=== PATIENT | female | born 1960 | race American Indian/Alaskan Native ===

== ENCOUNTER 2017-05-11 12:08 | Inpatient (IN) | payer OTHER ==
[2017-05-11] MEDS ORDERED: NACL 0.9% 500 ML 500 ML IV ONE (12:51)
--- NOTE | 2017-05-11 13:18 | XRay Report ---
PORTABLE CHEST INDICATION: Weakness. Evaluate for pneumonia. COMPARISON: None similar at this institution. FINDINGS: Portable, frontal chest radiograph demonstrates limited inspiration with mild exaggerated cardiomediastinal silhouette. Clear lungs. No pleural effusions or CHF. Right hemidiaphragm slightly elevated. EKG leads. Intact bones. CONCLUSION: No acute chest process, as described. Thank you for the opportunity to participate in this patient's care.
[2017-05-11 13:21] LABS: Basophils # (Auto) 0.1 K/mm3 (0.0-0.1); Basophils % (Auto) 2.1 % (0.0-1.8); Eosinophils # (Auto) 0.1 K/mm3 (0.0-0.4); Eosinophils % (Auto) 2.8 % (0.0-4.3); Hematocrit 40.7 % (30.3-42.9); Hemoglobin 13.3 gm/dl (10.1-14.3); Lymphocytes # (Auto) 1.1 K/mm3 (1.2-5.4); Lymphocytes % (Auto) 37.7 % (13.4-35.0); Mean Corpuscular HGB Conc 33 % (30-34); Mean Corpuscular Hemoglobin 30 pg (28-32); Mean Corpuscular Volume 92 fl (79-97); Monocytes # (Auto) 0.4 K/mm3 (0.0-0.8); Monocytes % (Auto) 14.1 % (0.0-7.3); Platelet Count 238 K/mm3 (140-440); Red Blood Count 4.41 M/mm3 (3.65-5.03); Red Cell Distribution Width 15.2 % (13.2-15.2)
[2017-05-11 13:29] LABS: INR 1.02 (0.87-1.13)
[2017-05-11 13:30] LABS: Partial Thromboplastin Time 29.8 Sec. (24.2-36.6); Thrombin Time 16.4 Sec. (15.1-19.6)
[2017-05-11 13:34] LABS: Creatine Kinase MB 1.4 ng/mL (0.0-4.0)
[2017-05-11 13:38] LABS: Alanine Aminotransferase 32 units/L (7-56); Albumin 4.1 g/dL (3.9-5); BUN/Creatinine Ratio 25; Blood Urea Nitrogen 10 mg/dL (7-17); Hemolysis Index 10
--- NOTE | 2017-05-11 13:49 | Emergency Department Report ---
ED General Adult HPI - General Chief complaint: Neuro Symptoms/Deficit Stated complaint: LEFT SIDED FACIAL DROOP Time Seen by Provider: 05/11/17 12:42 Source: EMS (ems notes not available at time of chart dictation) Mode of arrival: Stretcher Limitations: Other (patient has a history of stroke, patient does not answer any of my questions, EMS notes not available at time of dictation) - History of Present Illness Initial comments: This is a 56-year-old female with a history of stroke. She also has a history of feeding tube. She is brought to the hospital by EMS with a complaint of articulate in by EMS of "new stroke." As per verbal report from EMS tenderness , patient was found to have worsening left-sided weakness, and facial droop. Patient is nonverbal. Patient follows some commands but not all commands. Family is not currently available to provide additional history, patient will not answer questions, and cannot provide exacerbating or relieving factors. EMS verbally indicated the patient would not participate with the [place] stroke scale examination. -: unknown Radiation: other (per hpi) Severity scale (0 -10): 0 Quality: other (per hpi) Consistency: other (per hpi) Improves with: other (per hpi) Worsens with: other (per hpi) Associated Symptoms: other (per hpi) - Related Data Home Medications Medication Instructions Recorded Confirmed Last Taken Amlodipine Besylate [Norvasc] 10 mg FEEDTUBE DAILY 05/11/17 05/11/17 Unknown Labetalol [Normodyne TAB] 200 mg PO BID 05/11/17 05/11/17 Unknown Ranitidine HCl [Acid Lard Mixer] 150 mg FEEDTUBE BID 05/11/17 05/11/17 Unknown VALPROIC ACID Liq [DepaKENE Liq] 15 ml FEEDTUBE BID 05/11/17 05/11/17 Unknown hydrALAZINE [Apresoline TAB] 50 mg FEEDTUBE QID 05/11/17 05/11/17 Unknown Allergies Allergy/AdvReac Type Severity Reaction Status Date / Time No Known Allergies Allergy Unverified 05/11/17 12:27 ED Review of Systems ROS: Stated complaint: LEFT SIDED FACIAL DROOP Other details as noted in HPI Comment: Unobtainable due to pts medical conditions ED Past Medical Hx - Past Medical History Previous Medical History?: Yes Hx Hypertension: Yes Hx CVA: Yes Hx GERD: Yes - Social History Smoking Status: Never Smoker Substance Use Type: None - Medications Home Medications: Home Medications Medication Instructions Recorded Confirmed Last Taken Type Amlodipine Besylate [Norvasc] 10 mg FEEDTUBE DAILY 05/11/17 05/11/17 Unknown History Labetalol [Normodyne TAB] 200 mg PO BID 05/11/17 05/11/17 Unknown History Ranitidine HCl [Acid Lard Mixer] 150 mg FEEDTUBE BID 05/11/17 05/11/17 Unknown History VALPROIC ACID Liq [DepaKENE Liq] 15 ml FEEDTUBE BID 05/11/17 05/11/17 Unknown History hydrALAZINE [Apresoline TAB] 50 mg FEEDTUBE QID 05/11/17 05/11/17 Unknown History ED Physical Exam - General Limitations: Altered Mental Status, Other (patient nonverbal, follows some commands, but not all commands) General appearance: in no apparent distress - Head Head exam: Present: atraumatic, normocephalic - Eye Eye exam: Present: normal appearance, PERRL - ENT ENT exam: Present: mucous membranes dry - Neck Neck exam: Present: normal inspection, full ROM - Respiratory Respiratory exam: Present: normal lung sounds bilaterally. Absent: respiratory distress, wheezes, rales, rhonchi, stridor, chest wall tenderness - Cardiovascular Cardiovascular Exam: Present: regular rate, normal rhythm, normal heart sounds. Absent: bradycardia, tachycardia, irregular rhythm, systolic murmur, diastolic murmur, rubs, gallop - GI/Abdominal GI/Abdominal exam: Present: soft, normal bowel sounds, other (feeding tube is noted in the left hemiabdomen. No redness, pus or streaking). Absent: distended, tenderness, guarding, rebound, rigid, pulsatile mass - Rectal Rectal exam: Present: normal inspection (negative sacral breakdown) - Extremities Exam Extremities exam: Present: normal inspection, other (patient has bilateral upper extremities flexed. She will move them to command. She moves the bilateral lower extremities to command. Nonverbal, will not address questions about sensation) - Back Exam Back exam: Present: normal inspection. Absent: tenderness, CVA tenderness (R), paraspinal tenderness, vertebral tenderness - Neurological Exam Neurological exam: Present: altered, other (left-sided facial droop, patient nonverbal, cannot assess hearing, turns head back and forth, patient nonverbal cannot assess visual acuity, will move extremities to command, unable to access sensation) - Psychiatric Psychiatric exam: Present: normal affect, normal mood - Skin Skin exam: Present: warm, dry, intact, normal color. Absent: rash ED Course Vital Signs 05/11/17 05/11/17 05/11/17 12:15 12:27 12:28 Temperature 98.3 F 98.3 F Pulse Rate 81 82 Respiratory 14 14 14 Rate Blood Pressure 112/70 Blood Pressure 112/70 [Right] O2 Sat by Pulse 97 97 97 Oximetry 05/11/17 05/11/17 05/11/17 15:38 16:00 16:31 Temperature Pulse Rate 81 81 77 Respiratory 15 21 16 Rate Blood Pressure 113/74 123/83 Blood Pressure [Right] O2 Sat by Pulse 99 99 Oximetry 05/11/17 05/11/17 05/11/17 17:00 17:31 18:00 Temperature Pulse Rate 73 85 78 Respiratory 17 13 16 Rate Blood Pressure 121/70 140/94 140/92 Blood Pressure [Right] O2 Sat by Pulse 95 98 96 Oximetry 05/11/17 05/11/17 05/11/17 18:31 19:00 19:30 Temperature Pulse Rate 80 81 84 Respiratory 20 19 19 Rate Blood Pressure 133/106 132/89 120/82 Blood Pressure [Right] O2 Sat by Pulse 97 98 97 Oximetry - Reevaluation(s) Reevaluation #1: 05/11/17 13:51 Differential diagnosis, including but not limited to: Intracranial hemorrhage, ischemic stroke, seizure, pneumonia, urinary tract infection, electrolyte derangement Assessment and plan: Additional history obtained as patient's family is now in the ER. They endorse the patient was recently admitted to [facility] for presumed hemorrhagic stroke, had a prolonged stay in the ICU with a "shunt." Patient was discharged about a week and a half ago, nonambulatory but verbal. Patient's cousin endorses that the patient is no longer verbal, and "not acting like herself. This is constant. It has no exacerbating or relieving factors. Last known well time was yesterday. Laboratory studies, CT scan, urinalysis, EKG pending. We are attempting to obtain patient's medical records from other facility. Reevaluation #2: 05/11/17 15:35 CT scan demonstrates subacute findings, scant interventricular blood noted in the right ventricle, patient's old medical records reviewed, this is consistent with her history of known ventricular hemorrhage. Aspirin will be withheld at this time. Awaiting callback from Hospital physician. Reevaluation #3: 05/11/17 15:49 Case discussed with consult neurosurgeon, Dr. Hilary Christianson. She does recommend admission to evaluate for ischemic stroke, and further indicates that aspirin is "okay" Given that bleed is 3 weeks out. she indicates that neurosurgery at her facility can be contacted if any further questions arise. Awaiting callback from Hospital physician. Reevaluation #4: 05/11/17 16:07 Dr Iglesias, accepts patient to medical service ED Medical Decision Making - Lab Data Result diagrams: 05/12/17 05:44 05/12/17 05:44 Vital Signs 05/11/17 05/11/17 05/11/17 12:15 12:27 12:28 Temperature 98.3 F 98.3 F Pulse Rate 81 82 Respiratory 14 14 14 Rate Blood Pressure 112/70 Blood Pressure 112/70 [Right] O2 Sat by Pulse 97 97 97 Oximetry Labs 05/11/17 05/11/17 05/11/17 12:56 12:56 12:56 WBC 3.0 L RBC 4.41 Hgb 13.3 Hct 40.7 MCV 92 MCH 30 MCHC 33 RDW 15.2 Plt Count 238 Lymph % (Auto) 37.7 H [place] % (Auto) 14.1 H Eos % (Auto) 2.8 Baso % (Auto) 2.1 H Lymph # 1.1 L [place] # 0.4 Eos # 0.1 Baso # 0.1 Seg Neutrophils % 43.3 Seg Neutrophils # 1.3 L PT 13.9 INR 1.02 APTT 29.8 Thrombin Time 16.4 Sodium 140 Potassium 4.4 Chloride 100.5 Carbon Dioxide 25 Anion Gap 19 BUN 10 Creatinine 0.4 L Estimated GFR > 60 BUN/Creatinine Ratio 25 Glucose 101 H Calcium 10.0 Total Bilirubin 0.20 AST 28 ALT 32 Alkaline Phosphatase 54 Total Creatine Kinase 64 CK-MB (CK-2) 1.4 CK-MB (CK-2) Rel Index 2.1 Troponin T < 0.010 Total Protein 7.0 Albumin 4.1 Albumin/Globulin Ratio 1.4 Valproic Acid 05/11/17 12:56 WBC RBC Hgb Hct MCV MCH MCHC RDW Plt Count Lymph % (Auto) [place] % (Auto) Eos % (Auto) Baso % (Auto) Lymph # [place] # Eos # Baso # Seg Neutrophils % Seg Neutrophils # PT INR APTT Thrombin Time Sodium Potassium Chloride Carbon Dioxide Anion Gap BUN Creatinine Estimated GFR BUN/Creatinine Ratio Glucose Calcium Total Bilirubin AST ALT Alkaline Phosphatase Total Creatine Kinase CK-MB (CK-2) CK-MB (CK-2) Rel Index Troponin T Total Protein Albumin Albumin/Globulin Ratio Valproic Acid 79.7 - EKG Data -: EKG Interpreted by Me EKG shows normal: sinus rhythm Rate: normal - EKG Data When compared to previous EKG there are: previous EKG unavailable - Radiology Data Radiology results: report reviewed, image reviewed X-ray of the chest is negative for acute disease Critical care attestation.: If time is entered above; I have spent that time in minutes in the direct care of this critically ill patient, excluding procedure time. ED Disposition Clinical Impression: Aphasia Disposition: [id number] OP ADMIT IP TO THIS HOSP Is pt being admited?: Yes Does the pt Need Aspirin: Yes Condition: Stable
[2017-05-11 14:31] LABS: Bilirubin,Urine NEG (Negative); Blood,Urine NEG (Negative); Color,Urine Yellow (Yellow); Mucus,Urine FEW /HPF; Nitrite,Urine NEG (Negative); Protein,Urine <15 mg/dL mg/dL (Negative); Urobilinogen,Urine < 2.0 mg/dL (<2.0)
--- NOTE | 2017-05-11 15:16 | Cat Scan Report ---
CT HEAD WITHOUT CONTRAST: HISTORY: Stroke. Serial contiguous axial images were obtained through the cranium. Intravenous contrast material was not administered. No comparison. A 2.5 cm area of diminished attenuation is identified in the right thalamus. This appears to represent a subacute infarct. There is a small amount of slightly hyperintense material in the right lateral ventricle which appears to represent subacute blood. No acute hemorrhage is appreciated. Chronic infarct in the right occipital lobe measures up to 5.7 x 2.5 cm. 1 cm chronic lacunar infarct in the right josh is also noted. There are mild nonspecific chronic white matter changes bilaterally. Ventricular size is borderline. An early hydrocephalus could be considered. The paranasal sinuses and mastoid air cells are clear. IMPRESSION: Apparent subacute to early chronic right thalamic infarct measuring 2.5 cm with a small amount of intraventricular blood which also appears subacute. Please correlate with the patient's clinical presentation and history. Chronic infarcts in the right occipital lobe and right josh. Chronic white matter changes. These findings were discussed with Dr. Mari in the emergency department at 1512 hrs.
[2017-05-11] MEDS ORDERED: BABY ASPIRIN FEEDTUBE ONE (15:50)
--- NOTE | 2017-05-11 17:08 | History and Physical Report ---
History of Present Illness Date of examination: 05/11/17 Date of admission: 05/11/17 Chief complaint: Cc L sided weakness History of present illness: - History of Present Illness Initial comments: T 56-year-old female AAF with a history of stroke and feeding tube brought to the hospital by EMS with a complaint of of "new stroke." As per verbal report from EMS patient was found to have worsening left-sided weakness, and facial droop. Patient is nonverbal. Patient follows some commands but not all commands. Family is not currently available to provide additional history, patient will not answer questions, and cannot provide exacerbating or relieving factors. EMS verbally indicated the patient would not participate with the [place] stroke scale examination. Past Medical History Previous Medical History?: Yes Hx Hypertension: Yes Hx CVA: Yes Hx GERD: Yes - Social History Smoking Status: Never Smoker Substance Use Type: None Surg Hx Peg tube placement - Medications Home Medications: Home Medications Medication Instructions Recorded Confirmed Last Taken Type Amlodipine Besylate [Norvasc] 10 mg FEEDTUBE DAILY 05/11/17 05/11/17 Unknown History Labetalol [Normodyne TAB] 200 mg PO BID 05/11/17 05/11/17 Unknown History Ranitidine HCl [Acid Milk Pickup Driver] 150 mg FEEDTUBE BID 05/11/17 05/11/17 Unknown History VALPROIC ACID Liq [DepaKENE Liq] 15 ml FEEDTUBE BID 05/11/17 05/11/17 Unknown History hydrALAZINE [Apresoline TAB] 50 mg FEEDTUBE QID 05/11/17 05/11/17 Unknown History Past History Past Medical History: GERD, seizures, stroke Past Surgical History: Other (peg tube) Social history: denies: smoking, alcohol abuse Medications and Allergies Allergies Allergy/AdvReac Type Severity Reaction Status Date / Time No Known Allergies Allergy Unverified 05/11/17 12:27 Home Medications Medication Instructions Recorded Confirmed Last Taken Type Amlodipine Besylate [Norvasc] 10 mg FEEDTUBE DAILY 05/11/17 05/11/17 Unknown History Labetalol [Normodyne TAB] 200 mg PO BID 05/11/17 05/11/17 Unknown History Ranitidine HCl [Acid Milk Pickup Driver] 150 mg FEEDTUBE BID 05/11/17 05/11/17 Unknown History VALPROIC ACID Liq [DepaKENE Liq] 15 ml FEEDTUBE BID 05/11/17 05/11/17 Unknown History hydrALAZINE [Apresoline TAB] 50 mg FEEDTUBE QID 05/11/17 05/11/17 Unknown History Review of Systems All systems: negative Constitutional: no weight loss, no weight gain, no fever, no chills, no sweats, no night sweats Ears, nose, mouth and throat: no sore throat, no swelling in mouth, no swelling in throat, no odynophagia Breasts: deferred Cardiovascular: no chest pain, no orthopnea, no palpitations, no rapid/ irregular heart beat, no edema, no syncope, no lightheadedness, no shortness of breath Respiratory: no cough, no cough with sputum, no excessive sputum, no hemoptysis , no shortness of breath, no dyspnea on exertion Gastrointestinal: no abdominal pain, no nausea, no vomiting, no diarrhea, no constipation, no change in bowel habits, no hematemesis, no coffee ground emesis Genitourinary Female: no menorrhagia, no dysuria, no urinary frequency, no urgency Musculoskeletal: no neck stiffness, no neck pain, no shooting arm pain Integumentary: no rash, no pruritis, no redness, no sores, no wounds, no jaundice, no boils, no blisters Neurological: no seizures, no syncope Psychiatric: no anxiety, no memory loss, no change in sleep habits, no sleep disturbances Endocrine: no cold intolerance, no heat intolerance Hematologic/Lymphatic: no easy bruising, no easy bleeding Allergic/Immunologic: no urticaria, no allergic rhinitis, no wheezing Exam - Constitutional Vitals: Temp Pulse Resp BP Pulse Ox 98.3 F 77 16 123/83 99 05/11/17 12:27 05/11/17 16:31 05/11/17 16:31 05/11/17 16:31 05/11/17 16:00 General appearance: Present: no acute distress, well-nourished - EENT Eyes: Present: PERRL ENT: hearing intact, clear oral mucosa - Neck Neck: Present: supple, normal ROM - Respiratory Respiratory effort: normal Respiratory: bilateral: CTA - Cardiovascular Heart rate: 80 Heart Sounds: Present: S1 & S2. Absent: rub, click - Extremities Extremities: pulses symmetrical, No edema Peripheral Pulses: within normal limits - Abdominal General gastrointestinal: Present: soft, non-tender, non-distended, normal bowel sounds Female genitourinary: Present: normal - Rectal Rectal Exam: deferred - Integumentary Integumentary: Present: clear, warm, dry - Musculoskeletal Musculoskeletal: generalized weakness - Psychiatric Psychiatric: appropriate mood/affect, intact judgment & insight - Neurologic Neurologic: focal deficits, moves all extremities - Allied Health Allied health notes reviewed: nursing, case management Results - Labs CBC & Chem 7: 05/12/17 05:44 05/12/17 05:44 Labs: Laboratory Last Values WBC 3.0 K/mm3 (4.5-11.0) L 05/11/17 12:56 RBC 4.41 M/mm3 (3.65-5.03) 05/11/17 12:56 Hgb 13.3 gm/dl (10.1-14.3) 05/11/17 12:56 Hct 40.7 % (30.3-42.9) 05/11/17 12:56 MCV 92 fl (79-97) 05/11/17 12:56 MCH 30 pg (28-32) 05/11/17 12:56 MCHC 33 % (30-34) 05/11/17 12:56 RDW 15.2 % (13.2-15.2) 05/11/17 12:56 Plt Count 238 K/mm3 (140-440) 05/11/17 12:56 Lymph % (Auto) 37.7 % (13.4-35.0) H 05/11/17 12:56 [place] % (Auto) 14.1 % (0.0-7.3) H 05/11/17 12:56 Eos % (Auto) 2.8 % (0.0-4.3) 05/11/17 12:56 Baso % (Auto) 2.1 % (0.0-1.8) H 05/11/17 12:56 Lymph # 1.1 K/mm3 (1.2-5.4) L 05/11/17 12:56 [place] # 0.4 K/mm3 (0.0-0.8) 05/11/17 12:56 Eos # 0.1 K/mm3 (0.0-0.4) 05/11/17 12:56 Baso # 0.1 K/mm3 (0.0-0.1) 05/11/17 12:56 Seg Neutrophils % 43.3 % (40.0-70.0) 05/11/17 12:56 Seg Neutrophils # 1.3 K/mm3 (1.8-7.7) L 05/11/17 12:56 PT 13.9 Sec. (12.2-14.9) 05/11/17 12:56 INR 1.02 (0.87-1.13) 05/11/17 12:56 APTT 29.8 Sec. (24.2-36.6) 05/11/17 12:56 Thrombin Time 16.4 Sec. (15.1-19.6) 05/11/17 12:56 Sodium 140 mmol/L (137-145) 05/11/17 12:56 Potassium 4.4 mmol/L (3.6-5.0) 05/11/17 12:56 Chloride 100.5 mmol/L (98-107) 05/11/17 12:56 Carbon Dioxide 25 mmol/L (22-30) 05/11/17 12:56 Anion Gap 19 mmol/L 05/11/17 12:56 BUN 10 mg/dL (7-17) 05/11/17 12:56 Creatinine 0.4 mg/dL (0.7-1.2) L 05/11/17 12:56 Estimated GFR > 60 ml/min 05/11/17 12:56 BUN/Creatinine Ratio 25 % 05/11/17 12:56 Glucose 101 mg/dL (65-100) H 05/11/17 12:56 Calcium 10.0 mg/dL (8.4-10.2) 05/11/17 12:56 Total Bilirubin 0.20 mg/dL (0.1-1.2) 05/11/17 12:56 AST 28 units/L (5-40) 05/11/17 12:56 ALT 32 units/L (7-56) 05/11/17 12:56 Alkaline Phosphatase 54 units/L (35-129) 05/11/17 12:56 Total Creatine Kinase 64 units/L (30-135) 05/11/17 12:56 CK-MB (CK-2) 1.4 ng/mL (0.0-4.0) 05/11/17 12:56 CK-MB (CK-2) Rel Index 2.1 (0-4) 05/11/17 12:56 Troponin T < 0.010 ng/mL (0.00-0.029) 05/11/17 12:56 Total Protein 7.0 g/dL (6.3-8.2) 05/11/17 12:56 Albumin 4.1 g/dL (3.9-5) 05/11/17 12:56 Albumin/Globulin Ratio 1.4 % 05/11/17 12:56 Urine Color Yellow (Yellow) 05/11/17 14:09 Urine Turbidity Clear (Clear) 05/11/17 14:09 Urine pH 6.0 (5.0-7.0) 05/11/17 14:09 Ur Specific [place] 1.016 (1.003-1.030) 05/11/17 14:09 Urine Protein <15 mg/dl mg/dL (Negative) 05/11/17 14:09 Urine Glucose (UA) Neg mg/dL (Negative) 05/11/17 14:09 Urine Ketones Tr mg/dL (Negative) 05/11/17 14:09 Urine Blood Neg (Negative) 05/11/17 14:09 Urine Nitrite Neg (Negative) 05/11/17 14:09 Urine Bilirubin Neg (Negative) 05/11/17 14:09 Urine Urobilinogen < 2.0 mg/dL (<2.0) 05/11/17 14:09 Ur Leukocyte Esterase Neg (Negative) 05/11/17 14:09 Urine WBC (Auto) 2.0 /HPF (0.0-6.0) 05/11/17 14:09 Urine RBC (Auto) 3.0 /HPF (0.0-6.0) 05/11/17 14:09 U Epithel Cells (Auto) < 1.0 /HPF (0-13.0) 05/11/17 14:09 Urine Mucus Few /HPF 05/11/17 14:09 Valproic Acid 79.7 ug/mL (50-100) 05/11/17 12:56 - Imaging and Cardiology EKG: report reviewed Chest x-ray: report reviewed Assessment and Plan Advance Directives: Yes (full code) VTE prophylaxis?: Chemical Plan of care discussed with patient/family: Yes - Patient Problems (1) Acute CVA (cerebrovascular accident) Current Visit: Yes Status: Acute Plan to address problem: New Lsided weakness. Stroke w/u Patient is bedbound Neuro consult (2) HTN (hypertension) Current Visit: Yes Status: Chronic Qualifiers: Hypertension type: essential hypertension Qualified Code(s): I10 - Essential (primary) hypertension Plan to address problem: Cont Labetolol amlodipine and Hydralazine (3) GERD (gastroesophageal reflux disease) Current Visit: Yes Status: Chronic Qualifiers: Esophagitis presence: without esophagitis Qualified Code(s): K21.9 - Gastro -esophageal reflux disease without esophagitis Plan to address problem: Cont Ranitidine (4) Seizure disorder Current Visit: Yes Status: Chronic Plan to address problem: Cont valproic acid (5) DVT prophylaxis Current Visit: Yes Status: Acute Plan to address problem: on Lovenox
[2017-05-11] MEDS ORDERED: D5/0.45NS 1,000 ML IV SCH (18:00)
[2017-05-11] MEDS ORDERED: BABY ASPIRIN ONE (19:42)
[2017-05-11] MEDS ORDERED: TYLENOL PO PRN (21:18)
[2017-05-11] MEDS ORDERED: DULCOLAX PR PRN (21:18)
[2017-05-11] MEDS ORDERED: ZOFRAN IV PRN (21:18)
[2017-05-11] MEDS ORDERED: MILK OF MAGNESIA PO PRN (21:18)
[2017-05-11] MEDS ORDERED: SODIUM CHLORIDE FLUSH SYRINGE 10 ML IV PRN (21:20)
[2017-05-12] MEDS: D5NS 1,000 ML IV SCH ×2 (01:58→11:59)
[2017-05-12 06:56] LABS: Hematocrit 38.7 % (30.3-42.9); Hemoglobin 13.1 gm/dl (10.1-14.3); Mean Corpuscular HGB Conc 34 % (30-34); Mean Corpuscular Hemoglobin 31 pg (28-32); Mean Corpuscular Volume 92 fl (79-97); Platelet Count 227 K/mm3 (140-440); Red Blood Count 4.19 M/mm3 (3.65-5.03); Red Cell Distribution Width 15.3 % (13.2-15.2)
[2017-05-12 07:19] LABS: Alanine Aminotransferase 28 units/L (7-56); Albumin 3.8 g/dL (3.9-5); BUN/Creatinine Ratio 30; Blood Urea Nitrogen 12 mg/dL (7-17); Calcium 9.8 mg/dL (8.4-10.2); Chol/HDL Ratio 4.91 %; HDL Cholesterol 35 mg/dL (40-59); Hemolysis Index 37; LDL Cholesterol,Direct 115 mg/dL (50-130)
[2017-05-12 09:57] LABS: Basophils % (Manual) 0 % (0.0-1.8); Total Cells Counted 100
[2017-05-12 09:58] LABS: Platelet Clumps Few
[2017-05-12 09:59] LABS: Platelet Estimate Cons; RBC Morphology Normal
[2017-05-12] MEDS ORDERED: SODIUM BICARBONATE FEEDTUBE PRN (14:58)
[2017-05-12] MEDS ORDERED: SIMPLE SYRUP FEEDTUBE PRN ×2 (14:58)
[2017-05-12] MEDS ORDERED: PANCREAZE DR 10,500 UNIT FEEDTUBE PRN (14:58)
--- NOTE | 2017-05-12 15:49 | Progress Note ---
Assessment and Plan Assessment and plan: 56 yo AAF which recent stroke, with residual left-sided weakness, aphagia, dysphagia status post PEG, brought to the hospital for "worsening weakness", patient being bedbound 1. CVA CT head showing subacute to early chronic right thalamic infarct, small about of internal ventricular blood, chronic infarct right occipital lobe/right josh MRI ordered to assess for new infarct Residual left-sided weakness, bedbound, aphasic, dysphagic s/p PEG Start antiplatelet therapy and statin PT 2. SZ Continue valproic acid 3. HTN Permissive hypertension until new stroke excluded Monitor BP 4. GERD On PPI 5. Hyperlipidemia Lipid profile check, LDL 115 Start statin 6. Leukopenia Possible side effect of antiepileptic medication Monitor 7. Dispo client program manager consulted as family is asking for placement; she was just discharged home from [place] after having a massive stroke that left her bedbound History Interval history: awake, nonverbal, in no distress Hospitalist Physical - Constitutional Vitals: Temp Pulse Resp BP Pulse Ox 98.0 F 81 20 134/88 96 05/12/17 03:32 05/12/17 04:00 05/12/17 03:32 05/12/17 03:32 05/12/17 14:02 General appearance: Present: no acute distress, well-nourished - EENT Eyes: Present: PERRL, EOM intact - Neck Neck: Present: supple. Absent: enlarged thyroid, masses or JVD - Respiratory Respiratory effort: normal Respiratory: bilateral: CTA, negative: rales, rhonchi - Cardiovascular Rhythm: regular Heart Sounds: Present: S1 & S2. Absent: systolic murmur - Extremities Extremities: no ischemia - Abdominal General gastrointestinal: soft, non-tender, non-distended, normal bowel sounds, other (PEG) - Psychiatric Psychiatric: other (nonverbal, nods head occasionally) - Neurologic Neurologic: other (left-sided hemiplegia) Results - Labs CBC & Chem 7: 05/15/17 04:00 05/12/17 05:44 Labs: Laboratory Last Values WBC 2.9 K/mm3 (4.5-11.0) L 05/12/17 05:44 RBC 4.19 M/mm3 (3.65-5.03) 05/12/17 05:44 Hgb 13.1 gm/dl (10.1-14.3) 05/12/17 05:44 Hct 38.7 % (30.3-42.9) 05/12/17 05:44 MCV 92 fl (79-97) 05/12/17 05:44 MCH 31 pg (28-32) 05/12/17 05:44 MCHC 34 % (30-34) 05/12/17 05:44 RDW 15.3 % (13.2-15.2) H 05/12/17 05:44 Plt Count 227 K/mm3 (140-440) 05/12/17 05:44 Lymph % (Auto) 37.7 % (13.4-35.0) H 05/11/17 12:56 [place] % (Auto) 14.1 % (0.0-7.3) H 05/11/17 12:56 Eos % (Auto) 2.8 % (0.0-4.3) 05/11/17 12:56 Baso % (Auto) 2.1 % (0.0-1.8) H 05/11/17 12:56 Lymph # 1.1 K/mm3 (1.2-5.4) L 05/11/17 12:56 [place] # 0.4 K/mm3 (0.0-0.8) 05/11/17 12:56 Eos # 0.1 K/mm3 (0.0-0.4) 05/11/17 12:56 Baso # 0.1 K/mm3 (0.0-0.1) 05/11/17 12:56 Add Manual Diff Complete 05/12/17 05:44 Total Counted 100 05/12/17 05:44 Seg Neutrophils % Material Expeditor 05/12/17 05:44 Seg Neuts % (Manual) 46.0 % (40.0-70.0) 05/12/17 05:44 Band Neutrophils % 0 % 05/12/17 05:44 Lymphocytes % (Manual) 39.0 % (13.4-35.0) H 05/12/17 05:44 Reactive Lymphs % (Man) 0 % 05/12/17 05:44 Monocytes % (Manual) 12.0 % (0.0-7.3) H 05/12/17 05:44 Eosinophils % (Manual) 3.0 % (0.0-4.3) 05/12/17 05:44 Basophils % (Manual) 0 % (0.0-1.8) 05/12/17 05:44 Metamyelocytes % 0 % 05/12/17 05:44 Myelocytes % 0 % 05/12/17 05:44 Promyelocytes % 0 % 05/12/17 05:44 Blast Cells % 0 % 05/12/17 05:44 Nucleated RBC % Not Reportable 05/12/17 05:44 Seg Neutrophils # 1.3 K/mm3 (1.8-7.7) L 05/11/17 12:56 Seg Neutrophils # Man 1.3 K/mm3 (1.8-7.7) L 05/12/17 05:44 Band Neutrophils # 0.0 K/mm3 05/12/17 05:44 Lymphocytes # (Manual) 1.1 K/mm3 (1.2-5.4) L 05/12/17 05:44 Abs React Lymphs (Man) 0.0 K/mm3 05/12/17 05:44 Monocytes # (Manual) 0.3 K/mm3 (0.0-0.8) 05/12/17 05:44 Eosinophils # (Manual) 0.1 K/mm3 (0.0-0.4) 05/12/17 05:44 Basophils # (Manual) 0.0 K/mm3 (0.0-0.1) 05/12/17 05:44 Metamyelocytes # 0.0 K/mm3 05/12/17 05:44 Myelocytes # 0.0 K/mm3 05/12/17 05:44 Promyelocytes # 0.0 K/mm3 05/12/17 05:44 Blast Cells # 0.0 K/mm3 05/12/17 05:44 WBC Morphology Not Reportable 05/12/17 05:44 Hypersegmented Neuts Not Reportable 05/12/17 05:44 Hyposegmented Neuts Not Reportable 05/12/17 05:44 Hypogranular Neuts Not Reportable 05/12/17 05:44 Smudge Cells Not Reportable 05/12/17 05:44 Toxic Granulation Not Reportable 05/12/17 05:44 Toxic Vacuolation Not Reportable 05/12/17 05:44 Dohle Bodies Not Reportable 05/12/17 05:44 Pelger-Huet Anomaly Not Reportable 05/12/17 05:44 Shelly Rods Not Reportable 05/12/17 05:44 Platelet Estimate Cons 05/12/17 05:44 Clumped Platelets Few 05/12/17 05:44 Plt Clumps, EDTA Not Reportable 05/12/17 05:44 Large Platelets Not Reportable 05/12/17 05:44 Giant Platelets Not Reportable 05/12/17 05:44 Platelet Satelliting Not Reportable 05/12/17 05:44 Plt Morphology Comment Not Reportable 05/12/17 05:44 RBC Morphology Normal 05/12/17 05:44 Dimorphic RBCs Not Reportable 05/12/17 05:44 Polychromasia Not Reportable 05/12/17 05:44 Hypochromasia Not Reportable 05/12/17 05:44 Poikilocytosis Not Reportable 05/12/17 05:44 Anisocytosis Not Reportable 05/12/17 05:44 Microcytosis Not Reportable 05/12/17 05:44 Macrocytosis Not Reportable 05/12/17 05:44 Spherocytes Not Reportable 05/12/17 05:44 Pappenheimer Bodies Not Reportable 05/12/17 05:44 Sickle Cells Not Reportable 05/12/17 05:44 Target Cells Not Reportable 05/12/17 05:44 Tear Drop Cells Not Reportable 05/12/17 05:44 Ovalocytes Not Reportable 05/12/17 05:44 Helmet Cells Not Reportable 05/12/17 05:44 [place] Bodies Not Reportable 05/12/17 05:44 [place] Rings Not Reportable 05/12/17 05:44 [place] Cells Not Reportable 05/12/17 05:44 Bite Cells Not Reportable 05/12/17 05:44 Crenated Cell Not Reportable 05/12/17 05:44 Elliptocytes Not Reportable 05/12/17 05:44 Acanthocytes (Spur) Not Reportable 05/12/17 05:44 Rouleaux Not Reportable 05/12/17 05:44 Hemoglobin C Crystals Not Reportable 05/12/17 05:44 Schistocytes Not Reportable 05/12/17 05:44 Malaria parasites Not Reportable 05/12/17 05:44 Wander Bodies Not Reportable 05/12/17 05:44 Hem Pathologist Commnt No 05/12/17 05:44 PT 13.9 Sec. (12.2-14.9) 05/11/17 12:56 INR 1.02 (0.87-1.13) 05/11/17 12:56 APTT 29.8 Sec. (24.2-36.6) 05/11/17 12:56 Thrombin Time 16.4 Sec. (15.1-19.6) 05/11/17 12:56 Sodium 144 mmol/L (137-145) 05/12/17 05:44 Potassium 4.3 mmol/L (3.6-5.0) 05/12/17 05:44 Chloride 103.0 mmol/L (98-107) 05/12/17 05:44 Carbon Dioxide 28 mmol/L (22-30) 05/12/17 05:44 Anion Gap 17 mmol/L 05/12/17 05:44 BUN 12 mg/dL (7-17) 05/12/17 05:44 Creatinine 0.4 mg/dL (0.7-1.2) L 05/12/17 05:44 Estimated GFR > 60 ml/min 05/12/17 05:44 BUN/Creatinine Ratio 30 % 05/12/17 05:44 Glucose 86 mg/dL (65-100) 05/12/17 05:44 Hemoglobin A1c 5.7 % (4-6) 05/11/17 12:56 Calcium 9.8 mg/dL (8.4-10.2) 05/12/17 05:44 Total Bilirubin 0.30 mg/dL (0.1-1.2) 05/12/17 05:44 AST 27 units/L (5-40) 05/12/17 05:44 ALT 28 units/L (7-56) 05/12/17 05:44 Alkaline Phosphatase 52 units/L (35-129) 05/12/17 05:44 Total Creatine Kinase 64 units/L (30-135) 05/11/17 12:56 CK-MB (CK-2) 1.4 ng/mL (0.0-4.0) 05/11/17 12:56 CK-MB (CK-2) Rel Index 2.1 (0-4) 05/11/17 12:56 Troponin T < 0.010 ng/mL (0.00-0.029) 05/11/17 12:56 Total Protein 6.5 g/dL (6.3-8.2) 05/12/17 05:44 Albumin 3.8 g/dL (3.9-5) L 05/12/17 05:44 Albumin/Globulin Ratio 1.4 % 05/12/17 05:44 Triglycerides 113 mg/dL (2-149) 05/12/17 05:44 Cholesterol 172 mg/dL (50-199) 05/12/17 05:44 LDL Cholesterol Direct 115 mg/dL (50-130) 05/12/17 05:44 HDL Cholesterol 35 mg/dL (40-59) L 05/12/17 05:44 Cholesterol/HDL Ratio 4.91 % 05/12/17 05:44 Urine Color Yellow (Yellow) 05/11/17 14:09 Urine Turbidity Clear (Clear) 05/11/17 14:09 Urine pH 6.0 (5.0-7.0) 05/11/17 14:09 Ur Specific [place] 1.016 (1.003-1.030) 05/11/17 14:09 Urine Protein <15 mg/dl mg/dL (Negative) 05/11/17 14:09 Urine Glucose (UA) Neg mg/dL (Negative) 05/11/17 14:09 Urine Ketones Tr mg/dL (Negative) 05/11/17 14:09 Urine Blood Neg (Negative) 05/11/17 14:09 Urine Nitrite Neg (Negative) 05/11/17 14:09 Urine Bilirubin Neg (Negative) 05/11/17 14:09 Urine Urobilinogen < 2.0 mg/dL (<2.0) 05/11/17 14:09 Ur Leukocyte Esterase Neg (Negative) 05/11/17 14:09 Urine WBC (Auto) 2.0 /HPF (0.0-6.0) 05/11/17 14:09 Urine RBC (Auto) 3.0 /HPF (0.0-6.0) 05/11/17 14:09 U Epithel Cells (Auto) < 1.0 /HPF (0-13.0) 05/11/17 14:09 Urine Mucus Few /HPF 05/11/17 14:09 Valproic Acid 79.7 ug/mL (50-100) 05/11/17 12:56 - Imaging and Cardiology CT Scan - head: report reviewed MRI - head: pending
[2017-05-13] MEDS: NORVASC FEEDTUBE SCH (14:51)
[2017-05-13] MEDS: DepaKENE Liq FEEDTUBE SCH ×2 (14:51→22:06)
[2017-05-13] MEDS: BABY ASPIRIN PO SCH (14:51)
--- NOTE | 2017-05-13 19:21 | Progress Note ---
Assessment and Plan Assessment and plan: 56 yo AAF which recent stroke, with residual left-sided weakness, aphagia, dysphagia status post PEG, brought to the hospital for "worsening weakness", patient being bedbound 1. CVA CT head showing subacute to early chronic right thalamic infarct, small about of internal ventricular blood, chronic infarct right occipital lobe/right josh With residual left-sided weakness, bedbound, aphasic, dysphagic s/p PEG Started on antiplatelet therapy and statin PT 2. SZ Continue valproic acid 3. HTN No new stroke Start amlodipine and monitor BP 4. GERD On PPI 5. Hyperlipidemia Lipid profile check, LDL 115 Started on statin 6. Leukopenia Possible side effect of antiepileptic medication Monitor 7. Dispo manager business process consulted as family is asking for placement; she was just discharged home from [place] after having a massive stroke that left her bedbound ; family unable to care for her History Interval history: no events, no change; nonverbal no family at bedside Hospitalist Physical - Constitutional Vitals: Temp Pulse Resp BP Pulse Ox 99.1 F 87 18 159/90 98 05/13/17 15:43 05/13/17 15:43 05/13/17 15:43 05/13/17 15:43 05/13/17 15:43 General appearance: Present: no acute distress - EENT Eyes: Present: PERRL - Neck Neck: Present: supple. Absent: enlarged thyroid, masses or JVD - Respiratory Respiratory effort: normal Respiratory: bilateral: CTA, negative: rales, rhonchi - Cardiovascular Rhythm: regular Heart Sounds: Present: S1 & S2. Absent: systolic murmur - Extremities Extremities: no ischemia - Abdominal General gastrointestinal: soft, non-tender, non-distended, normal bowel sounds, other (PEG) - Psychiatric Psychiatric: other (nonverbal) - Neurologic Neurologic: other (left-sided hemiplegia, aphasia) Results - Labs CBC & Chem 7: 05/15/17 04:00 05/12/17 05:44 Labs: Laboratory Last Values WBC 2.9 K/mm3 (4.5-11.0) L 05/12/17 05:44 RBC 4.19 M/mm3 (3.65-5.03) 05/12/17 05:44 Hgb 13.1 gm/dl (10.1-14.3) 05/12/17 05:44 Hct 38.7 % (30.3-42.9) 05/12/17 05:44 MCV 92 fl (79-97) 05/12/17 05:44 MCH 31 pg (28-32) 05/12/17 05:44 MCHC 34 % (30-34) 05/12/17 05:44 RDW 15.3 % (13.2-15.2) H 05/12/17 05:44 Plt Count 227 K/mm3 (140-440) 05/12/17 05:44 Lymph % (Auto) 37.7 % (13.4-35.0) H 05/11/17 12:56 [place] % (Auto) 14.1 % (0.0-7.3) H 05/11/17 12:56 Eos % (Auto) 2.8 % (0.0-4.3) 05/11/17 12:56 Baso % (Auto) 2.1 % (0.0-1.8) H 05/11/17 12:56 Lymph # 1.1 K/mm3 (1.2-5.4) L 05/11/17 12:56 [place] # 0.4 K/mm3 (0.0-0.8) 05/11/17 12:56 Eos # 0.1 K/mm3 (0.0-0.4) 05/11/17 12:56 Baso # 0.1 K/mm3 (0.0-0.1) 05/11/17 12:56 Add Manual Diff Complete 05/12/17 05:44 Total Counted 100 05/12/17 05:44 Seg Neutrophils % Frame Hand 05/12/17 05:44 Seg Neuts % (Manual) 46.0 % (40.0-70.0) 05/12/17 05:44 Band Neutrophils % 0 % 05/12/17 05:44 Lymphocytes % (Manual) 39.0 % (13.4-35.0) H 05/12/17 05:44 Reactive Lymphs % (Man) 0 % 05/12/17 05:44 Monocytes % (Manual) 12.0 % (0.0-7.3) H 05/12/17 05:44 Eosinophils % (Manual) 3.0 % (0.0-4.3) 05/12/17 05:44 Basophils % (Manual) 0 % (0.0-1.8) 05/12/17 05:44 Metamyelocytes % 0 % 05/12/17 05:44 Myelocytes % 0 % 05/12/17 05:44 Promyelocytes % 0 % 05/12/17 05:44 Blast Cells % 0 % 05/12/17 05:44 Nucleated RBC % Not Reportable 05/12/17 05:44 Seg Neutrophils # 1.3 K/mm3 (1.8-7.7) L 05/11/17 12:56 Seg Neutrophils # Man 1.3 K/mm3 (1.8-7.7) L 05/12/17 05:44 Band Neutrophils # 0.0 K/mm3 05/12/17 05:44 Lymphocytes # (Manual) 1.1 K/mm3 (1.2-5.4) L 05/12/17 05:44 Abs React Lymphs (Man) 0.0 K/mm3 05/12/17 05:44 Monocytes # (Manual) 0.3 K/mm3 (0.0-0.8) 05/12/17 05:44 Eosinophils # (Manual) 0.1 K/mm3 (0.0-0.4) 05/12/17 05:44 Basophils # (Manual) 0.0 K/mm3 (0.0-0.1) 05/12/17 05:44 Metamyelocytes # 0.0 K/mm3 05/12/17 05:44 Myelocytes # 0.0 K/mm3 05/12/17 05:44 Promyelocytes # 0.0 K/mm3 05/12/17 05:44 Blast Cells # 0.0 K/mm3 05/12/17 05:44 WBC Morphology Not Reportable 05/12/17 05:44 Hypersegmented Neuts Not Reportable 05/12/17 05:44 Hyposegmented Neuts Not Reportable 05/12/17 05:44 Hypogranular Neuts Not Reportable 05/12/17 05:44 Smudge Cells Not Reportable 05/12/17 05:44 Toxic Granulation Not Reportable 05/12/17 05:44 Toxic Vacuolation Not Reportable 05/12/17 05:44 Dohle Bodies Not Reportable 05/12/17 05:44 Pelger-Huet Anomaly Not Reportable 05/12/17 05:44 Shelly Rods Not Reportable 05/12/17 05:44 Platelet Estimate Cons 05/12/17 05:44 Clumped Platelets Few 05/12/17 05:44 Plt Clumps, EDTA Not Reportable 05/12/17 05:44 Large Platelets Not Reportable 05/12/17 05:44 Giant Platelets Not Reportable 05/12/17 05:44 Platelet Satelliting Not Reportable 05/12/17 05:44 Plt Morphology Comment Not Reportable 05/12/17 05:44 RBC Morphology Normal 05/12/17 05:44 Dimorphic RBCs Not Reportable 05/12/17 05:44 Polychromasia Not Reportable 05/12/17 05:44 Hypochromasia Not Reportable 05/12/17 05:44 Poikilocytosis Not Reportable 05/12/17 05:44 Anisocytosis Not Reportable 05/12/17 05:44 Microcytosis Not Reportable 05/12/17 05:44 Macrocytosis Not Reportable 05/12/17 05:44 Spherocytes Not Reportable 05/12/17 05:44 Pappenheimer Bodies Not Reportable 05/12/17 05:44 Sickle Cells Not Reportable 05/12/17 05:44 Target Cells Not Reportable 05/12/17 05:44 Tear Drop Cells Not Reportable 05/12/17 05:44 Ovalocytes Not Reportable 05/12/17 05:44 Helmet Cells Not Reportable 05/12/17 05:44 [place] Bodies Not Reportable 05/12/17 05:44 [place] Rings Not Reportable 05/12/17 05:44 [place] Cells Not Reportable 05/12/17 05:44 Bite Cells Not Reportable 05/12/17 05:44 Crenated Cell Not Reportable 05/12/17 05:44 Elliptocytes Not Reportable 05/12/17 05:44 Acanthocytes (Spur) Not Reportable 05/12/17 05:44 Rouleaux Not Reportable 05/12/17 05:44 Hemoglobin C Crystals Not Reportable 05/12/17 05:44 Schistocytes Not Reportable 05/12/17 05:44 Malaria parasites Not Reportable 05/12/17 05:44 Wander Bodies Not Reportable 05/12/17 05:44 Hem Pathologist Commnt No 05/12/17 05:44 PT 13.9 Sec. (12.2-14.9) 05/11/17 12:56 INR 1.02 (0.87-1.13) 05/11/17 12:56 APTT 29.8 Sec. (24.2-36.6) 05/11/17 12:56 Thrombin Time 16.4 Sec. (15.1-19.6) 05/11/17 12:56 Sodium 144 mmol/L (137-145) 05/12/17 05:44 Potassium 4.3 mmol/L (3.6-5.0) 05/12/17 05:44 Chloride 103.0 mmol/L (98-107) 05/12/17 05:44 Carbon Dioxide 28 mmol/L (22-30) 05/12/17 05:44 Anion Gap 17 mmol/L 05/12/17 05:44 BUN 12 mg/dL (7-17) 05/12/17 05:44 Creatinine 0.4 mg/dL (0.7-1.2) L 05/12/17 05:44 Estimated GFR > 60 ml/min 05/12/17 05:44 BUN/Creatinine Ratio 30 % 05/12/17 05:44 Glucose 86 mg/dL (65-100) 05/12/17 05:44 POC Glucose 125 (70-105) H 05/13/17 16:43 Hemoglobin A1c 5.7 % (4-6) 05/11/17 12:56 Calcium 9.8 mg/dL (8.4-10.2) 05/12/17 05:44 Total Bilirubin 0.30 mg/dL (0.1-1.2) 05/12/17 05:44 AST 27 units/L (5-40) 05/12/17 05:44 ALT 28 units/L (7-56) 05/12/17 05:44 Alkaline Phosphatase 52 units/L (35-129) 05/12/17 05:44 Total Creatine Kinase 64 units/L (30-135) 05/11/17 12:56 CK-MB (CK-2) 1.4 ng/mL (0.0-4.0) 05/11/17 12:56 CK-MB (CK-2) Rel Index 2.1 (0-4) 05/11/17 12:56 Troponin T < 0.010 ng/mL (0.00-0.029) 05/11/17 12:56 Total Protein 6.5 g/dL (6.3-8.2) 05/12/17 05:44 Albumin 3.8 g/dL (3.9-5) L 05/12/17 05:44 Albumin/Globulin Ratio 1.4 % 05/12/17 05:44 Triglycerides 113 mg/dL (2-149) 05/12/17 05:44 Cholesterol 172 mg/dL (50-199) 05/12/17 05:44 LDL Cholesterol Direct 115 mg/dL (50-130) 05/12/17 05:44 HDL Cholesterol 35 mg/dL (40-59) L 05/12/17 05:44 Cholesterol/HDL Ratio 4.91 % 05/12/17 05:44 Urine Color Yellow (Yellow) 05/11/17 14:09 Urine Turbidity Clear (Clear) 05/11/17 14:09 Urine pH 6.0 (5.0-7.0) 05/11/17 14:09 Ur Specific [place] 1.016 (1.003-1.030) 05/11/17 14:09 Urine Protein <15 mg/dl mg/dL (Negative) 05/11/17 14:09 Urine Glucose (UA) Neg mg/dL (Negative) 05/11/17 14:09 Urine Ketones Tr mg/dL (Negative) 05/11/17 14:09 Urine Blood Neg (Negative) 05/11/17 14:09 Urine Nitrite Neg (Negative) 05/11/17 14:09 Urine Bilirubin Neg (Negative) 05/11/17 14:09 Urine Urobilinogen < 2.0 mg/dL (<2.0) 05/11/17 14:09 Ur Leukocyte Esterase Neg (Negative) 05/11/17 14:09 Urine WBC (Auto) 2.0 /HPF (0.0-6.0) 05/11/17 14:09 Urine RBC (Auto) 3.0 /HPF (0.0-6.0) 05/11/17 14:09 U Epithel Cells (Auto) < 1.0 /HPF (0-13.0) 05/11/17 14:09 Urine Mucus Few /HPF 05/11/17 14:09 Valproic Acid 79.7 ug/mL (50-100) 05/11/17 12:56
[2017-05-13] MEDS ORDERED: APRESOLINE IV PRN (19:22)
[2017-05-13] MEDS ORDERED: NON-FORMULARY (Ranitidine Hcl [Acid Reducer] 150 MG) FEEDTUBE SCH (22:00)
[2017-05-13] MEDS: PEPCID FEEDTUBE SCH (22:07)
[2017-05-14] MEDS: NORVASC FEEDTUBE SCH (10:19)
[2017-05-14] MEDS: BABY ASPIRIN PO SCH (10:19)
[2017-05-14] MEDS: PEPCID FEEDTUBE SCH ×2 (10:20→22:56)
[2017-05-14] MEDS: DepaKENE Liq FEEDTUBE SCH ×2 (10:30→22:56)
[2017-05-14] MEDS ORDERED: SODIUM BICARBONATE FEEDTUBE PRN (16:46)
[2017-05-14] MEDS ORDERED: PANCREAZE DR 10,500 UNIT FEEDTUBE PRN (16:46)
[2017-05-14] MEDS ORDERED: SIMPLE SYRUP FEEDTUBE PRN ×2 (16:46→16:49)
--- NOTE | 2017-05-14 20:37 | Progress Note ---
Assessment and Plan Assessment and plan: 56 yo AAF which recent stroke, with residual left-sided weakness, aphagia, dysphagia status post PEG, brought to the hospital for "worsening weakness", patient being bedbound 1. CVA CT head showing subacute to early chronic right thalamic infarct, small about of internal ventricular blood, chronic infarct right occipital lobe/right josh With residual left-sided weakness, bedbound, aphasic, dysphagic s/p PEG Started on antiplatelet therapy and statin PT 2. SZ Continue valproic acid 3. HTN No new stroke Start amlodipine and monitor BP 4. GERD On PPI 5. Hyperlipidemia Lipid profile check, LDL 115 Started on statin 6. 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 Absent: enlarged thyroid, masses or JVD - Respiratory Respiratory effort: normal Respiratory: bilateral: CTA, negative: rhonchi, wheezing - Cardiovascular Rhythm: regular Heart Sounds: Present: S1 & S2. Absent: systolic murmur - Extremities Extremities: no ischemia - Abdominal General gastrointestinal: soft, non-tender, non-distended, normal bowel sounds, other (PEG) - Psychiatric Psychiatric: other (nonverbal) - Neurologic Neurologic: other (left hemiplegia, aphasia) Results - Labs CBC & Chem 7: 05/15/17 04:00 05/12/17 05:44 Labs: Laboratory Last Values WBC 2.9 K/mm3 (4.5-11.0) L 05/12/17 05:44 RBC 4.19 M/mm3 (3.65-5.03) 05/12/17 05:44 Hgb 13.1 gm/dl (10.1-14.3) 05/12/17 05:44 Hct 38.7 % (30.3-42.9) 05/12/17 05:44 MCV 92 fl (79-97) 05/12/17 05:44 MCH 31 pg (28-32) 05/12/17 05:44 MCHC 34 % (30-34) 05/12/17 05:44 RDW 15.3 % (13.2-15.2) H 05/12/17 05:44 Plt Count 227 K/mm3 (140-440) 05/12/17 05:44 Lymph % (Auto) 37.7 % (13.4-35.0) H 05/11/17 12:56 [place] % (Auto) 14.1 % (0.0-7.3) H 05/11/17 12:56 Eos % (Auto) 2.8 % (0.0-4.3) 05/11/17 12:56 Baso % (Auto) 2.1 % (0.0-1.8) H 05/11/17 12:56 Lymph # 1.1 K/mm3 (1.2-5.4) L 05/11/17 12:56 [place] # 0.4 K/mm3 (0.0-0.8) 05/11/17 12:56 Eos # 0.1 K/mm3 (0.0-0.4) 05/11/17 12:56 Baso # 0.1 K/mm3 (0.0-0.1) 05/11/17 12:56 Add Manual Diff Complete 05/12/17 05:44 Total Counted 100 05/12/17 05:44 Seg Neutrophils % Director Speech 05/12/17 05:44 Seg Neuts % (Manual) 46.0 % (40.0-70.0) 05/12/17 05:44 Band Neutrophils % 0 % 05/12/17 05:44 Lymphocytes % (Manual) 39.0 % (13.4-35.0) H 05/12/17 05:44 Reactive Lymphs % (Man) 0 % 05/12/17 05:44 Monocytes % (Manual) 12.0 % (0.0-7.3) H 05/12/17 05:44 Eosinophils % (Manual) 3.0 % (0.0-4.3) 05/12/17 05:44 Basophils % (Manual) 0 % (0.0-1.8) 05/12/17 05:44 Metamyelocytes % 0 % 05/12/17 05:44 Myelocytes % 0 % 05/12/17 05:44 Promyelocytes % 0 % 05/12/17 05:44 Blast Cells % 0 % 05/12/17 05:44 Nucleated RBC % Not Reportable 05/12/17 05:44 Seg Neutrophils # 1.3 K/mm3 (1.8-7.7) L 05/11/17 12:56 Seg Neutrophils # Man 1.3 K/mm3 (1.8-7.7) L 05/12/17 05:44 Band Neutrophils # 0.0 K/mm3 05/12/17 05:44 Lymphocytes # (Manual) 1.1 K/mm3 (1.2-5.4) L 05/12/17 05:44 Abs React Lymphs (Man) 0.0 K/mm3 05/12/17 05:44 Monocytes # (Manual) 0.3 K/mm3 (0.0-0.8) 05/12/17 05:44 Eosinophils # (Manual) 0.1 K/mm3 (0.0-0.4) 05/12/17 05:44 Basophils # (Manual) 0.0 K/mm3 (0.0-0.1) 05/12/17 05:44 Metamyelocytes # 0.0 K/mm3 05/12/17 05:44 Myelocytes # 0.0 K/mm3 05/12/17 05:44 Promyelocytes # 0.0 K/mm3 05/12/17 05:44 Blast Cells # 0.0 K/mm3 05/12/17 05:44 WBC Morphology Not Reportable 05/12/17 05:44 Hypersegmented Neuts Not Reportable 05/12/17 05:44 Hyposegmented Neuts Not Reportable 05/12/17 05:44 Hypogranular Neuts Not Reportable 05/12/17 05:44 Smudge Cells Not Reportable 05/12/17 05:44 Toxic Granulation Not Reportable 05/12/17 05:44 Toxic Vacuolation Not Reportable 05/12/17 05:44 Dohle Bodies Not Reportable 05/12/17 05:44 Pelger-Huet Anomaly Not Reportable 05/12/17 05:44 Shelly Rods Not Reportable 05/12/17 05:44 Platelet Estimate Cons 05/12/17 05:44 Clumped Platelets Few 05/12/17 05:44 Plt Clumps, EDTA Not Reportable 05/12/17 05:44 Large Platelets Not Reportable 05/12/17 05:44 Giant Platelets Not Reportable 05/12/17 05:44 Platelet Satelliting Not Reportable 05/12/17 05:44 Plt Morphology Comment Not Reportable 05/12/17 05:44 RBC Morphology Normal 05/12/17 05:44 Dimorphic RBCs Not Reportable 05/12/17 05:44 Polychromasia Not Reportable 05/12/17 05:44 Hypochromasia Not Reportable 05/12/17 05:44 Poikilocytosis Not Reportable 05/12/17 05:44 Anisocytosis Not Reportable 05/12/17 05:44 Microcytosis Not Reportable 05/12/17 05:44 Macrocytosis Not Reportable 05/12/17 05:44 Spherocytes Not Reportable 05/12/17 05:44 Pappenheimer Bodies Not Reportable 05/12/17 05:44 Sickle Cells Not Reportable 05/12/17 05:44 Target Cells Not Reportable 05/12/17 05:44 Tear Drop Cells Not Reportable 05/12/17 05:44 Ovalocytes Not Reportable 05/12/17 05:44 Helmet Cells Not Reportable 05/12/17 05:44 [place] Bodies Not Reportable 05/12/17 05:44 [place] Rings Not Reportable 05/12/17 05:44 [place] Cells Not Reportable 05/12/17 05:44 Bite Cells Not Reportable 05/12/17 05:44 Crenated Cell Not Reportable 05/12/17 05:44 Elliptocytes Not Reportable 05/12/17 05:44 Acanthocytes (Spur) Not Reportable 05/12/17 05:44 Rouleaux Not Reportable 05/12/17 05:44 Hemoglobin C Crystals Not Reportable 05/12/17 05:44 Schistocytes Not Reportable 05/12/17 05:44 Malaria parasites Not Reportable 05/12/17 05:44 Wander Bodies Not Reportable 05/12/17 05:44 Hem Pathologist Commnt No 05/12/17 05:44 PT 13.9 Sec. (12.2-14.9) 05/11/17 12:56 INR 1.02 (0.87-1.13) 05/11/17 12:56 APTT 29.8 Sec. (24.2-36.6) 05/11/17 12:56 Thrombin Time 16.4 Sec. (15.1-19.6) 05/11/17 12:56 Sodium 144 mmol/L (137-145) 05/12/17 05:44 Potassium 4.3 mmol/L (3.6-5.0) 05/12/17 05:44 Chloride 103.0 mmol/L (98-107) 05/12/17 05:44 Carbon Dioxide 28 mmol/L (22-30) 05/12/17 05:44 Anion Gap 17 mmol/L 05/12/17 05:44 BUN 12 mg/dL (7-17) 05/12/17 05:44 Creatinine 0.4 mg/dL (0.7-1.2) L 05/12/17 05:44 Estimated GFR > 60 ml/min 05/12/17 05:44 BUN/Creatinine Ratio 30 % 05/12/17 05:44 Glucose 86 mg/dL (65-100) 05/12/17 05:44 POC Glucose 112 (70-105) H 05/13/17 22:44 Hemoglobin A1c 5.7 % (4-6) 05/11/17 12:56 Calcium 9.8 mg/dL (8.4-10.2) 05/12/17 05:44 Total Bilirubin 0.30 mg/dL (0.1-1.2) 05/12/17 05:44 AST 27 units/L (5-40) 05/12/17 05:44 ALT 28 units/L (7-56) 05/12/17 05:44 Alkaline Phosphatase 52 units/L (35-129) 05/12/17 05:44 Total Creatine Kinase 64 units/L (30-135) 05/11/17 12:56 CK-MB (CK-2) 1.4 ng/mL (0.0-4.0) 05/11/17 12:56 CK-MB (CK-2) Rel Index 2.1 (0-4) 05/11/17 12:56 Troponin T < 0.010 ng/mL (0.00-0.029) 05/11/17 12:56 Total Protein 6.5 g/dL (6.3-8.2) 05/12/17 05:44 Albumin 3.8 g/dL (3.9-5) L 05/12/17 05:44 Albumin/Globulin Ratio 1.4 % 05/12/17 05:44 Triglycerides 113 mg/dL (2-149) 05/12/17 05:44 Cholesterol 172 mg/dL (50-199) 05/12/17 05:44 LDL Cholesterol Direct 115 mg/dL (50-130) 05/12/17 05:44 HDL Cholesterol 35 mg/dL (40-59) L 05/12/17 05:44 Cholesterol/HDL Ratio 4.91 % 05/12/17 05:44 Urine Color Yellow (Yellow) 05/11/17 14:09 Urine Turbidity Clear (Clear) 05/11/17 14:09 Urine pH 6.0 (5.0-7.0) 05/11/17 14:09 Ur Specific [place] 1.016 (1.003-1.030) 05/11/17 14:09 Urine Protein <15 mg/dl mg/dL (Negative) 05/11/17 14:09 Urine Glucose (UA) Neg mg/dL (Negative) 05/11/17 14:09 Urine Ketones Tr mg/dL (Negative) 05/11/17 14:09 Urine Blood Neg (Negative) 05/11/17 14:09 Urine Nitrite Neg (Negative) 05/11/17 14:09 Urine Bilirubin Neg (Negative) 05/11/17 14:09 Urine Urobilinogen < 2.0 mg/dL (<2.0) 05/11/17 14:09 Ur Leukocyte Esterase Neg (Negative) 05/11/17 14:09 Urine WBC (Auto) 2.0 /HPF (0.0-6.0) 05/11/17 14:09 Urine RBC (Auto) 3.0 /HPF (0.0-6.0) 05/11/17 14:09 U Epithel Cells (Auto) < 1.0 /HPF (0-13.0) 05/11/17 14:09 Urine Mucus Few /HPF 05/11/17 14:09 Valproic Acid 79.7 ug/mL (50-100) 05/11/17 12:56
[2017-05-15 05:23] LABS: Basophils # (Auto) 0.1 K/mm3 (0.0-0.1); Basophils % (Auto) 1.1 % (0.0-1.8); Eosinophils # (Auto) 0.1 K/mm3 (0.0-0.4); Eosinophils % (Auto) 1.7 % (0.0-4.3); Hematocrit 36.7 % (30.3-42.9); Hemoglobin 12.7 gm/dl (10.1-14.3); Lymphocytes # (Auto) 1.5 K/mm3 (1.2-5.4); Lymphocytes % (Auto) 22.9 % (13.4-35.0); Mean Corpuscular HGB Conc 35 % (30-34); Mean Corpuscular Hemoglobin 32 pg (28-32); Mean Corpuscular Volume 91 fl (79-97); Monocytes # (Auto) 0.8 K/mm3 (0.0-0.8); Monocytes % (Auto) 11.8 % (0.0-7.3); Platelet Count 218 K/mm3 (140-440); Red Blood Count 4.03 M/mm3 (3.65-5.03); Red Cell Distribution Width 14.6 % (13.2-15.2)
[2017-05-15] MEDS: NORVASC FEEDTUBE SCH (10:26)
[2017-05-15] MEDS: PEPCID FEEDTUBE SCH ×2 (10:26→23:08)
[2017-05-15] MEDS: DepaKENE Liq FEEDTUBE SCH ×2 (10:26→23:07)
[2017-05-15] MEDS: BABY ASPIRIN PO SCH (10:27)
--- NOTE | 2017-05-15 21:04 | Progress Note ---
Assessment and Plan Assessment and plan: 56 yo AAF which recent stroke, with residual left-sided weakness, aphagia, dysphagia status post PEG, brought to the hospital for "worsening weakness", patient being bedbound 1. CVA CT head showing subacute to early chronic right thalamic infarct, small about of internal ventricular blood, chronic infarct right occipital lobe/right josh With residual left-sided weakness, bedbound, aphasic, dysphagic s/p PEG Started on antiplatelet therapy and statin PT 2. SZ Continue valproic acid 3. HTN No new stroke Started on amlodipine; monitor BP 4. GERD On PPI 5. Hyperlipidemia Lipid profile checked, LDL 115 Started on statin 6. 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 Absent: masses or JVD - Respiratory Respiratory effort: normal Respiratory: bilateral: CTA, negative: rales, rhonchi - Cardiovascular Rhythm: regular Heart Sounds: Present: S1 & S2. Absent: systolic murmur - Extremities Extremities: no ischemia - Abdominal General gastrointestinal: soft, non-tender, non-distended, normal bowel sounds, other (PEG) - Psychiatric Psychiatric: other (nonverbal) - Neurologic Neurologic: other (left hemiplegia, aphasia) Results - Labs CBC & Chem 7: 05/15/17 04:00 05/12/17 05:44 Labs: Laboratory Last Values WBC 6.5 K/mm3 (4.5-11.0) 05/15/17 04:00 RBC 4.03 M/mm3 (3.65-5.03) 05/15/17 04:00 Hgb 12.7 gm/dl (10.1-14.3) 05/15/17 04:00 Hct 36.7 % (30.3-42.9) 05/15/17 04:00 MCV 91 fl (79-97) 05/15/17 04:00 MCH 32 pg (28-32) 05/15/17 04:00 MCHC 35 % (30-34) H 05/15/17 04:00 RDW 14.6 % (13.2-15.2) 05/15/17 04:00 Plt Count 218 K/mm3 (140-440) 05/15/17 04:00 Lymph % (Auto) 22.9 % (13.4-35.0) 05/15/17 04:00 [place] % (Auto) 11.8 % (0.0-7.3) H 05/15/17 04:00 Eos % (Auto) 1.7 % (0.0-4.3) 05/15/17 04:00 Baso % (Auto) 1.1 % (0.0-1.8) 05/15/17 04:00 Lymph # 1.5 K/mm3 (1.2-5.4) 05/15/17 04:00 [place] # 0.8 K/mm3 (0.0-0.8) 05/15/17 04:00 Eos # 0.1 K/mm3 (0.0-0.4) 05/15/17 04:00 Baso # 0.1 K/mm3 (0.0-0.1) 05/15/17 04:00 Add Manual Diff Complete 05/12/17 05:44 Total Counted 100 05/12/17 05:44 Seg Neutrophils % 62.5 % (40.0-70.0) 05/15/17 04:00 Seg Neuts % (Manual) 46.0 % (40.0-70.0) 05/12/17 05:44 Band Neutrophils % 0 % 05/12/17 05:44 Lymphocytes % (Manual) 39.0 % (13.4-35.0) H 05/12/17 05:44 Reactive Lymphs % (Man) 0 % 05/12/17 05:44 Monocytes % (Manual) 12.0 % (0.0-7.3) H 05/12/17 05:44 Eosinophils % (Manual) 3.0 % (0.0-4.3) 05/12/17 05:44 Basophils % (Manual) 0 % (0.0-1.8) 05/12/17 05:44 Metamyelocytes % 0 % 05/12/17 05:44 Myelocytes % 0 % 05/12/17 05:44 Promyelocytes % 0 % 05/12/17 05:44 Blast Cells % 0 % 05/12/17 05:44 Nucleated RBC % Not Reportable 05/12/17 05:44 Seg Neutrophils # 4.1 K/mm3 (1.8-7.7) 05/15/17 04:00 Seg Neutrophils # Man 1.3 K/mm3 (1.8-7.7) L 05/12/17 05:44 Band Neutrophils # 0.0 K/mm3 05/12/17 05:44 Lymphocytes # (Manual) 1.1 K/mm3 (1.2-5.4) L 05/12/17 05:44 Abs React Lymphs (Man) 0.0 K/mm3 05/12/17 05:44 Monocytes # (Manual) 0.3 K/mm3 (0.0-0.8) 05/12/17 05:44 Eosinophils # (Manual) 0.1 K/mm3 (0.0-0.4) 05/12/17 05:44 Basophils # (Manual) 0.0 K/mm3 (0.0-0.1) 05/12/17 05:44 Metamyelocytes # 0.0 K/mm3 05/12/17 05:44 Myelocytes # 0.0 K/mm3 05/12/17 05:44 Promyelocytes # 0.0 K/mm3 05/12/17 05:44 Blast Cells # 0.0 K/mm3 05/12/17 05:44 WBC Morphology Not Reportable 05/12/17 05:44 Hypersegmented Neuts Not Reportable 05/12/17 05:44 Hyposegmented Neuts Not Reportable 05/12/17 05:44 Hypogranular Neuts Not Reportable 05/12/17 05:44 Smudge Cells Not Reportable 05/12/17 05:44 Toxic Granulation Not Reportable 05/12/17 05:44 Toxic Vacuolation Not Reportable 05/12/17 05:44 Dohle Bodies Not Reportable 05/12/17 05:44 Pelger-Huet Anomaly Not Reportable 05/12/17 05:44 Shelly Rods Not Reportable 05/12/17 05:44 Platelet Estimate Cons 05/12/17 05:44 Clumped Platelets Few 05/12/17 05:44 Plt Clumps, EDTA Not Reportable 05/12/17 05:44 Large Platelets Not Reportable 05/12/17 05:44 Giant Platelets Not Reportable 05/12/17 05:44 Platelet Satelliting Not Reportable 05/12/17 05:44 Plt Morphology Comment Not Reportable 05/12/17 05:44 RBC Morphology Normal 05/12/17 05:44 Dimorphic RBCs Not Reportable 05/12/17 05:44 Polychromasia Not Reportable 05/12/17 05:44 Hypochromasia Not Reportable 05/12/17 05:44 Poikilocytosis Not Reportable 05/12/17 05:44 Anisocytosis Not Reportable 05/12/17 05:44 Microcytosis Not Reportable 05/12/17 05:44 Macrocytosis Not Reportable 05/12/17 05:44 Spherocytes Not Reportable 05/12/17 05:44 Pappenheimer Bodies Not Reportable 05/12/17 05:44 Sickle Cells Not Reportable 05/12/17 05:44 Target Cells Not Reportable 05/12/17 05:44 Tear Drop Cells Not Reportable 05/12/17 05:44 Ovalocytes Not Reportable 05/12/17 05:44 Helmet Cells Not Reportable 05/12/17 05:44 [place] Bodies Not Reportable 05/12/17 05:44 [place] Rings Not Reportable 05/12/17 05:44 [place] Cells Not Reportable 05/12/17 05:44 Bite Cells Not Reportable 05/12/17 05:44 Crenated Cell Not Reportable 05/12/17 05:44 Elliptocytes Not Reportable 05/12/17 05:44 Acanthocytes (Spur) Not Reportable 05/12/17 05:44 Rouleaux Not Reportable 05/12/17 05:44 Hemoglobin C Crystals Not Reportable 05/12/17 05:44 Schistocytes Not Reportable 05/12/17 05:44 Malaria parasites Not Reportable 05/12/17 05:44 [place]ander Bodies Not Reportable 05/12/17 05:44 Hem Pathologist Commnt No 05/12/17 05:44 PT 13.9 Sec. (12.2-14.9) 05/11/17 12:56 INR 1.02 (0.87-1.13) 05/11/17 12:56 APTT 29.8 Sec. (24.2-36.6) 05/11/17 12:56 Thrombin Time 16.4 Sec. (15.1-19.6) 05/11/17 12:56 Sodium 144 mmol/L (137-145) 05/12/17 05:44 Potassium 4.3 mmol/L (3.6-5.0) 05/12/17 05:44 Chloride 103.0 mmol/L (98-107) 05/12/17 05:44 Carbon Dioxide 28 mmol/L (22-30) 05/12/17 05:44 Anion Gap 17 mmol/L 05/12/17 05:44 BUN 12 mg/dL (7-17) 05/12/17 05:44 Creatinine 0.4 mg/dL (0.7-1.2) L 05/12/17 05:44 Estimated GFR > 60 ml/min 05/12/17 05:44 BUN/Creatinine Ratio 30 % 05/12/17 05:44 Glucose 86 mg/dL (65-100) 05/12/17 05:44 POC Glucose 87 (70-105) 05/15/17 17:37 Hemoglobin A1c 5.7 % (4-6) 05/11/17 12:56 Calcium 9.8 mg/dL (8.4-10.2) 05/12/17 05:44 Total Bilirubin 0.30 mg/dL (0.1-1.2) 05/12/17 05:44 AST 27 units/L (5-40) 05/12/17 05:44 ALT 28 units/L (7-56) 05/12/17 05:44 Alkaline Phosphatase 52 units/L (35-129) 05/12/17 05:44 Total Creatine Kinase 64 units/L (30-135) 05/11/17 12:56 CK-MB (CK-2) 1.4 ng/mL (0.0-4.0) 05/11/17 12:56 CK-MB (CK-2) Rel Index 2.1 (0-4) 05/11/17 12:56 Troponin T < 0.010 ng/mL (0.00-0.029) 05/11/17 12:56 Total Protein 6.5 g/dL (6.3-8.2) 05/12/17 05:44 Albumin 3.8 g/dL (3.9-5) L 05/12/17 05:44 Albumin/Globulin Ratio 1.4 % 05/12/17 05:44 Triglycerides 113 mg/dL (2-149) 05/12/17 05:44 Cholesterol 172 mg/dL (50-199) 05/12/17 05:44 LDL Cholesterol Direct 115 mg/dL (50-130) 05/12/17 05:44 HDL Cholesterol 35 mg/dL (40-59) L 05/12/17 05:44 Cholesterol/HDL Ratio 4.91 % 05/12/17 05:44 Urine Color Yellow (Yellow) 05/11/17 14:09 Urine Turbidity Clear (Clear) 05/11/17 14:09 Urine pH 6.0 (5.0-7.0) 05/11/17 14:09 Ur Specific [place] 1.016 (1.003-1.030) 05/11/17 14:09 Urine Protein <15 mg/dl mg/dL (Negative) 05/11/17 14:09 Urine Glucose (UA) Neg mg/dL (Negative) 05/11/17 14:09 Urine Ketones Tr mg/dL (Negative) 05/11/17 14:09 Urine Blood Neg (Negative) 05/11/17 14:09 Urine Nitrite Neg (Negative) 05/11/17 14:09 Urine Bilirubin Neg (Negative) 05/11/17 14:09 Urine Urobilinogen < 2.0 mg/dL (<2.0) 05/11/17 14:09 Ur Leukocyte Esterase Neg (Negative) 05/11/17 14:09 Urine WBC (Auto) 2.0 /HPF (0.0-6.0) 05/11/17 14:09 Urine RBC (Auto) 3.0 /HPF (0.0-6.0) 05/11/17 14:09 U Epithel Cells (Auto) < 1.0 /HPF (0-13.0) 05/11/17 14:09 Urine Mucus Few /HPF 05/11/17 14:09 Valproic Acid 79.7 ug/mL (50-100) 05/11/17 12:56
[2017-05-16] MEDS: DepaKENE Liq FEEDTUBE SCH ×2 (09:33→23:51)
[2017-05-16] MEDS: PEPCID FEEDTUBE SCH ×2 (09:34→23:52)
[2017-05-16] MEDS: NORVASC FEEDTUBE SCH (09:34)
[2017-05-16] MEDS: BABY ASPIRIN PO SCH (09:34)
--- NOTE | 2017-05-16 12:17 | Progress Note ---
Assessment and Plan Assessment and plan: --Acute CVA /left-sided weakness Physical therapy occupational therapy, rehabilitation Speech therapy, continue antiplatelets and statin --Dysphagia ;Status post PEG; continue PEG feeds and supportive care for -- History of seizures; continue seizure precautions antiepileptic medications --HTN; stable on antihypertensives -- GERD ; continue PPIs --Dyslipidemia; on statin -- Leukopenia; resolved -- Disposition; SNF placement --DC planning per case management Patient's condition treatment plan discussed in detail with the patient's mother and other family members All their questions and concerns addressed History Interval history: Patient seen and examined Noncommunicative, looks chronically ill Vital signs reviewed Hospitalist Physical - Constitutional Vitals: Temp Pulse Resp BP Pulse Ox 98.1 F 83 18 131/82 97 05/16/17 07:56 05/16/17 07:56 05/16/17 07:56 05/16/17 07:56 05/16/17 07:56 General appearance: Present: no acute distress, cachectic - EENT Eyes: Present: PERRL, EOM intact - Neck Neck: Present: supple, normal ROM - Respiratory Respiratory effort: normal Respiratory: bilateral: diminished, rhonchi, negative: rales, wheezing - Cardiovascular Rhythm: regular Heart Sounds: Present: S1 & S2 - Extremities Extremities: no ischemia, No edema Extremity abnormal: edema, other (contracted) - Abdominal General gastrointestinal: soft, non-tender, non-distended, normal bowel sounds - Integumentary Integumentary: Present: clear, warm - Psychiatric Psychiatric: other (noncommunicative) - Neurologic Neurologic: other (noncommunicative) Results - Labs CBC & Chem 7: 05/15/17 04:00 05/12/17 05:44 Labs: Laboratory Last Values WBC 6.5 K/mm3 (4.5-11.0) 05/15/17 04:00 RBC 4.03 M/mm3 (3.65-5.03) 05/15/17 04:00 Hgb 12.7 gm/dl (10.1-14.3) 05/15/17 04:00 Hct 36.7 % (30.3-42.9) 05/15/17 04:00 MCV 91 fl (79-97) 05/15/17 04:00 MCH 32 pg (28-32) 05/15/17 04:00 MCHC 35 % (30-34) H 05/15/17 04:00 RDW 14.6 % (13.2-15.2) 05/15/17 04:00 Plt Count 218 K/mm3 (140-440) 05/15/17 04:00 Lymph % (Auto) 22.9 % (13.4-35.0) 05/15/17 04:00 [place] % (Auto) 11.8 % (0.0-7.3) H 05/15/17 04:00 Eos % (Auto) 1.7 % (0.0-4.3) 05/15/17 04:00 Baso % (Auto) 1.1 % (0.0-1.8) 05/15/17 04:00 Lymph # 1.5 K/mm3 (1.2-5.4) 05/15/17 04:00 [place] # 0.8 K/mm3 (0.0-0.8) 05/15/17 04:00 Eos # 0.1 K/mm3 (0.0-0.4) 05/15/17 04:00 Baso # 0.1 K/mm3 (0.0-0.1) 05/15/17 04:00 Add Manual Diff Complete 05/12/17 05:44 Total Counted 100 05/12/17 05:44 Seg Neutrophils % 62.5 % (40.0-70.0) 05/15/17 04:00 Seg Neuts % (Manual) 46.0 % (40.0-70.0) 05/12/17 05:44 Band Neutrophils % 0 % 05/12/17 05:44 Lymphocytes % (Manual) 39.0 % (13.4-35.0) H 05/12/17 05:44 Reactive Lymphs % (Man) 0 % 05/12/17 05:44 Monocytes % (Manual) 12.0 % (0.0-7.3) H 05/12/17 05:44 Eosinophils % (Manual) 3.0 % (0.0-4.3) 05/12/17 05:44 Basophils % (Manual) 0 % (0.0-1.8) 05/12/17 05:44 Metamyelocytes % 0 % 05/12/17 05:44 Myelocytes % 0 % 05/12/17 05:44 Promyelocytes % 0 % 05/12/17 05:44 Blast Cells % 0 % 05/12/17 05:44 Nucleated RBC % Not Reportable 05/12/17 05:44 Seg Neutrophils # 4.1 K/mm3 (1.8-7.7) 05/15/17 04:00 Seg Neutrophils # Man 1.3 K/mm3 (1.8-7.7) L 05/12/17 05:44 Band Neutrophils # 0.0 K/mm3 05/12/17 05:44 Lymphocytes # (Manual) 1.1 K/mm3 (1.2-5.4) L 05/12/17 05:44 Abs React Lymphs (Man) 0.0 K/mm3 05/12/17 05:44 Monocytes # (Manual) 0.3 K/mm3 (0.0-0.8) 05/12/17 05:44 Eosinophils # (Manual) 0.1 K/mm3 (0.0-0.4) 05/12/17 05:44 Basophils # (Manual) 0.0 K/mm3 (0.0-0.1) 05/12/17 05:44 Metamyelocytes # 0.0 K/mm3 05/12/17 05:44 Myelocytes # 0.0 K/mm3 05/12/17 05:44 Promyelocytes # 0.0 K/mm3 05/12/17 05:44 Blast Cells # 0.0 K/mm3 05/12/17 05:44 WBC Morphology Not Reportable 05/12/17 05:44 Hypersegmented Neuts Not Reportable 05/12/17 05:44 Hyposegmented Neuts Not Reportable 05/12/17 05:44 Hypogranular Neuts Not Reportable 05/12/17 05:44 Smudge Cells Not Reportable 05/12/17 05:44 Toxic Granulation Not Reportable 05/12/17 05:44 Toxic Vacuolation Not Reportable 05/12/17 05:44 Dohle Bodies Not Reportable 05/12/17 05:44 Pelger-Huet Anomaly Not Reportable 05/12/17 05:44 Shelly Rods Not Reportable 05/12/17 05:44 Platelet Estimate Cons 05/12/17 05:44 Clumped Platelets Few 05/12/17 05:44 Plt Clumps, EDTA Not Reportable 05/12/17 05:44 Large Platelets Not Reportable 05/12/17 05:44 Giant Platelets Not Reportable 05/12/17 05:44 Platelet Satelliting Not Reportable 05/12/17 05:44 Plt Morphology Comment Not Reportable 05/12/17 05:44 RBC Morphology Normal 05/12/17 05:44 Dimorphic RBCs Not Reportable 05/12/17 05:44 Polychromasia Not Reportable 05/12/17 05:44 Hypochromasia Not Reportable 05/12/17 05:44 Poikilocytosis Not Reportable 05/12/17 05:44 Anisocytosis Not Reportable 05/12/17 05:44 Microcytosis Not Reportable 05/12/17 05:44 Macrocytosis Not Reportable 05/12/17 05:44 Spherocytes Not Reportable 05/12/17 05:44 Pappenheimer Bodies Not Reportable 05/12/17 05:44 Sickle Cells Not Reportable 05/12/17 05:44 Target Cells Not Reportable 05/12/17 05:44 Tear Drop Cells Not Reportable 05/12/17 05:44 Ovalocytes Not Reportable 05/12/17 05:44 Helmet Cells Not Reportable 05/12/17 05:44 Cao-[place]pi[place] Bodies Not Reportable 05/12/17 05:44 [place] Rings Not Reportable 05/12/17 05:44 [place] Cells Not Reportable 05/12/17 05:44 Bite Cells Not Reportable 05/12/17 05:44 Crenated Cell Not Reportable 05/12/17 05:44 Elliptocytes Not Reportable 05/12/17 05:44 Acanthocytes (Spur) Not Reportable 05/12/17 05:44 Rouleaux Not Reportable 05/12/17 05:44 Hemoglobin C Crystals Not Reportable 05/12/17 05:44 Schistocytes Not Reportable 05/12/17 05:44 Malaria parasites Not Reportable 05/12/17 05:44 Wander Bodies Not Reportable 05/12/17 05:44 Hem Pathologist Commnt No 05/12/17 05:44 PT 13.9 Sec. (12.2-14.9) 05/11/17 12:56 INR 1.02 (0.87-1.13) 05/11/17 12:56 APTT 29.8 Sec. (24.2-36.6) 05/11/17 12:56 Thrombin Time 16.4 Sec. (15.1-19.6) 05/11/17 12:56 Sodium 144 mmol/L (137-145) 05/12/17 05:44 Potassium 4.3 mmol/L (3.6-5.0) 05/12/17 05:44 Chloride 103.0 mmol/L (98-107) 05/12/17 05:44 Carbon Dioxide 28 mmol/L (22-30) 05/12/17 05:44 Anion Gap 17 mmol/L 05/12/17 05:44 BUN 12 mg/dL (7-17) 05/12/17 05:44 Creatinine 0.4 mg/dL (0.7-1.2) L 05/12/17 05:44 Estimated GFR > 60 ml/min 05/12/17 05:44 BUN/Creatinine Ratio 30 % 05/12/17 05:44 Glucose 86 mg/dL (65-100) 05/12/17 05:44 POC Glucose 96 (70-105) 05/16/17 11:33 Hemoglobin A1c 5.7 % (4-6) 05/11/17 12:56 Calcium 9.8 mg/dL (8.4-10.2) 05/12/17 05:44 Total Bilirubin 0.30 mg/dL (0.1-1.2) 05/12/17 05:44 AST 27 units/L (5-40) 05/12/17 05:44 ALT 28 units/L (7-56) 05/12/17 05:44 Alkaline Phosphatase 52 units/L (35-129) 05/12/17 05:44 Total Creatine Kinase 64 units/L (30-135) 05/11/17 12:56 CK-MB (CK-2) 1.4 ng/mL (0.0-4.0) 05/11/17 12:56 CK-MB (CK-2) Rel Index 2.1 (0-4) 05/11/17 12:56 Troponin T < 0.010 ng/mL (0.00-0.029) 05/11/17 12:56 Total Protein 6.5 g/dL (6.3-8.2) 05/12/17 05:44 Albumin 3.8 g/dL (3.9-5) L 05/12/17 05:44 Albumin/Globulin Ratio 1.4 % 05/12/17 05:44 Triglycerides 113 mg/dL (2-149) 05/12/17 05:44 Cholesterol 172 mg/dL (50-199) 05/12/17 05:44 LDL Cholesterol Direct 115 mg/dL (50-130) 05/12/17 05:44 HDL Cholesterol 35 mg/dL (40-59) L 05/12/17 05:44 Cholesterol/HDL Ratio 4.91 % 05/12/17 05:44 Urine Color Yellow (Yellow) 05/11/17 14:09 Urine Turbidity Clear (Clear) 05/11/17 14:09 Urine pH 6.0 (5.0-7.0) 05/11/17 14:09 Ur Specific [place] 1.016 (1.003-1.030) 05/11/17 14:09 Urine Protein <15 mg/dl mg/dL (Negative) 05/11/17 14:09 Urine Glucose (UA) Neg mg/dL (Negative) 05/11/17 14:09 Urine Ketones Tr mg/dL (Negative) 05/11/17 14:09 Urine Blood Neg (Negative) 05/11/17 14:09 Urine Nitrite Neg (Negative) 05/11/17 14:09 Urine Bilirubin Neg (Negative) 05/11/17 14:09 Urine Urobilinogen < 2.0 mg/dL (<2.0) 05/11/17 14:09 Ur Leukocyte Esterase Neg (Negative) 05/11/17 14:09 Urine WBC (Auto) 2.0 /HPF (0.0-6.0) 05/11/17 14:09 Urine RBC (Auto) 3.0 /HPF (0.0-6.0) 05/11/17 14:09 U Epithel Cells (Auto) < 1.0 /HPF (0-13.0) 05/11/17 14:09 Urine Mucus Few /HPF 05/11/17 14:09 Valproic Acid 79.7 ug/mL (50-100) 05/11/17 12:56
[2017-05-17] MEDS: NORVASC FEEDTUBE SCH (09:12)
[2017-05-17] MEDS: DepaKENE Liq FEEDTUBE SCH ×2 (09:12→23:55)
[2017-05-17] MEDS: PEPCID FEEDTUBE SCH ×2 (09:12→23:55)
[2017-05-17] MEDS: BABY ASPIRIN PO SCH (09:12)
--- NOTE | 2017-05-17 19:38 | Progress Note ---
Assessment and Plan Assessment and plan: --Acute CVA /left-sided weakness Physical therapy rehabilitation, continue antiplatelets and statin --Dysphagia ;Status post PEG; continue PEG feeds and supportive care for -- History of seizures; continue seizure precautions antiepileptic medications --HTN; stable on antihypertensives -- GERD ; continue PPIs --Dyslipidemia; on statin -- Leukopenia; resolved -- Disposition; SNF placement --DC planning per case management Patient's condition treatment plan discussed in detail with the patient's significant other at the bedside Awaiting placement History Interval history: Patient seen and examined medical records reviewed No new events reported by the nursing staff Clinically stable Awaiting placement Hospitalist Physical - Constitutional Vitals: Temp Pulse Resp BP Pulse Ox 97.5 F L 92 H 20 157/97 98 05/17/17 17:21 05/17/17 17:21 05/17/17 17:21 05/17/17 17:21 05/17/17 17:21 General appearance: Present: no acute distress, cachectic - EENT Eyes: Present: PERRL, EOM intact - Neck Neck: Present: supple. Absent: enlarged thyroid - Respiratory Respiratory effort: normal Respiratory: bilateral: diminished, negative: rales, rhonchi, wheezing - Cardiovascular Rhythm: regular Heart Sounds: Present: S1 & S2 - Extremities Extremities: no ischemia, abnormal ( Contracted) - Abdominal General gastrointestinal: soft, non-tender, non-distended, normal bowel sounds, other (PEG tube in place) - Integumentary Integumentary: Present: clear, warm - Psychiatric Psychiatric: other (non communicative) - Neurologic Neurologic: other (noncommunicative) Results - Labs CBC & Chem 7: 05/15/17 04:00 05/12/17 05:44 Labs: Laboratory Last Values WBC 6.5 K/mm3 (4.5-11.0) 05/15/17 04:00 RBC 4.03 M/mm3 (3.65-5.03) 05/15/17 04:00 Hgb 12.7 gm/dl (10.1-14.3) 05/15/17 04:00 Hct 36.7 % (30.3-42.9) 05/15/17 04:00 MCV 91 fl (79-97) 05/15/17 04:00 MCH 32 pg (28-32) 05/15/17 04:00 MCHC 35 % (30-34) H 05/15/17 04:00 RDW 14.6 % (13.2-15.2) 05/15/17 04:00 Plt Count 218 K/mm3 (140-440) 05/15/17 04:00 Lymph % (Auto) 22.9 % (13.4-35.0) 05/15/17 04:00 [place] % (Auto) 11.8 % (0.0-7.3) H 05/15/17 04:00 Eos % (Auto) 1.7 % (0.0-4.3) 05/15/17 04:00 Baso % (Auto) 1.1 % (0.0-1.8) 05/15/17 04:00 Lymph # 1.5 K/mm3 (1.2-5.4) 05/15/17 04:00 [place] # 0.8 K/mm3 (0.0-0.8) 05/15/17 04:00 Eos # 0.1 K/mm3 (0.0-0.4) 05/15/17 04:00 Baso # 0.1 K/mm3 (0.0-0.1) 05/15/17 04:00 Add Manual Diff Complete 05/12/17 05:44 Total Counted 100 05/12/17 05:44 Seg Neutrophils % 62.5 % (40.0-70.0) 05/15/17 04:00 Seg Neuts % (Manual) 46.0 % (40.0-70.0) 05/12/17 05:44 Band Neutrophils % 0 % 05/12/17 05:44 Lymphocytes % (Manual) 39.0 % (13.4-35.0) H 05/12/17 05:44 Reactive Lymphs % (Man) 0 % 05/12/17 05:44 Monocytes % (Manual) 12.0 % (0.0-7.3) H 05/12/17 05:44 Eosinophils % (Manual) 3.0 % (0.0-4.3) 05/12/17 05:44 Basophils % (Manual) 0 % (0.0-1.8) 05/12/17 05:44 Metamyelocytes % 0 % 05/12/17 05:44 Myelocytes % 0 % 05/12/17 05:44 Promyelocytes % 0 % 05/12/17 05:44 Blast Cells % 0 % 05/12/17 05:44 Nucleated RBC % Not Reportable 05/12/17 05:44 Seg Neutrophils # 4.1 K/mm3 (1.8-7.7) 05/15/17 04:00 Seg Neutrophils # Man 1.3 K/mm3 (1.8-7.7) L 05/12/17 05:44 Band Neutrophils # 0.0 K/mm3 05/12/17 05:44 Lymphocytes # (Manual) 1.1 K/mm3 (1.2-5.4) L 05/12/17 05:44 Abs React Lymphs (Man) 0.0 K/mm3 05/12/17 05:44 Monocytes # (Manual) 0.3 K/mm3 (0.0-0.8) 05/12/17 05:44 Eosinophils # (Manual) 0.1 K/mm3 (0.0-0.4) 05/12/17 05:44 Basophils # (Manual) 0.0 K/mm3 (0.0-0.1) 05/12/17 05:44 Metamyelocytes # 0.0 K/mm3 05/12/17 05:44 Myelocytes # 0.0 K/mm3 05/12/17 05:44 Promyelocytes # 0.0 K/mm3 05/12/17 05:44 Blast Cells # 0.0 K/mm3 05/12/17 05:44 WBC Morphology Not Reportable 05/12/17 05:44 Hypersegmented Neuts Not Reportable 05/12/17 05:44 Hyposegmented Neuts Not Reportable 05/12/17 05:44 Hypogranular Neuts Not Reportable 05/12/17 05:44 Smudge Cells Not Reportable 05/12/17 05:44 Toxic Granulation Not Reportable 05/12/17 05:44 Toxic Vacuolation Not Reportable 05/12/17 05:44 Dohle Bodies Not Reportable 05/12/17 05:44 Pelger-Huet Anomaly Not Reportable 05/12/17 05:44 Shelly Rods Not Reportable 05/12/17 05:44 Platelet Estimate Cons 05/12/17 05:44 Clumped Platelets Few 05/12/17 05:44 Plt Clumps, EDTA Not Reportable 05/12/17 05:44 Large Platelets Not Reportable 05/12/17 05:44 Giant Platelets Not Reportable 05/12/17 05:44 Platelet Satelliting Not Reportable 05/12/17 05:44 Plt Morphology Comment Not Reportable 05/12/17 05:44 RBC Morphology Normal 05/12/17 05:44 Dimorphic RBCs Not Reportable 05/12/17 05:44 Polychromasia Not Reportable 05/12/17 05:44 Hypochromasia Not Reportable 05/12/17 05:44 Poikilocytosis Not Reportable 05/12/17 05:44 Anisocytosis Not Reportable 05/12/17 05:44 Microcytosis Not Reportable 05/12/17 05:44 Macrocytosis Not Reportable 05/12/17 05:44 Spherocytes Not Reportable 05/12/17 05:44 Pappenheimer Bodies Not Reportable 05/12/17 05:44 Sickle Cells Not Reportable 05/12/17 05:44 Target Cells Not Reportable 05/12/17 05:44 Tear Drop Cells Not Reportable 05/12/17 05:44 Ovalocytes Not Reportable 05/12/17 05:44 Helmet Cells Not Reportable 05/12/17 05:44 Cao-[place] Bodies Not Reportable 05/12/17 05:44 [place] Rings Not Reportable 05/12/17 05:44 [place] Cells Not Reportable 05/12/17 05:44 Bite Cells Not Reportable 05/12/17 05:44 Crenated Cell Not Reportable 05/12/17 05:44 Elliptocytes Not Reportable 05/12/17 05:44 Acanthocytes (Spur) Not Reportable 05/12/17 05:44 Rouleaux Not Reportable 05/12/17 05:44 Hemoglobin C Crystals Not Reportable 05/12/17 05:44 Schistocytes Not Reportable 05/12/17 05:44 Malaria parasites Not Reportable 05/12/17 05:44 Wander Bodies Not Reportable 05/12/17 05:44 Hem Pathologist Commnt No 05/12/17 05:44 PT 13.9 Sec. (12.2-14.9) 05/11/17 12:56 INR 1.02 (0.87-1.13) 05/11/17 12:56 APTT 29.8 Sec. (24.2-36.6) 05/11/17 12:56 Thrombin Time 16.4 Sec. (15.1-19.6) 05/11/17 12:56 Sodium 144 mmol/L (137-145) 05/12/17 05:44 Potassium 4.3 mmol/L (3.6-5.0) 05/12/17 05:44 Chloride 103.0 mmol/L (98-107) 05/12/17 05:44 Carbon Dioxide 28 mmol/L (22-30) 05/12/17 05:44 Anion Gap 17 mmol/L 05/12/17 05:44 BUN 12 mg/dL (7-17) 05/12/17 05:44 Creatinine 0.4 mg/dL (0.7-1.2) L 05/12/17 05:44 Estimated GFR > 60 ml/min 05/12/17 05:44 BUN/Creatinine Ratio 30 % 05/12/17 05:44 Glucose 86 mg/dL (65-100) 05/12/17 05:44 POC Glucose 113 (70-105) H 05/17/17 17:30 Hemoglobin A1c 5.7 % (4-6) 05/11/17 12:56 Calcium 9.8 mg/dL (8.4-10.2) 05/12/17 05:44 Total Bilirubin 0.30 mg/dL (0.1-1.2) 05/12/17 05:44 AST 27 units/L (5-40) 05/12/17 05:44 ALT 28 units/L (7-56) 05/12/17 05:44 Alkaline Phosphatase 52 units/L (35-129) 05/12/17 05:44 Total Creatine Kinase 64 units/L (30-135) 05/11/17 12:56 CK-MB (CK-2) 1.4 ng/mL (0.0-4.0) 05/11/17 12:56 CK-MB (CK-2) Rel Index 2.1 (0-4) 05/11/17 12:56 Troponin T < 0.010 ng/mL (0.00-0.029) 05/11/17 12:56 Total Protein 6.5 g/dL (6.3-8.2) 05/12/17 05:44 Albumin 3.8 g/dL (3.9-5) L 05/12/17 05:44 Albumin/Globulin Ratio 1.4 % 05/12/17 05:44 Triglycerides 113 mg/dL (2-149) 05/12/17 05:44 Cholesterol 172 mg/dL (50-199) 05/12/17 05:44 LDL Cholesterol Direct 115 mg/dL (50-130) 05/12/17 05:44 HDL Cholesterol 35 mg/dL (40-59) L 05/12/17 05:44 Cholesterol/HDL Ratio 4.91 % 05/12/17 05:44 Urine Color Yellow (Yellow) 05/11/17 14:09 Urine Turbidity Clear (Clear) 05/11/17 14:09 Urine pH 6.0 (5.0-7.0) 05/11/17 14:09 Ur Specific [place] 1.016 (1.003-1.030) 05/11/17 14:09 Urine Protein <15 mg/dl mg/dL (Negative) 05/11/17 14:09 Urine Glucose (UA) Neg mg/dL (Negative) 05/11/17 14:09 Urine Ketones Tr mg/dL (Negative) 05/11/17 14:09 Urine Blood Neg (Negative) 05/11/17 14:09 Urine Nitrite Neg (Negative) 05/11/17 14:09 Urine Bilirubin Neg (Negative) 05/11/17 14:09 Urine Urobilinogen < 2.0 mg/dL (<2.0) 05/11/17 14:09 Ur Leukocyte Esterase Neg (Negative) 05/11/17 14:09 Urine WBC (Auto) 2.0 /HPF (0.0-6.0) 05/11/17 14:09 Urine RBC (Auto) 3.0 /HPF (0.0-6.0) 05/11/17 14:09 U Epithel Cells (Auto) < 1.0 /HPF (0-13.0) 05/11/17 14:09 Urine Mucus Few /HPF 05/11/17 14:09 Valproic Acid 79.7 ug/mL (50-100) 05/11/17 12:56
[2017-05-18] MEDS: DepaKENE Liq FEEDTUBE SCH ×2 (11:04→22:33)
[2017-05-18] MEDS: PEPCID FEEDTUBE SCH ×2 (11:06→22:32)
[2017-05-18] MEDS: NORVASC FEEDTUBE SCH (11:06)
[2017-05-18] MEDS: BABY ASPIRIN PO SCH (11:06)
--- NOTE | 2017-05-18 18:22 | Progress Note ---
Assessment and Plan Assessment and plan: --Acute CVA /left-sided weakness Physical therapy rehabilitation, continue antiplatelets and statin --Dysphagia ;Status post PEG; continue PEG feeds and supportive care for -- History of seizures; continue seizure precautions antiepileptic medications --HTN; stable on antihypertensives -- GERD ; continue PPIs --Dyslipidemia; on statin -- Leukopenia; resolved -- Disposition; SNF placement --DC planning per case management Possible discharge tomorrow to SNF if stable History Interval history: No new complaints Patient comfortable and stable Hospitalist Physical - Constitutional Vitals: Temp Pulse Resp BP Pulse Ox 97.4 F L 92 H 18 146/97 97 05/18/17 12:47 05/18/17 16:14 05/18/17 12:47 05/18/17 16:14 05/18/17 16:14 General appearance: Present: no acute distress, cachectic - EENT Eyes: Present: PERRL, EOM intact - Neck Neck: Present: supple, normal ROM - Respiratory Respiratory effort: normal Respiratory: negative: rales, rhonchi, wheezing - Cardiovascular Rhythm: regular Heart Sounds: Present: S1 & S2 - Extremities Extremities: no ischemia, No edema - Abdominal General gastrointestinal: soft, non-tender, non-distended, normal bowel sounds - Integumentary Integumentary: Present: clear, warm - Psychiatric Psychiatric: other (noncommunicative) - Neurologic Neurologic: other (noncommunicative) Results - Labs CBC & Chem 7: 05/15/17 04:00 05/12/17 05:44 Labs: Laboratory Last Values WBC 6.5 K/mm3 (4.5-11.0) 05/15/17 04:00 RBC 4.03 M/mm3 (3.65-5.03) 05/15/17 04:00 Hgb 12.7 gm/dl (10.1-14.3) 05/15/17 04:00 Hct 36.7 % (30.3-42.9) 05/15/17 04:00 MCV 91 fl (79-97) 05/15/17 04:00 MCH 32 pg (28-32) 05/15/17 04:00 MCHC 35 % (30-34) H 05/15/17 04:00 RDW 14.6 % (13.2-15.2) 05/15/17 04:00 Plt Count 218 K/mm3 (140-440) 05/15/17 04:00 Lymph % (Auto) 22.9 % (13.4-35.0) 05/15/17 04:00 [place] % (Auto) 11.8 % (0.0-7.3) H 05/15/17 04:00 Eos % (Auto) 1.7 % (0.0-4.3) 05/15/17 04:00 Baso % (Auto) 1.1 % (0.0-1.8) 05/15/17 04:00 Lymph # 1.5 K/mm3 (1.2-5.4) 05/15/17 04:00 [place] # 0.8 K/mm3 (0.0-0.8) 05/15/17 04:00 Eos # 0.1 K/mm3 (0.0-0.4) 05/15/17 04:00 Baso # 0.1 K/mm3 (0.0-0.1) 05/15/17 04:00 Add Manual Diff Complete 05/12/17 05:44 Total Counted 100 05/12/17 05:44 Seg Neutrophils % 62.5 % (40.0-70.0) 05/15/17 04:00 Seg Neuts % (Manual) 46.0 % (40.0-70.0) 05/12/17 05:44 Band Neutrophils % 0 % 05/12/17 05:44 Lymphocytes % (Manual) 39.0 % (13.4-35.0) H 05/12/17 05:44 Reactive Lymphs % (Man) 0 % 05/12/17 05:44 Monocytes % (Manual) 12.0 % (0.0-7.3) H 05/12/17 05:44 Eosinophils % (Manual) 3.0 % (0.0-4.3) 05/12/17 05:44 Basophils % (Manual) 0 % (0.0-1.8) 05/12/17 05:44 Metamyelocytes % 0 % 05/12/17 05:44 Myelocytes % 0 % 05/12/17 05:44 Promyelocytes % 0 % 05/12/17 05:44 Blast Cells % 0 % 05/12/17 05:44 Nucleated RBC % Not Reportable 05/12/17 05:44 Seg Neutrophils # 4.1 K/mm3 (1.8-7.7) 05/15/17 04:00 Seg Neutrophils # Man 1.3 K/mm3 (1.8-7.7) L 05/12/17 05:44 Band Neutrophils # 0.0 K/mm3 05/12/17 05:44 Lymphocytes # (Manual) 1.1 K/mm3 (1.2-5.4) L 05/12/17 05:44 Abs React Lymphs (Man) 0.0 K/mm3 05/12/17 05:44 Monocytes # (Manual) 0.3 K/mm3 (0.0-0.8) 05/12/17 05:44 Eosinophils # (Manual) 0.1 K/mm3 (0.0-0.4) 05/12/17 05:44 Basophils # (Manual) 0.0 K/mm3 (0.0-0.1) 05/12/17 05:44 Metamyelocytes # 0.0 K/mm3 05/12/17 05:44 Myelocytes # 0.0 K/mm3 05/12/17 05:44 Promyelocytes # 0.0 K/mm3 05/12/17 05:44 Blast Cells # 0.0 K/mm3 05/12/17 05:44 WBC Morphology Not Reportable 05/12/17 05:44 Hypersegmented Neuts Not Reportable 05/12/17 05:44 Hyposegmented Neuts Not Reportable 05/12/17 05:44 Hypogranular Neuts Not Reportable 05/12/17 05:44 Smudge Cells Not Reportable 05/12/17 05:44 Toxic Granulation Not Reportable 05/12/17 05:44 Toxic Vacuolation Not Reportable 05/12/17 05:44 Dohle Bodies Not Reportable 05/12/17 05:44 Pelger-Huet Anomaly Not Reportable 05/12/17 05:44 Shelly Rods Not Reportable 05/12/17 05:44 Platelet Estimate Cons 05/12/17 05:44 Clumped Platelets Few 05/12/17 05:44 Plt Clumps, EDTA Not Reportable 05/12/17 05:44 Large Platelets Not Reportable 05/12/17 05:44 Giant Platelets Not Reportable 05/12/17 05:44 Platelet Satelliting Not Reportable 05/12/17 05:44 Plt Morphology Comment Not Reportable 05/12/17 05:44 RBC Morphology Normal 05/12/17 05:44 Dimorphic RBCs Not Reportable 05/12/17 05:44 Polychromasia Not Reportable 05/12/17 05:44 Hypochromasia Not Reportable 05/12/17 05:44 Poikilocytosis Not Reportable 05/12/17 05:44 Anisocytosis Not Reportable 05/12/17 05:44 Microcytosis Not Reportable 05/12/17 05:44 Macrocytosis Not Reportable 05/12/17 05:44 Spherocytes Not Reportable 05/12/17 05:44 Pappenheimer Bodies Not Reportable 05/12/17 05:44 Sickle Cells Not Reportable 05/12/17 05:44 Target Cells Not Reportable 05/12/17 05:44 Tear Drop Cells Not Reportable 05/12/17 05:44 Ovalocytes Not Reportable 05/12/17 05:44 Helmet Cells Not Reportable 05/12/17 05:44 Cao-[place]ema Bodies Not Reportable 05/12/17 05:44 [place] Rings Not Reportable 05/12/17 05:44 [place] Cells Not Reportable 05/12/17 05:44 Bite Cells Not Reportable 05/12/17 05:44 Crenated Cell Not Reportable 05/12/17 05:44 Elliptocytes Not Reportable 05/12/17 05:44 Acanthocytes (Spur) Not Reportable 05/12/17 05:44 Rouleaux Not Reportable 05/12/17 05:44 Hemoglobin C Crystals Not Reportable 05/12/17 05:44 Schistocytes Not Reportable 05/12/17 05:44 Malaria parasites Not Reportable 05/12/17 05:44 Wander Bodies Not Reportable 05/12/17 05:44 Hem Pathologist Commnt No 05/12/17 05:44 PT 13.9 Sec. (12.2-14.9) 05/11/17 12:56 INR 1.02 (0.87-1.13) 05/11/17 12:56 APTT 29.8 Sec. (24.2-36.6) 05/11/17 12:56 Thrombin Time 16.4 Sec. (15.1-19.6) 05/11/17 12:56 Sodium 144 mmol/L (137-145) 05/12/17 05:44 Potassium 4.3 mmol/L (3.6-5.0) 05/12/17 05:44 Chloride 103.0 mmol/L (98-107) 05/12/17 05:44 Carbon Dioxide 28 mmol/L (22-30) 05/12/17 05:44 Anion Gap 17 mmol/L 05/12/17 05:44 BUN 12 mg/dL (7-17) 05/12/17 05:44 Creatinine 0.4 mg/dL (0.7-1.2) L 05/12/17 05:44 Estimated GFR > 60 ml/min 05/12/17 05:44 BUN/Creatinine Ratio 30 % 05/12/17 05:44 Glucose 86 mg/dL (65-100) 05/12/17 05:44 POC Glucose 110 (70-105) H 05/18/17 17:04 Hemoglobin A1c 5.7 % (4-6) 05/11/17 12:56 Calcium 9.8 mg/dL (8.4-10.2) 05/12/17 05:44 Total Bilirubin 0.30 mg/dL (0.1-1.2) 05/12/17 05:44 AST 27 units/L (5-40) 05/12/17 05:44 ALT 28 units/L (7-56) 05/12/17 05:44 Alkaline Phosphatase 52 units/L (35-129) 05/12/17 05:44 Total Creatine Kinase 64 units/L (30-135) 05/11/17 12:56 CK-MB (CK-2) 1.4 ng/mL (0.0-4.0) 05/11/17 12:56 CK-MB (CK-2) Rel Index 2.1 (0-4) 05/11/17 12:56 Troponin T < 0.010 ng/mL (0.00-0.029) 05/11/17 12:56 Total Protein 6.5 g/dL (6.3-8.2) 05/12/17 05:44 Albumin 3.8 g/dL (3.9-5) L 05/12/17 05:44 Albumin/Globulin Ratio 1.4 % 05/12/17 05:44 Triglycerides 113 mg/dL (2-149) 05/12/17 05:44 Cholesterol 172 mg/dL (50-199) 05/12/17 05:44 LDL Cholesterol Direct 115 mg/dL (50-130) 05/12/17 05:44 HDL Cholesterol 35 mg/dL (40-59) L 05/12/17 05:44 Cholesterol/HDL Ratio 4.91 % 05/12/17 05:44 Urine Color Yellow (Yellow) 05/11/17 14:09 Urine Turbidity Clear (Clear) 05/11/17 14:09 Urine pH 6.0 (5.0-7.0) 05/11/17 14:09 Ur Specific [place] 1.016 (1.003-1.030) 05/11/17 14:09 Urine Protein <15 mg/dl mg/dL (Negative) 05/11/17 14:09 Urine Glucose (UA) Neg mg/dL (Negative) 05/11/17 14:09 Urine Ketones Tr mg/dL (Negative) 05/11/17 14:09 Urine Blood Neg (Negative) 05/11/17 14:09 Urine Nitrite Neg (Negative) 05/11/17 14:09 Urine Bilirubin Neg (Negative) 05/11/17 14:09 Urine Urobilinogen < 2.0 mg/dL (<2.0) 05/11/17 14:09 Ur Leukocyte Esterase Neg (Negative) 05/11/17 14:09 Urine WBC (Auto) 2.0 /HPF (0.0-6.0) 05/11/17 14:09 Urine RBC (Auto) 3.0 /HPF (0.0-6.0) 05/11/17 14:09 U Epithel Cells (Auto) < 1.0 /HPF (0-13.0) 05/11/17 14:09 Urine Mucus Few /HPF 05/11/17 14:09 Valproic Acid 79.7 ug/mL (50-100) 05/11/17 12:56
--- NOTE | 2017-05-19 08:22 | Discharge Summary ---
Providers - Providers Date of Admission: 05/11/17 15:59 Date of discharge: 05/19/17 Attending physician: MARILEE ESCOBEDO 05/11/17 21:19 Consult to Physician [CONS] Routine Consulting Provider: JIM REID Reason For Exam: CVA Place consult to:: Dr. Reid Notified:: Jeannine RN Phone number called:: Was contact made?: Yes If yes, spoke with:: Heena-jessica service Time called:: 08:19 05/11/17 21:20 Occupational Therapy Evaluate and Treat [CONS] Routine Comment: Reason For Exam: Neuro deficits Physical Therapy Evaluation and Treat [CONS] Routine Comment: Reason For Exam: Neuro deficits 05/12/17 12:17 Consult to Dietitian/Nutrition [CONS] Routine Physician Instructions: Reason For Exam: write/manage PEG tube Reason for Consult: Write/Manage Tube Feeding Primary care physician: STUDIO MODEL Hospitalization Condition: Stable Core Measure Documentation - Palliative Care Palliative Care/ Comfort Measures: Not Applicable Exam - Constitutional Vitals: Temp Pulse Resp BP Pulse Ox 98.1 F 80 18 143/92 98 05/19/17 08:01 05/19/17 08:01 05/19/17 08:01 05/19/17 08:01 05/19/17 08:01 Plan Follow up with: PRIMARY CAREMD [Primary Care Provider] - 3-5 Days
[2017-05-19] MEDS: NORVASC FEEDTUBE SCH (10:06)
[2017-05-19] MEDS: BABY ASPIRIN PO SCH (10:06)
[2017-05-19] MEDS: DepaKENE Liq FEEDTUBE SCH ×2 (10:06→22:28)
[2017-05-19] MEDS: PEPCID FEEDTUBE SCH ×2 (10:06→22:29)
--- NOTE | 2017-05-19 12:32 | Progress Note ---
Assessment and Plan Assessment and plan: --CVA with left-sided weakness; with residual left-sided weakness, bedbound, CT 05/11/17 ;Chronic infarct right occipital lobe right josh , Apparent subacute to early chronic right thalamic infarct Physical therapy rehabilitation, continue antiplatelets and statin --Dysphagia status post PEG placement, continue PEG feeds -- History of seizures; continue seizure precautions antiepileptic medications --HTN; stable on antihypertensives -- GERD ; continue PPIs --Dyslipidemia; on statin -- Leukopenia; resolved --DC planning per case management Possible discharge home with home health versus SNF placement Disposition; DC home with home health versus SNF placement History Interval history: Since seen and examined medical records reviewed Patient is alert and awake, not in acute distress Initially case management has cleared for discharge home with home health However patient's was upset, and discharge was held Patient is clinically stable no new changes Hospitalist Physical - Constitutional Vitals: Temp Pulse Resp BP Pulse Ox 98.1 F 80 18 143/92 98 05/19/17 08:01 05/19/17 10:06 05/19/17 08:01 05/19/17 10:06 05/19/17 08:01 General appearance: Present: no acute distress, cachectic - EENT Eyes: Present: PERRL, EOM intact - Neck Neck: Present: supple, normal ROM - Respiratory Respiratory effort: normal Respiratory: bilateral: diminished, negative: rales, rhonchi, wheezing - Cardiovascular Rhythm: regular Heart Sounds: Present: S1 & S2 - Extremities Extremities: no ischemia Extremity abnormal: edema (trace edema) - Abdominal General gastrointestinal: soft, non-tender, non-distended, normal bowel sounds, other (PEG in place) - Integumentary Integumentary: Present: clear, warm - Psychiatric Psychiatric: other (alert and awake, noncommunicative) - Neurologic Neurologic: other (noncommunicative/bedbound/left-sided weakness) Results - Labs CBC & Chem 7: 05/15/17 04:00 05/12/17 05:44 Labs: Laboratory Last Values WBC 6.5 K/mm3 (4.5-11.0) 05/15/17 04:00 RBC 4.03 M/mm3 (3.65-5.03) 05/15/17 04:00 Hgb 12.7 gm/dl (10.1-14.3) 05/15/17 04:00 Hct 36.7 % (30.3-42.9) 05/15/17 04:00 MCV 91 fl (79-97) 05/15/17 04:00 MCH 32 pg (28-32) 05/15/17 04:00 MCHC 35 % (30-34) H 05/15/17 04:00 RDW 14.6 % (13.2-15.2) 05/15/17 04:00 Plt Count 218 K/mm3 (140-440) 05/15/17 04:00 Lymph % (Auto) 22.9 % (13.4-35.0) 05/15/17 04:00 [place] % (Auto) 11.8 % (0.0-7.3) H 05/15/17 04:00 Eos % (Auto) 1.7 % (0.0-4.3) 05/15/17 04:00 Baso % (Auto) 1.1 % (0.0-1.8) 05/15/17 04:00 Lymph # 1.5 K/mm3 (1.2-5.4) 05/15/17 04:00 [place] # 0.8 K/mm3 (0.0-0.8) 05/15/17 04:00 Eos # 0.1 K/mm3 (0.0-0.4) 05/15/17 04:00 Baso # 0.1 K/mm3 (0.0-0.1) 05/15/17 04:00 Add Manual Diff Complete 05/12/17 05:44 Total Counted 100 05/12/17 05:44 Seg Neutrophils % 62.5 % (40.0-70.0) 05/15/17 04:00 Seg Neuts % (Manual) 46.0 % (40.0-70.0) 05/12/17 05:44 Band Neutrophils % 0 % 05/12/17 05:44 Lymphocytes % (Manual) 39.0 % (13.4-35.0) H 05/12/17 05:44 Reactive Lymphs % (Man) 0 % 05/12/17 05:44 Monocytes % (Manual) 12.0 % (0.0-7.3) H 05/12/17 05:44 Eosinophils % (Manual) 3.0 % (0.0-4.3) 05/12/17 05:44 Basophils % (Manual) 0 % (0.0-1.8) 05/12/17 05:44 Metamyelocytes % 0 % 05/12/17 05:44 Myelocytes % 0 % 05/12/17 05:44 Promyelocytes % 0 % 05/12/17 05:44 Blast Cells % 0 % 05/12/17 05:44 Nucleated RBC % Not Reportable 05/12/17 05:44 Seg Neutrophils # 4.1 K/mm3 (1.8-7.7) 05/15/17 04:00 Seg Neutrophils # Man 1.3 K/mm3 (1.8-7.7) L 05/12/17 05:44 Band Neutrophils # 0.0 K/mm3 05/12/17 05:44 Lymphocytes # (Manual) 1.1 K/mm3 (1.2-5.4) L 05/12/17 05:44 Abs React Lymphs (Man) 0.0 K/mm3 05/12/17 05:44 Monocytes # (Manual) 0.3 K/mm3 (0.0-0.8) 05/12/17 05:44 Eosinophils # (Manual) 0.1 K/mm3 (0.0-0.4) 05/12/17 05:44 Basophils # (Manual) 0.0 K/mm3 (0.0-0.1) 05/12/17 05:44 Metamyelocytes # 0.0 K/mm3 05/12/17 05:44 Myelocytes # 0.0 K/mm3 05/12/17 05:44 Promyelocytes # 0.0 K/mm3 05/12/17 05:44 Blast Cells # 0.0 K/mm3 05/12/17 05:44 WBC Morphology Not Reportable 05/12/17 05:44 Hypersegmented Neuts Not Reportable 05/12/17 05:44 Hyposegmented Neuts Not Reportable 05/12/17 05:44 Hypogranular Neuts Not Reportable 05/12/17 05:44 Smudge Cells Not Reportable 05/12/17 05:44 Toxic Granulation Not Reportable 05/12/17 05:44 Toxic Vacuolation Not Reportable 05/12/17 05:44 Dohle Bodies Not Reportable 05/12/17 05:44 Pelger-Huet Anomaly Not Reportable 05/12/17 05:44 Shelly Rods Not Reportable 05/12/17 05:44 Platelet Estimate Cons 05/12/17 05:44 Clumped Platelets Few 05/12/17 05:44 Plt Clumps, EDTA Not Reportable 05/12/17 05:44 Large Platelets Not Reportable 05/12/17 05:44 Giant Platelets Not Reportable 05/12/17 05:44 Platelet Satelliting Not Reportable 05/12/17 05:44 Plt Morphology Comment Not Reportable 05/12/17 05:44 RBC Morphology Normal 05/12/17 05:44 Dimorphic RBCs Not Reportable 05/12/17 05:44 Polychromasia Not Reportable 05/12/17 05:44 Hypochromasia Not Reportable 05/12/17 05:44 Poikilocytosis Not Reportable 05/12/17 05:44 Anisocytosis Not Reportable 05/12/17 05:44 Microcytosis Not Reportable 05/12/17 05:44 Macrocytosis Not Reportable 05/12/17 05:44 Spherocytes Not Reportable 05/12/17 05:44 Pappenheimer Bodies Not Reportable 05/12/17 05:44 Sickle Cells Not Reportable 05/12/17 05:44 Target Cells Not Reportable 05/12/17 05:44 Tear Drop Cells Not Reportable 05/12/17 05:44 Ovalocytes Not Reportable 05/12/17 05:44 Helmet Cells Not Reportable 05/12/17 05:44 [place] Bodies Not Reportable 05/12/17 05:44 [place] Rings Not Reportable 05/12/17 05:44 [place] Cells Not Reportable 05/12/17 05:44 Bite Cells Not Reportable 05/12/17 05:44 Crenated Cell Not Reportable 05/12/17 05:44 Elliptocytes Not Reportable 05/12/17 05:44 Acanthocytes (Spur) Not Reportable 05/12/17 05:44 Rouleaux Not Reportable 05/12/17 05:44 Hemoglobin C Crystals Not Reportable 05/12/17 05:44 Schistocytes Not Reportable 05/12/17 05:44 Malaria parasites Not Reportable 05/12/17 05:44 Wander Bodies Not Reportable 05/12/17 05:44 Hem Pathologist Commnt No 05/12/17 05:44 PT 13.9 Sec. (12.2-14.9) 05/11/17 12:56 INR 1.02 (0.87-1.13) 05/11/17 12:56 APTT 29.8 Sec. (24.2-36.6) 05/11/17 12:56 Thrombin Time 16.4 Sec. (15.1-19.6) 05/11/17 12:56 Sodium 144 mmol/L (137-145) 05/12/17 05:44 Potassium 4.3 mmol/L (3.6-5.0) 05/12/17 05:44 Chloride 103.0 mmol/L (98-107) 05/12/17 05:44 Carbon Dioxide 28 mmol/L (22-30) 05/12/17 05:44 Anion Gap 17 mmol/L 05/12/17 05:44 BUN 12 mg/dL (7-17) 05/12/17 05:44 Creatinine 0.4 mg/dL (0.7-1.2) L 05/12/17 05:44 Estimated GFR > 60 ml/min 05/12/17 05:44 BUN/Creatinine Ratio 30 % 05/12/17 05:44 Glucose 86 mg/dL (65-100) 05/12/17 05:44 POC Glucose 120 (70-105) H 05/19/17 11:15 Hemoglobin A1c 5.7 % (4-6) 05/11/17 12:56 Calcium 9.8 mg/dL (8.4-10.2) 05/12/17 05:44 Total Bilirubin 0.30 mg/dL (0.1-1.2) 05/12/17 05:44 AST 27 units/L (5-40) 05/12/17 05:44 ALT 28 units/L (7-56) 05/12/17 05:44 Alkaline Phosphatase 52 units/L (35-129) 05/12/17 05:44 Total Creatine Kinase 64 units/L (30-135) 05/11/17 12:56 CK-MB (CK-2) 1.4 ng/mL (0.0-4.0) 05/11/17 12:56 CK-MB (CK-2) Rel Index 2.1 (0-4) 05/11/17 12:56 Troponin T < 0.010 ng/mL (0.00-0.029) 05/11/17 12:56 Total Protein 6.5 g/dL (6.3-8.2) 05/12/17 05:44 Albumin 3.8 g/dL (3.9-5) L 05/12/17 05:44 Albumin/Globulin Ratio 1.4 % 05/12/17 05:44 Triglycerides 113 mg/dL (2-149) 05/12/17 05:44 Cholesterol 172 mg/dL (50-199) 05/12/17 05:44 LDL Cholesterol Direct 115 mg/dL (50-130) 05/12/17 05:44 HDL Cholesterol 35 mg/dL (40-59) L 05/12/17 05:44 Cholesterol/HDL Ratio 4.91 % 05/12/17 05:44 Urine Color Yellow (Yellow) 05/11/17 14:09 Urine Turbidity Clear (Clear) 05/11/17 14:09 Urine pH 6.0 (5.0-7.0) 05/11/17 14:09 Ur Specific [place] 1.016 (1.003-1.030) 05/11/17 14:09 Urine Protein <15 mg/dl mg/dL (Negative) 05/11/17 14:09 Urine Glucose (UA) Neg mg/dL (Negative) 05/11/17 14:09 Urine Ketones Tr mg/dL (Negative) 05/11/17 14:09 Urine Blood Neg (Negative) 05/11/17 14:09 Urine Nitrite Neg (Negative) 05/11/17 14:09 Urine Bilirubin Neg (Negative) 05/11/17 14:09 Urine Urobilinogen < 2.0 mg/dL (<2.0) 05/11/17 14:09 Ur Leukocyte Esterase Neg (Negative) 05/11/17 14:09 Urine WBC (Auto) 2.0 /HPF (0.0-6.0) 05/11/17 14:09 Urine RBC (Auto) 3.0 /HPF (0.0-6.0) 05/11/17 14:09 U Epithel Cells (Auto) < 1.0 /HPF (0-13.0) 05/11/17 14:09 Urine Mucus Few /HPF 05/11/17 14:09 Valproic Acid 79.7 ug/mL (50-100) 05/11/17 12:56
[2017-05-20] MEDS: PEPCID FEEDTUBE SCH ×2 (11:00→23:13)
[2017-05-20] MEDS: DepaKENE Liq FEEDTUBE SCH ×2 (11:00→23:14)
[2017-05-20] MEDS: BABY ASPIRIN PO SCH (11:00)
[2017-05-20] MEDS: NORVASC FEEDTUBE SCH (11:00)
--- NOTE | 2017-05-20 14:43 | Consultation ---
History of Present Illness Consult date: 05/20/17 History of present illness: patient seen and evidence of chronic subacute infarcts of the left hemisphere may be small thalamic hemorrhagic component advise f/u CT of the head exam alert but left hemiplegia spoke to familty and there is prior hx of swallowing problem from old strokes issue of refeeding will be decisded by checking first a barium swallow family is aware of basis she had prior J-Tube Past History Past Medical History: GERD, seizures, stroke Past Surgical History: Other (peg tube) Social history: denies: smoking, alcohol abuse Medications and Allergies Allergies Allergy/AdvReac Type Severity Reaction Status Date / Time No Known Allergies Allergy Unverified 05/11/17 12:27 Home Medications Medication Instructions Recorded Confirmed Last Taken Type Amlodipine Besylate [Norvasc] 10 mg FEEDTUBE DAILY 05/11/17 05/11/17 Unknown History Labetalol [Normodyne TAB] 200 mg PO BID 05/11/17 05/11/17 Unknown History Ranitidine HCl [Acid Production Assembly Supervisor] 150 mg FEEDTUBE BID 05/11/17 05/11/17 Unknown History VALPROIC ACID Liq [DepaKENE Liq] 15 ml FEEDTUBE BID 05/11/17 05/11/17 Unknown History hydrALAZINE [Apresoline TAB] 50 mg FEEDTUBE QID 05/11/17 05/11/17 Unknown History Active Meds: Active Medications Acetaminophen (Tylenol) 650 mg PO Q4H PRN PRN Reason: Pain MILD(1-3)/Fever >100.5/GRIGGS Amlodipine Besylate (Norvasc) 10 mg FEEDTUBE DAILY [facility] Last Admin: 05/20/17 11:00 Dose: 10 mg Lipase/Protease/Amylase ([address] Dr 10,500 Unit) 1 each FEEDTUBE PRN PRN PRN Reason: For Clogged Feeding Tube Aspirin (Baby Aspirin) 81 mg PO QDAY [facility] Last Admin: 05/20/17 11:00 Dose: 81 mg Atorvastatin Calcium (Lipitor) 20 mg PO QHS [facility] Last Admin: 05/19/17 22:29 Dose: 20 mg Bisacodyl (Dulcolax) 10 mg VA QDAY PRN PRN Reason: Constipation unrelieved by MOM Famotidine (Pepcid) 20 mg FEEDTUBE BID [facility] Last Admin: 05/20/17 11:00 Dose: 20 mg Hydralazine HCl (Apresoline) 10 mg IV Q6HR PRN PRN Reason: Hypertension Magnesium Hydroxide (Milk Of Magnesia) 30 ml PO Q4H PRN PRN Reason: Constipation Ondansetron HCl (Zofran) 4 mg IV Q8H PRN PRN Reason: N/V unrelieved by Reglan Simple Syrup (Simple Syrup) 15 ml FEEDTUBE PRN PRN PRN Reason: Hypoglycemia Simple Syrup (Simple Syrup) 30 ml FEEDTUBE PRN PRN PRN Reason: Hypoglycemia Sodium Bicarbonate (Sodium Bicarbonate) 325 mg FEEDTUBE PRN PRN PRN Reason: For Clogged Feeding Tube Sodium Chloride (Sodium Chloride Flush Syringe 10 Ml) 10 ml IV PRN PRN PRN Reason: LINE FLUSH Valproic Acid (Depakene Liq) 750 mg FEEDTUBE BID [facility] Last Admin: 05/20/17 11:00 Dose: 750 mg Physical Examination - Vital Signs Vital Signs: Vital Signs Temp Pulse Resp BP Pulse Ox 98.3 F 81 14 112/70 97 05/11/17 12:15 05/11/17 12:15 05/11/17 12:15 05/11/17 12:15 05/11/17 12:15 Results - Laboratory Findings CBC and BMP: 05/15/17 04:00 05/12/17 05:44 Abnormal Lab Findings: Abnormal Labs 05/12/17 05/12/17 05/13/17 05:44 05:44 08:10 WBC 2.9 L MCHC RDW 15.3 H [place] % (Auto) Lymphocytes % (Manual) 39.0 H Monocytes % (Manual) 12.0 H Seg Neutrophils # Man 1.3 L Lymphocytes # (Manual) 1.1 L Creatinine 0.4 L POC Glucose 110 H Albumin 3.8 L HDL Cholesterol 35 L 05/13/17 05/13/17 05/15/17 16:43 22:44 04:00 WBC MCHC 35 H RDW [place] % (Auto) 11.8 H Lymphocytes % (Manual) Monocytes % (Manual) Seg Neutrophils # Man Lymphocytes # (Manual) Creatinine POC Glucose 125 H 112 H Albumin HDL Cholesterol 05/15/17 05/16/17 05/17/17 23:57 23:21 06:14 WBC MCHC RDW [place] % (Auto) Lymphocytes % (Manual) Monocytes % (Manual) Seg Neutrophils # Man Lymphocytes # (Manual) Creatinine POC Glucose 141 H 115 H 107 H Albumin HDL Cholesterol 05/17/17 05/17/17 05/17/17 11:31 17:30 21:49 WBC MCHC RDW [place] % (Auto) Lymphocytes % (Manual) Monocytes % (Manual) Seg Neutrophils # Man Lymphocytes # (Manual) Creatinine POC Glucose 119 H 113 H 107 H Albumin HDL Cholesterol 05/18/17 05/18/17 05/19/17 11:41 17:04 00:10 WBC MCHC RDW [place] % (Auto) Lymphocytes % (Manual) Monocytes % (Manual) Seg Neutrophils # Man Lymphocytes # (Manual) Creatinine POC Glucose 149 H 110 H 115 H Albumin HDL Cholesterol 05/19/17 05/19/17 05/19/17 06:14 11:15 16:36 WBC MCHC RDW [place] % (Auto) Lymphocytes % (Manual) Monocytes % (Manual) Seg Neutrophils # Man Lymphocytes # (Manual) Creatinine POC Glucose 110 H 120 H 114 H Albumin HDL Cholesterol 05/20/17 11:27 WBC MCHC RDW [place] % (Auto) Lymphocytes % (Manual) Monocytes % (Manual) Seg Neutrophils # Man Lymphocytes # (Manual) Creatinine POC Glucose 134 H Albumin HDL Cholesterol
--- NOTE | 2017-05-21 08:10 | Consultation ---
ROOM NUMBER: [id number] HISTORY OF PRESENT ILLNESS: This is a 56-year-old black female who presents to the Emergency Department at [facility] with the onset of left hemiparesis. She was found to have worsening weakness, facial droop, was nonverbal, but could basically follow some slight commands. She had had a prior history of a stroke, but that history is not available and she had J-tube in place, which indicates that she had other significant swallowing problems as a result of this. She takes amlodipine, labetalol, ranitidine, valproic acid, and hydralazine. She has a prior history of hypertension, seizures, and multiple strokes. PHYSICAL EXAMINATION: GENERAL: On my examination, she is alert. She looks at me, but does not speak. VITAL SIGNS: Her blood pressure at present is 137/80, pulse rate 80, respirations 18. NEUROLOGIC: Cranial nerves II through XII are intact. Motor and sensory examination shows left-sided weakness, face, arm, and leg. She has a right gaze preference. Pupils are briskly reactive to light. Cranial nerves intact with the exception of left central facial weakness. No tremors or asterixis. No focal seizure activity is present. She is fully alert and non-conversant. She does respond to family members who are looking over at her. She obviously is fully intact as far as her level of consciousness and level of alertness. IMPRESSION: Old stroke involving the right cerebral hemispheres, thalamus, deep white matter. There is a question on the CT is to whether she has a new hemorrhage. I am not sure about some of the issues here. I probably need to get a more direct history from the or other family members as to when the J-tube was placed, what hospital she was at, and details regarding prior hospitalizations to see whether any further additional workup is indicated. What is concerning may as the CT does show a question of hemorrhagic infarction. I do not know whether she was treated previously with some type of blood thinner i.e., heparin or one of the oral anticoagulants or Coumadin. Clearly, it should be held because there is this question of hemorrhagic stroke. I promptly plan to repeat the CT in four days and assess this. Further workup is indicated at this point. JOB# [id number] EVGENY/NTS
[2017-05-21] MEDS: PEPCID FEEDTUBE SCH ×2 (11:09→21:46)
[2017-05-21] MEDS: BABY ASPIRIN PO SCH (11:09)
[2017-05-21] MEDS: NORVASC FEEDTUBE SCH (11:10)
[2017-05-21] MEDS: DepaKENE Liq FEEDTUBE SCH ×2 (11:10→21:46)
--- NOTE | 2017-05-21 15:11 | Progress Note ---
Assessment and Plan /CVA with left-sided weakness; with residual left-sided weakness, bedbound, CT 05/11/17 ;Chronic infarct right occipital lobe right josh , Apparent subacute to early chronic right thalamic infarct Physical therapy rehabilitation, continue antiplatelets and statin /Dysphagia status post PEG placement, continue PEG feeds - ordered barrium swallow study / History of seizures; continue seizure precautions antiepileptic medications / HTN; stable on antihypertensives /GERD ; continue PPIs /Dyslipidemia; on statin /Leukopenia; resolved /DC planning per case management Possible discharge home with home health versus SNF placement But family refuses to take her back home, will need placement Hospitalist Physical General appearance: Present: no acute distress, - EENT Eyes: Present: PERRL, EOM intact - Neck Neck: Present: supple, normal ROM - Respiratory Respiratory effort: normal Respiratory: bilateral: diminished, negative: rales, rhonchi, wheezing - Cardiovascular Rhythm: regular Heart Sounds: Present: S1 & S2 - Extremities Extremities: no ischemia Extremity abnormal: edema (trace edema) - Abdominal General gastrointestinal: soft, non-tender, non-distended, normal bowel sounds, other (PEG in place) - Integumentary Integumentary: Present: clear, warm - Psychiatric Psychiatric: other (alert and awake, noncommunicative) - Neurologic Neurologic: other (noncommunicative/bedbound/left-sided weakness) Subjective Date of service: 05/21/17 Interval history: Since seen and examined medical records reviewed Patient is alert and awake, not in acute distress Initially case management has cleared for discharge home with home health However patient's was upset, and discharge was held Patient is clinically stable no new changes Patient's requested barrium swallow study Objective - Constitutional Vitals: Vital Signs - 12hr 05/21/17 05/21/17 05/21/17 05:29 07:23 11:10 Temperature 97.4 F L 98.7 F Pulse Rate 86 Respiratory 18 Rate Blood Pressure 121/81 128/87 128/87 O2 Sat by Pulse 98 Oximetry 05/21/17 12:23 Temperature 98.0 F Pulse Rate 97 H Respiratory 18 Rate Blood Pressure 129/91 O2 Sat by Pulse 99 Oximetry - Labs CBC & Chem 7: 05/15/17 04:00 05/12/17 05:44 Labs: Abnormal lab results 05/20/17 05/21/17 05/21/17 Range/Units 22:59 05:37 11:59 POC Glucose 117 H 124 H 152 H (70-105)
[2017-05-22] MEDS: PEPCID FEEDTUBE SCH ×2 (10:05→22:19)
[2017-05-22] MEDS: NORVASC FEEDTUBE SCH (10:05)
[2017-05-22] MEDS: BABY ASPIRIN PO SCH (10:06)
[2017-05-22] MEDS: DepaKENE Liq FEEDTUBE SCH ×2 (10:06→22:18)
--- NOTE | 2017-05-22 16:49 | Progress Note ---
Assessment and Plan /CVA with left-sided weakness; with residual left-sided weakness, bedbound, CT 05/11/17 ;Chronic infarct right occipital lobe right josh , Apparent subacute to early chronic right thalamic infarct Physical therapy rehabilitation, continue antiplatelets and statin /Dysphagia status post PEG placement, continue PEG tube feeds - unable to do barrium swallow study / History of seizures; continue seizure precautions antiepileptic medications / HTN; stable on antihypertensives /GERD ; continue PPIs /Dyslipidemia; on statin /Leukopenia; resolved /DC planning per case management Possible discharge home with home health versus SNF placement But family refuses to take her back home, will need placement Hospitalist Physical General appearance: Present: no acute distress, - EENT Eyes: Present: PERRL, EOM intact - Neck Neck: Present: supple, normal ROM - Respiratory Respiratory effort: normal Respiratory: bilateral: diminished, negative: rales, rhonchi, wheezing - Cardiovascular Rhythm: regular Heart Sounds: Present: S1 & S2 - Extremities Extremities: no ischemia Extremity abnormal: edema (trace edema) - Abdominal General gastrointestinal: soft, non-tender, non-distended, normal bowel sounds, other (PEG in place) - Integumentary Integumentary: Present: clear, warm - Psychiatric Psychiatric: other (alert and awake, noncommunicative) - Neurologic Neurologic: other (noncommunicative/bedbound/left-sided weakness) Subjective Date of service: 05/22/17 Interval history: Since seen and examined medical records reviewed Patient is alert and awake, not in acute distress Patient is clinically stable no new changes Patient's requested barrium swallow study but pt is unable to participate in the exam updated family at bedside Objective - Constitutional Vitals: Vital Signs - 12hr 05/22/17 05/22/17 05/22/17 07:31 10:05 15:02 Temperature 98.6 F 98.3 F Pulse Rate 83 100 H Respiratory 20 18 Rate Blood Pressure 149/96 150/90 132/97 O2 Sat by Pulse 96 98 Oximetry - Labs CBC & Chem 7: 05/15/17 04:00 05/12/17 05:44 Labs: Abnormal lab results 05/21/17 05/22/17 Range/Units 23:30 11:33 POC Glucose 119 H 132 H (70-105)
[2017-05-23] MEDS: NORVASC FEEDTUBE SCH (10:49)
[2017-05-23] MEDS: BABY ASPIRIN PO SCH (10:49)
[2017-05-23] MEDS: DepaKENE Liq FEEDTUBE SCH ×2 (10:49→21:26)
[2017-05-23] MEDS: PEPCID FEEDTUBE SCH ×2 (10:49→21:25)
--- NOTE | 2017-05-23 16:29 | Progress Note ---
Assessment and Plan /CVA with left-sided weakness; with residual left-sided weakness, bedbound, CT 05/11/17 ;Chronic infarct right occipital lobe right josh , Apparent subacute to early chronic right thalamic infarct Physical therapy rehabilitation, continue antiplatelets and statin /Dysphagia status post PEG placement, continue PEG tube feeds - unable to do barrium swallow study / History of seizures; continue seizure precautions antiepileptic medications / HTN; stable on antihypertensives /GERD ; continue PPIs /Dyslipidemia; on statin /Leukopenia; resolved /DC planning per case management Possible discharge home with home health versus SNF placement But family refuses to take her back home, will need placement Hospitalist Physical General appearance: Present: no acute distress, - EENT Eyes: Present: PERRL, EOM intact - Neck Neck: Present: supple, normal ROM - Respiratory Respiratory effort: normal Respiratory: bilateral: diminished, negative: rales, rhonchi, wheezing - Cardiovascular Rhythm: regular Heart Sounds: Present: S1 & S2 - Extremities Extremities: no ischemia Extremity abnormal: edema (trace edema) - Abdominal General gastrointestinal: soft, non-tender, non-distended, normal bowel sounds, other (PEG in place) - Integumentary Integumentary: Present: clear, warm - Psychiatric Psychiatric: other (alert and awake, noncommunicative) - Neurologic Neurologic: other (noncommunicative/bedbound/left-sided weakness) Subjective Date of service: 05/23/17 Interval history: Since seen and examined medical records reviewed Patient is alert and awake, not in acute distress Patient is clinically stable no new changes Objective - Constitutional Vitals: Vital Signs - 12hr 05/23/17 05/23/17 05/23/17 07:38 10:49 12:31 Temperature 97.8 F 98.0 F Pulse Rate 91 H 88 98 H Respiratory 18 20 Rate Blood Pressure 139/95 136/80 130/97 O2 Sat by Pulse 98 99 Oximetry 05/23/17 16:07 Temperature 99.4 F Pulse Rate 98 H Respiratory 18 Rate Blood Pressure 126/94 O2 Sat by Pulse 97 Oximetry - Labs CBC & Chem 7: 05/15/17 04:00 05/12/17 05:44 Labs: Abnormal lab results 05/22/17 05/22/17 05/23/17 Range/Units 17:03 23:19 05:16 POC Glucose 69 L 120 H 123 H (70-105) 05/23/17 Range/Units 11:58 POC Glucose 106 H (70-105)
[2017-05-24] MEDS: NORVASC FEEDTUBE SCH (10:52)
[2017-05-24] MEDS: DepaKENE Liq FEEDTUBE SCH ×2 (10:52→22:40)
[2017-05-24] MEDS: BABY ASPIRIN PO SCH (10:53)
[2017-05-24] MEDS: PEPCID FEEDTUBE SCH ×2 (10:53→22:40)
--- NOTE | 2017-05-24 15:03 | Progress Note ---
Assessment and Plan /CVA with left-sided weakness; with residual left-sided weakness, bedbound, CT 05/11/17 ;Chronic infarct right occipital lobe right josh , Apparent subacute to early chronic right thalamic infarct Physical therapy rehabilitation, continue antiplatelets and statin /Dysphagia status post PEG placement, continue PEG tube feeds - unable to do barrium swallow study / History of seizures; continue seizure precautions antiepileptic medications / HTN; stable on antihypertensives /GERD ; continue PPIs /Dyslipidemia; on statin /Leukopenia; resolved /DC planning per case management Possible discharge home with home health versus SNF placement But family refuses to take her back home, will need placement Hospitalist Physical General appearance: Present: no acute distress, - EENT Eyes: Present: PERRL, EOM intact - Neck Neck: Present: supple, normal ROM - Respiratory Respiratory effort: normal Respiratory: bilateral: diminished, negative: rales, rhonchi, wheezing - Cardiovascular Rhythm: regular Heart Sounds: Present: S1 & S2 - Extremities Extremities: no ischemia Extremity abnormal: edema (trace edema) - Abdominal General gastrointestinal: soft, non-tender, non-distended, normal bowel sounds, other (PEG in place) - Integumentary Integumentary: Present: clear, warm - Psychiatric Psychiatric: other (alert and awake, noncommunicative) - Neurologic Neurologic: other (noncommunicative/bedbound/left-sided weakness) Subjective Date of service: 05/24/17 Interval history: Since seen and examined medical records reviewed Patient is alert and awake, not in acute distress Patient is clinically stable no new changes Objective - Constitutional Vitals: Vital Signs - 12hr 05/24/17 05/24/17 07:31 10:52 Temperature 98.9 F Pulse Rate 94 H Respiratory 20 Rate Blood Pressure 140/92 140/80 O2 Sat by Pulse 98 Oximetry - Labs CBC & Chem 7: 05/15/17 04:00 05/12/17 05:44 Labs: Abnormal lab results 05/23/17 05/24/17 05/24/17 Range/Units 16:35 00:52 06:56 POC Glucose 108 H 116 H 137 H (70-105) 05/24/17 Range/Units 12:37 POC Glucose 118 H (70-105)
[2017-05-25] MEDS: NORVASC FEEDTUBE SCH (11:04)
[2017-05-25] MEDS: BABY ASPIRIN PO SCH (11:04)
[2017-05-25] MEDS: DepaKENE Liq FEEDTUBE SCH ×2 (11:05→22:11)
[2017-05-25] MEDS: PEPCID FEEDTUBE SCH ×2 (11:05→22:11)
--- NOTE | 2017-05-25 14:29 | Progress Note ---
Assessment and Plan /CVA with left-sided weakness; with residual left-sided weakness, bedbound, CT 05/11/17 ;Chronic infarct right occipital lobe right josh , Apparent subacute to early chronic right thalamic infarct Physical therapy rehabilitation, continue antiplatelets and statin /Dysphagia status post PEG placement, continue PEG tube feeds - unable to do barrium swallow study / History of seizures; continue seizure precautions antiepileptic medications / HTN; stable on antihypertensives /GERD ; continue PPIs /Dyslipidemia; on statin /Leukopenia; resolved /DC planning per case management Possible discharge home with home health versus SNF placement But family refuses to take her back home, will need placement Hospitalist Physical General appearance: Present: no acute distress, - EENT Eyes: Present: PERRL, EOM intact - Neck Neck: Present: supple, normal ROM - Respiratory Respiratory effort: normal Respiratory: bilateral: diminished, negative: rales, rhonchi, wheezing - Cardiovascular Rhythm: regular Heart Sounds: Present: S1 & S2 - Extremities Extremities: no ischemia Extremity abnormal: edema (trace edema) - Abdominal General gastrointestinal: soft, non-tender, non-distended, normal bowel sounds, other (PEG in place) - Integumentary Integumentary: Present: clear, warm - Psychiatric Psychiatric: other (alert and awake, noncommunicative) - Neurologic Neurologic: other (noncommunicative/bedbound/left-sided weakness) Subjective Date of service: 05/25/17 Interval history: Since seen and examined medical records reviewed Patient is alert and awake, not in acute distress Patient is clinically stable no new changes Objective - Constitutional Vitals: Vital Signs - 12hr 05/25/17 05/25/17 07:29 11:04 Temperature 98.5 F Pulse Rate 84 Respiratory 20 Rate Blood Pressure 138/97 138/97 O2 Sat by Pulse 98 Oximetry - Labs CBC & Chem 7: 05/15/17 04:00 05/12/17 05:44 Labs: Abnormal lab results 05/25/17 Range/Units 11:28 POC Glucose 113 H (70-105)
[2017-05-26 06:16] LABS: Eosinophils # (Auto) 0.1 K/mm3 (0.0-0.4); Eosinophils % (Auto) 2.7 % (0.0-4.3); Hematocrit 40.4 % (30.3-42.9); Hemoglobin 13.6 gm/dl (10.1-14.3); Lymphocytes # (Auto) 1.5 K/mm3 (1.2-5.4); Lymphocytes % (Auto) 34.3 % (13.4-35.0); Mean Corpuscular HGB Conc 34 % (30-34); Mean Corpuscular Hemoglobin 31 pg (28-32); Mean Corpuscular Volume 92 fl (79-97); Monocytes # (Auto) 0.6 K/mm3 (0.0-0.8); Monocytes % (Auto) 13.2 % (0.0-7.3); Platelet Count 273 K/mm3 (140-440); Red Blood Count 4.41 M/mm3 (3.65-5.03); Red Cell Distribution Width 14.4 % (13.2-15.2)
[2017-05-26 06:35] LABS: BUN/Creatinine Ratio 38; Blood Urea Nitrogen 15 mg/dL (7-17); Hemolysis Index 4
[2017-05-26] MEDS: DepaKENE Liq FEEDTUBE SCH ×2 (10:46→23:51)
[2017-05-26] MEDS: BABY ASPIRIN PO SCH (10:47)
[2017-05-26] MEDS: PEPCID FEEDTUBE SCH ×2 (10:47→23:52)
[2017-05-26] MEDS: NORVASC FEEDTUBE SCH (10:48)
--- NOTE | 2017-05-26 12:55 | Progress Note ---
Assessment and Plan /CVA with left-sided weakness; with residual left-sided weakness, bedbound, CT 05/11/17 ; Chronic infarct right occipital lobe right josh , Apparent subacute to early chronic right thalamic infarct Cont Physical therapy rehabilitation, continue antiplatelets and statin /Dysphagia status post PEG placement, continue PEG tube feeds - unable to do barrium swallow study / History of seizures; continue seizure precautions antiepileptic medications / HTN; stable on antihypertensives /GERD ; continue PPIs /Dyslipidemia; on statin /Leukopenia; resolved /DC planning per case management Possible discharge home with home health versus SNF placement But family refuses to take her back home, will need placement Brief History: 56-year-old female AAF with a history of stroke and feeding tube brought to the hospital by EMS with a complaint of of "new stroke." Hospitalist Physical General appearance: Present: no acute distress, - EENT Eyes: Present: PERRL, EOM intact - Neck Neck: Present: supple, normal ROM - Respiratory Respiratory effort: normal Respiratory: bilateral: diminished, negative: rales, rhonchi, wheezing - Cardiovascular Rhythm: regular Heart Sounds: Present: S1 & S2 - Extremities Extremities: no ischemia Extremity abnormal: edema (trace edema) - Abdominal General gastrointestinal: soft, non-tender, non-distended, normal bowel sounds, other (PEG in place) - Integumentary Integumentary: Present: clear, warm - Psychiatric Psychiatric: other (alert and awake, noncommunicative) - Neurologic Neurologic: other (noncommunicative/bedbound/left-sided weakness) Subjective Date of service: 05/26/17 Interval history: Since seen and examined medical records reviewed Patient is alert and awake, not in acute distress Patient is clinically stable no new changes Objective - Constitutional Vitals: Vital Signs - 12hr 05/26/17 05/26/17 05/26/17 01:18 08:36 10:48 Temperature 98.2 F 98.6 F Pulse Rate 81 89 89 Respiratory 19 18 Rate Blood Pressure 107/75 137/102 137/102 O2 Sat by Pulse 97 100 Oximetry - Labs CBC & Chem 7: 05/26/17 05:33 05/26/17 05:33 Labs: Abnormal lab results 05/26/17 05/26/17 Range/Units 05:33 05:33 [place] % (Auto) 13.2 H (0.0-7.3) % Creatinine 0.4 L (0.7-1.2) mg/dL
[2017-05-27] MEDS: DepaKENE Liq FEEDTUBE SCH (10:23)
[2017-05-27] MEDS: NORVASC FEEDTUBE SCH (10:24)
[2017-05-27] MEDS: PEPCID FEEDTUBE SCH (10:24)
[2017-05-27] MEDS: BABY ASPIRIN PO SCH (10:24)
--- NOTE | 2017-05-27 15:55 | Progress Note ---
Assessment and Plan CVA with left-sided weakness; with residual left-sided weakness, bedbound, CT 05/11/17 ; Chronic infarct right occipital lobe right josh , Apparent subacute to early chronic right thalamic infarct Cont Physical therapy rehabilitation, continue antiplatelets and statin Dysphagia status post PEG placement, continue PEG tube feeds - unable to do barrium swallow study History of seizures; continue seizure precautions antiepileptic medications HTN; stable on antihypertensives GERD ; continue PPIs Dyslipidemia; on statin Leukopenia; resolved DC planning per case management Possible discharge home with home health versus SNF placement But family refuses to take her back home, will need placement - Patient Problems (1) Acute CVA (cerebrovascular accident) Current Visit: Yes Status: Acute Plan to address problem: New Lsided weakness. Stroke w/u Patient is bedbound Neuro consult (2) HTN (hypertension) Current Visit: Yes Status: Chronic Qualifiers: Hypertension type: essential hypertension Qualified Code(s): I10 - Essential (primary) hypertension Plan to address problem: Cont Labetolol amlodipine and Hydralazine (3) GERD (gastroesophageal reflux disease) Current Visit: Yes Status: Chronic Qualifiers: Esophagitis presence: without esophagitis Qualified Code(s): K21.9 - Gastro -esophageal reflux disease without esophagitis Plan to address problem: Cont Ranitidine (4) Seizure disorder Current Visit: Yes Status: Chronic Plan to address problem: Cont valproic acid (5) DVT prophylaxis Current Visit: Yes Status: Acute Plan to address problem: on Lovenox Subjective Date of service: 05/27/17 Principal diagnosis: Acute CVA Interval history: Same condition Objective - Constitutional Vitals: Vital Signs - 12hr 05/27/17 08:22 Temperature 98.0 F Pulse Rate 87 Respiratory 18 Rate Blood Pressure 148/103 O2 Sat by Pulse 98 Oximetry General appearance: Present: no acute distress, well-nourished - EENT Eyes: PERRL, EOM intact ENT: hearing intact, clear oral mucosa Ears: bilateral: normal - Neck Neck: supple, normal ROM - Respiratory Respiratory effort: normal Respiratory: bilateral: CTA - Breasts Breasts: normal - Cardiovascular Rhythm: regular Heart Sounds: Present: S1 & S2. Absent: gallop, rub Extremities: pulses intact, No edema, normal color, Full ROM - Gastrointestinal General gastrointestinal: Present: soft, non-tender, non-distended, normal bowel sounds - Genitourinary Female genitourinary: normal - Integumentary Integumentary: clear, warm, dry - Musculoskeletal Musculoskeletal: 1, strength equal bilaterally - Neurologic Neurologic: moves all extremities - Psychiatric Psychiatric: memory intact, appropriate mood/affect, intact judgment & insight - Labs CBC & Chem 7: 05/26/17 05:33 05/26/17 05:33 Labs: Abnormal lab results 05/27/17 Range/Units 01:02 POC Glucose 113 H (70-105)
[2017-05-28] MEDS: PEPCID FEEDTUBE SCH ×3 (00:21→22:22)
[2017-05-28] MEDS: DepaKENE Liq FEEDTUBE SCH ×3 (00:21→22:22)
[2017-05-28] MEDS: BABY ASPIRIN PO SCH (09:41)
[2017-05-28] MEDS: NORVASC FEEDTUBE SCH (09:41)
[2017-05-28] MEDS ORDERED: PANCREAZE DR 10,500 UNIT FEEDTUBE PRN (10:04)
[2017-05-28] MEDS ORDERED: SIMPLE SYRUP FEEDTUBE PRN ×2 (10:04)
[2017-05-28] MEDS ORDERED: SODIUM BICARBONATE FEEDTUBE PRN (10:04)
--- NOTE | 2017-05-28 14:55 | Progress Note ---
Assessment and Plan Assessment and plan: CVA with left-sided weakness; with residual left-sided weakness, bedbound, CT 05/11/17 ; Chronic infarct right occipital lobe right josh , Apparent subacute to early chronic right thalamic infarct Cont Physical therapy rehabilitation, continue antiplatelets and statin Dysphagia status post PEG placement, continue PEG tube feeds - unable to do barium swallow study History of seizures; continue seizure precautions antiepileptic medications HTN; stable on antihypertensives GERD ; continue PPIs Dyslipidemia; on statin Leukopenia; resolved DC planning per case management Possible discharge home with home health versus SNF placement But family refuses to take her back home, will need placement History Interval history: Patient is 56 yo with acute stroke with residual aphasia and left sided weakness , still has aphasia, left sided weakness Hospitalist Physical - Physical exam Narrative exam: GEN APPEARANCE : Not in acute distress, HEENT: Atraumatic NECK : supple, no JVD LUNGS: clear to auscultation bilaterally, no rales, no wheeze HEART: S1 and S2 regular, no murmurs, rubs or gallop ABD: Soft, no tenderness, no distension, normal bowel sounds EXT: No edema, no clubbing, no cyanosis NEURO:Awake,alert, aphasia, left sided weakness - Constitutional Vitals: Temp Pulse Resp BP Pulse Ox 97.4 F L 86 18 130/93 96 05/28/17 08:53 05/28/17 09:30 05/28/17 08:53 05/28/17 08:53 05/28/17 09:30 General appearance: Present: no acute distress, well-nourished Results - Labs CBC & Chem 7: 05/26/17 05:33 05/26/17 05:33 Labs: Laboratory Last Values WBC 4.5 K/mm3 (4.5-11.0) 05/26/17 05:33 RBC 4.41 M/mm3 (3.65-5.03) 05/26/17 05:33 Hgb 13.6 gm/dl (10.1-14.3) 05/26/17 05:33 Hct 40.4 % (30.3-42.9) 05/26/17 05:33 MCV 92 fl (79-97) 05/26/17 05:33 MCH 31 pg (28-32) 05/26/17 05:33 MCHC 34 % (30-34) 05/26/17 05:33 RDW 14.4 % (13.2-15.2) 05/26/17 05:33 Plt Count 273 K/mm3 (140-440) 05/26/17 05:33 Lymph % (Auto) 34.3 % (13.4-35.0) 05/26/17 05:33 [place] % (Auto) 13.2 % (0.0-7.3) H 05/26/17 05:33 Eos % (Auto) 2.7 % (0.0-4.3) 05/26/17 05:33 Baso % (Auto) 1.0 % (0.0-1.8) 05/26/17 05:33 Lymph # 1.5 K/mm3 (1.2-5.4) 05/26/17 05:33 [place] # 0.6 K/mm3 (0.0-0.8) 05/26/17 05:33 Eos # 0.1 K/mm3 (0.0-0.4) 05/26/17 05:33 Baso # 0.0 K/mm3 (0.0-0.1) 05/26/17 05:33 Add Manual Diff Complete 05/12/17 05:44 Total Counted 100 05/12/17 05:44 Seg Neutrophils % 48.8 % (40.0-70.0) 05/26/17 05:33 Seg Neuts % (Manual) 46.0 % (40.0-70.0) 05/12/17 05:44 Band Neutrophils % 0 % 05/12/17 05:44 Lymphocytes % (Manual) 39.0 % (13.4-35.0) H 05/12/17 05:44 Reactive Lymphs % (Man) 0 % 05/12/17 05:44 Monocytes % (Manual) 12.0 % (0.0-7.3) H 05/12/17 05:44 Eosinophils % (Manual) 3.0 % (0.0-4.3) 05/12/17 05:44 Basophils % (Manual) 0 % (0.0-1.8) 05/12/17 05:44 Metamyelocytes % 0 % 05/12/17 05:44 Myelocytes % 0 % 05/12/17 05:44 Promyelocytes % 0 % 05/12/17 05:44 Blast Cells % 0 % 05/12/17 05:44 Nucleated RBC % Not Reportable 05/12/17 05:44 Seg Neutrophils # 2.2 K/mm3 (1.8-7.7) 05/26/17 05:33 Seg Neutrophils # Man 1.3 K/mm3 (1.8-7.7) L 05/12/17 05:44 Band Neutrophils # 0.0 K/mm3 05/12/17 05:44 Lymphocytes # (Manual) 1.1 K/mm3 (1.2-5.4) L 05/12/17 05:44 Abs React Lymphs (Man) 0.0 K/mm3 05/12/17 05:44 Monocytes # (Manual) 0.3 K/mm3 (0.0-0.8) 05/12/17 05:44 Eosinophils # (Manual) 0.1 K/mm3 (0.0-0.4) 05/12/17 05:44 Basophils # (Manual) 0.0 K/mm3 (0.0-0.1) 05/12/17 05:44 Metamyelocytes # 0.0 K/mm3 05/12/17 05:44 Myelocytes # 0.0 K/mm3 05/12/17 05:44 Promyelocytes # 0.0 K/mm3 05/12/17 05:44 Blast Cells # 0.0 K/mm3 05/12/17 05:44 WBC Morphology Not Reportable 05/12/17 05:44 Hypersegmented Neuts Not Reportable 05/12/17 05:44 Hyposegmented Neuts Not Reportable 05/12/17 05:44 Hypogranular Neuts Not Reportable 05/12/17 05:44 Smudge Cells Not Reportable 05/12/17 05:44 Toxic Granulation Not Reportable 05/12/17 05:44 Toxic Vacuolation Not Reportable 05/12/17 05:44 Dohle Bodies Not Reportable 05/12/17 05:44 Pelger-Huet Anomaly Not Reportable 05/12/17 05:44 Shelly Rods Not Reportable 05/12/17 05:44 Platelet Estimate Cons 05/12/17 05:44 Clumped Platelets Few 05/12/17 05:44 Plt Clumps, EDTA Not Reportable 05/12/17 05:44 Large Platelets Not Reportable 05/12/17 05:44 Giant Platelets Not Reportable 05/12/17 05:44 Platelet Satelliting Not Reportable 05/12/17 05:44 Plt Morphology Comment Not Reportable 05/12/17 05:44 RBC Morphology Normal 05/12/17 05:44 Dimorphic RBCs Not Reportable 05/12/17 05:44 Polychromasia Not Reportable 05/12/17 05:44 Hypochromasia Not Reportable 05/12/17 05:44 Poikilocytosis Not Reportable 05/12/17 05:44 Anisocytosis Not Reportable 05/12/17 05:44 Microcytosis Not Reportable 05/12/17 05:44 Macrocytosis Not Reportable 05/12/17 05:44 Spherocytes Not Reportable 05/12/17 05:44 Pappenheimer Bodies Not Reportable 05/12/17 05:44 Sickle Cells Not Reportable 05/12/17 05:44 Target Cells Not Reportable 05/12/17 05:44 Tear Drop Cells Not Reportable 05/12/17 05:44 Ovalocytes Not Reportable 05/12/17 05:44 Helmet Cells Not Reportable 05/12/17 05:44 Cao-Hosmer Bodies Not Reportable 05/12/17 05:44 [place] Rings Not Reportable 05/12/17 05:44 Mary Cells Not Reportable 05/12/17 05:44 Bite Cells Not Reportable 05/12/17 05:44 Crenated Cell Not Reportable 05/12/17 05:44 Elliptocytes Not Reportable 05/12/17 05:44 Acanthocytes (Spur) Not Reportable 05/12/17 05:44 Rouleaux Not Reportable 05/12/17 05:44 Hemoglobin C Crystals Not Reportable 05/12/17 05:44 Schistocytes Not Reportable 05/12/17 05:44 Malaria parasites Not Reportable 05/12/17 05:44 Wander Bodies Not Reportable 05/12/17 05:44 Hem Pathologist Commnt No 05/12/17 05:44 PT 13.9 Sec. (12.2-14.9) 05/11/17 12:56 INR 1.02 (0.87-1.13) 05/11/17 12:56 APTT 29.8 Sec. (24.2-36.6) 05/11/17 12:56 Thrombin Time 16.4 Sec. (15.1-19.6) 05/11/17 12:56 Sodium 140 mmol/L (137-145) 05/26/17 05:33 Potassium 4.1 mmol/L (3.6-5.0) 05/26/17 05:33 Chloride 99.2 mmol/L (98-107) 05/26/17 05:33 Carbon Dioxide 29 mmol/L (22-30) 05/26/17 05:33 Anion Gap 16 mmol/L 05/26/17 05:33 BUN 15 mg/dL (7-17) 05/26/17 05:33 Creatinine 0.4 mg/dL (0.7-1.2) L 05/26/17 05:33 Estimated GFR > 60 ml/min 05/26/17 05:33 BUN/Creatinine Ratio 38 % 05/26/17 05:33 Glucose 90 mg/dL (65-100) 05/26/17 05:33 POC Glucose 72 (70-105) 05/28/17 12:06 Hemoglobin A1c 5.7 % (4-6) 05/11/17 12:56 Calcium 10.0 mg/dL (8.4-10.2) 05/26/17 05:33 Total Bilirubin 0.30 mg/dL (0.1-1.2) 05/12/17 05:44 AST 27 units/L (5-40) 05/12/17 05:44 ALT 28 units/L (7-56) 05/12/17 05:44 Alkaline Phosphatase 52 units/L (35-129) 05/12/17 05:44 Total Creatine Kinase 64 units/L (30-135) 05/11/17 12:56 CK-MB (CK-2) 1.4 ng/mL (0.0-4.0) 05/11/17 12:56 CK-MB (CK-2) Rel Index 2.1 (0-4) 05/11/17 12:56 Troponin T < 0.010 ng/mL (0.00-0.029) 05/11/17 12:56 Total Protein 6.5 g/dL (6.3-8.2) 05/12/17 05:44 Albumin 3.8 g/dL (3.9-5) L 05/12/17 05:44 Albumin/Globulin Ratio 1.4 % 05/12/17 05:44 Triglycerides 113 mg/dL (2-149) 05/12/17 05:44 Cholesterol 172 mg/dL (50-199) 05/12/17 05:44 LDL Cholesterol Direct 115 mg/dL (50-130) 05/12/17 05:44 HDL Cholesterol 35 mg/dL (40-59) L 05/12/17 05:44 Cholesterol/HDL Ratio 4.91 % 05/12/17 05:44 Urine Color Yellow (Yellow) 05/11/17 14:09 Urine Turbidity Clear (Clear) 05/11/17 14:09 Urine pH 6.0 (5.0-7.0) 05/11/17 14:09 Ur Specific [place] 1.016 (1.003-1.030) 05/11/17 14:09 Urine Protein <15 mg/dl mg/dL (Negative) 05/11/17 14:09 Urine Glucose (UA) Neg mg/dL (Negative) 05/11/17 14:09 Urine Ketones Tr mg/dL (Negative) 05/11/17 14:09 Urine Blood Neg (Negative) 05/11/17 14:09 Urine Nitrite Neg (Negative) 05/11/17 14:09 Urine Bilirubin Neg (Negative) 05/11/17 14:09 Urine Urobilinogen < 2.0 mg/dL (<2.0) 05/11/17 14:09 Ur Leukocyte Esterase Neg (Negative) 05/11/17 14:09 Urine WBC (Auto) 2.0 /HPF (0.0-6.0) 05/11/17 14:09 Urine RBC (Auto) 3.0 /HPF (0.0-6.0) 05/11/17 14:09 U Epithel Cells (Auto) < 1.0 /HPF (0-13.0) 05/11/17 14:09 Urine Mucus Few /HPF 05/11/17 14:09 Valproic Acid 79.7 ug/mL (50-100) 05/11/17 12:56
--- NOTE | 2017-05-29 09:19 | Progress Note ---
Assessment and Plan Assessment and plan: CVA with left-sided weakness; with residual left-sided weakness, bedbound, CT 05/11/17 ; Chronic infarct right occipital lobe right josh , Apparent subacute to early chronic right thalamic infarct Cont Physical therapy rehabilitation, continue antiplatelets and statin Dysphagia status post PEG placement, continue PEG tube feeds - unable to do barium swallow study History of seizures; continue seizure precautions antiepileptic medications HTN; stable on antihypertensives GERD ; continue PPIs Dyslipidemia; on statin Leukopenia; resolved DC planning per case management Possible discharge home with home health versus SNF placement But family refuses to take her back home. She needs placement. History Interval history: Patient is 56 yo with acute stroke with residual aphasia and left sided weakness , still has aphasia, left sided weakness Hospitalist Physical - Physical exam Narrative exam: GEN APPEARANCE : Not in acute distress, HEENT: Atraumatic NECK : supple, no JVD LUNGS: clear to auscultation bilaterally, no rales, no wheeze HEART: S1 and S2 regular, no murmurs, rubs or gallop ABD: Soft, no tenderness, no distension, normal bowel sounds EXT: No edema, no clubbing, no cyanosis NEURO:Awake,alert, aphasia, left sided weakness - Constitutional Vitals: Temp Pulse Resp BP Pulse Ox 98.3 F 74 16 128/80 99 05/29/17 08:34 05/29/17 08:34 05/29/17 08:34 05/29/17 08:34 05/29/17 08:34 General appearance: Present: no acute distress, well-nourished Results - Labs CBC & Chem 7: 05/26/17 05:33 05/26/17 05:33 Labs: Laboratory Last Values WBC 4.5 K/mm3 (4.5-11.0) 05/26/17 05:33 RBC 4.41 M/mm3 (3.65-5.03) 05/26/17 05:33 Hgb 13.6 gm/dl (10.1-14.3) 05/26/17 05:33 Hct 40.4 % (30.3-42.9) 05/26/17 05:33 MCV 92 fl (79-97) 05/26/17 05:33 MCH 31 pg (28-32) 05/26/17 05:33 MCHC 34 % (30-34) 05/26/17 05:33 RDW 14.4 % (13.2-15.2) 05/26/17 05:33 Plt Count 273 K/mm3 (140-440) 05/26/17 05:33 Lymph % (Auto) 34.3 % (13.4-35.0) 05/26/17 05:33 [place] % (Auto) 13.2 % (0.0-7.3) H 05/26/17 05:33 Eos % (Auto) 2.7 % (0.0-4.3) 05/26/17 05:33 Baso % (Auto) 1.0 % (0.0-1.8) 05/26/17 05:33 Lymph # 1.5 K/mm3 (1.2-5.4) 05/26/17 05:33 [place] # 0.6 K/mm3 (0.0-0.8) 05/26/17 05:33 Eos # 0.1 K/mm3 (0.0-0.4) 05/26/17 05:33 Baso # 0.0 K/mm3 (0.0-0.1) 05/26/17 05:33 Add Manual Diff Complete 05/12/17 05:44 Total Counted 100 05/12/17 05:44 Seg Neutrophils % 48.8 % (40.0-70.0) 05/26/17 05:33 Seg Neuts % (Manual) 46.0 % (40.0-70.0) 05/12/17 05:44 Band Neutrophils % 0 % 05/12/17 05:44 Lymphocytes % (Manual) 39.0 % (13.4-35.0) H 05/12/17 05:44 Reactive Lymphs % (Man) 0 % 05/12/17 05:44 Monocytes % (Manual) 12.0 % (0.0-7.3) H 05/12/17 05:44 Eosinophils % (Manual) 3.0 % (0.0-4.3) 05/12/17 05:44 Basophils % (Manual) 0 % (0.0-1.8) 05/12/17 05:44 Metamyelocytes % 0 % 05/12/17 05:44 Myelocytes % 0 % 05/12/17 05:44 Promyelocytes % 0 % 05/12/17 05:44 Blast Cells % 0 % 05/12/17 05:44 Nucleated RBC % Not Reportable 05/12/17 05:44 Seg Neutrophils # 2.2 K/mm3 (1.8-7.7) 05/26/17 05:33 Seg Neutrophils # Man 1.3 K/mm3 (1.8-7.7) L 05/12/17 05:44 Band Neutrophils # 0.0 K/mm3 05/12/17 05:44 Lymphocytes # (Manual) 1.1 K/mm3 (1.2-5.4) L 05/12/17 05:44 Abs React Lymphs (Man) 0.0 K/mm3 05/12/17 05:44 Monocytes # (Manual) 0.3 K/mm3 (0.0-0.8) 05/12/17 05:44 Eosinophils # (Manual) 0.1 K/mm3 (0.0-0.4) 05/12/17 05:44 Basophils # (Manual) 0.0 K/mm3 (0.0-0.1) 05/12/17 05:44 Metamyelocytes # 0.0 K/mm3 05/12/17 05:44 Myelocytes # 0.0 K/mm3 05/12/17 05:44 Promyelocytes # 0.0 K/mm3 05/12/17 05:44 Blast Cells # 0.0 K/mm3 05/12/17 05:44 WBC Morphology Not Reportable 05/12/17 05:44 Hypersegmented Neuts Not Reportable 05/12/17 05:44 Hyposegmented Neuts Not Reportable 05/12/17 05:44 Hypogranular Neuts Not Reportable 05/12/17 05:44 Smudge Cells Not Reportable 05/12/17 05:44 Toxic Granulation Not Reportable 05/12/17 05:44 Toxic Vacuolation Not Reportable 05/12/17 05:44 Dohle Bodies Not Reportable 05/12/17 05:44 Pelger-Huet Anomaly Not Reportable 05/12/17 05:44 Shelly Rods Not Reportable 05/12/17 05:44 Platelet Estimate Cons 05/12/17 05:44 Clumped Platelets Few 05/12/17 05:44 Plt Clumps, EDTA Not Reportable 05/12/17 05:44 Large Platelets Not Reportable 05/12/17 05:44 Giant Platelets Not Reportable 05/12/17 05:44 Platelet Satelliting Not Reportable 05/12/17 05:44 Plt Morphology Comment Not Reportable 05/12/17 05:44 RBC Morphology Normal 05/12/17 05:44 Dimorphic RBCs Not Reportable 05/12/17 05:44 Polychromasia Not Reportable 05/12/17 05:44 Hypochromasia Not Reportable 05/12/17 05:44 Poikilocytosis Not Reportable 05/12/17 05:44 Anisocytosis Not Reportable 05/12/17 05:44 Microcytosis Not Reportable 05/12/17 05:44 Macrocytosis Not Reportable 05/12/17 05:44 Spherocytes Not Reportable 05/12/17 05:44 Pappenheimer Bodies Not Reportable 05/12/17 05:44 Sickle Cells Not Reportable 05/12/17 05:44 Target Cells Not Reportable 05/12/17 05:44 Tear Drop Cells Not Reportable 05/12/17 05:44 Ovalocytes Not Reportable 05/12/17 05:44 Helmet Cells Not Reportable 05/12/17 05:44 [place] Bodies Not Reportable 05/12/17 05:44 [place] Rings Not Reportable 05/12/17 05:44 [place] Cells Not Reportable 05/12/17 05:44 Bite Cells Not Reportable 05/12/17 05:44 Crenated Cell Not Reportable 05/12/17 05:44 Elliptocytes Not Reportable 05/12/17 05:44 Acanthocytes (Spur) Not Reportable 05/12/17 05:44 Rouleaux Not Reportable 05/12/17 05:44 Hemoglobin C Crystals Not Reportable 05/12/17 05:44 Schistocytes Not Reportable 05/12/17 05:44 Malaria parasites Not Reportable 05/12/17 05:44 Wander Bodies Not Reportable 05/12/17 05:44 Hem Pathologist Commnt No 05/12/17 05:44 PT 13.9 Sec. (12.2-14.9) 05/11/17 12:56 INR 1.02 (0.87-1.13) 05/11/17 12:56 APTT 29.8 Sec. (24.2-36.6) 05/11/17 12:56 Thrombin Time 16.4 Sec. (15.1-19.6) 05/11/17 12:56 Sodium 140 mmol/L (137-145) 05/26/17 05:33 Potassium 4.1 mmol/L (3.6-5.0) 05/26/17 05:33 Chloride 99.2 mmol/L (98-107) 05/26/17 05:33 Carbon Dioxide 29 mmol/L (22-30) 05/26/17 05:33 Anion Gap 16 mmol/L 05/26/17 05:33 BUN 15 mg/dL (7-17) 05/26/17 05:33 Creatinine 0.4 mg/dL (0.7-1.2) L 05/26/17 05:33 Estimated GFR > 60 ml/min 05/26/17 05:33 BUN/Creatinine Ratio 38 % 05/26/17 05:33 Glucose 90 mg/dL (65-100) 05/26/17 05:33 POC Glucose 100 (70-105) 05/29/17 06:54 Hemoglobin A1c 5.7 % (4-6) 05/11/17 12:56 Calcium 10.0 mg/dL (8.4-10.2) 05/26/17 05:33 Total Bilirubin 0.30 mg/dL (0.1-1.2) 05/12/17 05:44 AST 27 units/L (5-40) 05/12/17 05:44 ALT 28 units/L (7-56) 05/12/17 05:44 Alkaline Phosphatase 52 units/L (35-129) 05/12/17 05:44 Total Creatine Kinase 64 units/L (30-135) 05/11/17 12:56 CK-MB (CK-2) 1.4 ng/mL (0.0-4.0) 05/11/17 12:56 CK-MB (CK-2) Rel Index 2.1 (0-4) 05/11/17 12:56 Troponin T < 0.010 ng/mL (0.00-0.029) 05/11/17 12:56 Total Protein 6.5 g/dL (6.3-8.2) 05/12/17 05:44 Albumin 3.8 g/dL (3.9-5) L 05/12/17 05:44 Albumin/Globulin Ratio 1.4 % 05/12/17 05:44 Triglycerides 113 mg/dL (2-149) 05/12/17 05:44 Cholesterol 172 mg/dL (50-199) 05/12/17 05:44 LDL Cholesterol Direct 115 mg/dL (50-130) 05/12/17 05:44 HDL Cholesterol 35 mg/dL (40-59) L 05/12/17 05:44 Cholesterol/HDL Ratio 4.91 % 05/12/17 05:44 Urine Color Yellow (Yellow) 05/11/17 14:09 Urine Turbidity Clear (Clear) 05/11/17 14:09 Urine pH 6.0 (5.0-7.0) 05/11/17 14:09 Ur Specific [place] 1.016 (1.003-1.030) 05/11/17 14:09 Urine Protein <15 mg/dl mg/dL (Negative) 05/11/17 14:09 Urine Glucose (UA) Neg mg/dL (Negative) 05/11/17 14:09 Urine Ketones Tr mg/dL (Negative) 05/11/17 14:09 Urine Blood Neg (Negative) 05/11/17 14:09 Urine Nitrite Neg (Negative) 05/11/17 14:09 Urine Bilirubin Neg (Negative) 05/11/17 14:09 Urine Urobilinogen < 2.0 mg/dL (<2.0) 05/11/17 14:09 Ur Leukocyte Esterase Neg (Negative) 05/11/17 14:09 Urine WBC (Auto) 2.0 /HPF (0.0-6.0) 05/11/17 14:09 Urine RBC (Auto) 3.0 /HPF (0.0-6.0) 05/11/17 14:09 U Epithel Cells (Auto) < 1.0 /HPF (0-13.0) 05/11/17 14:09 Urine Mucus Few /HPF 05/11/17 14:09 Valproic Acid 79.7 ug/mL (50-100) 05/11/17 12:56
[2017-05-29] MEDS: DepaKENE Liq FEEDTUBE SCH ×2 (12:33→23:50)
[2017-05-29] MEDS: PEPCID FEEDTUBE SCH ×2 (12:33→23:50)
[2017-05-29] MEDS: BABY ASPIRIN PO SCH (12:33)
[2017-05-29] MEDS: NORVASC FEEDTUBE SCH (12:33)
--- NOTE | 2017-05-30 09:34 | Progress Note ---
Assessment and Plan Assessment and plan: CVA with left-sided weakness; with residual left-sided weakness, bedbound, CT 05/11/17 ; Chronic infarct right occipital lobe right josh , Apparent subacute to early chronic right thalamic infarct Cont Physical therapy rehabilitation, continue antiplatelets and statin Dysphagia status post PEG placement, continue PEG tube feeds - unable to do barium swallow study History of seizures; continue seizure precautions antiepileptic medications HTN; stable on antihypertensives GERD ; continue PPIs Dyslipidemia; on statin Leukopenia; resolved DVT prophylaxis. Lovenox DC planning per case management Possible discharge home with home health versus SNF placement But family refuses to take her back home. She is awaiting placement. History Interval history: Patient is 56 yo with acute stroke with residual aphasia and left sided weakness , still has aphasia, left sided weakness Hospitalist Physical - Physical exam Narrative exam: GEN APPEARANCE : Not in acute distress, HEENT: Atraumatic NECK : supple, no JVD LUNGS: clear to auscultation bilaterally, no rales, no wheeze HEART: S1 and S2 regular, no murmurs, rubs or gallop ABD: Soft, no tenderness, no distension, normal bowel sounds EXT: No edema, no clubbing, no cyanosis NEURO:Awake,alert, aphasia, left sided weakness - Constitutional Vitals: Temp Pulse Resp BP Pulse Ox 97.6 F 86 16 155/98 98 05/30/17 04:05 05/30/17 04:05 05/30/17 04:05 05/30/17 04:05 05/30/17 04:05 General appearance: Present: no acute distress, well-nourished Results - Labs CBC & Chem 7: 05/26/17 05:33 05/26/17 05:33 Labs: Laboratory Last Values WBC 4.5 K/mm3 (4.5-11.0) 05/26/17 05:33 RBC 4.41 M/mm3 (3.65-5.03) 05/26/17 05:33 Hgb 13.6 gm/dl (10.1-14.3) 05/26/17 05:33 Hct 40.4 % (30.3-42.9) 05/26/17 05:33 MCV 92 fl (79-97) 05/26/17 05:33 MCH 31 pg (28-32) 05/26/17 05:33 MCHC 34 % (30-34) 05/26/17 05:33 RDW 14.4 % (13.2-15.2) 05/26/17 05:33 Plt Count 273 K/mm3 (140-440) 05/26/17 05:33 Lymph % (Auto) 34.3 % (13.4-35.0) 05/26/17 05:33 [place] % (Auto) 13.2 % (0.0-7.3) H 05/26/17 05:33 Eos % (Auto) 2.7 % (0.0-4.3) 05/26/17 05:33 Baso % (Auto) 1.0 % (0.0-1.8) 05/26/17 05:33 Lymph # 1.5 K/mm3 (1.2-5.4) 05/26/17 05:33 [place] # 0.6 K/mm3 (0.0-0.8) 05/26/17 05:33 Eos # 0.1 K/mm3 (0.0-0.4) 05/26/17 05:33 Baso # 0.0 K/mm3 (0.0-0.1) 05/26/17 05:33 Add Manual Diff Complete 05/12/17 05:44 Total Counted 100 05/12/17 05:44 Seg Neutrophils % 48.8 % (40.0-70.0) 05/26/17 05:33 Seg Neuts % (Manual) 46.0 % (40.0-70.0) 05/12/17 05:44 Band Neutrophils % 0 % 05/12/17 05:44 Lymphocytes % (Manual) 39.0 % (13.4-35.0) H 05/12/17 05:44 Reactive Lymphs % (Man) 0 % 05/12/17 05:44 Monocytes % (Manual) 12.0 % (0.0-7.3) H 05/12/17 05:44 Eosinophils % (Manual) 3.0 % (0.0-4.3) 05/12/17 05:44 Basophils % (Manual) 0 % (0.0-1.8) 05/12/17 05:44 Metamyelocytes % 0 % 05/12/17 05:44 Myelocytes % 0 % 05/12/17 05:44 Promyelocytes % 0 % 05/12/17 05:44 Blast Cells % 0 % 05/12/17 05:44 Nucleated RBC % Not Reportable 05/12/17 05:44 Seg Neutrophils # 2.2 K/mm3 (1.8-7.7) 05/26/17 05:33 Seg Neutrophils # Man 1.3 K/mm3 (1.8-7.7) L 05/12/17 05:44 Band Neutrophils # 0.0 K/mm3 05/12/17 05:44 Lymphocytes # (Manual) 1.1 K/mm3 (1.2-5.4) L 05/12/17 05:44 Abs React Lymphs (Man) 0.0 K/mm3 05/12/17 05:44 Monocytes # (Manual) 0.3 K/mm3 (0.0-0.8) 05/12/17 05:44 Eosinophils # (Manual) 0.1 K/mm3 (0.0-0.4) 05/12/17 05:44 Basophils # (Manual) 0.0 K/mm3 (0.0-0.1) 05/12/17 05:44 Metamyelocytes # 0.0 K/mm3 05/12/17 05:44 Myelocytes # 0.0 K/mm3 05/12/17 05:44 Promyelocytes # 0.0 K/mm3 05/12/17 05:44 Blast Cells # 0.0 K/mm3 05/12/17 05:44 WBC Morphology Not Reportable 05/12/17 05:44 Hypersegmented Neuts Not Reportable 05/12/17 05:44 Hyposegmented Neuts Not Reportable 05/12/17 05:44 Hypogranular Neuts Not Reportable 05/12/17 05:44 Smudge Cells Not Reportable 05/12/17 05:44 Toxic Granulation Not Reportable 05/12/17 05:44 Toxic Vacuolation Not Reportable 05/12/17 05:44 Dohle Bodies Not Reportable 05/12/17 05:44 Pelger-Huet Anomaly Not Reportable 05/12/17 05:44 Shelly Rods Not Reportable 05/12/17 05:44 Platelet Estimate Cons 05/12/17 05:44 Clumped Platelets Few 05/12/17 05:44 Plt Clumps, EDTA Not Reportable 05/12/17 05:44 Large Platelets Not Reportable 05/12/17 05:44 Giant Platelets Not Reportable 05/12/17 05:44 Platelet Satelliting Not Reportable 05/12/17 05:44 Plt Morphology Comment Not Reportable 05/12/17 05:44 RBC Morphology Normal 05/12/17 05:44 Dimorphic RBCs Not Reportable 05/12/17 05:44 Polychromasia Not Reportable 05/12/17 05:44 Hypochromasia Not Reportable 05/12/17 05:44 Poikilocytosis Not Reportable 05/12/17 05:44 Anisocytosis Not Reportable 05/12/17 05:44 Microcytosis Not Reportable 05/12/17 05:44 Macrocytosis Not Reportable 05/12/17 05:44 Spherocytes Not Reportable 05/12/17 05:44 Pappenheimer Bodies Not Reportable 05/12/17 05:44 Sickle Cells Not Reportable 05/12/17 05:44 Target Cells Not Reportable 05/12/17 05:44 Tear Drop Cells Not Reportable 05/12/17 05:44 Ovalocytes Not Reportable 05/12/17 05:44 Helmet Cells Not Reportable 05/12/17 05:44 [place] Bodies Not Reportable 05/12/17 05:44 [place] Rings Not Reportable 05/12/17 05:44 [place] Cells Not Reportable 05/12/17 05:44 Bite Cells Not Reportable 05/12/17 05:44 Crenated Cell Not Reportable 05/12/17 05:44 Elliptocytes Not Reportable 05/12/17 05:44 Acanthocytes (Spur) Not Reportable 05/12/17 05:44 Rouleaux Not Reportable 05/12/17 05:44 Hemoglobin C Crystals Not Reportable 05/12/17 05:44 Schistocytes Not Reportable 05/12/17 05:44 Malaria parasites Not Reportable 05/12/17 05:44 Wander Bodies Not Reportable 05/12/17 05:44 Hem Pathologist Commnt No 05/12/17 05:44 PT 13.9 Sec. (12.2-14.9) 05/11/17 12:56 INR 1.02 (0.87-1.13) 05/11/17 12:56 APTT 29.8 Sec. (24.2-36.6) 05/11/17 12:56 Thrombin Time 16.4 Sec. (15.1-19.6) 05/11/17 12:56 Sodium 140 mmol/L (137-145) 05/26/17 05:33 Potassium 4.1 mmol/L (3.6-5.0) 05/26/17 05:33 Chloride 99.2 mmol/L (98-107) 05/26/17 05:33 Carbon Dioxide 29 mmol/L (22-30) 05/26/17 05:33 Anion Gap 16 mmol/L 05/26/17 05:33 BUN 15 mg/dL (7-17) 05/26/17 05:33 Creatinine 0.4 mg/dL (0.7-1.2) L 05/26/17 05:33 Estimated GFR > 60 ml/min 05/26/17 05:33 BUN/Creatinine Ratio 38 % 05/26/17 05:33 Glucose 90 mg/dL (65-100) 05/26/17 05:33 POC Glucose 76 (70-105) 05/29/17 16:45 Hemoglobin A1c 5.7 % (4-6) 05/11/17 12:56 Calcium 10.0 mg/dL (8.4-10.2) 05/26/17 05:33 Total Bilirubin 0.30 mg/dL (0.1-1.2) 05/12/17 05:44 AST 27 units/L (5-40) 05/12/17 05:44 ALT 28 units/L (7-56) 05/12/17 05:44 Alkaline Phosphatase 52 units/L (35-129) 05/12/17 05:44 Total Creatine Kinase 64 units/L (30-135) 05/11/17 12:56 CK-MB (CK-2) 1.4 ng/mL (0.0-4.0) 05/11/17 12:56 CK-MB (CK-2) Rel Index 2.1 (0-4) 05/11/17 12:56 Troponin T < 0.010 ng/mL (0.00-0.029) 05/11/17 12:56 Total Protein 6.5 g/dL (6.3-8.2) 05/12/17 05:44 Albumin 3.8 g/dL (3.9-5) L 05/12/17 05:44 Albumin/Globulin Ratio 1.4 % 05/12/17 05:44 Triglycerides 113 mg/dL (2-149) 05/12/17 05:44 Cholesterol 172 mg/dL (50-199) 05/12/17 05:44 LDL Cholesterol Direct 115 mg/dL (50-130) 05/12/17 05:44 HDL Cholesterol 35 mg/dL (40-59) L 05/12/17 05:44 Cholesterol/HDL Ratio 4.91 % 05/12/17 05:44 Urine Color Yellow (Yellow) 05/11/17 14:09 Urine Turbidity Clear (Clear) 05/11/17 14:09 Urine pH 6.0 (5.0-7.0) 05/11/17 14:09 Ur Specific [place] 1.016 (1.003-1.030) 05/11/17 14:09 Urine Protein <15 mg/dl mg/dL (Negative) 05/11/17 14:09 Urine Glucose (UA) Neg mg/dL (Negative) 05/11/17 14:09 Urine Ketones Tr mg/dL (Negative) 05/11/17 14:09 Urine Blood Neg (Negative) 05/11/17 14:09 Urine Nitrite Neg (Negative) 05/11/17 14:09 Urine Bilirubin Neg (Negative) 05/11/17 14:09 Urine Urobilinogen < 2.0 mg/dL (<2.0) 05/11/17 14:09 Ur Leukocyte Esterase Neg (Negative) 05/11/17 14:09 Urine WBC (Auto) 2.0 /HPF (0.0-6.0) 05/11/17 14:09 Urine RBC (Auto) 3.0 /HPF (0.0-6.0) 05/11/17 14:09 U Epithel Cells (Auto) < 1.0 /HPF (0-13.0) 05/11/17 14:09 Urine Mucus Few /HPF 05/11/17 14:09 Valproic Acid 79.7 ug/mL (50-100) 05/11/17 12:56
[2017-05-30] MEDS: DepaKENE Liq FEEDTUBE SCH ×2 (10:43→22:14)
[2017-05-30] MEDS: BABY ASPIRIN PO SCH (10:44)
[2017-05-30] MEDS: PEPCID FEEDTUBE SCH ×2 (10:44→22:18)
[2017-05-30] MEDS: NORVASC FEEDTUBE SCH (10:45)
[2017-05-30] MEDS: LOVENOX SUB-Q SCH ×2 (22:13→22:35)
--- NOTE | 2017-05-31 11:24 | Progress Note ---
Assessment and Plan Assessment and plan: CVA with left-sided weakness; with residual left-sided weakness, bedbound, CT 05/11/17 ; Chronic infarct right occipital lobe right josh , Apparent subacute to early chronic right thalamic infarct Cont Physical therapy rehabilitation, continue antiplatelets and statin Dysphagia status post PEG placement, continue PEG tube feeds - unable to do barium swallow study History of seizures; continue seizure precautions antiepileptic medications HTN; stable on antihypertensives GERD ; continue PPIs Dyslipidemia; on statin Leukopenia; resolved DVT prophylaxis. Lovenox DC planning per case management Possible discharge home with home health versus SNF placement But family refuses to take her back home. She is awaiting placement. History Interval history: Patient is 56 yo with acute stroke with residual aphasia and left sided weakness , still has aphasia, left sided weakness Hospitalist Physical - Physical exam Narrative exam: GEN APPEARANCE : Not in acute distress, HEENT: Atraumatic NECK : supple, no JVD LUNGS: clear to auscultation bilaterally, no rales, no wheeze HEART: S1 and S2 regular, no murmurs, rubs or gallop ABD: Soft, no tenderness, no distension, normal bowel sounds EXT: No edema, no clubbing, no cyanosis NEURO:Awake,alert, aphasia, left sided weakness - Constitutional Vitals: Temp Pulse Resp BP Pulse Ox 98.6 F 81 18 128/91 99 05/31/17 08:22 05/31/17 08:22 05/31/17 08:22 05/31/17 08:22 05/31/17 08:22 General appearance: Present: no acute distress, well-nourished Results - Labs CBC & Chem 7: 05/26/17 05:33 05/26/17 05:33 Labs: Laboratory Last Values WBC 4.5 K/mm3 (4.5-11.0) 05/26/17 05:33 RBC 4.41 M/mm3 (3.65-5.03) 05/26/17 05:33 Hgb 13.6 gm/dl (10.1-14.3) 05/26/17 05:33 Hct 40.4 % (30.3-42.9) 05/26/17 05:33 MCV 92 fl (79-97) 05/26/17 05:33 MCH 31 pg (28-32) 05/26/17 05:33 MCHC 34 % (30-34) 05/26/17 05:33 RDW 14.4 % (13.2-15.2) 05/26/17 05:33 Plt Count 273 K/mm3 (140-440) 05/26/17 05:33 Lymph % (Auto) 34.3 % (13.4-35.0) 05/26/17 05:33 [place] % (Auto) 13.2 % (0.0-7.3) H 05/26/17 05:33 Eos % (Auto) 2.7 % (0.0-4.3) 05/26/17 05:33 Baso % (Auto) 1.0 % (0.0-1.8) 05/26/17 05:33 Lymph # 1.5 K/mm3 (1.2-5.4) 05/26/17 05:33 [place] # 0.6 K/mm3 (0.0-0.8) 05/26/17 05:33 Eos # 0.1 K/mm3 (0.0-0.4) 05/26/17 05:33 Baso # 0.0 K/mm3 (0.0-0.1) 05/26/17 05:33 Add Manual Diff Complete 05/12/17 05:44 Total Counted 100 05/12/17 05:44 Seg Neutrophils % 48.8 % (40.0-70.0) 05/26/17 05:33 Seg Neuts % (Manual) 46.0 % (40.0-70.0) 05/12/17 05:44 Band Neutrophils % 0 % 05/12/17 05:44 Lymphocytes % (Manual) 39.0 % (13.4-35.0) H 05/12/17 05:44 Reactive Lymphs % (Man) 0 % 05/12/17 05:44 Monocytes % (Manual) 12.0 % (0.0-7.3) H 05/12/17 05:44 Eosinophils % (Manual) 3.0 % (0.0-4.3) 05/12/17 05:44 Basophils % (Manual) 0 % (0.0-1.8) 05/12/17 05:44 Metamyelocytes % 0 % 05/12/17 05:44 Myelocytes % 0 % 05/12/17 05:44 Promyelocytes % 0 % 05/12/17 05:44 Blast Cells % 0 % 05/12/17 05:44 Nucleated RBC % Not Reportable 05/12/17 05:44 Seg Neutrophils # 2.2 K/mm3 (1.8-7.7) 05/26/17 05:33 Seg Neutrophils # Man 1.3 K/mm3 (1.8-7.7) L 05/12/17 05:44 Band Neutrophils # 0.0 K/mm3 05/12/17 05:44 Lymphocytes # (Manual) 1.1 K/mm3 (1.2-5.4) L 05/12/17 05:44 Abs React Lymphs (Man) 0.0 K/mm3 05/12/17 05:44 Monocytes # (Manual) 0.3 K/mm3 (0.0-0.8) 05/12/17 05:44 Eosinophils # (Manual) 0.1 K/mm3 (0.0-0.4) 05/12/17 05:44 Basophils # (Manual) 0.0 K/mm3 (0.0-0.1) 05/12/17 05:44 Metamyelocytes # 0.0 K/mm3 05/12/17 05:44 Myelocytes # 0.0 K/mm3 05/12/17 05:44 Promyelocytes # 0.0 K/mm3 05/12/17 05:44 Blast Cells # 0.0 K/mm3 05/12/17 05:44 WBC Morphology Not Reportable 05/12/17 05:44 Hypersegmented Neuts Not Reportable 05/12/17 05:44 Hyposegmented Neuts Not Reportable 05/12/17 05:44 Hypogranular Neuts Not Reportable 05/12/17 05:44 Smudge Cells Not Reportable 05/12/17 05:44 Toxic Granulation Not Reportable 05/12/17 05:44 Toxic Vacuolation Not Reportable 05/12/17 05:44 Dohle Bodies Not Reportable 05/12/17 05:44 Pelger-Huet Anomaly Not Reportable 05/12/17 05:44 Shelly Rods Not Reportable 05/12/17 05:44 Platelet Estimate Cons 05/12/17 05:44 Clumped Platelets Few 05/12/17 05:44 Plt Clumps, EDTA Not Reportable 05/12/17 05:44 Large Platelets Not Reportable 05/12/17 05:44 Giant Platelets Not Reportable 05/12/17 05:44 Platelet Satelliting Not Reportable 05/12/17 05:44 Plt Morphology Comment Not Reportable 05/12/17 05:44 RBC Morphology Normal 05/12/17 05:44 Dimorphic RBCs Not Reportable 05/12/17 05:44 Polychromasia Not Reportable 05/12/17 05:44 Hypochromasia Not Reportable 05/12/17 05:44 Poikilocytosis Not Reportable 05/12/17 05:44 Anisocytosis Not Reportable 05/12/17 05:44 Microcytosis Not Reportable 05/12/17 05:44 Macrocytosis Not Reportable 05/12/17 05:44 Spherocytes Not Reportable 05/12/17 05:44 Pappenheimer Bodies Not Reportable 05/12/17 05:44 Sickle Cells Not Reportable 05/12/17 05:44 Target Cells Not Reportable 05/12/17 05:44 Tear Drop Cells Not Reportable 05/12/17 05:44 Ovalocytes Not Reportable 05/12/17 05:44 Helmet Cells Not Reportable 05/12/17 05:44 Cao-Gilman Bodies Not Reportable 05/12/17 05:44 [place] Rings Not Reportable 05/12/17 05:44 Mary Cells Not Reportable 05/12/17 05:44 Bite Cells Not Reportable 05/12/17 05:44 Crenated Cell Not Reportable 05/12/17 05:44 Elliptocytes Not Reportable 05/12/17 05:44 Acanthocytes (Spur) Not Reportable 05/12/17 05:44 Rouleaux Not Reportable 05/12/17 05:44 Hemoglobin C Crystals Not Reportable 05/12/17 05:44 Schistocytes Not Reportable 05/12/17 05:44 Malaria parasites Not Reportable 05/12/17 05:44 Wander Bodies Not Reportable 05/12/17 05:44 Hem Pathologist Commnt No 05/12/17 05:44 PT 13.9 Sec. (12.2-14.9) 05/11/17 12:56 INR 1.02 (0.87-1.13) 05/11/17 12:56 APTT 29.8 Sec. (24.2-36.6) 05/11/17 12:56 Thrombin Time 16.4 Sec. (15.1-19.6) 05/11/17 12:56 Sodium 140 mmol/L (137-145) 05/26/17 05:33 Potassium 4.1 mmol/L (3.6-5.0) 05/26/17 05:33 Chloride 99.2 mmol/L (98-107) 05/26/17 05:33 Carbon Dioxide 29 mmol/L (22-30) 05/26/17 05:33 Anion Gap 16 mmol/L 05/26/17 05:33 BUN 15 mg/dL (7-17) 05/26/17 05:33 Creatinine 0.4 mg/dL (0.7-1.2) L 05/26/17 05:33 Estimated GFR > 60 ml/min 05/26/17 05:33 BUN/Creatinine Ratio 38 % 05/26/17 05:33 Glucose 90 mg/dL (65-100) 05/26/17 05:33 POC Glucose 112 (70-105) H 05/31/17 05:08 Hemoglobin A1c 5.7 % (4-6) 05/11/17 12:56 Calcium 10.0 mg/dL (8.4-10.2) 05/26/17 05:33 Total Bilirubin 0.30 mg/dL (0.1-1.2) 05/12/17 05:44 AST 27 units/L (5-40) 05/12/17 05:44 ALT 28 units/L (7-56) 05/12/17 05:44 Alkaline Phosphatase 52 units/L (35-129) 05/12/17 05:44 Total Creatine Kinase 64 units/L (30-135) 05/11/17 12:56 CK-MB (CK-2) 1.4 ng/mL (0.0-4.0) 05/11/17 12:56 CK-MB (CK-2) Rel Index 2.1 (0-4) 05/11/17 12:56 Troponin T < 0.010 ng/mL (0.00-0.029) 05/11/17 12:56 Total Protein 6.5 g/dL (6.3-8.2) 05/12/17 05:44 Albumin 3.8 g/dL (3.9-5) L 05/12/17 05:44 Albumin/Globulin Ratio 1.4 % 05/12/17 05:44 Triglycerides 113 mg/dL (2-149) 05/12/17 05:44 Cholesterol 172 mg/dL (50-199) 05/12/17 05:44 LDL Cholesterol Direct 115 mg/dL (50-130) 05/12/17 05:44 HDL Cholesterol 35 mg/dL (40-59) L 05/12/17 05:44 Cholesterol/HDL Ratio 4.91 % 05/12/17 05:44 Urine Color Yellow (Yellow) 05/11/17 14:09 Urine Turbidity Clear (Clear) 05/11/17 14:09 Urine pH 6.0 (5.0-7.0) 05/11/17 14:09 Ur Specific [place] 1.016 (1.003-1.030) 05/11/17 14:09 Urine Protein <15 mg/dl mg/dL (Negative) 05/11/17 14:09 Urine Glucose (UA) Neg mg/dL (Negative) 05/11/17 14:09 Urine Ketones Tr mg/dL (Negative) 05/11/17 14:09 Urine Blood Neg (Negative) 05/11/17 14:09 Urine Nitrite Neg (Negative) 05/11/17 14:09 Urine Bilirubin Neg (Negative) 05/11/17 14:09 Urine Urobilinogen < 2.0 mg/dL (<2.0) 05/11/17 14:09 Ur Leukocyte Esterase Neg (Negative) 05/11/17 14:09 Urine WBC (Auto) 2.0 /HPF (0.0-6.0) 05/11/17 14:09 Urine RBC (Auto) 3.0 /HPF (0.0-6.0) 05/11/17 14:09 U Epithel Cells (Auto) < 1.0 /HPF (0-13.0) 05/11/17 14:09 Urine Mucus Few /HPF 05/11/17 14:09 Valproic Acid 79.7 ug/mL (50-100) 05/11/17 12:56
[2017-05-31] MEDS: DepaKENE Liq FEEDTUBE SCH ×2 (11:43→22:13)
[2017-05-31] MEDS: BABY ASPIRIN PO SCH (11:44)
[2017-05-31] MEDS: PEPCID FEEDTUBE SCH ×2 (11:44→22:14)
[2017-05-31] MEDS: NORVASC FEEDTUBE SCH (11:44)
[2017-05-31] MEDS: LOVENOX SUB-Q SCH (22:14)
[2017-06-01 07:23] LABS: Hematocrit 41.6 % (30.3-42.9); Hemoglobin 14.2 gm/dl (10.1-14.3); Mean Corpuscular HGB Conc 34 % (30-34); Mean Corpuscular Hemoglobin 31 pg (28-32); Mean Corpuscular Volume 90 fl (79-97); Platelet Count 290 K/mm3 (140-440); Red Blood Count 4.61 M/mm3 (3.65-5.03); Red Cell Distribution Width 14.7 % (13.2-15.2)
[2017-06-01 07:40] LABS: BUN/Creatinine Ratio 48; Blood Urea Nitrogen 19 mg/dL (7-17); Hemolysis Index 42
--- NOTE | 2017-06-01 10:41 | Progress Note ---
Assessment and Plan Assessment and plan: CVA with left-sided weakness; with residual left-sided weakness, bedbound, CT 05/11/17 ; Chronic infarct right occipital lobe right josh , Apparent subacute to early chronic right thalamic infarct Cont Physical therapy rehabilitation, continue antiplatelets and statin Dysphagia status post PEG placement, continue PEG tube feeds - unable to do barium swallow study History of seizures; continue seizure precautions antiepileptic medications HTN; stable on antihypertensives GERD ; continue PPIs Dyslipidemia; on statin Leukopenia; resolved DVT prophylaxis. Lovenox DC planning per case management Possible discharge home with home health versus SNF placement But family refuses to take her back home. She is awaiting placement. History Interval history: Patient is 56 yo with acute stroke with residual aphasia and left sided weakness , still has aphasia, left sided weakness Hospitalist Physical - Physical exam Narrative exam: GEN APPEARANCE : Not in acute distress, HEENT: Atraumatic NECK : supple, no JVD LUNGS: clear to auscultation bilaterally, no rales, no wheeze HEART: S1 and S2 regular, no murmurs, rubs or gallop ABD: Soft, no tenderness, no distension, normal bowel sounds EXT: No edema, no clubbing, no cyanosis NEURO:Awake,alert, aphasia, left sided weakness - Constitutional Vitals: Temp Pulse Resp BP Pulse Ox 98.7 F 92 H 18 132/96 98 06/01/17 08:20 06/01/17 08:20 06/01/17 08:20 06/01/17 08:20 06/01/17 08:20 General appearance: Present: no acute distress, well-nourished Results - Labs CBC & Chem 7: 06/01/17 07:01 06/01/17 07:01 Labs: Laboratory Last Values WBC 6.6 K/mm3 (4.5-11.0) 06/01/17 07:01 RBC 4.61 M/mm3 (3.65-5.03) 06/01/17 07:01 Hgb 14.2 gm/dl (10.1-14.3) 06/01/17 07:01 Hct 41.6 % (30.3-42.9) 06/01/17 07:01 MCV 90 fl (79-97) 06/01/17 07:01 MCH 31 pg (28-32) 06/01/17 07:01 MCHC 34 % (30-34) 06/01/17 07:01 RDW 14.7 % (13.2-15.2) 06/01/17 07:01 Plt Count 290 K/mm3 (140-440) 06/01/17 07:01 Lymph % (Auto) 34.3 % (13.4-35.0) 05/26/17 05:33 [place] % (Auto) 13.2 % (0.0-7.3) H 05/26/17 05:33 Eos % (Auto) 2.7 % (0.0-4.3) 05/26/17 05:33 Baso % (Auto) 1.0 % (0.0-1.8) 05/26/17 05:33 Lymph # 1.5 K/mm3 (1.2-5.4) 05/26/17 05:33 [place] # 0.6 K/mm3 (0.0-0.8) 05/26/17 05:33 Eos # 0.1 K/mm3 (0.0-0.4) 05/26/17 05:33 Baso # 0.0 K/mm3 (0.0-0.1) 05/26/17 05:33 Add Manual Diff Complete 05/12/17 05:44 Total Counted 100 05/12/17 05:44 Seg Neutrophils % 48.8 % (40.0-70.0) 05/26/17 05:33 Seg Neuts % (Manual) 46.0 % (40.0-70.0) 05/12/17 05:44 Band Neutrophils % 0 % 05/12/17 05:44 Lymphocytes % (Manual) 39.0 % (13.4-35.0) H 05/12/17 05:44 Reactive Lymphs % (Man) 0 % 05/12/17 05:44 Monocytes % (Manual) 12.0 % (0.0-7.3) H 05/12/17 05:44 Eosinophils % (Manual) 3.0 % (0.0-4.3) 05/12/17 05:44 Basophils % (Manual) 0 % (0.0-1.8) 05/12/17 05:44 Metamyelocytes % 0 % 05/12/17 05:44 Myelocytes % 0 % 05/12/17 05:44 Promyelocytes % 0 % 05/12/17 05:44 Blast Cells % 0 % 05/12/17 05:44 Nucleated RBC % Not Reportable 05/12/17 05:44 Seg Neutrophils # 2.2 K/mm3 (1.8-7.7) 05/26/17 05:33 Seg Neutrophils # Man 1.3 K/mm3 (1.8-7.7) L 05/12/17 05:44 Band Neutrophils # 0.0 K/mm3 05/12/17 05:44 Lymphocytes # (Manual) 1.1 K/mm3 (1.2-5.4) L 05/12/17 05:44 Abs React Lymphs (Man) 0.0 K/mm3 05/12/17 05:44 Monocytes # (Manual) 0.3 K/mm3 (0.0-0.8) 05/12/17 05:44 Eosinophils # (Manual) 0.1 K/mm3 (0.0-0.4) 05/12/17 05:44 Basophils # (Manual) 0.0 K/mm3 (0.0-0.1) 05/12/17 05:44 Metamyelocytes # 0.0 K/mm3 05/12/17 05:44 Myelocytes # 0.0 K/mm3 05/12/17 05:44 Promyelocytes # 0.0 K/mm3 05/12/17 05:44 Blast Cells # 0.0 K/mm3 05/12/17 05:44 WBC Morphology Not Reportable 05/12/17 05:44 Hypersegmented Neuts Not Reportable 05/12/17 05:44 Hyposegmented Neuts Not Reportable 05/12/17 05:44 Hypogranular Neuts Not Reportable 05/12/17 05:44 Smudge Cells Not Reportable 05/12/17 05:44 Toxic Granulation Not Reportable 05/12/17 05:44 Toxic Vacuolation Not Reportable 05/12/17 05:44 Dohle Bodies Not Reportable 05/12/17 05:44 Pelger-Huet Anomaly Not Reportable 05/12/17 05:44 Shelly Rods Not Reportable 05/12/17 05:44 Platelet Estimate Cons 05/12/17 05:44 Clumped Platelets Few 05/12/17 05:44 Plt Clumps, EDTA Not Reportable 05/12/17 05:44 Large Platelets Not Reportable 05/12/17 05:44 Giant Platelets Not Reportable 05/12/17 05:44 Platelet Satelliting Not Reportable 05/12/17 05:44 Plt Morphology Comment Not Reportable 05/12/17 05:44 RBC Morphology Normal 05/12/17 05:44 Dimorphic RBCs Not Reportable 05/12/17 05:44 Polychromasia Not Reportable 05/12/17 05:44 Hypochromasia Not Reportable 05/12/17 05:44 Poikilocytosis Not Reportable 05/12/17 05:44 Anisocytosis Not Reportable 05/12/17 05:44 Microcytosis Not Reportable 05/12/17 05:44 Macrocytosis Not Reportable 05/12/17 05:44 Spherocytes Not Reportable 05/12/17 05:44 Pappenheimer Bodies Not Reportable 05/12/17 05:44 Sickle Cells Not Reportable 05/12/17 05:44 Target Cells Not Reportable 05/12/17 05:44 Tear Drop Cells Not Reportable 05/12/17 05:44 Ovalocytes Not Reportable 05/12/17 05:44 Helmet Cells Not Reportable 05/12/17 05:44 Ca[place] Bodies Not Reportable 05/12/17 05:44 [place] Rings Not Reportable 05/12/17 05:44 [place] Cells Not Reportable 05/12/17 05:44 Bite Cells Not Reportable 05/12/17 05:44 Crenated Cell Not Reportable 05/12/17 05:44 Elliptocytes Not Reportable 05/12/17 05:44 Acanthocytes (Spur) Not Reportable 05/12/17 05:44 Rouleaux Not Reportable 05/12/17 05:44 Hemoglobin C Crystals Not Reportable 05/12/17 05:44 Schistocytes Not Reportable 05/12/17 05:44 Malaria parasites Not Reportable 05/12/17 05:44 Wander Bodies Not Reportable 05/12/17 05:44 Hem Pathologist Commnt No 05/12/17 05:44 PT 13.9 Sec. (12.2-14.9) 05/11/17 12:56 INR 1.02 (0.87-1.13) 05/11/17 12:56 APTT 29.8 Sec. (24.2-36.6) 05/11/17 12:56 Thrombin Time 16.4 Sec. (15.1-19.6) 05/11/17 12:56 Sodium 142 mmol/L (137-145) 06/01/17 07:01 Potassium 4.5 mmol/L (3.6-5.0) 06/01/17 07:01 Chloride 101.3 mmol/L (98-107) 06/01/17 07:01 Carbon Dioxide 28 mmol/L (22-30) 06/01/17 07:01 Anion Gap 17 mmol/L 06/01/17 07:01 BUN 19 mg/dL (7-17) H 06/01/17 07:01 Creatinine 0.4 mg/dL (0.7-1.2) L 06/01/17 07:01 Estimated GFR > 60 ml/min 06/01/17 07:01 BUN/Creatinine Ratio 48 % 06/01/17 07:01 Glucose 105 mg/dL (65-100) H 06/01/17 07:01 POC Glucose 98 (70-105) 06/01/17 07:06 Hemoglobin A1c 5.7 % (4-6) 05/11/17 12:56 Calcium 10.0 mg/dL (8.4-10.2) 06/01/17 07:01 Total Bilirubin 0.30 mg/dL (0.1-1.2) 05/12/17 05:44 AST 27 units/L (5-40) 05/12/17 05:44 ALT 28 units/L (7-56) 05/12/17 05:44 Alkaline Phosphatase 52 units/L (35-129) 05/12/17 05:44 Total Creatine Kinase 64 units/L (30-135) 05/11/17 12:56 CK-MB (CK-2) 1.4 ng/mL (0.0-4.0) 05/11/17 12:56 CK-MB (CK-2) Rel Index 2.1 (0-4) 05/11/17 12:56 Troponin T < 0.010 ng/mL (0.00-0.029) 05/11/17 12:56 Total Protein 6.5 g/dL (6.3-8.2) 05/12/17 05:44 Albumin 3.8 g/dL (3.9-5) L 05/12/17 05:44 Albumin/Globulin Ratio 1.4 % 05/12/17 05:44 Triglycerides 113 mg/dL (2-149) 05/12/17 05:44 Cholesterol 172 mg/dL (50-199) 05/12/17 05:44 LDL Cholesterol Direct 115 mg/dL (50-130) 05/12/17 05:44 HDL Cholesterol 35 mg/dL (40-59) L 05/12/17 05:44 Cholesterol/HDL Ratio 4.91 % 05/12/17 05:44 Urine Color Yellow (Yellow) 05/11/17 14:09 Urine Turbidity Clear (Clear) 05/11/17 14:09 Urine pH 6.0 (5.0-7.0) 05/11/17 14:09 Ur Specific [place] 1.016 (1.003-1.030) 05/11/17 14:09 Urine Protein <15 mg/dl mg/dL (Negative) 05/11/17 14:09 Urine Glucose (UA) Neg mg/dL (Negative) 05/11/17 14:09 Urine Ketones Tr mg/dL (Negative) 05/11/17 14:09 Urine Blood Neg (Negative) 05/11/17 14:09 Urine Nitrite Neg (Negative) 05/11/17 14:09 Urine Bilirubin Neg (Negative) 05/11/17 14:09 Urine Urobilinogen < 2.0 mg/dL (<2.0) 05/11/17 14:09 Ur Leukocyte Esterase Neg (Negative) 05/11/17 14:09 Urine WBC (Auto) 2.0 /HPF (0.0-6.0) 05/11/17 14:09 Urine RBC (Auto) 3.0 /HPF (0.0-6.0) 05/11/17 14:09 U Epithel Cells (Auto) < 1.0 /HPF (0-13.0) 05/11/17 14:09 Urine Mucus Few /HPF 05/11/17 14:09 Valproic Acid 79.7 ug/mL (50-100) 05/11/17 12:56
[2017-06-01] MEDS: BABY ASPIRIN PO SCH (11:09)
[2017-06-01] MEDS: DepaKENE Liq FEEDTUBE SCH ×2 (11:09→21:58)
[2017-06-01] MEDS: NORVASC FEEDTUBE SCH (11:10)
[2017-06-01] MEDS: PEPCID FEEDTUBE SCH ×2 (11:10→21:59)
[2017-06-01] MEDS: LOVENOX SUB-Q SCH (21:56)
[2017-06-02] MEDS: DepaKENE Liq FEEDTUBE SCH ×2 (10:23→22:55)
[2017-06-02] MEDS: BABY ASPIRIN PO SCH (10:23)
[2017-06-02] MEDS: PEPCID FEEDTUBE SCH ×2 (10:23→22:56)
[2017-06-02] MEDS: NORVASC FEEDTUBE SCH (10:25)
--- NOTE | 2017-06-02 15:18 | Progress Note ---
Assessment and Plan Assessment and plan: CVA with left-sided weakness; with residual left-sided weakness, bedbound, CT 05/11/17 ; Chronic infarct right occipital lobe right josh , Apparent subacute to early chronic right thalamic infarct Cont Physical therapy rehabilitation, continue antiplatelets and statin Dysphagia status post PEG placement, continue PEG tube feeds History of seizures; continue seizure precautions antiepileptic medications HTN; stable on antihypertensives GERD ; continue PPIs Dyslipidemia; on statin Leukopenia; resolved DVT prophylaxis. Lovenox DC planning per case management Possible discharge home with home health versus SNF placement But family refuses to take her back home. She is awaiting placement. The prognosis for meaningful recovery is negative. History Interval history: Patient is 56 yo with acute stroke with residual aphasia and left sided weakness , still has aphasia, left sided weakness Hospitalist Physical - Physical exam Narrative exam: GEN APPEARANCE : Not in acute distress, HEENT: Atraumatic NECK : supple, no JVD LUNGS: clear to auscultation bilaterally, no rales, no wheeze HEART: S1 and S2 regular, no murmurs, rubs or gallop ABD: Soft, no tenderness, no distension, normal bowel sounds EXT: No edema, no clubbing, no cyanosis NEURO:Awake,alert, aphasia, left sided weakness - Constitutional Vitals: Temp Pulse Resp BP Pulse Ox 99.0 F 100 H 20 148/101 98 06/02/17 08:45 06/02/17 10:25 06/02/17 08:45 06/02/17 10:25 06/02/17 08:45 General appearance: Present: no acute distress, well-nourished - EENT Eyes: Present: exopthalmos Results - Labs CBC & Chem 7: 06/01/17 07:01 06/01/17 07:01 Labs: Laboratory Last Values WBC 6.6 K/mm3 (4.5-11.0) 06/01/17 07:01 RBC 4.61 M/mm3 (3.65-5.03) 06/01/17 07:01 Hgb 14.2 gm/dl (10.1-14.3) 06/01/17 07:01 Hct 41.6 % (30.3-42.9) 06/01/17 07:01 MCV 90 fl (79-97) 06/01/17 07:01 MCH 31 pg (28-32) 06/01/17 07:01 MCHC 34 % (30-34) 06/01/17 07:01 RDW 14.7 % (13.2-15.2) 06/01/17 07:01 Plt Count 290 K/mm3 (140-440) 06/01/17 07:01 Lymph % (Auto) 34.3 % (13.4-35.0) 05/26/17 05:33 [place] % (Auto) 13.2 % (0.0-7.3) H 05/26/17 05:33 Eos % (Auto) 2.7 % (0.0-4.3) 05/26/17 05:33 Baso % (Auto) 1.0 % (0.0-1.8) 05/26/17 05:33 Lymph # 1.5 K/mm3 (1.2-5.4) 05/26/17 05:33 [place] # 0.6 K/mm3 (0.0-0.8) 05/26/17 05:33 Eos # 0.1 K/mm3 (0.0-0.4) 05/26/17 05:33 Baso # 0.0 K/mm3 (0.0-0.1) 05/26/17 05:33 Add Manual Diff Complete 05/12/17 05:44 Total Counted 100 05/12/17 05:44 Seg Neutrophils % 48.8 % (40.0-70.0) 05/26/17 05:33 Seg Neuts % (Manual) 46.0 % (40.0-70.0) 05/12/17 05:44 Band Neutrophils % 0 % 05/12/17 05:44 Lymphocytes % (Manual) 39.0 % (13.4-35.0) H 05/12/17 05:44 Reactive Lymphs % (Man) 0 % 05/12/17 05:44 Monocytes % (Manual) 12.0 % (0.0-7.3) H 05/12/17 05:44 Eosinophils % (Manual) 3.0 % (0.0-4.3) 05/12/17 05:44 Basophils % (Manual) 0 % (0.0-1.8) 05/12/17 05:44 Metamyelocytes % 0 % 05/12/17 05:44 Myelocytes % 0 % 05/12/17 05:44 Promyelocytes % 0 % 05/12/17 05:44 Blast Cells % 0 % 05/12/17 05:44 Nucleated RBC % Not Reportable 05/12/17 05:44 Seg Neutrophils # 2.2 K/mm3 (1.8-7.7) 05/26/17 05:33 Seg Neutrophils # Man 1.3 K/mm3 (1.8-7.7) L 05/12/17 05:44 Band Neutrophils # 0.0 K/mm3 05/12/17 05:44 Lymphocytes # (Manual) 1.1 K/mm3 (1.2-5.4) L 05/12/17 05:44 Abs React Lymphs (Man) 0.0 K/mm3 05/12/17 05:44 Monocytes # (Manual) 0.3 K/mm3 (0.0-0.8) 05/12/17 05:44 Eosinophils # (Manual) 0.1 K/mm3 (0.0-0.4) 05/12/17 05:44 Basophils # (Manual) 0.0 K/mm3 (0.0-0.1) 05/12/17 05:44 Metamyelocytes # 0.0 K/mm3 05/12/17 05:44 Myelocytes # 0.0 K/mm3 05/12/17 05:44 Promyelocytes # 0.0 K/mm3 05/12/17 05:44 Blast Cells # 0.0 K/mm3 05/12/17 05:44 WBC Morphology Not Reportable 05/12/17 05:44 Hypersegmented Neuts Not Reportable 05/12/17 05:44 Hyposegmented Neuts Not Reportable 05/12/17 05:44 Hypogranular Neuts Not Reportable 05/12/17 05:44 Smudge Cells Not Reportable 05/12/17 05:44 Toxic Granulation Not Reportable 05/12/17 05:44 Toxic Vacuolation Not Reportable 05/12/17 05:44 Dohle Bodies Not Reportable 05/12/17 05:44 Pelger-Huet Anomaly Not Reportable 05/12/17 05:44 Shelly Rods Not Reportable 05/12/17 05:44 Platelet Estimate Cons 05/12/17 05:44 Clumped Platelets Few 05/12/17 05:44 Plt Clumps, EDTA Not Reportable 05/12/17 05:44 Large Platelets Not Reportable 05/12/17 05:44 Giant Platelets Not Reportable 05/12/17 05:44 Platelet Satelliting Not Reportable 05/12/17 05:44 Plt Morphology Comment Not Reportable 05/12/17 05:44 RBC Morphology Normal 05/12/17 05:44 Dimorphic RBCs Not Reportable 05/12/17 05:44 Polychromasia Not Reportable 05/12/17 05:44 Hypochromasia Not Reportable 05/12/17 05:44 Poikilocytosis Not Reportable 05/12/17 05:44 Anisocytosis Not Reportable 05/12/17 05:44 Microcytosis Not Reportable 05/12/17 05:44 Macrocytosis Not Reportable 05/12/17 05:44 Spherocytes Not Reportable 05/12/17 05:44 Pappenheimer Bodies Not Reportable 05/12/17 05:44 Sickle Cells Not Reportable 05/12/17 05:44 Target Cells Not Reportable 05/12/17 05:44 Tear Drop Cells Not Reportable 05/12/17 05:44 Ovalocytes Not Reportable 05/12/17 05:44 Helmet Cells Not Reportable 05/12/17 05:44 Cao-[place] Bodies Not Reportable 05/12/17 05:44 [place] Rings Not Reportable 05/12/17 05:44 [place] Cells Not Reportable 05/12/17 05:44 Bite Cells Not Reportable 05/12/17 05:44 Crenated Cell Not Reportable 05/12/17 05:44 Elliptocytes Not Reportable 05/12/17 05:44 Acanthocytes (Spur) Not Reportable 05/12/17 05:44 Rouleaux Not Reportable 05/12/17 05:44 Hemoglobin C Crystals Not Reportable 05/12/17 05:44 Schistocytes Not Reportable 05/12/17 05:44 Malaria parasites Not Reportable 05/12/17 05:44 Wander Bodies Not Reportable 05/12/17 05:44 Hem Pathologist Commnt No 05/12/17 05:44 PT 13.9 Sec. (12.2-14.9) 05/11/17 12:56 INR 1.02 (0.87-1.13) 05/11/17 12:56 APTT 29.8 Sec. (24.2-36.6) 05/11/17 12:56 Thrombin Time 16.4 Sec. (15.1-19.6) 05/11/17 12:56 Sodium 142 mmol/L (137-145) 06/01/17 07:01 Potassium 4.5 mmol/L (3.6-5.0) 06/01/17 07:01 Chloride 101.3 mmol/L (98-107) 06/01/17 07:01 Carbon Dioxide 28 mmol/L (22-30) 06/01/17 07:01 Anion Gap 17 mmol/L 06/01/17 07:01 BUN 19 mg/dL (7-17) H 06/01/17 07:01 Creatinine 0.4 mg/dL (0.7-1.2) L 06/01/17 07:01 Estimated GFR > 60 ml/min 06/01/17 07:01 BUN/Creatinine Ratio 48 % 06/01/17 07:01 Glucose 105 mg/dL (65-100) H 06/01/17 07:01 POC Glucose 101 (70-105) 06/02/17 11:52 Hemoglobin A1c 5.7 % (4-6) 05/11/17 12:56 Calcium 10.0 mg/dL (8.4-10.2) 06/01/17 07:01 Total Bilirubin 0.30 mg/dL (0.1-1.2) 05/12/17 05:44 AST 27 units/L (5-40) 05/12/17 05:44 ALT 28 units/L (7-56) 05/12/17 05:44 Alkaline Phosphatase 52 units/L (35-129) 05/12/17 05:44 Total Creatine Kinase 64 units/L (30-135) 05/11/17 12:56 CK-MB (CK-2) 1.4 ng/mL (0.0-4.0) 05/11/17 12:56 CK-MB (CK-2) Rel Index 2.1 (0-4) 05/11/17 12:56 Troponin T < 0.010 ng/mL (0.00-0.029) 05/11/17 12:56 Total Protein 6.5 g/dL (6.3-8.2) 05/12/17 05:44 Albumin 3.8 g/dL (3.9-5) L 05/12/17 05:44 Albumin/Globulin Ratio 1.4 % 05/12/17 05:44 Triglycerides 113 mg/dL (2-149) 05/12/17 05:44 Cholesterol 172 mg/dL (50-199) 05/12/17 05:44 LDL Cholesterol Direct 115 mg/dL (50-130) 05/12/17 05:44 HDL Cholesterol 35 mg/dL (40-59) L 05/12/17 05:44 Cholesterol/HDL Ratio 4.91 % 05/12/17 05:44 Urine Color Yellow (Yellow) 05/11/17 14:09 Urine Turbidity Clear (Clear) 05/11/17 14:09 Urine pH 6.0 (5.0-7.0) 05/11/17 14:09 Ur Specific [place] 1.016 (1.003-1.030) 05/11/17 14:09 Urine Protein <15 mg/dl mg/dL (Negative) 05/11/17 14:09 Urine Glucose (UA) Neg mg/dL (Negative) 05/11/17 14:09 Urine Ketones Tr mg/dL (Negative) 05/11/17 14:09 Urine Blood Neg (Negative) 05/11/17 14:09 Urine Nitrite Neg (Negative) 05/11/17 14:09 Urine Bilirubin Neg (Negative) 05/11/17 14:09 Urine Urobilinogen < 2.0 mg/dL (<2.0) 05/11/17 14:09 Ur Leukocyte Esterase Neg (Negative) 05/11/17 14:09 Urine WBC (Auto) 2.0 /HPF (0.0-6.0) 05/11/17 14:09 Urine RBC (Auto) 3.0 /HPF (0.0-6.0) 05/11/17 14:09 U Epithel Cells (Auto) < 1.0 /HPF (0-13.0) 05/11/17 14:09 Urine Mucus Few /HPF 05/11/17 14:09 Valproic Acid 79.7 ug/mL (50-100) 05/11/17 12:56
[2017-06-02] MEDS: LOVENOX SUB-Q SCH (22:57)
--- NOTE | 2017-06-03 10:31 | Progress Note ---
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 Lovenox DC planning per case management Possible discharge home with home health versus SNF placement But family refuses to take her back home. She is awaiting placement. The prognosis for meaningful recovery is poor. History Interval history: No new issues Hospitalist Physical - Constitutional Vitals: Temp Pulse Resp BP Pulse Ox 99.8 F H 98 H 18 125/88 96 06/03/17 09:00 06/03/17 09:00 06/03/17 02:00 06/03/17 09:00 06/03/17 02:00 General appearance: Present: no acute distress, well-nourished - EENT Eyes: Present: PERRL, EOM intact ENT: hearing intact, clear oral mucosa, dentition normal - Neck Neck: Present: supple, normal ROM - Respiratory Respiratory effort: normal Respiratory: bilateral: CTA - Cardiovascular Rhythm: regular Heart Sounds: Present: S1 & S2. Absent: gallop, rub - Extremities Extremities: no ischemia, No edema, Full ROM - Abdominal General gastrointestinal: soft, non-tender, non-distended, normal bowel sounds - Integumentary Integumentary: Present: clear, warm, dry - Neurologic Neurologic: CNII-XII intact, moves all extremities Results - Labs CBC & Chem 7: 06/01/17 07:01 06/01/17 07:01 Labs: Laboratory Last Values WBC 6.6 K/mm3 (4.5-11.0) 06/01/17 07:01 RBC 4.61 M/mm3 (3.65-5.03) 06/01/17 07:01 Hgb 14.2 gm/dl (10.1-14.3) 06/01/17 07:01 Hct 41.6 % (30.3-42.9) 06/01/17 07:01 MCV 90 fl (79-97) 06/01/17 07:01 MCH 31 pg (28-32) 06/01/17 07:01 MCHC 34 % (30-34) 06/01/17 07:01 RDW 14.7 % (13.2-15.2) 06/01/17 07:01 Plt Count 290 K/mm3 (140-440) 06/01/17 07:01 Lymph % (Auto) 34.3 % (13.4-35.0) 05/26/17 05:33 [place] % (Auto) 13.2 % (0.0-7.3) H 05/26/17 05:33 Eos % (Auto) 2.7 % (0.0-4.3) 05/26/17 05:33 Baso % (Auto) 1.0 % (0.0-1.8) 05/26/17 05:33 Lymph # 1.5 K/mm3 (1.2-5.4) 05/26/17 05:33 [place] # 0.6 K/mm3 (0.0-0.8) 05/26/17 05:33 Eos # 0.1 K/mm3 (0.0-0.4) 05/26/17 05:33 Baso # 0.0 K/mm3 (0.0-0.1) 05/26/17 05:33 Add Manual Diff Complete 05/12/17 05:44 Total Counted 100 05/12/17 05:44 Seg Neutrophils % 48.8 % (40.0-70.0) 05/26/17 05:33 Seg Neuts % (Manual) 46.0 % (40.0-70.0) 05/12/17 05:44 Band Neutrophils % 0 % 05/12/17 05:44 Lymphocytes % (Manual) 39.0 % (13.4-35.0) H 05/12/17 05:44 Reactive Lymphs % (Man) 0 % 05/12/17 05:44 Monocytes % (Manual) 12.0 % (0.0-7.3) H 05/12/17 05:44 Eosinophils % (Manual) 3.0 % (0.0-4.3) 05/12/17 05:44 Basophils % (Manual) 0 % (0.0-1.8) 05/12/17 05:44 Metamyelocytes % 0 % 05/12/17 05:44 Myelocytes % 0 % 05/12/17 05:44 Promyelocytes % 0 % 05/12/17 05:44 Blast Cells % 0 % 05/12/17 05:44 Nucleated RBC % Not Reportable 05/12/17 05:44 Seg Neutrophils # 2.2 K/mm3 (1.8-7.7) 05/26/17 05:33 Seg Neutrophils # Man 1.3 K/mm3 (1.8-7.7) L 05/12/17 05:44 Band Neutrophils # 0.0 K/mm3 05/12/17 05:44 Lymphocytes # (Manual) 1.1 K/mm3 (1.2-5.4) L 05/12/17 05:44 Abs React Lymphs (Man) 0.0 K/mm3 05/12/17 05:44 Monocytes # (Manual) 0.3 K/mm3 (0.0-0.8) 05/12/17 05:44 Eosinophils # (Manual) 0.1 K/mm3 (0.0-0.4) 05/12/17 05:44 Basophils # (Manual) 0.0 K/mm3 (0.0-0.1) 05/12/17 05:44 Metamyelocytes # 0.0 K/mm3 05/12/17 05:44 Myelocytes # 0.0 K/mm3 05/12/17 05:44 Promyelocytes # 0.0 K/mm3 05/12/17 05:44 Blast Cells # 0.0 K/mm3 05/12/17 05:44 WBC Morphology Not Reportable 05/12/17 05:44 Hypersegmented Neuts Not Reportable 05/12/17 05:44 Hyposegmented Neuts Not Reportable 05/12/17 05:44 Hypogranular Neuts Not Reportable 05/12/17 05:44 Smudge Cells Not Reportable 05/12/17 05:44 Toxic Granulation Not Reportable 05/12/17 05:44 Toxic Vacuolation Not Reportable 05/12/17 05:44 Dohle Bodies Not Reportable 05/12/17 05:44 Pelger-Huet Anomaly Not Reportable 05/12/17 05:44 Shelly Rods Not Reportable 05/12/17 05:44 Platelet Estimate Cons 05/12/17 05:44 Clumped Platelets Few 05/12/17 05:44 Plt Clumps, EDTA Not Reportable 05/12/17 05:44 Large Platelets Not Reportable 05/12/17 05:44 Giant Platelets Not Reportable 05/12/17 05:44 Platelet Satelliting Not Reportable 05/12/17 05:44 Plt Morphology Comment Not Reportable 05/12/17 05:44 RBC Morphology Normal 05/12/17 05:44 Dimorphic RBCs Not Reportable 05/12/17 05:44 Polychromasia Not Reportable 05/12/17 05:44 Hypochromasia Not Reportable 05/12/17 05:44 Poikilocytosis Not Reportable 05/12/17 05:44 Anisocytosis Not Reportable 05/12/17 05:44 Microcytosis Not Reportable 05/12/17 05:44 Macrocytosis Not Reportable 05/12/17 05:44 Spherocytes Not Reportable 05/12/17 05:44 Pappenheimer Bodies Not Reportable 05/12/17 05:44 Sickle Cells Not Reportable 05/12/17 05:44 Target Cells Not Reportable 05/12/17 05:44 Tear Drop Cells Not Reportable 05/12/17 05:44 Ovalocytes Not Reportable 05/12/17 05:44 Helmet Cells Not Reportable 05/12/17 05:44 [place] Bodies Not Reportable 05/12/17 05:44 [place] Rings Not Reportable 05/12/17 05:44 [place] Cells Not Reportable 05/12/17 05:44 Bite Cells Not Reportable 05/12/17 05:44 Crenated Cell Not Reportable 05/12/17 05:44 Elliptocytes Not Reportable 05/12/17 05:44 Acanthocytes (Spur) Not Reportable 05/12/17 05:44 Rouleaux Not Reportable 05/12/17 05:44 Hemoglobin C Crystals Not Reportable 05/12/17 05:44 Schistocytes Not Reportable 05/12/17 05:44 Malaria parasites Not Reportable 05/12/17 05:44 Wander Bodies Not Reportable 05/12/17 05:44 Hem Pathologist Commnt No 05/12/17 05:44 PT 13.9 Sec. (12.2-14.9) 05/11/17 12:56 INR 1.02 (0.87-1.13) 05/11/17 12:56 APTT 29.8 Sec. (24.2-36.6) 05/11/17 12:56 Thrombin Time 16.4 Sec. (15.1-19.6) 05/11/17 12:56 Sodium 142 mmol/L (137-145) 06/01/17 07:01 Potassium 4.5 mmol/L (3.6-5.0) 06/01/17 07:01 Chloride 101.3 mmol/L (98-107) 06/01/17 07:01 Carbon Dioxide 28 mmol/L (22-30) 06/01/17 07:01 Anion Gap 17 mmol/L 06/01/17 07:01 BUN 19 mg/dL (7-17) H 06/01/17 07:01 Creatinine 0.4 mg/dL (0.7-1.2) L 06/01/17 07:01 Estimated GFR > 60 ml/min 06/01/17 07:01 BUN/Creatinine Ratio 48 % 06/01/17 07:01 Glucose 105 mg/dL (65-100) H 06/01/17 07:01 POC Glucose 132 (70-105) H 06/03/17 06:30 Hemoglobin A1c 5.7 % (4-6) 05/11/17 12:56 Calcium 10.0 mg/dL (8.4-10.2) 06/01/17 07:01 Total Bilirubin 0.30 mg/dL (0.1-1.2) 05/12/17 05:44 AST 27 units/L (5-40) 05/12/17 05:44 ALT 28 units/L (7-56) 05/12/17 05:44 Alkaline Phosphatase 52 units/L (35-129) 05/12/17 05:44 Total Creatine Kinase 64 units/L (30-135) 05/11/17 12:56 CK-MB (CK-2) 1.4 ng/mL (0.0-4.0) 05/11/17 12:56 CK-MB (CK-2) Rel Index 2.1 (0-4) 05/11/17 12:56 Troponin T < 0.010 ng/mL (0.00-0.029) 05/11/17 12:56 Total Protein 6.5 g/dL (6.3-8.2) 05/12/17 05:44 Albumin 3.8 g/dL (3.9-5) L 05/12/17 05:44 Albumin/Globulin Ratio 1.4 % 05/12/17 05:44 Triglycerides 113 mg/dL (2-149) 05/12/17 05:44 Cholesterol 172 mg/dL (50-199) 05/12/17 05:44 LDL Cholesterol Direct 115 mg/dL (50-130) 05/12/17 05:44 HDL Cholesterol 35 mg/dL (40-59) L 05/12/17 05:44 Cholesterol/HDL Ratio 4.91 % 05/12/17 05:44 Urine Color Yellow (Yellow) 05/11/17 14:09 Urine Turbidity Clear (Clear) 05/11/17 14:09 Urine pH 6.0 (5.0-7.0) 05/11/17 14:09 Ur Specific [place] 1.016 (1.003-1.030) 05/11/17 14:09 Urine Protein <15 mg/dl mg/dL (Negative) 05/11/17 14:09 Urine Glucose (UA) Neg mg/dL (Negative) 05/11/17 14:09 Urine Ketones Tr mg/dL (Negative) 05/11/17 14:09 Urine Blood Neg (Negative) 05/11/17 14:09 Urine Nitrite Neg (Negative) 05/11/17 14:09 Urine Bilirubin Neg (Negative) 05/11/17 14:09 Urine Urobilinogen < 2.0 mg/dL (<2.0) 05/11/17 14:09 Ur Leukocyte Esterase Neg (Negative) 05/11/17 14:09 Urine WBC (Auto) 2.0 /HPF (0.0-6.0) 05/11/17 14:09 Urine RBC (Auto) 3.0 /HPF (0.0-6.0) 05/11/17 14:09 U Epithel Cells (Auto) < 1.0 /HPF (0-13.0) 05/11/17 14:09 Urine Mucus Few /HPF 05/11/17 14:09 Valproic Acid 79.7 ug/mL (50-100) 05/11/17 12:56
[2017-06-03] MEDS: BABY ASPIRIN PO SCH (11:00)
[2017-06-03] MEDS: PEPCID FEEDTUBE SCH ×2 (11:00→21:41)
[2017-06-03] MEDS: DepaKENE Liq FEEDTUBE SCH ×2 (11:00→21:41)
[2017-06-03] MEDS: NORVASC FEEDTUBE SCH (11:00)
[2017-06-03] MEDS: LOVENOX SUB-Q SCH (21:41)
--- NOTE | 2017-06-04 10:33 | Progress Note ---
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 Lovenox DC planning per case management Possible discharge home with home health versus SNF placement But family refuses to take her back home. She is awaiting placement. The prognosis for meaningful recovery is poor. History Interval history: No new issues Hospitalist Physical - Constitutional Vitals: Temp Pulse Resp BP Pulse Ox 98.0 F 96 H 16 139/92 99 06/04/17 07:46 06/04/17 07:46 06/04/17 07:46 06/04/17 07:46 06/04/17 07:46 General appearance: Present: no acute distress, well-nourished - EENT Eyes: Present: PERRL, EOM intact ENT: hearing intact, clear oral mucosa, dentition normal - Neck Neck: Present: supple, normal ROM - Respiratory Respiratory effort: normal Respiratory: bilateral: CTA - Cardiovascular Rhythm: regular Heart Sounds: Present: S1 & S2. Absent: gallop, rub - Extremities Extremities: no ischemia, No edema, Full ROM - Abdominal General gastrointestinal: soft, non-tender, non-distended, normal bowel sounds - Integumentary Integumentary: Present: clear, warm, dry - Neurologic Neurologic: CNII-XII intact, moves all extremities Results - Labs CBC & Chem 7: 06/01/17 07:01 06/01/17 07:01 Labs: Laboratory Last Values WBC 6.6 K/mm3 (4.5-11.0) 06/01/17 07:01 RBC 4.61 M/mm3 (3.65-5.03) 06/01/17 07:01 Hgb 14.2 gm/dl (10.1-14.3) 06/01/17 07:01 Hct 41.6 % (30.3-42.9) 06/01/17 07:01 MCV 90 fl (79-97) 06/01/17 07:01 MCH 31 pg (28-32) 06/01/17 07:01 MCHC 34 % (30-34) 06/01/17 07:01 RDW 14.7 % (13.2-15.2) 06/01/17 07:01 Plt Count 290 K/mm3 (140-440) 06/01/17 07:01 Lymph % (Auto) 34.3 % (13.4-35.0) 05/26/17 05:33 [place] % (Auto) 13.2 % (0.0-7.3) H 05/26/17 05:33 Eos % (Auto) 2.7 % (0.0-4.3) 05/26/17 05:33 Baso % (Auto) 1.0 % (0.0-1.8) 05/26/17 05:33 Lymph # 1.5 K/mm3 (1.2-5.4) 05/26/17 05:33 [place] # 0.6 K/mm3 (0.0-0.8) 05/26/17 05:33 Eos # 0.1 K/mm3 (0.0-0.4) 05/26/17 05:33 Baso # 0.0 K/mm3 (0.0-0.1) 05/26/17 05:33 Add Manual Diff Complete 05/12/17 05:44 Total Counted 100 05/12/17 05:44 Seg Neutrophils % 48.8 % (40.0-70.0) 05/26/17 05:33 Seg Neuts % (Manual) 46.0 % (40.0-70.0) 05/12/17 05:44 Band Neutrophils % 0 % 05/12/17 05:44 Lymphocytes % (Manual) 39.0 % (13.4-35.0) H 05/12/17 05:44 Reactive Lymphs % (Man) 0 % 05/12/17 05:44 Monocytes % (Manual) 12.0 % (0.0-7.3) H 05/12/17 05:44 Eosinophils % (Manual) 3.0 % (0.0-4.3) 05/12/17 05:44 Basophils % (Manual) 0 % (0.0-1.8) 05/12/17 05:44 Metamyelocytes % 0 % 05/12/17 05:44 Myelocytes % 0 % 05/12/17 05:44 Promyelocytes % 0 % 05/12/17 05:44 Blast Cells % 0 % 05/12/17 05:44 Nucleated RBC % Not Reportable 05/12/17 05:44 Seg Neutrophils # 2.2 K/mm3 (1.8-7.7) 05/26/17 05:33 Seg Neutrophils # Man 1.3 K/mm3 (1.8-7.7) L 05/12/17 05:44 Band Neutrophils # 0.0 K/mm3 05/12/17 05:44 Lymphocytes # (Manual) 1.1 K/mm3 (1.2-5.4) L 05/12/17 05:44 Abs React Lymphs (Man) 0.0 K/mm3 05/12/17 05:44 Monocytes # (Manual) 0.3 K/mm3 (0.0-0.8) 05/12/17 05:44 Eosinophils # (Manual) 0.1 K/mm3 (0.0-0.4) 05/12/17 05:44 Basophils # (Manual) 0.0 K/mm3 (0.0-0.1) 05/12/17 05:44 Metamyelocytes # 0.0 K/mm3 05/12/17 05:44 Myelocytes # 0.0 K/mm3 05/12/17 05:44 Promyelocytes # 0.0 K/mm3 05/12/17 05:44 Blast Cells # 0.0 K/mm3 05/12/17 05:44 WBC Morphology Not Reportable 05/12/17 05:44 Hypersegmented Neuts Not Reportable 05/12/17 05:44 Hyposegmented Neuts Not Reportable 05/12/17 05:44 Hypogranular Neuts Not Reportable 05/12/17 05:44 Smudge Cells Not Reportable 05/12/17 05:44 Toxic Granulation Not Reportable 05/12/17 05:44 Toxic Vacuolation Not Reportable 05/12/17 05:44 Dohle Bodies Not Reportable 05/12/17 05:44 Pelger-Huet Anomaly Not Reportable 05/12/17 05:44 Shelly Rods Not Reportable 05/12/17 05:44 Platelet Estimate Cons 05/12/17 05:44 Clumped Platelets Few 05/12/17 05:44 Plt Clumps, EDTA Not Reportable 05/12/17 05:44 Large Platelets Not Reportable 05/12/17 05:44 Giant Platelets Not Reportable 05/12/17 05:44 Platelet Satelliting Not Reportable 05/12/17 05:44 Plt Morphology Comment Not Reportable 05/12/17 05:44 RBC Morphology Normal 05/12/17 05:44 Dimorphic RBCs Not Reportable 05/12/17 05:44 Polychromasia Not Reportable 05/12/17 05:44 Hypochromasia Not Reportable 05/12/17 05:44 Poikilocytosis Not Reportable 05/12/17 05:44 Anisocytosis Not Reportable 05/12/17 05:44 Microcytosis Not Reportable 05/12/17 05:44 Macrocytosis Not Reportable 05/12/17 05:44 Spherocytes Not Reportable 05/12/17 05:44 Pappenheimer Bodies Not Reportable 05/12/17 05:44 Sickle Cells Not Reportable 05/12/17 05:44 Target Cells Not Reportable 05/12/17 05:44 Tear Drop Cells Not Reportable 05/12/17 05:44 Ovalocytes Not Reportable 05/12/17 05:44 Helmet Cells Not Reportable 05/12/17 05:44 [place] Bodies Not Reportable 05/12/17 05:44 [place] Rings Not Reportable 05/12/17 05:44 [place] Cells Not Reportable 05/12/17 05:44 Bite Cells Not Reportable 05/12/17 05:44 Crenated Cell Not Reportable 05/12/17 05:44 Elliptocytes Not Reportable 05/12/17 05:44 Acanthocytes (Spur) Not Reportable 05/12/17 05:44 Rouleaux Not Reportable 05/12/17 05:44 Hemoglobin C Crystals Not Reportable 05/12/17 05:44 Schistocytes Not Reportable 05/12/17 05:44 Malaria parasites Not Reportable 05/12/17 05:44 Wander Bodies Not Reportable 05/12/17 05:44 Hem Pathologist Commnt No 05/12/17 05:44 PT 13.9 Sec. (12.2-14.9) 05/11/17 12:56 INR 1.02 (0.87-1.13) 05/11/17 12:56 APTT 29.8 Sec. (24.2-36.6) 05/11/17 12:56 Thrombin Time 16.4 Sec. (15.1-19.6) 05/11/17 12:56 Sodium 142 mmol/L (137-145) 06/01/17 07:01 Potassium 4.5 mmol/L (3.6-5.0) 06/01/17 07:01 Chloride 101.3 mmol/L (98-107) 06/01/17 07:01 Carbon Dioxide 28 mmol/L (22-30) 06/01/17 07:01 Anion Gap 17 mmol/L 06/01/17 07:01 BUN 19 mg/dL (7-17) H 06/01/17 07:01 Creatinine 0.4 mg/dL (0.7-1.2) L 06/01/17 07:01 Estimated GFR > 60 ml/min 06/01/17 07:01 BUN/Creatinine Ratio 48 % 06/01/17 07:01 Glucose 105 mg/dL (65-100) H 06/01/17 07:01 POC Glucose 119 (70-105) H 06/04/17 05:22 Hemoglobin A1c 5.7 % (4-6) 05/11/17 12:56 Calcium 10.0 mg/dL (8.4-10.2) 06/01/17 07:01 Total Bilirubin 0.30 mg/dL (0.1-1.2) 05/12/17 05:44 AST 27 units/L (5-40) 05/12/17 05:44 ALT 28 units/L (7-56) 05/12/17 05:44 Alkaline Phosphatase 52 units/L (35-129) 05/12/17 05:44 Total Creatine Kinase 64 units/L (30-135) 05/11/17 12:56 CK-MB (CK-2) 1.4 ng/mL (0.0-4.0) 05/11/17 12:56 CK-MB (CK-2) Rel Index 2.1 (0-4) 05/11/17 12:56 Troponin T < 0.010 ng/mL (0.00-0.029) 05/11/17 12:56 Total Protein 6.5 g/dL (6.3-8.2) 05/12/17 05:44 Albumin 3.8 g/dL (3.9-5) L 05/12/17 05:44 Albumin/Globulin Ratio 1.4 % 05/12/17 05:44 Triglycerides 113 mg/dL (2-149) 05/12/17 05:44 Cholesterol 172 mg/dL (50-199) 05/12/17 05:44 LDL Cholesterol Direct 115 mg/dL (50-130) 05/12/17 05:44 HDL Cholesterol 35 mg/dL (40-59) L 05/12/17 05:44 Cholesterol/HDL Ratio 4.91 % 05/12/17 05:44 Urine Color Yellow (Yellow) 05/11/17 14:09 Urine Turbidity Clear (Clear) 05/11/17 14:09 Urine pH 6.0 (5.0-7.0) 05/11/17 14:09 Ur Specific [place] 1.016 (1.003-1.030) 05/11/17 14:09 Urine Protein <15 mg/dl mg/dL (Negative) 05/11/17 14:09 Urine Glucose (UA) Neg mg/dL (Negative) 05/11/17 14:09 Urine Ketones Tr mg/dL (Negative) 05/11/17 14:09 Urine Blood Neg (Negative) 05/11/17 14:09 Urine Nitrite Neg (Negative) 05/11/17 14:09 Urine Bilirubin Neg (Negative) 05/11/17 14:09 Urine Urobilinogen < 2.0 mg/dL (<2.0) 05/11/17 14:09 Ur Leukocyte Esterase Neg (Negative) 05/11/17 14:09 Urine WBC (Auto) 2.0 /HPF (0.0-6.0) 05/11/17 14:09 Urine RBC (Auto) 3.0 /HPF (0.0-6.0) 05/11/17 14:09 U Epithel Cells (Auto) < 1.0 /HPF (0-13.0) 05/11/17 14:09 Urine Mucus Few /HPF 05/11/17 14:09 Valproic Acid 79.7 ug/mL (50-100) 05/11/17 12:56
[2017-06-04] MEDS: NORVASC FEEDTUBE SCH (10:43)
[2017-06-04] MEDS: BABY ASPIRIN PO SCH (10:43)
[2017-06-04] MEDS: PEPCID FEEDTUBE SCH ×2 (10:43→22:06)
[2017-06-04] MEDS: DepaKENE Liq FEEDTUBE SCH ×2 (10:44→22:06)
[2017-06-04] MEDS: LOVENOX SUB-Q SCH (22:07)
[2017-06-05 05:50] LABS: Basophils % (Auto) 0.6 % (0.0-1.8); Eosinophils # (Auto) 0.1 K/mm3 (0.0-0.4); Eosinophils % (Auto) 1.7 % (0.0-4.3); Hematocrit 38.7 % (30.3-42.9); Hemoglobin 12.8 gm/dl (10.1-14.3); Lymphocytes # (Auto) 1.6 K/mm3 (1.2-5.4); Lymphocytes % (Auto) 23.3 % (13.4-35.0); Mean Corpuscular HGB Conc 33 % (30-34); Mean Corpuscular Hemoglobin 30 pg (28-32); Mean Corpuscular Volume 91 fl (79-97); Monocytes # (Auto) 0.9 K/mm3 (0.0-0.8); Monocytes % (Auto) 13.1 % (0.0-7.3); Platelet Count 264 K/mm3 (140-440); Red Blood Count 4.27 M/mm3 (3.65-5.03); Red Cell Distribution Width 14.5 % (13.2-15.2)
[2017-06-05 06:03] LABS: BUN/Creatinine Ratio 63; Blood Urea Nitrogen 19 mg/dL (7-17); Calcium 9.4 mg/dL (8.4-10.2); Hemolysis Index 9
--- NOTE | 2017-06-05 09:28 | Progress Note ---
Assessment and Plan Assessment and plan: CVA with left-sided weakness; with residual left-sided weakness, bedbound, CT 05/11/17 ; Chronic infarct right occipital lobe right josh , Apparent subacute to early chronic right thalamic infarct Cont Physical therapy rehabilitation, continue antiplatelets and statin Dysphagia status post PEG placement, continue PEG tube feeds History of seizures; continue seizure precautions antiepileptic medications HTN; stable on antihypertensives GERD ; continue PPIs Dyslipidemia; on statin Leukopenia; resolved DVT prophylaxis. Lovenox DC planning per case management Possible discharge home with home health versus SNF placement But family refuses to take her back home. She is awaiting placement. The prognosis for meaningful recovery is negative. History Interval history: Patient is 56 yo with acute stroke with residual aphasia and left sided weakness , still has aphasia, left sided weakness Hospitalist Physical - Physical exam Narrative exam: GEN APPEARANCE : Not in acute distress, HEENT: Atraumatic NECK : supple, no JVD LUNGS: clear to auscultation bilaterally, no rales, no wheeze HEART: S1 and S2 regular, no murmurs, rubs or gallop ABD: Soft, no tenderness, no distension, normal bowel sounds EXT: No edema, no clubbing, no cyanosis NEURO:Awake,alert, aphasia, left sided weakness - Constitutional Vitals: Temp Pulse Resp BP Pulse Ox 98.3 F 99 H 18 148/92 97 06/04/17 21:09 06/04/17 21:09 06/05/17 00:00 06/04/17 21:09 06/04/17 21:09 General appearance: Present: no acute distress, well-nourished Results - Labs CBC & Chem 7: 06/05/17 05:07 06/05/17 05:07 Labs: Laboratory Last Values WBC 6.8 K/mm3 (4.5-11.0) 06/05/17 05:07 RBC 4.27 M/mm3 (3.65-5.03) 06/05/17 05:07 Hgb 12.8 gm/dl (10.1-14.3) 06/05/17 05:07 Hct 38.7 % (30.3-42.9) 06/05/17 05:07 MCV 91 fl (79-97) 06/05/17 05:07 MCH 30 pg (28-32) 06/05/17 05:07 MCHC 33 % (30-34) 06/05/17 05:07 RDW 14.5 % (13.2-15.2) 06/05/17 05:07 Plt Count 264 K/mm3 (140-440) 06/05/17 05:07 Lymph % (Auto) 23.3 % (13.4-35.0) 06/05/17 05:07 [place] % (Auto) 13.1 % (0.0-7.3) H 06/05/17 05:07 Eos % (Auto) 1.7 % (0.0-4.3) 06/05/17 05:07 Baso % (Auto) 0.6 % (0.0-1.8) 06/05/17 05:07 Lymph # 1.6 K/mm3 (1.2-5.4) 06/05/17 05:07 [place] # 0.9 K/mm3 (0.0-0.8) H 06/05/17 05:07 Eos # 0.1 K/mm3 (0.0-0.4) 06/05/17 05:07 Baso # 0.0 K/mm3 (0.0-0.1) 06/05/17 05:07 Add Manual Diff Complete 05/12/17 05:44 Total Counted 100 05/12/17 05:44 Seg Neutrophils % 61.3 % (40.0-70.0) 06/05/17 05:07 Seg Neuts % (Manual) 46.0 % (40.0-70.0) 05/12/17 05:44 Band Neutrophils % 0 % 05/12/17 05:44 Lymphocytes % (Manual) 39.0 % (13.4-35.0) H 05/12/17 05:44 Reactive Lymphs % (Man) 0 % 05/12/17 05:44 Monocytes % (Manual) 12.0 % (0.0-7.3) H 05/12/17 05:44 Eosinophils % (Manual) 3.0 % (0.0-4.3) 05/12/17 05:44 Basophils % (Manual) 0 % (0.0-1.8) 05/12/17 05:44 Metamyelocytes % 0 % 05/12/17 05:44 Myelocytes % 0 % 05/12/17 05:44 Promyelocytes % 0 % 05/12/17 05:44 Blast Cells % 0 % 05/12/17 05:44 Nucleated RBC % Not Reportable 05/12/17 05:44 Seg Neutrophils # 4.1 K/mm3 (1.8-7.7) 06/05/17 05:07 Seg Neutrophils # Man 1.3 K/mm3 (1.8-7.7) L 05/12/17 05:44 Band Neutrophils # 0.0 K/mm3 05/12/17 05:44 Lymphocytes # (Manual) 1.1 K/mm3 (1.2-5.4) L 05/12/17 05:44 Abs React Lymphs (Man) 0.0 K/mm3 05/12/17 05:44 Monocytes # (Manual) 0.3 K/mm3 (0.0-0.8) 05/12/17 05:44 Eosinophils # (Manual) 0.1 K/mm3 (0.0-0.4) 05/12/17 05:44 Basophils # (Manual) 0.0 K/mm3 (0.0-0.1) 05/12/17 05:44 Metamyelocytes # 0.0 K/mm3 05/12/17 05:44 Myelocytes # 0.0 K/mm3 05/12/17 05:44 Promyelocytes # 0.0 K/mm3 05/12/17 05:44 Blast Cells # 0.0 K/mm3 05/12/17 05:44 WBC Morphology Not Reportable 05/12/17 05:44 Hypersegmented Neuts Not Reportable 05/12/17 05:44 Hyposegmented Neuts Not Reportable 05/12/17 05:44 Hypogranular Neuts Not Reportable 05/12/17 05:44 Smudge Cells Not Reportable 05/12/17 05:44 Toxic Granulation Not Reportable 05/12/17 05:44 Toxic Vacuolation Not Reportable 05/12/17 05:44 Dohle Bodies Not Reportable 05/12/17 05:44 Pelger-Huet Anomaly Not Reportable 05/12/17 05:44 Shelly Rods Not Reportable 05/12/17 05:44 Platelet Estimate Cons 05/12/17 05:44 Clumped Platelets Few 05/12/17 05:44 Plt Clumps, EDTA Not Reportable 05/12/17 05:44 Large Platelets Not Reportable 05/12/17 05:44 Giant Platelets Not Reportable 05/12/17 05:44 Platelet Satelliting Not Reportable 05/12/17 05:44 Plt Morphology Comment Not Reportable 05/12/17 05:44 RBC Morphology Normal 05/12/17 05:44 Dimorphic RBCs Not Reportable 05/12/17 05:44 Polychromasia Not Reportable 05/12/17 05:44 Hypochromasia Not Reportable 05/12/17 05:44 Poikilocytosis Not Reportable 05/12/17 05:44 Anisocytosis Not Reportable 05/12/17 05:44 Microcytosis Not Reportable 05/12/17 05:44 Macrocytosis Not Reportable 05/12/17 05:44 Spherocytes Not Reportable 05/12/17 05:44 Pappenheimer Bodies Not Reportable 05/12/17 05:44 Sickle Cells Not Reportable 05/12/17 05:44 Target Cells Not Reportable 05/12/17 05:44 Tear Drop Cells Not Reportable 05/12/17 05:44 Ovalocytes Not Reportable 05/12/17 05:44 Helmet Cells Not Reportable 05/12/17 05:44 [place] Bodies Not Reportable 05/12/17 05:44 [place] Rings Not Reportable 05/12/17 05:44 Mary Cells Not Reportable 05/12/17 05:44 Bite Cells Not Reportable 05/12/17 05:44 Crenated Cell Not Reportable 05/12/17 05:44 Elliptocytes Not Reportable 05/12/17 05:44 Acanthocytes (Spur) Not Reportable 05/12/17 05:44 Rouleaux Not Reportable 05/12/17 05:44 Hemoglobin C Crystals Not Reportable 05/12/17 05:44 Schistocytes Not Reportable 05/12/17 05:44 Malaria parasites Not Reportable 05/12/17 05:44 Wander Bodies Not Reportable 05/12/17 05:44 Hem Pathologist Commnt No 05/12/17 05:44 PT 13.9 Sec. (12.2-14.9) 05/11/17 12:56 INR 1.02 (0.87-1.13) 05/11/17 12:56 APTT 29.8 Sec. (24.2-36.6) 05/11/17 12:56 Thrombin Time 16.4 Sec. (15.1-19.6) 05/11/17 12:56 Sodium 144 mmol/L (137-145) 06/05/17 05:07 Potassium 3.8 mmol/L (3.6-5.0) 06/05/17 05:07 Chloride 102.6 mmol/L (98-107) 06/05/17 05:07 Carbon Dioxide 26 mmol/L (22-30) 06/05/17 05:07 Anion Gap 19 mmol/L 06/05/17 05:07 BUN 19 mg/dL (7-17) H 06/05/17 05:07 Creatinine 0.3 mg/dL (0.7-1.2) L 06/05/17 05:07 Estimated GFR > 60 ml/min 06/05/17 05:07 BUN/Creatinine Ratio 63 % 06/05/17 05:07 Glucose 120 mg/dL (65-100) H 06/05/17 05:07 POC Glucose 115 (70-105) H 06/05/17 05:42 Hemoglobin A1c 5.7 % (4-6) 05/11/17 12:56 Calcium 9.4 mg/dL (8.4-10.2) 06/05/17 05:07 Total Bilirubin 0.30 mg/dL (0.1-1.2) 05/12/17 05:44 AST 27 units/L (5-40) 05/12/17 05:44 ALT 28 units/L (7-56) 05/12/17 05:44 Alkaline Phosphatase 52 units/L (35-129) 05/12/17 05:44 Total Creatine Kinase 64 units/L (30-135) 05/11/17 12:56 CK-MB (CK-2) 1.4 ng/mL (0.0-4.0) 05/11/17 12:56 CK-MB (CK-2) Rel Index 2.1 (0-4) 05/11/17 12:56 Troponin T < 0.010 ng/mL (0.00-0.029) 05/11/17 12:56 Total Protein 6.5 g/dL (6.3-8.2) 05/12/17 05:44 Albumin 3.8 g/dL (3.9-5) L 05/12/17 05:44 Albumin/Globulin Ratio 1.4 % 05/12/17 05:44 Triglycerides 113 mg/dL (2-149) 05/12/17 05:44 Cholesterol 172 mg/dL (50-199) 05/12/17 05:44 LDL Cholesterol Direct 115 mg/dL (50-130) 05/12/17 05:44 HDL Cholesterol 35 mg/dL (40-59) L 05/12/17 05:44 Cholesterol/HDL Ratio 4.91 % 05/12/17 05:44 Urine Color Yellow (Yellow) 05/11/17 14:09 Urine Turbidity Clear (Clear) 05/11/17 14:09 Urine pH 6.0 (5.0-7.0) 05/11/17 14:09 Ur Specific [place] 1.016 (1.003-1.030) 05/11/17 14:09 Urine Protein <15 mg/dl mg/dL (Negative) 05/11/17 14:09 Urine Glucose (UA) Neg mg/dL (Negative) 05/11/17 14:09 Urine Ketones Tr mg/dL (Negative) 05/11/17 14:09 Urine Blood Neg (Negative) 05/11/17 14:09 Urine Nitrite Neg (Negative) 05/11/17 14:09 Urine Bilirubin Neg (Negative) 05/11/17 14:09 Urine Urobilinogen < 2.0 mg/dL (<2.0) 05/11/17 14:09 Ur Leukocyte Esterase Neg (Negative) 05/11/17 14:09 Urine WBC (Auto) 2.0 /HPF (0.0-6.0) 05/11/17 14:09 Urine RBC (Auto) 3.0 /HPF (0.0-6.0) 05/11/17 14:09 U Epithel Cells (Auto) < 1.0 /HPF (0-13.0) 05/11/17 14:09 Urine Mucus Few /HPF 05/11/17 14:09 Valproic Acid 79.7 ug/mL (50-100) 05/11/17 12:56
[2017-06-05] MEDS: NORVASC FEEDTUBE SCH (11:24)
[2017-06-05] MEDS: PEPCID FEEDTUBE SCH ×2 (11:25→21:42)
[2017-06-05] MEDS: BABY ASPIRIN PO SCH (11:25)
[2017-06-05] MEDS: DepaKENE Liq FEEDTUBE SCH ×2 (11:25→21:43)
[2017-06-05] MEDS: LOVENOX SUB-Q SCH (21:42)
[2017-06-06] MEDS: BABY ASPIRIN PO SCH ×2 (08:40→11:22)
[2017-06-06] MEDS: NORVASC FEEDTUBE SCH ×2 (08:40→11:22)
[2017-06-06] MEDS: PEPCID FEEDTUBE SCH ×3 (08:40→22:36)
[2017-06-06] MEDS: DepaKENE Liq FEEDTUBE SCH ×3 (08:41→22:36)
--- NOTE | 2017-06-06 10:07 | Progress Note ---
Assessment and Plan Assessment and plan: CVA with left-sided weakness; with residual left-sided weakness, bedbound, CT 05/11/17 ; Chronic infarct right occipital lobe right josh , Apparent subacute to early chronic right thalamic infarct Cont Physical therapy rehabilitation, continue antiplatelets and statin Dysphagia status post PEG placement, continue PEG tube feeds History of seizures; continue seizure precautions antiepileptic medications HTN; stable on antihypertensives GERD ; continue PPIs Dyslipidemia; on statin Leukopenia; resolved DVT prophylaxis. Lovenox DC planning per case management Possible discharge home with home health versus SNF placement But family refuses to take her back home. She is awaiting placement. Discussed with leyla at bedside The prognosis for meaningful recovery is negative. History Interval history: Patient is 56 yo with acute stroke with residual aphasia and left sided weakness , still has aphasia, left sided weakness Hospitalist Physical - Physical exam Narrative exam: GEN APPEARANCE : Not in acute distress, HEENT: Atraumatic NECK : supple, no JVD LUNGS: clear to auscultation bilaterally, no rales, no wheeze HEART: S1 and S2 regular, no murmurs, rubs or gallop ABD: Soft, no tenderness, no distension, normal bowel sounds EXT: No edema, no clubbing, no cyanosis NEURO:Awake,alert, aphasia, left sided weakness - Constitutional Vitals: Temp Pulse Resp BP Pulse Ox 98.1 F 85 18 137/94 98 06/06/17 09:10 06/06/17 09:10 06/06/17 09:10 06/06/17 09:10 06/06/17 09:10 General appearance: Present: no acute distress, well-nourished Results - Labs CBC & Chem 7: 06/05/17 05:07 06/05/17 05:07 Labs: Laboratory Last Values WBC 6.8 K/mm3 (4.5-11.0) 06/05/17 05:07 RBC 4.27 M/mm3 (3.65-5.03) 06/05/17 05:07 Hgb 12.8 gm/dl (10.1-14.3) 06/05/17 05:07 Hct 38.7 % (30.3-42.9) 06/05/17 05:07 MCV 91 fl (79-97) 06/05/17 05:07 MCH 30 pg (28-32) 06/05/17 05:07 MCHC 33 % (30-34) 06/05/17 05:07 RDW 14.5 % (13.2-15.2) 06/05/17 05:07 Plt Count 264 K/mm3 (140-440) 06/05/17 05:07 Lymph % (Auto) 23.3 % (13.4-35.0) 06/05/17 05:07 [place] % (Auto) 13.1 % (0.0-7.3) H 06/05/17 05:07 Eos % (Auto) 1.7 % (0.0-4.3) 06/05/17 05:07 Baso % (Auto) 0.6 % (0.0-1.8) 06/05/17 05:07 Lymph # 1.6 K/mm3 (1.2-5.4) 06/05/17 05:07 [place] # 0.9 K/mm3 (0.0-0.8) H 06/05/17 05:07 Eos # 0.1 K/mm3 (0.0-0.4) 06/05/17 05:07 Baso # 0.0 K/mm3 (0.0-0.1) 06/05/17 05:07 Add Manual Diff Complete 05/12/17 05:44 Total Counted 100 05/12/17 05:44 Seg Neutrophils % 61.3 % (40.0-70.0) 06/05/17 05:07 Seg Neuts % (Manual) 46.0 % (40.0-70.0) 05/12/17 05:44 Band Neutrophils % 0 % 05/12/17 05:44 Lymphocytes % (Manual) 39.0 % (13.4-35.0) H 05/12/17 05:44 Reactive Lymphs % (Man) 0 % 05/12/17 05:44 Monocytes % (Manual) 12.0 % (0.0-7.3) H 05/12/17 05:44 Eosinophils % (Manual) 3.0 % (0.0-4.3) 05/12/17 05:44 Basophils % (Manual) 0 % (0.0-1.8) 05/12/17 05:44 Metamyelocytes % 0 % 05/12/17 05:44 Myelocytes % 0 % 05/12/17 05:44 Promyelocytes % 0 % 05/12/17 05:44 Blast Cells % 0 % 05/12/17 05:44 Nucleated RBC % Not Reportable 05/12/17 05:44 Seg Neutrophils # 4.1 K/mm3 (1.8-7.7) 06/05/17 05:07 Seg Neutrophils # Man 1.3 K/mm3 (1.8-7.7) L 05/12/17 05:44 Band Neutrophils # 0.0 K/mm3 05/12/17 05:44 Lymphocytes # (Manual) 1.1 K/mm3 (1.2-5.4) L 05/12/17 05:44 Abs React Lymphs (Man) 0.0 K/mm3 05/12/17 05:44 Monocytes # (Manual) 0.3 K/mm3 (0.0-0.8) 05/12/17 05:44 Eosinophils # (Manual) 0.1 K/mm3 (0.0-0.4) 05/12/17 05:44 Basophils # (Manual) 0.0 K/mm3 (0.0-0.1) 05/12/17 05:44 Metamyelocytes # 0.0 K/mm3 05/12/17 05:44 Myelocytes # 0.0 K/mm3 05/12/17 05:44 Promyelocytes # 0.0 K/mm3 05/12/17 05:44 Blast Cells # 0.0 K/mm3 05/12/17 05:44 WBC Morphology Not Reportable 05/12/17 05:44 Hypersegmented Neuts Not Reportable 05/12/17 05:44 Hyposegmented Neuts Not Reportable 05/12/17 05:44 Hypogranular Neuts Not Reportable 05/12/17 05:44 Smudge Cells Not Reportable 05/12/17 05:44 Toxic Granulation Not Reportable 05/12/17 05:44 Toxic Vacuolation Not Reportable 05/12/17 05:44 Dohle Bodies Not Reportable 05/12/17 05:44 Pelger-Huet Anomaly Not Reportable 05/12/17 05:44 Shelly Rods Not Reportable 05/12/17 05:44 Platelet Estimate Cons 05/12/17 05:44 Clumped Platelets Few 05/12/17 05:44 Plt Clumps, EDTA Not Reportable 05/12/17 05:44 Large Platelets Not Reportable 05/12/17 05:44 Giant Platelets Not Reportable 05/12/17 05:44 Platelet Satelliting Not Reportable 05/12/17 05:44 Plt Morphology Comment Not Reportable 05/12/17 05:44 RBC Morphology Normal 05/12/17 05:44 Dimorphic RBCs Not Reportable 05/12/17 05:44 Polychromasia Not Reportable 05/12/17 05:44 Hypochromasia Not Reportable 05/12/17 05:44 Poikilocytosis Not Reportable 05/12/17 05:44 Anisocytosis Not Reportable 05/12/17 05:44 Microcytosis Not Reportable 05/12/17 05:44 Macrocytosis Not Reportable 05/12/17 05:44 Spherocytes Not Reportable 05/12/17 05:44 Pappenheimer Bodies Not Reportable 05/12/17 05:44 Sickle Cells Not Reportable 05/12/17 05:44 Target Cells Not Reportable 05/12/17 05:44 Tear Drop Cells Not Reportable 05/12/17 05:44 Ovalocytes Not Reportable 05/12/17 05:44 Helmet Cells Not Reportable 05/12/17 05:44 Ca[place] Bodies Not Reportable 05/12/17 05:44 [place] Rings Not Reportable 05/12/17 05:44 [place] Cells Not Reportable 05/12/17 05:44 Bite Cells Not Reportable 05/12/17 05:44 Crenated Cell Not Reportable 05/12/17 05:44 Elliptocytes Not Reportable 05/12/17 05:44 Acanthocytes (Spur) Not Reportable 05/12/17 05:44 Rouleaux Not Reportable 05/12/17 05:44 Hemoglobin C Crystals Not Reportable 05/12/17 05:44 Schistocytes Not Reportable 05/12/17 05:44 Malaria parasites Not Reportable 05/12/17 05:44 Wander Bodies Not Reportable 05/12/17 05:44 Hem Pathologist Commnt No 05/12/17 05:44 PT 13.9 Sec. (12.2-14.9) 05/11/17 12:56 INR 1.02 (0.87-1.13) 05/11/17 12:56 APTT 29.8 Sec. (24.2-36.6) 05/11/17 12:56 Thrombin Time 16.4 Sec. (15.1-19.6) 05/11/17 12:56 Sodium 144 mmol/L (137-145) 06/05/17 05:07 Potassium 3.8 mmol/L (3.6-5.0) 06/05/17 05:07 Chloride 102.6 mmol/L (98-107) 06/05/17 05:07 Carbon Dioxide 26 mmol/L (22-30) 06/05/17 05:07 Anion Gap 19 mmol/L 06/05/17 05:07 BUN 19 mg/dL (7-17) H 06/05/17 05:07 Creatinine 0.3 mg/dL (0.7-1.2) L 06/05/17 05:07 Estimated GFR > 60 ml/min 06/05/17 05:07 BUN/Creatinine Ratio 63 % 06/05/17 05:07 Glucose 120 mg/dL (65-100) H 06/05/17 05:07 POC Glucose 120 (70-105) H 06/06/17 05:32 Hemoglobin A1c 5.7 % (4-6) 05/11/17 12:56 Calcium 9.4 mg/dL (8.4-10.2) 06/05/17 05:07 Total Bilirubin 0.30 mg/dL (0.1-1.2) 05/12/17 05:44 AST 27 units/L (5-40) 05/12/17 05:44 ALT 28 units/L (7-56) 05/12/17 05:44 Alkaline Phosphatase 52 units/L (35-129) 05/12/17 05:44 Total Creatine Kinase 64 units/L (30-135) 05/11/17 12:56 CK-MB (CK-2) 1.4 ng/mL (0.0-4.0) 05/11/17 12:56 CK-MB (CK-2) Rel Index 2.1 (0-4) 05/11/17 12:56 Troponin T < 0.010 ng/mL (0.00-0.029) 05/11/17 12:56 Total Protein 6.5 g/dL (6.3-8.2) 05/12/17 05:44 Albumin 3.8 g/dL (3.9-5) L 05/12/17 05:44 Albumin/Globulin Ratio 1.4 % 05/12/17 05:44 Triglycerides 113 mg/dL (2-149) 05/12/17 05:44 Cholesterol 172 mg/dL (50-199) 05/12/17 05:44 LDL Cholesterol Direct 115 mg/dL (50-130) 05/12/17 05:44 HDL Cholesterol 35 mg/dL (40-59) L 05/12/17 05:44 Cholesterol/HDL Ratio 4.91 % 05/12/17 05:44 Urine Color Yellow (Yellow) 05/11/17 14:09 Urine Turbidity Clear (Clear) 05/11/17 14:09 Urine pH 6.0 (5.0-7.0) 05/11/17 14:09 Ur Specific [place] 1.016 (1.003-1.030) 05/11/17 14:09 Urine Protein <15 mg/dl mg/dL (Negative) 05/11/17 14:09 Urine Glucose (UA) Neg mg/dL (Negative) 05/11/17 14:09 Urine Ketones Tr mg/dL (Negative) 05/11/17 14:09 Urine Blood Neg (Negative) 05/11/17 14:09 Urine Nitrite Neg (Negative) 05/11/17 14:09 Urine Bilirubin Neg (Negative) 05/11/17 14:09 Urine Urobilinogen < 2.0 mg/dL (<2.0) 05/11/17 14:09 Ur Leukocyte Esterase Neg (Negative) 05/11/17 14:09 Urine WBC (Auto) 2.0 /HPF (0.0-6.0) 05/11/17 14:09 Urine RBC (Auto) 3.0 /HPF (0.0-6.0) 05/11/17 14:09 U Epithel Cells (Auto) < 1.0 /HPF (0-13.0) 05/11/17 14:09 Urine Mucus Few /HPF 05/11/17 14:09 Valproic Acid 79.7 ug/mL (50-100) 05/11/17 12:56
[2017-06-06] MEDS: LOVENOX SUB-Q SCH (22:37)
[2017-06-07] MEDS: BABY ASPIRIN PO SCH ×2 (08:40→19:09)
[2017-06-07] MEDS: NORVASC FEEDTUBE SCH ×2 (08:40→19:07)
[2017-06-07] MEDS: PEPCID FEEDTUBE SCH ×3 (08:41→22:46)
[2017-06-07] MEDS: DepaKENE Liq FEEDTUBE SCH ×3 (08:41→22:45)
--- NOTE | 2017-06-07 09:30 | Progress Note ---
Assessment and Plan Assessment and plan: CVA with left-sided weakness; with residual left-sided weakness, bedbound, CT 05/11/17 ; Chronic infarct right occipital lobe right josh , Apparent subacute to early chronic right thalamic infarct Cont Physical therapy rehabilitation, continue antiplatelets and statin Dysphagia status post PEG placement, continue PEG tube feeds History of seizures; continue seizure precautions antiepileptic medications HTN; stable on antihypertensives GERD ; continue PPIs Dyslipidemia; on statin Leukopenia; resolved DVT prophylaxis. Lovenox DC planning per case management Possible discharge home with home health versus SNF placement But family refuses to take her back home. She is awaiting placement. Discussed with leyla at bedside The prognosis for meaningful recovery is negative. History Interval history: Patient is 56 yo with acute stroke with residual aphasia and left sided weakness , still has aphasia, left sided weakness Hospitalist Physical - Physical exam Narrative exam: GEN APPEARANCE : Not in acute distress, HEENT: Atraumatic NECK : supple, no JVD LUNGS: clear to auscultation bilaterally, no rales, no wheeze HEART: S1 and S2 regular, no murmurs, rubs or gallop ABD: Soft, no tenderness, no distension, normal bowel sounds EXT: No edema, no clubbing, no cyanosis NEURO:Awake,alert, aphasia, left sided weakness - Constitutional Vitals: Temp Pulse Resp BP Pulse Ox 98.8 F 89 19 139/95 97 06/07/17 07:31 06/07/17 07:31 06/07/17 07:31 06/07/17 07:31 06/07/17 07:31 General appearance: Present: no acute distress, well-nourished Results - Labs CBC & Chem 7: 06/05/17 05:07 06/05/17 05:07 Labs: Laboratory Last Values WBC 6.8 K/mm3 (4.5-11.0) 06/05/17 05:07 RBC 4.27 M/mm3 (3.65-5.03) 06/05/17 05:07 Hgb 12.8 gm/dl (10.1-14.3) 06/05/17 05:07 Hct 38.7 % (30.3-42.9) 06/05/17 05:07 MCV 91 fl (79-97) 06/05/17 05:07 MCH 30 pg (28-32) 06/05/17 05:07 MCHC 33 % (30-34) 06/05/17 05:07 RDW 14.5 % (13.2-15.2) 06/05/17 05:07 Plt Count 264 K/mm3 (140-440) 06/05/17 05:07 Lymph % (Auto) 23.3 % (13.4-35.0) 06/05/17 05:07 [place] % (Auto) 13.1 % (0.0-7.3) H 06/05/17 05:07 Eos % (Auto) 1.7 % (0.0-4.3) 06/05/17 05:07 Baso % (Auto) 0.6 % (0.0-1.8) 06/05/17 05:07 Lymph # 1.6 K/mm3 (1.2-5.4) 06/05/17 05:07 [place] # 0.9 K/mm3 (0.0-0.8) H 06/05/17 05:07 Eos # 0.1 K/mm3 (0.0-0.4) 06/05/17 05:07 Baso # 0.0 K/mm3 (0.0-0.1) 06/05/17 05:07 Add Manual Diff Complete 05/12/17 05:44 Total Counted 100 05/12/17 05:44 Seg Neutrophils % 61.3 % (40.0-70.0) 06/05/17 05:07 Seg Neuts % (Manual) 46.0 % (40.0-70.0) 05/12/17 05:44 Band Neutrophils % 0 % 05/12/17 05:44 Lymphocytes % (Manual) 39.0 % (13.4-35.0) H 05/12/17 05:44 Reactive Lymphs % (Man) 0 % 05/12/17 05:44 Monocytes % (Manual) 12.0 % (0.0-7.3) H 05/12/17 05:44 Eosinophils % (Manual) 3.0 % (0.0-4.3) 05/12/17 05:44 Basophils % (Manual) 0 % (0.0-1.8) 05/12/17 05:44 Metamyelocytes % 0 % 05/12/17 05:44 Myelocytes % 0 % 05/12/17 05:44 Promyelocytes % 0 % 05/12/17 05:44 Blast Cells % 0 % 05/12/17 05:44 Nucleated RBC % Not Reportable 05/12/17 05:44 Seg Neutrophils # 4.1 K/mm3 (1.8-7.7) 06/05/17 05:07 Seg Neutrophils # Man 1.3 K/mm3 (1.8-7.7) L 05/12/17 05:44 Band Neutrophils # 0.0 K/mm3 05/12/17 05:44 Lymphocytes # (Manual) 1.1 K/mm3 (1.2-5.4) L 05/12/17 05:44 Abs React Lymphs (Man) 0.0 K/mm3 05/12/17 05:44 Monocytes # (Manual) 0.3 K/mm3 (0.0-0.8) 05/12/17 05:44 Eosinophils # (Manual) 0.1 K/mm3 (0.0-0.4) 05/12/17 05:44 Basophils # (Manual) 0.0 K/mm3 (0.0-0.1) 05/12/17 05:44 Metamyelocytes # 0.0 K/mm3 05/12/17 05:44 Myelocytes # 0.0 K/mm3 05/12/17 05:44 Promyelocytes # 0.0 K/mm3 05/12/17 05:44 Blast Cells # 0.0 K/mm3 05/12/17 05:44 WBC Morphology Not Reportable 05/12/17 05:44 Hypersegmented Neuts Not Reportable 05/12/17 05:44 Hyposegmented Neuts Not Reportable 05/12/17 05:44 Hypogranular Neuts Not Reportable 05/12/17 05:44 Smudge Cells Not Reportable 05/12/17 05:44 Toxic Granulation Not Reportable 05/12/17 05:44 Toxic Vacuolation Not Reportable 05/12/17 05:44 Dohle Bodies Not Reportable 05/12/17 05:44 Pelger-Huet Anomaly Not Reportable 05/12/17 05:44 Shelly Rods Not Reportable 05/12/17 05:44 Platelet Estimate Cons 05/12/17 05:44 Clumped Platelets Few 05/12/17 05:44 Plt Clumps, EDTA Not Reportable 05/12/17 05:44 Large Platelets Not Reportable 05/12/17 05:44 Giant Platelets Not Reportable 05/12/17 05:44 Platelet Satelliting Not Reportable 05/12/17 05:44 Plt Morphology Comment Not Reportable 05/12/17 05:44 RBC Morphology Normal 05/12/17 05:44 Dimorphic RBCs Not Reportable 05/12/17 05:44 Polychromasia Not Reportable 05/12/17 05:44 Hypochromasia Not Reportable 05/12/17 05:44 Poikilocytosis Not Reportable 05/12/17 05:44 Anisocytosis Not Reportable 05/12/17 05:44 Microcytosis Not Reportable 05/12/17 05:44 Macrocytosis Not Reportable 05/12/17 05:44 Spherocytes Not Reportable 05/12/17 05:44 Pappenheimer Bodies Not Reportable 05/12/17 05:44 Sickle Cells Not Reportable 05/12/17 05:44 Target Cells Not Reportable 05/12/17 05:44 Tear Drop Cells Not Reportable 05/12/17 05:44 Ovalocytes Not Reportable 05/12/17 05:44 Helmet Cells Not Reportable 05/12/17 05:44 [place] Bodies Not Reportable 05/12/17 05:44 [place] Rings Not Reportable 05/12/17 05:44 [place] Cells Not Reportable 05/12/17 05:44 Bite Cells Not Reportable 05/12/17 05:44 Crenated Cell Not Reportable 05/12/17 05:44 Elliptocytes Not Reportable 05/12/17 05:44 Acanthocytes (Spur) Not Reportable 05/12/17 05:44 Rouleaux Not Reportable 05/12/17 05:44 Hemoglobin C Crystals Not Reportable 05/12/17 05:44 Schistocytes Not Reportable 05/12/17 05:44 Malaria parasites Not Reportable 05/12/17 05:44 Wander Bodies Not Reportable 05/12/17 05:44 Hem Pathologist Commnt No 05/12/17 05:44 PT 13.9 Sec. (12.2-14.9) 05/11/17 12:56 INR 1.02 (0.87-1.13) 05/11/17 12:56 APTT 29.8 Sec. (24.2-36.6) 05/11/17 12:56 Thrombin Time 16.4 Sec. (15.1-19.6) 05/11/17 12:56 Sodium 144 mmol/L (137-145) 06/05/17 05:07 Potassium 3.8 mmol/L (3.6-5.0) 06/05/17 05:07 Chloride 102.6 mmol/L (98-107) 06/05/17 05:07 Carbon Dioxide 26 mmol/L (22-30) 06/05/17 05:07 Anion Gap 19 mmol/L 06/05/17 05:07 BUN 19 mg/dL (7-17) H 06/05/17 05:07 Creatinine 0.3 mg/dL (0.7-1.2) L 06/05/17 05:07 Estimated GFR > 60 ml/min 06/05/17 05:07 BUN/Creatinine Ratio 63 % 06/05/17 05:07 Glucose 120 mg/dL (65-100) H 06/05/17 05:07 POC Glucose 141 (70-105) H 06/07/17 06:55 Hemoglobin A1c 5.7 % (4-6) 05/11/17 12:56 Calcium 9.4 mg/dL (8.4-10.2) 06/05/17 05:07 Total Bilirubin 0.30 mg/dL (0.1-1.2) 05/12/17 05:44 AST 27 units/L (5-40) 05/12/17 05:44 ALT 28 units/L (7-56) 05/12/17 05:44 Alkaline Phosphatase 52 units/L (35-129) 05/12/17 05:44 Total Creatine Kinase 64 units/L (30-135) 05/11/17 12:56 CK-MB (CK-2) 1.4 ng/mL (0.0-4.0) 05/11/17 12:56 CK-MB (CK-2) Rel Index 2.1 (0-4) 05/11/17 12:56 Troponin T < 0.010 ng/mL (0.00-0.029) 05/11/17 12:56 Total Protein 6.5 g/dL (6.3-8.2) 05/12/17 05:44 Albumin 3.8 g/dL (3.9-5) L 05/12/17 05:44 Albumin/Globulin Ratio 1.4 % 05/12/17 05:44 Triglycerides 113 mg/dL (2-149) 05/12/17 05:44 Cholesterol 172 mg/dL (50-199) 05/12/17 05:44 LDL Cholesterol Direct 115 mg/dL (50-130) 05/12/17 05:44 HDL Cholesterol 35 mg/dL (40-59) L 05/12/17 05:44 Cholesterol/HDL Ratio 4.91 % 05/12/17 05:44 Urine Color Yellow (Yellow) 05/11/17 14:09 Urine Turbidity Clear (Clear) 05/11/17 14:09 Urine pH 6.0 (5.0-7.0) 05/11/17 14:09 Ur Specific [place] 1.016 (1.003-1.030) 05/11/17 14:09 Urine Protein <15 mg/dl mg/dL (Negative) 05/11/17 14:09 Urine Glucose (UA) Neg mg/dL (Negative) 05/11/17 14:09 Urine Ketones Tr mg/dL (Negative) 05/11/17 14:09 Urine Blood Neg (Negative) 05/11/17 14:09 Urine Nitrite Neg (Negative) 05/11/17 14:09 Urine Bilirubin Neg (Negative) 05/11/17 14:09 Urine Urobilinogen < 2.0 mg/dL (<2.0) 05/11/17 14:09 Ur Leukocyte Esterase Neg (Negative) 05/11/17 14:09 Urine WBC (Auto) 2.0 /HPF (0.0-6.0) 05/11/17 14:09 Urine RBC (Auto) 3.0 /HPF (0.0-6.0) 05/11/17 14:09 U Epithel Cells (Auto) < 1.0 /HPF (0-13.0) 05/11/17 14:09 Urine Mucus Few /HPF 05/11/17 14:09 Valproic Acid 79.7 ug/mL (50-100) 05/11/17 12:56
[2017-06-07] MEDS: LOVENOX SUB-Q SCH (22:46)
--- NOTE | 2017-06-08 09:22 | Progress Note ---
Assessment and Plan Assessment and plan: CVA with left-sided weakness; with residual left-sided weakness, bedbound, CT 05/11/17 ; Chronic infarct right occipital lobe right josh , Apparent subacute to early chronic right thalamic infarct Cont Physical therapy rehabilitation, continue antiplatelets and statin Dysphagia status post PEG placement, continue PEG tube feeds History of seizures; continue seizure precautions antiepileptic medications HTN; BP elevated. Will add Hydralazine 25mg tid GERD ; continue PPIs Dyslipidemia; on statin Leukopenia; resolved DVT prophylaxis. Lovenox DC planning per case management Possible discharge home with home health versus SNF placement But family refuses to take her back home. She is awaiting placement. Discussed with leyla at bedside The prognosis for meaningful recovery is negative. History Interval history: Patient is 56 yo with acute stroke with residual aphasia and left sided weakness , still has aphasia, left sided weakness Hospitalist Physical - Physical exam Narrative exam: GEN APPEARANCE : Not in acute distress, HEENT: Atraumatic NECK : supple, no JVD LUNGS: clear to auscultation bilaterally, no rales, no wheeze HEART: S1 and S2 regular, no murmurs, rubs or gallop ABD: Soft, no tenderness, no distension, normal bowel sounds EXT: No edema, no clubbing, no cyanosis NEURO:Awake,alert, aphasia, left sided weakness - Constitutional Vitals: Temp Pulse Resp BP Pulse Ox 98.4 F 87 18 141/96 97 06/08/17 08:57 06/08/17 08:57 06/08/17 08:57 06/08/17 08:57 06/08/17 08:57 General appearance: Present: no acute distress, well-nourished Results - Labs CBC & Chem 7: 06/05/17 05:07 06/05/17 05:07 Labs: Laboratory Last Values WBC 6.8 K/mm3 (4.5-11.0) 06/05/17 05:07 RBC 4.27 M/mm3 (3.65-5.03) 06/05/17 05:07 Hgb 12.8 gm/dl (10.1-14.3) 06/05/17 05:07 Hct 38.7 % (30.3-42.9) 06/05/17 05:07 MCV 91 fl (79-97) 06/05/17 05:07 MCH 30 pg (28-32) 06/05/17 05:07 MCHC 33 % (30-34) 06/05/17 05:07 RDW 14.5 % (13.2-15.2) 06/05/17 05:07 Plt Count 264 K/mm3 (140-440) 06/05/17 05:07 Lymph % (Auto) 23.3 % (13.4-35.0) 06/05/17 05:07 [place] % (Auto) 13.1 % (0.0-7.3) H 06/05/17 05:07 Eos % (Auto) 1.7 % (0.0-4.3) 06/05/17 05:07 Baso % (Auto) 0.6 % (0.0-1.8) 06/05/17 05:07 Lymph # 1.6 K/mm3 (1.2-5.4) 06/05/17 05:07 [place] # 0.9 K/mm3 (0.0-0.8) H 06/05/17 05:07 Eos # 0.1 K/mm3 (0.0-0.4) 06/05/17 05:07 Baso # 0.0 K/mm3 (0.0-0.1) 06/05/17 05:07 Add Manual Diff Complete 05/12/17 05:44 Total Counted 100 05/12/17 05:44 Seg Neutrophils % 61.3 % (40.0-70.0) 06/05/17 05:07 Seg Neuts % (Manual) 46.0 % (40.0-70.0) 05/12/17 05:44 Band Neutrophils % 0 % 05/12/17 05:44 Lymphocytes % (Manual) 39.0 % (13.4-35.0) H 05/12/17 05:44 Reactive Lymphs % (Man) 0 % 05/12/17 05:44 Monocytes % (Manual) 12.0 % (0.0-7.3) H 05/12/17 05:44 Eosinophils % (Manual) 3.0 % (0.0-4.3) 05/12/17 05:44 Basophils % (Manual) 0 % (0.0-1.8) 05/12/17 05:44 Metamyelocytes % 0 % 05/12/17 05:44 Myelocytes % 0 % 05/12/17 05:44 Promyelocytes % 0 % 05/12/17 05:44 Blast Cells % 0 % 05/12/17 05:44 Nucleated RBC % Not Reportable 05/12/17 05:44 Seg Neutrophils # 4.1 K/mm3 (1.8-7.7) 06/05/17 05:07 Seg Neutrophils # Man 1.3 K/mm3 (1.8-7.7) L 05/12/17 05:44 Band Neutrophils # 0.0 K/mm3 05/12/17 05:44 Lymphocytes # (Manual) 1.1 K/mm3 (1.2-5.4) L 05/12/17 05:44 Abs React Lymphs (Man) 0.0 K/mm3 05/12/17 05:44 Monocytes # (Manual) 0.3 K/mm3 (0.0-0.8) 05/12/17 05:44 Eosinophils # (Manual) 0.1 K/mm3 (0.0-0.4) 05/12/17 05:44 Basophils # (Manual) 0.0 K/mm3 (0.0-0.1) 05/12/17 05:44 Metamyelocytes # 0.0 K/mm3 05/12/17 05:44 Myelocytes # 0.0 K/mm3 05/12/17 05:44 Promyelocytes # 0.0 K/mm3 05/12/17 05:44 Blast Cells # 0.0 K/mm3 05/12/17 05:44 WBC Morphology Not Reportable 05/12/17 05:44 Hypersegmented Neuts Not Reportable 05/12/17 05:44 Hyposegmented Neuts Not Reportable 05/12/17 05:44 Hypogranular Neuts Not Reportable 05/12/17 05:44 Smudge Cells Not Reportable 05/12/17 05:44 Toxic Granulation Not Reportable 05/12/17 05:44 Toxic Vacuolation Not Reportable 05/12/17 05:44 Dohle Bodies Not Reportable 05/12/17 05:44 Pelger-Huet Anomaly Not Reportable 05/12/17 05:44 Shelly Rods Not Reportable 05/12/17 05:44 Platelet Estimate Cons 05/12/17 05:44 Clumped Platelets Few 05/12/17 05:44 Plt Clumps, EDTA Not Reportable 05/12/17 05:44 Large Platelets Not Reportable 05/12/17 05:44 Giant Platelets Not Reportable 05/12/17 05:44 Platelet Satelliting Not Reportable 05/12/17 05:44 Plt Morphology Comment Not Reportable 05/12/17 05:44 RBC Morphology Normal 05/12/17 05:44 Dimorphic RBCs Not Reportable 05/12/17 05:44 Polychromasia Not Reportable 05/12/17 05:44 Hypochromasia Not Reportable 05/12/17 05:44 Poikilocytosis Not Reportable 05/12/17 05:44 Anisocytosis Not Reportable 05/12/17 05:44 Microcytosis Not Reportable 05/12/17 05:44 Macrocytosis Not Reportable 05/12/17 05:44 Spherocytes Not Reportable 05/12/17 05:44 Pappenheimer Bodies Not Reportable 05/12/17 05:44 Sickle Cells Not Reportable 05/12/17 05:44 Target Cells Not Reportable 05/12/17 05:44 Tear Drop Cells Not Reportable 05/12/17 05:44 Ovalocytes Not Reportable 05/12/17 05:44 Helmet Cells Not Reportable 05/12/17 05:44 Ca[place] Bodies Not Reportable 05/12/17 05:44 [place] Rings Not Reportable 05/12/17 05:44 [place] Cells Not Reportable 05/12/17 05:44 Bite Cells Not Reportable 05/12/17 05:44 Crenated Cell Not Reportable 05/12/17 05:44 Elliptocytes Not Reportable 05/12/17 05:44 Acanthocytes (Spur) Not Reportable 05/12/17 05:44 Rouleaux Not Reportable 05/12/17 05:44 Hemoglobin C Crystals Not Reportable 05/12/17 05:44 Schistocytes Not Reportable 05/12/17 05:44 Malaria parasites Not Reportable 05/12/17 05:44 Wander Bodies Not Reportable 05/12/17 05:44 Hem Pathologist Commnt No 05/12/17 05:44 PT 13.9 Sec. (12.2-14.9) 05/11/17 12:56 INR 1.02 (0.87-1.13) 05/11/17 12:56 APTT 29.8 Sec. (24.2-36.6) 05/11/17 12:56 Thrombin Time 16.4 Sec. (15.1-19.6) 05/11/17 12:56 Sodium 144 mmol/L (137-145) 06/05/17 05:07 Potassium 3.8 mmol/L (3.6-5.0) 06/05/17 05:07 Chloride 102.6 mmol/L (98-107) 06/05/17 05:07 Carbon Dioxide 26 mmol/L (22-30) 06/05/17 05:07 Anion Gap 19 mmol/L 06/05/17 05:07 BUN 19 mg/dL (7-17) H 06/05/17 05:07 Creatinine 0.3 mg/dL (0.7-1.2) L 06/05/17 05:07 Estimated GFR > 60 ml/min 06/05/17 05:07 BUN/Creatinine Ratio 63 % 06/05/17 05:07 Glucose 120 mg/dL (65-100) H 06/05/17 05:07 POC Glucose 152 (70-105) H 06/08/17 06:40 Hemoglobin A1c 5.7 % (4-6) 05/11/17 12:56 Calcium 9.4 mg/dL (8.4-10.2) 06/05/17 05:07 Total Bilirubin 0.30 mg/dL (0.1-1.2) 05/12/17 05:44 AST 27 units/L (5-40) 05/12/17 05:44 ALT 28 units/L (7-56) 05/12/17 05:44 Alkaline Phosphatase 52 units/L (35-129) 05/12/17 05:44 Total Creatine Kinase 64 units/L (30-135) 05/11/17 12:56 CK-MB (CK-2) 1.4 ng/mL (0.0-4.0) 05/11/17 12:56 CK-MB (CK-2) Rel Index 2.1 (0-4) 05/11/17 12:56 Troponin T < 0.010 ng/mL (0.00-0.029) 05/11/17 12:56 Total Protein 6.5 g/dL (6.3-8.2) 05/12/17 05:44 Albumin 3.8 g/dL (3.9-5) L 05/12/17 05:44 Albumin/Globulin Ratio 1.4 % 05/12/17 05:44 Triglycerides 113 mg/dL (2-149) 05/12/17 05:44 Cholesterol 172 mg/dL (50-199) 05/12/17 05:44 LDL Cholesterol Direct 115 mg/dL (50-130) 05/12/17 05:44 HDL Cholesterol 35 mg/dL (40-59) L 05/12/17 05:44 Cholesterol/HDL Ratio 4.91 % 05/12/17 05:44 Urine Color Yellow (Yellow) 05/11/17 14:09 Urine Turbidity Clear (Clear) 05/11/17 14:09 Urine pH 6.0 (5.0-7.0) 05/11/17 14:09 Ur Specific [place] 1.016 (1.003-1.030) 05/11/17 14:09 Urine Protein <15 mg/dl mg/dL (Negative) 05/11/17 14:09 Urine Glucose (UA) Neg mg/dL (Negative) 05/11/17 14:09 Urine Ketones Tr mg/dL (Negative) 05/11/17 14:09 Urine Blood Neg (Negative) 05/11/17 14:09 Urine Nitrite Neg (Negative) 05/11/17 14:09 Urine Bilirubin Neg (Negative) 05/11/17 14:09 Urine Urobilinogen < 2.0 mg/dL (<2.0) 05/11/17 14:09 Ur Leukocyte Esterase Neg (Negative) 05/11/17 14:09 Urine WBC (Auto) 2.0 /HPF (0.0-6.0) 05/11/17 14:09 Urine RBC (Auto) 3.0 /HPF (0.0-6.0) 05/11/17 14:09 U Epithel Cells (Auto) < 1.0 /HPF (0-13.0) 05/11/17 14:09 Urine Mucus Few /HPF 05/11/17 14:09 Valproic Acid 79.7 ug/mL (50-100) 05/11/17 12:56
[2017-06-08] MEDS: DepaKENE Liq FEEDTUBE SCH ×2 (09:57→22:39)
[2017-06-08] MEDS: BABY ASPIRIN PO SCH (09:58)
[2017-06-08] MEDS: PEPCID FEEDTUBE SCH ×2 (09:58→22:39)
[2017-06-08] MEDS: NORVASC FEEDTUBE SCH (09:59)
[2017-06-08] MEDS: APRESOLINE FEEDTUBE SCH ×3 (10:08→22:40)
[2017-06-08] MEDS: LOVENOX SUB-Q SCH (22:39)
[2017-06-09] MEDS: APRESOLINE FEEDTUBE SCH ×3 (06:46→21:57)
[2017-06-09] MEDS: NORVASC FEEDTUBE SCH (08:58)
[2017-06-09] MEDS: PEPCID FEEDTUBE SCH ×2 (09:08→21:56)
--- NOTE | 2017-06-09 09:21 | Progress Note ---
Assessment and Plan Assessment and plan: CVA with left-sided weakness; with residual left-sided weakness, bedbound, CT 05/11/17 ; Chronic infarct right occipital lobe right josh , Apparent subacute to early chronic right thalamic infarct Cont Physical therapy rehabilitation, continue antiplatelets and statin Dysphagia status post PEG placement, continue PEG tube feeds History of seizures; continue seizure precautions antiepileptic medications HTN; BP elevated. Will add Hydralazine 25mg tid GERD ; continue PPIs Dyslipidemia; on statin Leukopenia; resolved DVT prophylaxis. Lovenox DC planning per case management Possible discharge home with home health versus SNF placement But family refuses to take her back home. She is awaiting placement. Discussed with leyla at bedside The prognosis for meaningful recovery is negative. History Interval history: Patient is 56 yo with acute stroke with residual aphasia and left sided weakness , still has aphasia, left sided weakness Hospitalist Physical - Physical exam Narrative exam: GEN APPEARANCE : Not in acute distress, HEENT: Atraumatic NECK : supple, no JVD LUNGS: clear to auscultation bilaterally, no rales, no wheeze HEART: S1 and S2 regular, no murmurs, rubs or gallop ABD: Soft, no tenderness, no distension, normal bowel sounds EXT: No edema, no clubbing, no cyanosis NEURO:Awake,alert, aphasia, left sided weakness - Constitutional Vitals: Temp Pulse Resp BP Pulse Ox 98.2 F 86 20 120/77 97 06/09/17 07:37 06/09/17 07:37 06/09/17 07:37 06/09/17 07:37 06/09/17 07:37 Results - Labs CBC & Chem 7: 06/05/17 05:07 06/05/17 05:07 Labs: Laboratory Last Values WBC 6.8 K/mm3 (4.5-11.0) 06/05/17 05:07 RBC 4.27 M/mm3 (3.65-5.03) 06/05/17 05:07 Hgb 12.8 gm/dl (10.1-14.3) 06/05/17 05:07 Hct 38.7 % (30.3-42.9) 06/05/17 05:07 MCV 91 fl (79-97) 06/05/17 05:07 MCH 30 pg (28-32) 06/05/17 05:07 MCHC 33 % (30-34) 06/05/17 05:07 RDW 14.5 % (13.2-15.2) 06/05/17 05:07 Plt Count 264 K/mm3 (140-440) 06/05/17 05:07 Lymph % (Auto) 23.3 % (13.4-35.0) 06/05/17 05:07 [place] % (Auto) 13.1 % (0.0-7.3) H 06/05/17 05:07 Eos % (Auto) 1.7 % (0.0-4.3) 06/05/17 05:07 Baso % (Auto) 0.6 % (0.0-1.8) 06/05/17 05:07 Lymph # 1.6 K/mm3 (1.2-5.4) 06/05/17 05:07 [place] # 0.9 K/mm3 (0.0-0.8) H 06/05/17 05:07 Eos # 0.1 K/mm3 (0.0-0.4) 06/05/17 05:07 Baso # 0.0 K/mm3 (0.0-0.1) 06/05/17 05:07 Add Manual Diff Complete 05/12/17 05:44 Total Counted 100 05/12/17 05:44 Seg Neutrophils % 61.3 % (40.0-70.0) 06/05/17 05:07 Seg Neuts % (Manual) 46.0 % (40.0-70.0) 05/12/17 05:44 Band Neutrophils % 0 % 05/12/17 05:44 Lymphocytes % (Manual) 39.0 % (13.4-35.0) H 05/12/17 05:44 Reactive Lymphs % (Man) 0 % 05/12/17 05:44 Monocytes % (Manual) 12.0 % (0.0-7.3) H 05/12/17 05:44 Eosinophils % (Manual) 3.0 % (0.0-4.3) 05/12/17 05:44 Basophils % (Manual) 0 % (0.0-1.8) 05/12/17 05:44 Metamyelocytes % 0 % 05/12/17 05:44 Myelocytes % 0 % 05/12/17 05:44 Promyelocytes % 0 % 05/12/17 05:44 Blast Cells % 0 % 05/12/17 05:44 Nucleated RBC % Not Reportable 05/12/17 05:44 Seg Neutrophils # 4.1 K/mm3 (1.8-7.7) 06/05/17 05:07 Seg Neutrophils # Man 1.3 K/mm3 (1.8-7.7) L 05/12/17 05:44 Band Neutrophils # 0.0 K/mm3 05/12/17 05:44 Lymphocytes # (Manual) 1.1 K/mm3 (1.2-5.4) L 05/12/17 05:44 Abs React Lymphs (Man) 0.0 K/mm3 05/12/17 05:44 Monocytes # (Manual) 0.3 K/mm3 (0.0-0.8) 05/12/17 05:44 Eosinophils # (Manual) 0.1 K/mm3 (0.0-0.4) 05/12/17 05:44 Basophils # (Manual) 0.0 K/mm3 (0.0-0.1) 05/12/17 05:44 Metamyelocytes # 0.0 K/mm3 05/12/17 05:44 Myelocytes # 0.0 K/mm3 05/12/17 05:44 Promyelocytes # 0.0 K/mm3 05/12/17 05:44 Blast Cells # 0.0 K/mm3 05/12/17 05:44 WBC Morphology Not Reportable 05/12/17 05:44 Hypersegmented Neuts Not Reportable 05/12/17 05:44 Hyposegmented Neuts Not Reportable 05/12/17 05:44 Hypogranular Neuts Not Reportable 05/12/17 05:44 Smudge Cells Not Reportable 05/12/17 05:44 Toxic Granulation Not Reportable 05/12/17 05:44 Toxic Vacuolation Not Reportable 05/12/17 05:44 Dohle Bodies Not Reportable 05/12/17 05:44 Pelger-Huet Anomaly Not Reportable 05/12/17 05:44 Shelly Rods Not Reportable 05/12/17 05:44 Platelet Estimate Cons 05/12/17 05:44 Clumped Platelets Few 05/12/17 05:44 Plt Clumps, EDTA Not Reportable 05/12/17 05:44 Large Platelets Not Reportable 05/12/17 05:44 Giant Platelets Not Reportable 05/12/17 05:44 Platelet Satelliting Not Reportable 05/12/17 05:44 Plt Morphology Comment Not Reportable 05/12/17 05:44 RBC Morphology Normal 05/12/17 05:44 Dimorphic RBCs Not Reportable 05/12/17 05:44 Polychromasia Not Reportable 05/12/17 05:44 Hypochromasia Not Reportable 05/12/17 05:44 Poikilocytosis Not Reportable 05/12/17 05:44 Anisocytosis Not Reportable 05/12/17 05:44 Microcytosis Not Reportable 05/12/17 05:44 Macrocytosis Not Reportable 05/12/17 05:44 Spherocytes Not Reportable 05/12/17 05:44 Pappenheimer Bodies Not Reportable 05/12/17 05:44 Sickle Cells Not Reportable 05/12/17 05:44 Target Cells Not Reportable 05/12/17 05:44 Tear Drop Cells Not Reportable 05/12/17 05:44 Ovalocytes Not Reportable 05/12/17 05:44 Helmet Cells Not Reportable 05/12/17 05:44 [place] Bodies Not Reportable 05/12/17 05:44 [place] Rings Not Reportable 05/12/17 05:44 [place] Cells Not Reportable 05/12/17 05:44 Bite Cells Not Reportable 05/12/17 05:44 Crenated Cell Not Reportable 05/12/17 05:44 Elliptocytes Not Reportable 05/12/17 05:44 Acanthocytes (Spur) Not Reportable 05/12/17 05:44 Rouleaux Not Reportable 05/12/17 05:44 Hemoglobin C Crystals Not Reportable 05/12/17 05:44 Schistocytes Not Reportable 05/12/17 05:44 Malaria parasites Not Reportable 05/12/17 05:44 Wander Bodies Not Reportable 05/12/17 05:44 Hem Pathologist Commnt No 05/12/17 05:44 PT 13.9 Sec. (12.2-14.9) 05/11/17 12:56 INR 1.02 (0.87-1.13) 05/11/17 12:56 APTT 29.8 Sec. (24.2-36.6) 05/11/17 12:56 Thrombin Time 16.4 Sec. (15.1-19.6) 05/11/17 12:56 Sodium 144 mmol/L (137-145) 06/05/17 05:07 Potassium 3.8 mmol/L (3.6-5.0) 06/05/17 05:07 Chloride 102.6 mmol/L (98-107) 06/05/17 05:07 Carbon Dioxide 26 mmol/L (22-30) 06/05/17 05:07 Anion Gap 19 mmol/L 06/05/17 05:07 BUN 19 mg/dL (7-17) H 06/05/17 05:07 Creatinine 0.3 mg/dL (0.7-1.2) L 06/05/17 05:07 Estimated GFR > 60 ml/min 06/05/17 05:07 BUN/Creatinine Ratio 63 % 06/05/17 05:07 Glucose 120 mg/dL (65-100) H 06/05/17 05:07 POC Glucose 137 (70-105) H 06/09/17 05:33 Hemoglobin A1c 5.7 % (4-6) 05/11/17 12:56 Calcium 9.4 mg/dL (8.4-10.2) 06/05/17 05:07 Total Bilirubin 0.30 mg/dL (0.1-1.2) 05/12/17 05:44 AST 27 units/L (5-40) 05/12/17 05:44 ALT 28 units/L (7-56) 05/12/17 05:44 Alkaline Phosphatase 52 units/L (35-129) 05/12/17 05:44 Total Creatine Kinase 64 units/L (30-135) 05/11/17 12:56 CK-MB (CK-2) 1.4 ng/mL (0.0-4.0) 05/11/17 12:56 CK-MB (CK-2) Rel Index 2.1 (0-4) 05/11/17 12:56 Troponin T < 0.010 ng/mL (0.00-0.029) 05/11/17 12:56 Total Protein 6.5 g/dL (6.3-8.2) 05/12/17 05:44 Albumin 3.8 g/dL (3.9-5) L 05/12/17 05:44 Albumin/Globulin Ratio 1.4 % 05/12/17 05:44 Triglycerides 113 mg/dL (2-149) 05/12/17 05:44 Cholesterol 172 mg/dL (50-199) 05/12/17 05:44 LDL Cholesterol Direct 115 mg/dL (50-130) 05/12/17 05:44 HDL Cholesterol 35 mg/dL (40-59) L 05/12/17 05:44 Cholesterol/HDL Ratio 4.91 % 05/12/17 05:44 Urine Color Yellow (Yellow) 05/11/17 14:09 Urine Turbidity Clear (Clear) 05/11/17 14:09 Urine pH 6.0 (5.0-7.0) 05/11/17 14:09 Ur Specific [place] 1.016 (1.003-1.030) 05/11/17 14:09 Urine Protein <15 mg/dl mg/dL (Negative) 05/11/17 14:09 Urine Glucose (UA) Neg mg/dL (Negative) 05/11/17 14:09 Urine Ketones Tr mg/dL (Negative) 05/11/17 14:09 Urine Blood Neg (Negative) 05/11/17 14:09 Urine Nitrite Neg (Negative) 05/11/17 14:09 Urine Bilirubin Neg (Negative) 05/11/17 14:09 Urine Urobilinogen < 2.0 mg/dL (<2.0) 05/11/17 14:09 Ur Leukocyte Esterase Neg (Negative) 05/11/17 14:09 Urine WBC (Auto) 2.0 /HPF (0.0-6.0) 05/11/17 14:09 Urine RBC (Auto) 3.0 /HPF (0.0-6.0) 05/11/17 14:09 U Epithel Cells (Auto) < 1.0 /HPF (0-13.0) 05/11/17 14:09 Urine Mucus Few /HPF 05/11/17 14:09 Valproic Acid 79.7 ug/mL (50-100) 05/11/17 12:56
[2017-06-09] MEDS: BABY ASPIRIN PO SCH (10:00)
[2017-06-09] MEDS: DepaKENE Liq FEEDTUBE SCH ×2 (14:28→21:55)
[2017-06-09] MEDS: LOVENOX SUB-Q SCH (21:55)
[2017-06-10] MEDS: APRESOLINE FEEDTUBE SCH ×3 (05:48→23:46)
[2017-06-10] MEDS: NORVASC FEEDTUBE SCH (10:11)
[2017-06-10] MEDS: DepaKENE Liq FEEDTUBE SCH ×2 (10:11→23:44)
[2017-06-10] MEDS: PEPCID FEEDTUBE SCH ×2 (10:12→23:45)
[2017-06-10] MEDS: BABY ASPIRIN PO SCH (10:12)
--- NOTE | 2017-06-10 10:31 | Progress Note ---
Assessment and Plan Assessment and plan: CVA with left-sided weakness; with residual left-sided weakness, bedbound, CT 05/11/17 ; Chronic infarct right occipital lobe right josh , Apparent subacute to early chronic right thalamic infarct Cont Physical therapy rehabilitation, continue antiplatelets and statin Dysphagia status post PEG placement, continue PEG tube feeds History of seizures; continue seizure precautions antiepileptic medications HTN; On Norvasc, Hydralazine. GERD ; continue PPIs Dyslipidemia; on statin Leukopenia; resolved DVT prophylaxis. Lovenox DC planning per case management But family refuses to take her back home. She is awaiting placement. Discussed with leyla at bedside The prognosis for meaningful recovery is negative. History Interval history: Patient is 56 yo with acute stroke with residual aphasia and left sided weakness , still has aphasia, left sided weakness Hospitalist Physical - Physical exam Narrative exam: GEN APPEARANCE : Not in acute distress, HEENT: Atraumatic NECK : supple, no JVD LUNGS: clear to auscultation bilaterally, no rales, no wheeze HEART: S1 and S2 regular, no murmurs, rubs or gallop ABD: Soft, no tenderness, no distension, normal bowel sounds EXT: No edema, no clubbing, no cyanosis NEURO:Awake,alert, aphasia, left sided weakness - Constitutional Vitals: Temp Pulse Resp BP Pulse Ox 97.9 F 84 18 125/83 96 06/10/17 08:04 06/10/17 10:11 06/10/17 08:04 06/10/17 10:11 06/10/17 08:04 General appearance: Present: no acute distress, well-nourished Results - Labs CBC & Chem 7: 06/05/17 05:07 06/05/17 05:07 Labs: Laboratory Last Values WBC 6.8 K/mm3 (4.5-11.0) 06/05/17 05:07 RBC 4.27 M/mm3 (3.65-5.03) 06/05/17 05:07 Hgb 12.8 gm/dl (10.1-14.3) 06/05/17 05:07 Hct 38.7 % (30.3-42.9) 06/05/17 05:07 MCV 91 fl (79-97) 06/05/17 05:07 MCH 30 pg (28-32) 06/05/17 05:07 MCHC 33 % (30-34) 06/05/17 05:07 RDW 14.5 % (13.2-15.2) 06/05/17 05:07 Plt Count 264 K/mm3 (140-440) 06/05/17 05:07 Lymph % (Auto) 23.3 % (13.4-35.0) 06/05/17 05:07 [place] % (Auto) 13.1 % (0.0-7.3) H 06/05/17 05:07 Eos % (Auto) 1.7 % (0.0-4.3) 06/05/17 05:07 Baso % (Auto) 0.6 % (0.0-1.8) 06/05/17 05:07 Lymph # 1.6 K/mm3 (1.2-5.4) 06/05/17 05:07 [place] # 0.9 K/mm3 (0.0-0.8) H 06/05/17 05:07 Eos # 0.1 K/mm3 (0.0-0.4) 06/05/17 05:07 Baso # 0.0 K/mm3 (0.0-0.1) 06/05/17 05:07 Add Manual Diff Complete 05/12/17 05:44 Total Counted 100 05/12/17 05:44 Seg Neutrophils % 61.3 % (40.0-70.0) 06/05/17 05:07 Seg Neuts % (Manual) 46.0 % (40.0-70.0) 05/12/17 05:44 Band Neutrophils % 0 % 05/12/17 05:44 Lymphocytes % (Manual) 39.0 % (13.4-35.0) H 05/12/17 05:44 Reactive Lymphs % (Man) 0 % 05/12/17 05:44 Monocytes % (Manual) 12.0 % (0.0-7.3) H 05/12/17 05:44 Eosinophils % (Manual) 3.0 % (0.0-4.3) 05/12/17 05:44 Basophils % (Manual) 0 % (0.0-1.8) 05/12/17 05:44 Metamyelocytes % 0 % 05/12/17 05:44 Myelocytes % 0 % 05/12/17 05:44 Promyelocytes % 0 % 05/12/17 05:44 Blast Cells % 0 % 05/12/17 05:44 Nucleated RBC % Not Reportable 05/12/17 05:44 Seg Neutrophils # 4.1 K/mm3 (1.8-7.7) 06/05/17 05:07 Seg Neutrophils # Man 1.3 K/mm3 (1.8-7.7) L 05/12/17 05:44 Band Neutrophils # 0.0 K/mm3 05/12/17 05:44 Lymphocytes # (Manual) 1.1 K/mm3 (1.2-5.4) L 05/12/17 05:44 Abs React Lymphs (Man) 0.0 K/mm3 05/12/17 05:44 Monocytes # (Manual) 0.3 K/mm3 (0.0-0.8) 05/12/17 05:44 Eosinophils # (Manual) 0.1 K/mm3 (0.0-0.4) 05/12/17 05:44 Basophils # (Manual) 0.0 K/mm3 (0.0-0.1) 05/12/17 05:44 Metamyelocytes # 0.0 K/mm3 05/12/17 05:44 Myelocytes # 0.0 K/mm3 05/12/17 05:44 Promyelocytes # 0.0 K/mm3 05/12/17 05:44 Blast Cells # 0.0 K/mm3 05/12/17 05:44 WBC Morphology Not Reportable 05/12/17 05:44 Hypersegmented Neuts Not Reportable 05/12/17 05:44 Hyposegmented Neuts Not Reportable 05/12/17 05:44 Hypogranular Neuts Not Reportable 05/12/17 05:44 Smudge Cells Not Reportable 05/12/17 05:44 Toxic Granulation Not Reportable 05/12/17 05:44 Toxic Vacuolation Not Reportable 05/12/17 05:44 Dohle Bodies Not Reportable 05/12/17 05:44 Pelger-[place]uet Anomaly Not Reportable 05/12/17 05:44 Shelly Rods Not Reportable 05/12/17 05:44 Platelet Estimate Cons 05/12/17 05:44 Clumped Platelets Few 05/12/17 05:44 Plt Clumps, EDTA Not Reportable 05/12/17 05:44 Large Platelets Not Reportable 05/12/17 05:44 Giant Platelets Not Reportable 05/12/17 05:44 Platelet Satelliting Not Reportable 05/12/17 05:44 Plt Morphology Comment Not Reportable 05/12/17 05:44 RBC Morphology Normal 05/12/17 05:44 Dimorphic RBCs Not Reportable 05/12/17 05:44 Polychromasia Not Reportable 05/12/17 05:44 Hypochromasia Not Reportable 05/12/17 05:44 Poikilocytosis Not Reportable 05/12/17 05:44 Anisocytosis Not Reportable 05/12/17 05:44 Microcytosis Not Reportable 05/12/17 05:44 Macrocytosis Not Reportable 05/12/17 05:44 Spherocytes Not Reportable 05/12/17 05:44 Pappenheimer Bodies Not Reportable 05/12/17 05:44 Sickle Cells Not Reportable 05/12/17 05:44 Target Cells Not Reportable 05/12/17 05:44 Tear Drop Cells Not Reportable 05/12/17 05:44 Ovalocytes Not Reportable 05/12/17 05:44 Helmet Cells Not Reportable 05/12/17 05:44 [place] Bodies Not Reportable 05/12/17 05:44 [place] Rings Not Reportable 05/12/17 05:44 [place] Cells Not Reportable 05/12/17 05:44 Bite Cells Not Reportable 05/12/17 05:44 Crenated Cell Not Reportable 05/12/17 05:44 Elliptocytes Not Reportable 05/12/17 05:44 Acanthocytes (Spur) Not Reportable 05/12/17 05:44 Rouleaux Not Reportable 05/12/17 05:44 Hemoglobin C Crystals Not Reportable 05/12/17 05:44 Schistocytes Not Reportable 05/12/17 05:44 Malaria parasites Not Reportable 05/12/17 05:44 [place] Bodies Not Reportable 05/12/17 05:44 Hem Pathologist Commnt No 05/12/17 05:44 PT 13.9 Sec. (12.2-14.9) 05/11/17 12:56 INR 1.02 (0.87-1.13) 05/11/17 12:56 APTT 29.8 Sec. (24.2-36.6) 05/11/17 12:56 Thrombin Time 16.4 Sec. (15.1-19.6) 05/11/17 12:56 Sodium 144 mmol/L (137-145) 06/05/17 05:07 Potassium 3.8 mmol/L (3.6-5.0) 06/05/17 05:07 Chloride 102.6 mmol/L (98-107) 06/05/17 05:07 Carbon Dioxide 26 mmol/L (22-30) 06/05/17 05:07 Anion Gap 19 mmol/L 06/05/17 05:07 BUN 19 mg/dL (7-17) H 06/05/17 05:07 Creatinine 0.3 mg/dL (0.7-1.2) L 06/05/17 05:07 Estimated GFR > 60 ml/min 06/05/17 05:07 BUN/Creatinine Ratio 63 % 06/05/17 05:07 Glucose 120 mg/dL (65-100) H 06/05/17 05:07 POC Glucose 122 (70-105) H 06/10/17 05:15 Hemoglobin A1c 5.7 % (4-6) 05/11/17 12:56 Calcium 9.4 mg/dL (8.4-10.2) 06/05/17 05:07 Total Bilirubin 0.30 mg/dL (0.1-1.2) 05/12/17 05:44 AST 27 units/L (5-40) 05/12/17 05:44 ALT 28 units/L (7-56) 05/12/17 05:44 Alkaline Phosphatase 52 units/L (35-129) 05/12/17 05:44 Total Creatine Kinase 64 units/L (30-135) 05/11/17 12:56 CK-MB (CK-2) 1.4 ng/mL (0.0-4.0) 05/11/17 12:56 CK-MB (CK-2) Rel Index 2.1 (0-4) 05/11/17 12:56 Troponin T < 0.010 ng/mL (0.00-0.029) 05/11/17 12:56 Total Protein 6.5 g/dL (6.3-8.2) 05/12/17 05:44 Albumin 3.8 g/dL (3.9-5) L 05/12/17 05:44 Albumin/Globulin Ratio 1.4 % 05/12/17 05:44 Triglycerides 113 mg/dL (2-149) 05/12/17 05:44 Cholesterol 172 mg/dL (50-199) 05/12/17 05:44 LDL Cholesterol Direct 115 mg/dL (50-130) 05/12/17 05:44 HDL Cholesterol 35 mg/dL (40-59) L 05/12/17 05:44 Cholesterol/HDL Ratio 4.91 % 05/12/17 05:44 Urine Color Yellow (Yellow) 05/11/17 14:09 Urine Turbidity Clear (Clear) 05/11/17 14:09 Urine pH 6.0 (5.0-7.0) 05/11/17 14:09 Ur Specific [place] 1.016 (1.003-1.030) 05/11/17 14:09 Urine Protein <15 mg/dl mg/dL (Negative) 05/11/17 14:09 Urine Glucose (UA) Neg mg/dL (Negative) 05/11/17 14:09 Urine Ketones Tr mg/dL (Negative) 05/11/17 14:09 Urine Blood Neg (Negative) 05/11/17 14:09 Urine Nitrite Neg (Negative) 05/11/17 14:09 Urine Bilirubin Neg (Negative) 05/11/17 14:09 Urine Urobilinogen < 2.0 mg/dL (<2.0) 05/11/17 14:09 Ur Leukocyte Esterase Neg (Negative) 05/11/17 14:09 Urine WBC (Auto) 2.0 /HPF (0.0-6.0) 05/11/17 14:09 Urine RBC (Auto) 3.0 /HPF (0.0-6.0) 05/11/17 14:09 U Epithel Cells (Auto) < 1.0 /HPF (0-13.0) 05/11/17 14:09 Urine Mucus Few /HPF 05/11/17 14:09 Valproic Acid 79.7 ug/mL (50-100) 05/11/17 12:56
[2017-06-10] MEDS: LOVENOX SUB-Q SCH (23:45)
[2017-06-11] MEDS: APRESOLINE FEEDTUBE SCH ×3 (06:27→21:43)
[2017-06-11 07:47] LABS: Hematocrit 38.8 % (30.3-42.9); Mean Corpuscular HGB Conc 33 % (30-34); Mean Corpuscular Hemoglobin 31 pg (28-32); Mean Corpuscular Volume 91 fl (79-97); Platelet Count 239 K/mm3 (140-440); Red Blood Count 4.25 M/mm3 (3.65-5.03); Red Cell Distribution Width 14.4 % (13.2-15.2)
[2017-06-11 07:51] LABS: BUN/Creatinine Ratio 45; Blood Urea Nitrogen 18 mg/dL (7-17); Calcium 9.4 mg/dL (8.4-10.2); Hemolysis Index 6
[2017-06-11] MEDS: NORVASC FEEDTUBE SCH (10:17)
[2017-06-11] MEDS: PEPCID FEEDTUBE SCH ×2 (10:17→21:43)
[2017-06-11] MEDS: DepaKENE Liq FEEDTUBE SCH ×2 (10:18→21:43)
[2017-06-11] MEDS: BABY ASPIRIN PO SCH (10:18)
--- NOTE | 2017-06-11 11:34 | Progress Note ---
Assessment and Plan /CVA with left-sided weakness; with residual left-sided weakness, bedbound, CT 05/11/17 ; Chronic infarct right occipital lobe right josh , Apparent subacute to early chronic right thalamic infarct Cont Physical therapy rehabilitation, continue antiplatelets and statin /Dysphagia status post PEG placement, continue PEG tube feeds - unable to do barrium swallow study / History of seizures; continue seizure precautions antiepileptic medications / HTN; stable on antihypertensives /GERD ; continue PPIs /Dyslipidemia; on statin /Leukopenia; resolved /DC planning per case management Possible discharge home with home health versus SNF placement But family refuses to take her back home, will need placement Brief History: 56-year-old female AAF with a history of stroke and feeding tube brought to the hospital by EMS with a complaint of of "new stroke." Hospitalist Physical General appearance: Present: no acute distress, - EENT Eyes: Present: PERRL, EOM intact - Neck Neck: Present: supple, normal ROM - Respiratory Respiratory effort: normal Respiratory: bilateral: diminished, negative: rales, rhonchi, wheezing - Cardiovascular Rhythm: regular Heart Sounds: Present: S1 & S2 - Extremities Extremities: no ischemia Extremity abnormal: edema (trace edema) - Abdominal General gastrointestinal: soft, non-tender, non-distended, normal bowel sounds, other (PEG in place) - Integumentary Integumentary: Present: clear, warm - Psychiatric Psychiatric: other (alert and awake, noncommunicative) - Neurologic Neurologic: other (noncommunicative/bedbound/left-sided weakness) Subjective Date of service: 06/11/17 Principal diagnosis: Acute CVA Interval history: Since seen and examined medical records reviewed Patient is alert and awake, not in acute distress Patient is clinically stable no new changes Objective - Constitutional Vitals: Vital Signs - 12hr 06/10/17 06/11/17 06/11/17 23:46 06:27 08:04 Temperature 98.2 F Pulse Rate 87 87 81 Respiratory 16 Rate Blood Pressure 146/98 147/101 153/102 O2 Sat by Pulse 100 Oximetry 06/11/17 10:17 Temperature Pulse Rate 81 Respiratory Rate Blood Pressure 153/102 O2 Sat by Pulse Oximetry - Labs CBC & Chem 7: 06/11/17 06:59 06/11/17 06:59 Labs: Abnormal lab results 06/10/17 06/11/17 06/11/17 Range/Units 23:01 06:53 06:59 WBC 4.1 L (4.5-11.0) K/mm3 BUN (7-17) mg/dL Creatinine (0.7-1.2) mg/dL Glucose (65-100) mg/dL POC Glucose 131 H 124 H (70-105) 06/11/17 Range/Units 06:59 WBC (4.5-11.0) K/mm3 BUN 18 H (7-17) mg/dL Creatinine 0.4 L (0.7-1.2) mg/dL Glucose 127 H (65-100) mg/dL POC Glucose (70-105)
[2017-06-11] MEDS: LOVENOX SUB-Q SCH (21:42)
[2017-06-12] MEDS: APRESOLINE FEEDTUBE SCH ×3 (06:26→23:39)
[2017-06-12] MEDS: DepaKENE Liq FEEDTUBE SCH ×2 (11:09→23:37)
[2017-06-12] MEDS: BABY ASPIRIN PO SCH (11:11)
[2017-06-12] MEDS: NORVASC FEEDTUBE SCH (11:11)
[2017-06-12] MEDS: PEPCID FEEDTUBE SCH ×2 (11:11→23:37)
--- NOTE | 2017-06-12 16:22 | Progress Note ---
Assessment and Plan /CVA with left-sided weakness; with residual left-sided weakness, bedbound, CT 05/11/17 ; Chronic infarct right occipital lobe right josh , Apparent subacute to early chronic right thalamic infarct Cont Physical therapy rehabilitation, continue antiplatelets and statin /Dysphagia status post PEG placement, continue PEG tube feeds - unable to do barrium swallow study / History of seizures; continue seizure precautions antiepileptic medications / HTN; stable on antihypertensives /GERD ; continue PPIs /Dyslipidemia; on statin /Leukopenia; resolved /DC planning per case management Possible discharge home with home health versus SNF placement But family refuses to take her back home, will need placement Brief History: 56-year-old female AAF with a history of stroke and feeding tube brought to the hospital by EMS with a complaint of of "new stroke." Hospitalist Physical General appearance: Present: no acute distress, - EENT Eyes: Present: PERRL, EOM intact - Neck Neck: Present: supple, normal ROM - Respiratory Respiratory effort: normal Respiratory: bilateral: diminished, negative: rales, rhonchi, wheezing - Cardiovascular Rhythm: regular Heart Sounds: Present: S1 & S2 - Extremities Extremities: no ischemia Extremity abnormal: edema (trace edema) - Abdominal General gastrointestinal: soft, non-tender, non-distended, normal bowel sounds, other (PEG in place) - Integumentary Integumentary: Present: clear, warm - Psychiatric Psychiatric: other (alert and awake, noncommunicative) - Neurologic Neurologic: other (noncommunicative/bedbound/left-sided weakness) Subjective Date of service: 06/12/17 Principal diagnosis: Acute CVA Interval history: Since seen and examined medical records reviewed Patient is alert and awake, not in acute distress Patient is clinically stable no new changes Objective - Constitutional Vitals: Vital Signs - 12hr 06/12/17 06/12/17 06/12/17 06:26 07:08 11:11 Temperature 98.7 F Pulse Rate 85 91 H 91 H Respiratory 18 Rate Blood Pressure 136/87 142/90 142/90 O2 Sat by Pulse 96 Oximetry - Labs CBC & Chem 7: 06/11/17 06:59 06/11/17 06:59 Labs: Abnormal lab results 06/11/17 06/12/17 06/12/17 Range/Units 22:47 06:53 11:13 POC Glucose 109 H 140 H 107 H (70-105)
[2017-06-12] MEDS: LOVENOX SUB-Q SCH (23:37)
[2017-06-13] MEDS: APRESOLINE FEEDTUBE SCH ×3 (06:10→22:11)
[2017-06-13] MEDS: PEPCID FEEDTUBE SCH ×2 (10:50→22:11)
[2017-06-13] MEDS: NORVASC FEEDTUBE SCH (10:50)
[2017-06-13] MEDS: BABY ASPIRIN PO SCH (10:50)
[2017-06-13] MEDS: DepaKENE Liq FEEDTUBE SCH ×2 (10:51→22:10)
--- NOTE | 2017-06-13 15:06 | Progress Note ---
Assessment and Plan /CVA with left-sided weakness; with residual left-sided weakness, bedbound, CT 05/11/17 ; Chronic infarct right occipital lobe right josh , Apparent subacute to early chronic right thalamic infarct Cont Physical therapy rehabilitation, continue antiplatelets and statin /Dysphagia status post PEG placement, continue PEG tube feeds - unable to do barrium swallow study / History of seizures; continue seizure precautions antiepileptic medications / HTN; stable on antihypertensives /GERD ; continue PPIs /Dyslipidemia; on statin /Leukopenia; resolved /DC planning per case management Possible discharge home with home health versus SNF placement But family refuses to take her back home, will need placement Brief History: 56-year-old female AAF with a history of stroke and feeding tube brought to the hospital by EMS with a complaint of of "new stroke." Hospitalist Physical General appearance: Present: no acute distress, - EENT Eyes: Present: PERRL, EOM intact - Neck Neck: Present: supple, normal ROM - Respiratory Respiratory effort: normal Respiratory: bilateral: diminished, negative: rales, rhonchi, wheezing - Cardiovascular Rhythm: regular Heart Sounds: Present: S1 & S2 - Extremities Extremities: no ischemia Extremity abnormal: edema (trace edema) - Abdominal General gastrointestinal: soft, non-tender, non-distended, normal bowel sounds, other (PEG in place) - Integumentary Integumentary: Present: clear, warm - Psychiatric Psychiatric: other (alert and awake, noncommunicative) - Neurologic Neurologic: other (noncommunicative/bedbound/left-sided weakness) Subjective Date of service: 06/13/17 Principal diagnosis: Acute CVA Interval history: Since seen and examined medical records reviewed Patient is alert and awake, not in acute distress Patient is clinically stable no new changes Objective - Constitutional Vitals: Vital Signs - 12hr 06/13/17 06/13/17 06/13/17 06:10 07:47 08:00 Temperature 97.6 F Pulse Rate 84 Respiratory 16 18 Rate Blood Pressure 114/87 122/85 06/13/17 06/13/17 10:50 14:44 Temperature Pulse Rate 80 80 Respiratory Rate Blood Pressure 122/85 122/85 - Labs CBC & Chem 7: 06/11/17 06:59 06/11/17 06:59 Labs: Abnormal lab results 06/12/17 06/13/17 06/13/17 Range/Units 22:19 05:59 11:58 POC Glucose 110 H 114 H 117 H (70-105)
[2017-06-13] MEDS: LOVENOX SUB-Q SCH (22:10)
[2017-06-14] MEDS: APRESOLINE FEEDTUBE SCH ×3 (05:41→22:09)
[2017-06-14] MEDS: DepaKENE Liq FEEDTUBE SCH ×2 (10:59→22:09)
[2017-06-14] MEDS: NORVASC FEEDTUBE SCH (11:00)
[2017-06-14] MEDS: PEPCID FEEDTUBE SCH ×2 (11:00→22:09)
[2017-06-14] MEDS: BABY ASPIRIN PO SCH (11:00)
[2017-06-14] MEDS: LOVENOX SUB-Q SCH (22:10)
[2017-06-15] MEDS: APRESOLINE FEEDTUBE SCH ×3 (06:07→22:55)
--- NOTE | 2017-06-15 08:24 | Progress Note ---
Assessment and Plan /CVA with left-sided weakness; with residual left-sided weakness, bedbound, CT 05/11/17 ; Chronic infarct right occipital lobe right josh , Apparent subacute to early chronic right thalamic infarct Cont Physical therapy rehabilitation, continue antiplatelets and statin /Dysphagia status post PEG placement, continue PEG tube feeds - unable to do barrium swallow study / History of seizures; continue seizure precautions antiepileptic medications / HTN; stable on antihypertensives /GERD ; continue PPIs /Dyslipidemia; on statin /Leukopenia; resolved /DC planning per case management Possible discharge home with home health versus SNF placement But family refuses to take her back home, will need placement Brief History: 56-year-old female AAF with a history of stroke and feeding tube brought to the hospital by EMS with a complaint of of "new stroke." Hospitalist Physical General appearance: Present: no acute distress, - EENT Eyes: Present: PERRL, EOM intact - Neck Neck: Present: supple, normal ROM - Respiratory Respiratory effort: normal Respiratory: bilateral: diminished, negative: rales, rhonchi, wheezing - Cardiovascular Rhythm: regular Heart Sounds: Present: S1 & S2 - Extremities Extremities: no ischemia Extremity abnormal: edema (trace edema) - Abdominal General gastrointestinal: soft, non-tender, non-distended, normal bowel sounds, other (PEG in place) - Integumentary Integumentary: Present: clear, warm - Psychiatric Psychiatric: other (alert and awake, noncommunicative) - Neurologic Neurologic: other (noncommunicative/bedbound/left-sided weakness) Subjective Date of service: 06/14/17 Principal diagnosis: Acute CVA Interval history: Since seen and examined medical records reviewed Patient is alert and awake, not in acute distress Patient is clinically stable no new changes Objective - Constitutional Vitals: Vital Signs - 12hr 06/14/17 06/14/17 06/15/17 22:01 22:09 06:07 Temperature 98.8 F Pulse Rate 93 H 91 H 80 Respiratory 16 Rate Blood Pressure 127/85 127/65 122/79 O2 Sat by Pulse 98 Oximetry - Labs CBC & Chem 7: 06/11/17 06:59 06/11/17 06:59
[2017-06-15] MEDS: DepaKENE Liq FEEDTUBE SCH ×2 (10:48→22:55)
[2017-06-15] MEDS: BABY ASPIRIN PO SCH (10:49)
[2017-06-15] MEDS: NORVASC FEEDTUBE SCH (10:49)
[2017-06-15] MEDS: PEPCID FEEDTUBE SCH ×2 (10:49→22:55)
--- NOTE | 2017-06-15 15:11 | Progress Note ---
Assessment and Plan /CVA with left-sided weakness; with residual left-sided weakness, bedbound, CT 05/11/17 ; Chronic infarct right occipital lobe right josh , Apparent subacute to early chronic right thalamic infarct Cont Physical therapy rehabilitation, continue antiplatelets and statin /Dysphagia status post PEG placement, continue PEG tube feeds - unable to do barrium swallow study / History of seizures; continue seizure precautions antiepileptic medications / HTN; stable on antihypertensives /GERD ; continue PPIs /Dyslipidemia; on statin /Leukopenia; resolved /DC planning per case management Possible discharge home with home health versus SNF placement But family refuses to take her back home, will need placement Brief History: 56-year-old female AAF with a history of stroke and feeding tube brought to the hospital by EMS with a complaint of of "new stroke." Hospitalist Physical General appearance: Present: no acute distress, - EENT Eyes: Present: PERRL, EOM intact - Neck Neck: Present: supple, normal ROM - Respiratory Respiratory effort: normal Respiratory: bilateral: diminished, negative: rales, rhonchi, wheezing - Cardiovascular Rhythm: regular Heart Sounds: Present: S1 & S2 - Extremities Extremities: no ischemia Extremity abnormal: edema (trace edema) - Abdominal General gastrointestinal: soft, non-tender, non-distended, normal bowel sounds, other (PEG in place) - Integumentary Integumentary: Present: clear, warm - Psychiatric Psychiatric: other (alert and awake, noncommunicative) - Neurologic Neurologic: other (noncommunicative/bedbound/left-sided weakness) Subjective Date of service: 06/15/17 Principal diagnosis: Acute CVA Interval history: Since seen and examined medical records reviewed Patient is alert and awake, not in acute distress Patient is clinically stable no new changes Objective - Constitutional Vitals: Vital Signs - 12hr 06/15/17 06/15/17 06:07 10:49 Pulse Rate 80 Blood Pressure 122/79 122/79 - Labs CBC & Chem 7: 06/11/17 06:59 06/11/17 06:59 Labs: Abnormal lab results 06/15/17 Range/Units 11:43 POC Glucose 135 H (70-105)
[2017-06-15] MEDS: LOVENOX SUB-Q SCH (22:56)
[2017-06-16] MEDS: APRESOLINE FEEDTUBE SCH ×3 (06:41→22:58)
[2017-06-16] MEDS: DepaKENE Liq FEEDTUBE SCH ×2 (09:34→22:57)
[2017-06-16] MEDS: NORVASC FEEDTUBE SCH (09:34)
[2017-06-16] MEDS: BABY ASPIRIN PO SCH (09:34)
[2017-06-16] MEDS: PEPCID FEEDTUBE SCH ×2 (09:35→22:58)
--- NOTE | 2017-06-16 16:27 | Progress Note ---
Assessment and Plan /CVA with left-sided weakness; with residual left-sided weakness, bedbound, CT 05/11/17 ; Chronic infarct right occipital lobe right josh , Apparent subacute to early chronic right thalamic infarct Cont Physical therapy rehabilitation, continue antiplatelets and statin /Dysphagia status post PEG placement, continue PEG tube feeds - unable to do barrium swallow study / History of seizures; continue seizure precautions antiepileptic medications / HTN; stable on antihypertensives /GERD ; continue PPIs /Dyslipidemia; on statin /Leukopenia; resolved /DC planning per case management Possible discharge home with home health versus SNF placement But family refuses to take her back home, will need placement Brief History: 56-year-old female AAF with a history of stroke and feeding tube brought to the hospital by EMS with a complaint of of "new stroke." Hospitalist Physical General appearance: Present: no acute distress, - EENT Eyes: Present: PERRL, EOM intact - Neck Neck: Present: supple, normal ROM - Respiratory Respiratory effort: normal Respiratory: bilateral: diminished, negative: rales, rhonchi, wheezing - Cardiovascular Rhythm: regular Heart Sounds: Present: S1 & S2 - Extremities Extremities: no ischemia Extremity abnormal: edema (trace edema) - Abdominal General gastrointestinal: soft, non-tender, non-distended, normal bowel sounds, other (PEG in place) - Integumentary Integumentary: Present: clear, warm - Psychiatric Psychiatric: other (alert and awake, noncommunicative) - Neurologic Neurologic: other (noncommunicative/bedbound/left-sided weakness) Subjective Date of service: 06/16/17 Principal diagnosis: Acute CVA Interval history: Since seen and examined medical records reviewed Patient is alert and awake, not in acute distress Patient is clinically stable no new changes Objective - Constitutional Vitals: Vital Signs - 12hr 06/16/17 06/16/17 06:41 08:09 Temperature 98.1 F Pulse Rate 81 75 Respiratory 19 Rate Blood Pressure 105/75 101/69 O2 Sat by Pulse 97 Oximetry - Labs CBC & Chem 7: 06/11/17 06:59 06/11/17 06:59 Labs: Abnormal lab results 06/15/17 06/16/17 06/16/17 Range/Units 21:31 05:54 11:20 POC Glucose 125 H 148 H 120 H (70-105)
[2017-06-16] MEDS: LOVENOX SUB-Q SCH (22:59)
[2017-06-17] MEDS: APRESOLINE FEEDTUBE SCH ×3 (06:00→22:00)
[2017-06-17] MEDS: DepaKENE Liq FEEDTUBE SCH ×2 (10:12→21:59)
[2017-06-17] MEDS: BABY ASPIRIN PO SCH (10:12)
[2017-06-17] MEDS: NORVASC FEEDTUBE SCH (10:12)
[2017-06-17] MEDS: PEPCID FEEDTUBE SCH ×2 (10:14→22:00)
--- NOTE | 2017-06-17 15:22 | Progress Note ---
Assessment and Plan /CVA with left-sided weakness; with residual left-sided weakness, bedbound, CT 05/11/17 ; Chronic infarct right occipital lobe right josh , Apparent subacute to early chronic right thalamic infarct Cont Physical therapy rehabilitation, continue antiplatelets and statin /Dysphagia status post PEG placement, continue PEG tube feeds - unable to do barrium swallow study / History of seizures; continue seizure precautions antiepileptic medications / HTN; stable on antihypertensives /GERD ; continue PPIs /Dyslipidemia; on statin /Leukopenia; resolved /DC planning per case management Possible discharge home with home health versus SNF placement But family refuses to take her back home, will need placement Brief History: 56-year-old female AAF with a history of stroke and feeding tube brought to the hospital by EMS with a complaint of of "new stroke." Hospitalist Physical General appearance: Present: no acute distress, - EENT Eyes: Present: PERRL, EOM intact - Neck Neck: Present: supple, normal ROM - Respiratory Respiratory effort: normal Respiratory: bilateral: diminished, negative: rales, rhonchi, wheezing - Cardiovascular Rhythm: regular Heart Sounds: Present: S1 & S2 - Extremities Extremities: no ischemia Extremity abnormal: edema (trace edema) - Abdominal General gastrointestinal: soft, non-tender, non-distended, normal bowel sounds, other (PEG in place) - Integumentary Integumentary: Present: clear, warm - Psychiatric Psychiatric: other (alert and awake, noncommunicative) - Neurologic Neurologic: other (noncommunicative/bedbound/left-sided weakness) Subjective Date of service: 06/17/17 Principal diagnosis: Acute CVA Interval history: Since seen and examined medical records reviewed Patient is alert and awake, not in acute distress Patient is clinically stable no new changes Objective - Constitutional Vitals: Vital Signs - 12hr 06/17/17 06/17/17 06/17/17 06:00 07:50 10:12 Temperature 98.3 F Pulse Rate 81 76 Respiratory 18 Rate Blood Pressure 99/70 108/77 147/94 O2 Sat by Pulse 97 Oximetry - Labs CBC & Chem 7: 06/11/17 06:59 06/11/17 06:59 Labs: Abnormal lab results 06/17/17 06/17/17 Range/Units 00:49 11:14 POC Glucose 120 H 124 H (70-105)
[2017-06-17] MEDS: LOVENOX SUB-Q SCH (21:59)
[2017-06-18] MEDS: APRESOLINE FEEDTUBE SCH ×3 (05:52→23:48)
[2017-06-18] MEDS: NORVASC FEEDTUBE SCH (10:34)
[2017-06-18] MEDS: BABY ASPIRIN PO SCH (10:35)
[2017-06-18] MEDS: DepaKENE Liq FEEDTUBE SCH ×2 (10:35→23:48)
[2017-06-18] MEDS: PEPCID FEEDTUBE SCH ×2 (10:35→23:50)
[2017-06-18] MEDS: MUCINEX ER PO SCH ×2 (14:31→23:48)
--- NOTE | 2017-06-18 15:31 | Progress Note ---
Assessment and Plan /CVA with left-sided weakness; with residual left-sided weakness, bedbound, CT 05/11/17 ; Chronic infarct right occipital lobe right josh , Apparent subacute to early chronic right thalamic infarct Cont Physical therapy rehabilitation, continue antiplatelets and statin /Dysphagia status post PEG placement, continue PEG tube feeds - unable to do barrium swallow study / History of seizures; continue seizure precautions antiepileptic medications / HTN; stable on antihypertensives /GERD ; continue PPIs /Dyslipidemia; on statin /Leukopenia; resolved /DC planning per case management Possible discharge home with home health versus SNF placement But family refuses to take her back home, will need placement Brief History: 56-year-old female AAF with a history of stroke and feeding tube brought to the hospital by EMS with a complaint of of "new stroke." Hospitalist Physical General appearance: Present: no acute distress, - EENT Eyes: Present: PERRL, EOM intact - Neck Neck: Present: supple, normal ROM - Respiratory Respiratory effort: normal Respiratory: bilateral: diminished, negative: rales, rhonchi, wheezing - Cardiovascular Rhythm: regular Heart Sounds: Present: S1 & S2 - Extremities Extremities: no ischemia Extremity abnormal: edema (trace edema) - Abdominal General gastrointestinal: soft, non-tender, non-distended, normal bowel sounds, other (PEG in place) - Integumentary Integumentary: Present: clear, warm - Psychiatric Psychiatric: other (alert and awake, noncommunicative) - Neurologic Neurologic: other (noncommunicative/bedbound/left-sided weakness) Subjective Date of service: 06/18/17 Principal diagnosis: Acute CVA Interval history: Since seen and examined medical records reviewed Patient is alert and awake, not in acute distress Patient is clinically stable no new changes Objective - Constitutional Vitals: Vital Signs - 12hr 06/18/17 06/18/17 06/18/17 05:52 08:10 10:34 Temperature 98.9 F Pulse Rate 87 Respiratory 14 Rate Blood Pressure 109/80 118/79 118/79 06/18/17 14:32 Temperature Pulse Rate Respiratory Rate Blood Pressure 128/75 - Labs CBC & Chem 7: 06/11/17 06:59 06/11/17 06:59 Labs: Abnormal lab results 06/18/17 Range/Units 05:32 POC Glucose 122 H (70-105)
[2017-06-18] MEDS: LOVENOX SUB-Q SCH (23:48)
[2017-06-19] MEDS: APRESOLINE FEEDTUBE SCH ×3 (07:01→22:37)
[2017-06-19] MEDS: PEPCID FEEDTUBE SCH ×2 (10:22→22:37)
[2017-06-19] MEDS: NORVASC FEEDTUBE SCH (10:22)
[2017-06-19] MEDS: BABY ASPIRIN PO SCH (10:23)
[2017-06-19] MEDS: DepaKENE Liq FEEDTUBE SCH ×2 (10:23→22:36)
[2017-06-19] MEDS: MUCINEX ER PO SCH ×2 (10:23→22:36)
--- NOTE | 2017-06-19 14:50 | Progress Note ---
Assessment and Plan /CVA with left-sided weakness; with residual left-sided weakness, bedbound, CT 05/11/17 ; Chronic infarct right occipital lobe right josh , Apparent subacute to early chronic right thalamic infarct Cont Physical therapy rehabilitation, continue antiplatelets and statin /Dysphagia status post PEG placement, continue PEG tube feeds - unable to do barrium swallow study / History of seizures; continue seizure precautions antiepileptic medications / HTN; stable on antihypertensives /GERD ; continue PPIs /Dyslipidemia; on statin /Leukopenia; resolved /DC planning per case management Possible discharge home with home health versus SNF placement But family refuses to take her back home, will need placement Brief History: 56-year-old female AAF with a history of stroke and feeding tube brought to the hospital by EMS with a complaint of of "new stroke." Hospitalist Physical General appearance: Present: no acute distress, - EENT Eyes: Present: PERRL, EOM intact - Neck Neck: Present: supple, normal ROM - Respiratory Respiratory effort: normal Respiratory: bilateral: diminished, negative: rales, rhonchi, wheezing - Cardiovascular Rhythm: regular Heart Sounds: Present: S1 & S2 - Extremities Extremities: no ischemia Extremity abnormal: edema (trace edema) - Abdominal General gastrointestinal: soft, non-tender, non-distended, normal bowel sounds, other (PEG in place) - Integumentary Integumentary: Present: clear, warm - Psychiatric Psychiatric: other (alert and awake, noncommunicative) - Neurologic Neurologic: other (noncommunicative/bedbound/left-sided weakness) Subjective Date of service: 06/19/17 Principal diagnosis: Acute CVA Interval history: Since seen and examined medical records reviewed Patient is alert and awake, not in acute distress Patient is clinically stable no new changes Objective - Constitutional Vitals: Vital Signs - 12hr 06/19/17 06/19/17 06/19/17 07:01 07:48 10:22 Temperature 97.5 F L Pulse Rate 70 92 H Respiratory 14 Rate Blood Pressure 152/94 138/90 125/87 O2 Sat by Pulse 97 Oximetry 06/19/17 13:57 Temperature Pulse Rate Respiratory Rate Blood Pressure 125/83 O2 Sat by Pulse Oximetry - Labs CBC & Chem 7: 06/11/17 06:59 06/11/17 06:59 Labs: Abnormal lab results 06/19/17 Range/Units 11:14 POC Glucose 123 H (70-105)
[2017-06-19] MEDS: LOVENOX SUB-Q SCH (22:36)
[2017-06-20] MEDS: APRESOLINE FEEDTUBE SCH ×3 (07:00→22:30)
[2017-06-20] MEDS: BABY ASPIRIN PO SCH (09:55)
[2017-06-20] MEDS: MUCINEX ER PO SCH ×2 (09:55→22:29)
[2017-06-20] MEDS: DepaKENE Liq FEEDTUBE SCH ×2 (09:55→22:30)
[2017-06-20] MEDS: PEPCID FEEDTUBE SCH ×2 (09:55→22:29)
[2017-06-20] MEDS: NORVASC FEEDTUBE SCH (09:56)
--- NOTE | 2017-06-20 13:01 | Progress Note ---
Assessment and Plan /CVA with left-sided weakness; with residual left-sided weakness, bedbound, CT 05/11/17 ; Chronic infarct right occipital lobe right josh , Apparent subacute to early chronic right thalamic infarct Cont Physical therapy rehabilitation, continue antiplatelets and statin /Dysphagia status post PEG placement, continue PEG tube feeds - unable to do barrium swallow study / History of seizures; continue seizure precautions antiepileptic medications / HTN; stable on antihypertensives /GERD ; continue PPIs /Dyslipidemia; on statin /Leukopenia; resolved /DC planning per case management Possible discharge home with home health versus SNF placement But family refuses to take her back home, will need placement Brief History: 56-year-old female AAF with a history of stroke and feeding tube brought to the hospital by EMS with a complaint of of "new stroke." Hospitalist Physical General appearance: Present: no acute distress, - EENT Eyes: Present: PERRL, EOM intact - Neck Neck: Present: supple, normal ROM - Respiratory Respiratory effort: normal Respiratory: bilateral: diminished, negative: rales, rhonchi, wheezing - Cardiovascular Rhythm: regular Heart Sounds: Present: S1 & S2 - Extremities Extremities: no ischemia Extremity abnormal: edema (trace edema) - Abdominal General gastrointestinal: soft, non-tender, non-distended, normal bowel sounds, other (PEG in place) - Integumentary Integumentary: Present: clear, warm - Psychiatric Psychiatric: other (alert and awake, noncommunicative) - Neurologic Neurologic: other (noncommunicative/bedbound/left-sided weakness) Subjective Date of service: 06/20/17 Principal diagnosis: Acute CVA Interval history: Since seen and examined medical records reviewed Patient is alert and awake, not in acute distress Patient is clinically stable no new changes Objective - Constitutional Vitals: Vital Signs - 12hr 06/20/17 06/20/17 06/20/17 05:06 05:11 07:00 Temperature 98.9 F Pulse Rate 89 80 Respiratory 16 16 Rate Blood Pressure 121/81 131/73 O2 Sat by Pulse 98 Oximetry 06/20/17 06/20/17 07:26 09:56 Temperature 98.5 F Pulse Rate 77 77 Respiratory 20 Rate Blood Pressure 114/77 114/77 O2 Sat by Pulse 98 Oximetry - Labs CBC & Chem 7: 06/11/17 06:59 06/11/17 06:59
[2017-06-20] MEDS: LOVENOX SUB-Q SCH (22:30)
[2017-06-21 05:44] LABS: Eosinophils # (Auto) 0.1 K/mm3 (0.0-0.4); Eosinophils % (Auto) 2.4 % (0.0-4.3); Hematocrit 37.4 % (30.3-42.9); Hemoglobin 12.7 gm/dl (10.1-14.3); Lymphocytes # (Auto) 1.7 K/mm3 (1.2-5.4); Mean Corpuscular HGB Conc 34 % (30-34); Mean Corpuscular Hemoglobin 31 pg (28-32); Mean Corpuscular Volume 91 fl (79-97); Monocytes # (Auto) 0.5 K/mm3 (0.0-0.8); Monocytes % (Auto) 13.7 % (0.0-7.3); Platelet Count 220 K/mm3 (140-440); Red Blood Count 4.12 M/mm3 (3.65-5.03); Red Cell Distribution Width 14.8 % (13.2-15.2)
[2017-06-21] MEDS: APRESOLINE FEEDTUBE SCH ×3 (05:47→21:24)
[2017-06-21 06:00] LABS: BUN/Creatinine Ratio 45; Blood Urea Nitrogen 18 mg/dL (7-17); Calcium 9.6 mg/dL (8.4-10.2); Hemolysis Index 6
[2017-06-21] MEDS: BABY ASPIRIN PO SCH (10:29)
[2017-06-21] MEDS: MUCINEX ER PO SCH ×2 (10:29→21:24)
[2017-06-21] MEDS: DepaKENE Liq FEEDTUBE SCH ×2 (10:29→21:23)
[2017-06-21] MEDS: PEPCID FEEDTUBE SCH ×2 (10:29→21:23)
[2017-06-21] MEDS: NORVASC FEEDTUBE SCH (10:38)
--- NOTE | 2017-06-21 12:52 | XRay Report ---
AP CHEST :06/21/17 11:27:00 CLINICAL: Cough. COMPARISON:05/11/17 FINDINGS: Stable cardiomegaly with a left ventricular contour. Normal pulmonary vessels. A new and of subsegmental atelectasis in the right lung base. Lungs are otherwise clear. The bones and soft tissues are normal. IMPRESSION: Cardiomegaly but no CHF. Right basal subsegmental atelectasis.
--- NOTE | 2017-06-21 15:19 | Progress Note ---
Assessment and Plan /CVA with left-sided weakness; with residual left-sided weakness, bedbound, CT 05/11/17 ; Chronic infarct right occipital lobe right josh , Apparent subacute to early chronic right thalamic infarct Cont Physical therapy rehabilitation, continue antiplatelets and statin /Dysphagia status post PEG placement, continue PEG tube feeds - unable to do barrium swallow study / History of seizures; continue seizure precautions antiepileptic medications / HTN; stable on antihypertensives /GERD ; continue PPIs /Dyslipidemia; on statin /Leukopenia; resolved /DC planning per case management Possible discharge home with home health versus SNF placement But family refuses to take her back home, will need placement Brief History: 56-year-old female AAF with a history of stroke and feeding tube brought to the hospital by EMS with a complaint of of "new stroke." Hospitalist Physical General appearance: Present: no acute distress, - EENT Eyes: Present: PERRL, EOM intact - Neck Neck: Present: supple, normal ROM - Respiratory Respiratory effort: normal Respiratory: bilateral: diminished, negative: rales, rhonchi, wheezing - Cardiovascular Rhythm: regular Heart Sounds: Present: S1 & S2 - Extremities Extremities: no ischemia Extremity abnormal: edema (trace edema) - Abdominal General gastrointestinal: soft, non-tender, non-distended, normal bowel sounds, other (PEG in place) - Integumentary Integumentary: Present: clear, warm - Psychiatric Psychiatric: other (alert and awake, noncommunicative) - Neurologic Neurologic: other (noncommunicative/bedbound/left-sided weakness) Subjective Date of service: 06/21/17 Principal diagnosis: Acute CVA Interval history: Since seen and examined medical records reviewed Patient is alert and awake, not in acute distress Patient is clinically stable no new changes Objective - Constitutional Vitals: Vital Signs - 12hr 06/21/17 06/21/17 06/21/17 07:33 10:33 10:38 Temperature 99.5 F Pulse Rate 82 75 Respiratory 18 20 Rate Blood Pressure 107/72 112/75 112/75 O2 Sat by Pulse 97 Oximetry 06/21/17 06/21/17 14:13 14:17 Temperature Pulse Rate 80 Respiratory 20 Rate Blood Pressure 147/88 147/88 O2 Sat by Pulse Oximetry - Labs CBC & Chem 7: 06/21/17 05:16 06/21/17 05:16 Labs: Abnormal lab results 06/21/17 06/21/17 06/21/17 Range/Units 05:16 05:16 06:27 WBC 3.7 L (4.5-11.0) K/mm3 Lymph % (Auto) 45.0 H (13.4-35.0) % [place] % (Auto) 13.7 H (0.0-7.3) % Seg Neutrophils % 37.9 L (40.0-70.0) % Seg Neutrophils # 1.4 L (1.8-7.7) K/mm3 BUN 18 H (7-17) mg/dL Creatinine 0.4 L (0.7-1.2) mg/dL Glucose 110 H (65-100) mg/dL POC Glucose 113 H (70-105) 06/21/17 Range/Units 11:24 WBC (4.5-11.0) K/mm3 Lymph % (Auto) (13.4-35.0) % [place] % (Auto) (0.0-7.3) % Seg Neutrophils % (40.0-70.0) % Seg Neutrophils # (1.8-7.7) K/mm3 BUN (7-17) mg/dL Creatinine (0.7-1.2) mg/dL Glucose (65-100) mg/dL POC Glucose 137 H (70-105)
[2017-06-21] MEDS: LOVENOX SUB-Q SCH (21:24)
[2017-06-22] MEDS: APRESOLINE FEEDTUBE SCH ×3 (06:36→22:34)
[2017-06-22] MEDS: DepaKENE Liq FEEDTUBE SCH ×2 (11:20→22:33)
[2017-06-22] MEDS: BABY ASPIRIN PO SCH (11:21)
[2017-06-22] MEDS: MUCINEX ER PO SCH ×2 (11:21→22:33)
[2017-06-22] MEDS: PEPCID FEEDTUBE SCH ×2 (11:21→22:33)
[2017-06-22] MEDS: NORVASC FEEDTUBE SCH (11:22)
--- NOTE | 2017-06-22 20:54 | Progress Note ---
Assessment and Plan - CVA with left-sided weakness; with residual left-sided weakness, bedbound, CT 05/11/17 ; Chronic infarct right occipital lobe right josh , Apparent subacute to early chronic right thalamic infarct Cont Physical therapy rehabilitation, continue antiplatelets and statin - Dysphagia status post PEG placement, continue PEG tube feeds -unable to do barrium swallow study - History of seizures; continue seizure precautions antiepileptic medications - HTN; stable on antihypertensives - GERD ; continue PPIs - Dyslipidemia; on statin - DVT with Lovenox - DC planning per case management Awaiting placement in SNF But family not capable of taking care of pt at home. Subjective Date of service: 06/22/17 Principal diagnosis: Acute CVA Interval history: No new complaint Objective - Constitutional Vitals: Vital Signs - 12hr 06/22/17 06/22/17 06/22/17 11:22 15:57 17:37 Temperature 97.3 F L Pulse Rate 86 Respiratory 14 Rate Blood Pressure 125/77 131/82 131/82 General appearance: Present: no acute distress, well-nourished, other (will not open eyes or obey command. Fiencee in the room, said she is sleeping. ) - EENT Eyes: PERRL, EOM intact - Neck Neck: supple, normal ROM - Respiratory Respiratory: bilateral: CTA - Cardiovascular Rhythm: regular Heart Sounds: Present: S1 & S2. Absent: gallop, rub Extremities: pulses intact, No edema, normal color, Full ROM - Gastrointestinal General gastrointestinal: Present: soft, non-tender, non-distended, normal bowel sounds - Genitourinary Female genitourinary: normal - Integumentary Integumentary: clear, warm, dry - Musculoskeletal Musculoskeletal: 1, strength equal bilaterally - Neurologic Neurologic: moves all extremities - Psychiatric Psychiatric: memory intact, appropriate mood/affect, intact judgment & insight - Labs CBC & Chem 7: 06/21/17 05:16 06/21/17 05:16
[2017-06-22] MEDS: LOVENOX SUB-Q SCH (22:33)
[2017-06-23] MEDS: APRESOLINE FEEDTUBE SCH ×3 (06:47→22:00)
[2017-06-23] MEDS: MUCINEX ER PO SCH ×2 (11:00→22:00)
[2017-06-23] MEDS: BABY ASPIRIN PO SCH (11:00)
[2017-06-23] MEDS: DepaKENE Liq FEEDTUBE SCH ×2 (11:00→21:59)
[2017-06-23] MEDS: PEPCID FEEDTUBE SCH ×2 (11:30→22:00)
[2017-06-23] MEDS: NORVASC FEEDTUBE SCH (11:30)
--- NOTE | 2017-06-23 15:23 | Progress Note ---
Assessment and Plan Assessment and plan: 56-year-old female AAF with a history of stroke and feeding tube brought to the hospital by EMS with a complaint of of "new stroke." She pw with LEft sided weakness, facial droop and was non verbal on presentation - CVA with left-sided weakness; with residual left-sided weakness, bedbound, CT 05/11/17 ; Chronic infarct right occipital lobe right josh , Apparent subacute to early chronic right thalamic infarct Cont Physical therapy rehabilitation, continue antiplatelets and statin - Dysphagia status post PEG placement, continue PEG tube feeds - History of seizures; continue seizure precautions antiepileptic medications - HTN; stable on antihypertensives - GERD ; continue PPIs - Dyslipidemia; on statin - DVT with Lovenox - DC planning per case management Awaiting placement in SNF But family not capable of taking care of pt at home. History Interval history: Review of systems Constitutional: No fevers, no malaise, no joint pains CVS: No chest pain, no orthopnea, no dyspnea on exertion, no pedal edema GI: No abdominal pain, no diarrhea, no vomiting, no constipation Respiratory: No shortness of breath, no wheezing, no coughing Hospitalist Physical - Physical exam Narrative exam: General.: Appears well, no distress, nontoxic HEENT: Moist mucous membranes, extraocular muscles intact, no lymphadenopathy Neck: supple Cardiac: S1-S2 heard Lungs: clear to auscultation bilaterally Abdomen: soft , nontender, nondistended, bowel sounds positive Extremities: no edema clubbing or cyanosis Skin: no rash or lesions Neurologic: non verbal, left hemiparesis Psych: calm cooperative - Constitutional Vitals: Temp Pulse Resp BP Pulse Ox 97.5 F L 90 14 142/95 98 06/23/17 14:41 06/23/17 07:14 06/23/17 14:41 06/23/17 14:41 06/23/17 07:14 General appearance: Present: no acute distress, well-nourished, other (will not open eyes or obey command. Vita in the room, said she is sleeping. ) Results - Labs CBC & Chem 7: 06/21/17 05:16 06/21/17 05:16 Labs: Laboratory Last Values WBC 3.7 K/mm3 (4.5-11.0) L 06/21/17 05:16 RBC 4.12 M/mm3 (3.65-5.03) 06/21/17 05:16 Hgb 12.7 gm/dl (10.1-14.3) 06/21/17 05:16 Hct 37.4 % (30.3-42.9) 06/21/17 05:16 MCV 91 fl (79-97) 06/21/17 05:16 MCH 31 pg (28-32) 06/21/17 05:16 MCHC 34 % (30-34) 06/21/17 05:16 RDW 14.8 % (13.2-15.2) 06/21/17 05:16 Plt Count 220 K/mm3 (140-440) 06/21/17 05:16 Lymph % (Auto) 45.0 % (13.4-35.0) H 06/21/17 05:16 [place] % (Auto) 13.7 % (0.0-7.3) H 06/21/17 05:16 Eos % (Auto) 2.4 % (0.0-4.3) 06/21/17 05:16 Baso % (Auto) 1.0 % (0.0-1.8) 06/21/17 05:16 Lymph # 1.7 K/mm3 (1.2-5.4) 06/21/17 05:16 [place] # 0.5 K/mm3 (0.0-0.8) 06/21/17 05:16 Eos # 0.1 K/mm3 (0.0-0.4) 06/21/17 05:16 Baso # 0.0 K/mm3 (0.0-0.1) 06/21/17 05:16 Add Manual Diff Complete 05/12/17 05:44 Total Counted 100 05/12/17 05:44 Seg Neutrophils % 37.9 % (40.0-70.0) L 06/21/17 05:16 Seg Neuts % (Manual) 46.0 % (40.0-70.0) 05/12/17 05:44 Band Neutrophils % 0 % 05/12/17 05:44 Lymphocytes % (Manual) 39.0 % (13.4-35.0) H 05/12/17 05:44 Reactive Lymphs % (Man) 0 % 05/12/17 05:44 Monocytes % (Manual) 12.0 % (0.0-7.3) H 05/12/17 05:44 Eosinophils % (Manual) 3.0 % (0.0-4.3) 05/12/17 05:44 Basophils % (Manual) 0 % (0.0-1.8) 05/12/17 05:44 Metamyelocytes % 0 % 05/12/17 05:44 Myelocytes % 0 % 05/12/17 05:44 Promyelocytes % 0 % 05/12/17 05:44 Blast Cells % 0 % 05/12/17 05:44 Nucleated RBC % Not Reportable 05/12/17 05:44 Seg Neutrophils # 1.4 K/mm3 (1.8-7.7) L 06/21/17 05:16 Seg Neutrophils # Man 1.3 K/mm3 (1.8-7.7) L 05/12/17 05:44 Band Neutrophils # 0.0 K/mm3 05/12/17 05:44 Lymphocytes # (Manual) 1.1 K/mm3 (1.2-5.4) L 05/12/17 05:44 Abs React Lymphs (Man) 0.0 K/mm3 05/12/17 05:44 Monocytes # (Manual) 0.3 K/mm3 (0.0-0.8) 05/12/17 05:44 Eosinophils # (Manual) 0.1 K/mm3 (0.0-0.4) 05/12/17 05:44 Basophils # (Manual) 0.0 K/mm3 (0.0-0.1) 05/12/17 05:44 Metamyelocytes # 0.0 K/mm3 05/12/17 05:44 Myelocytes # 0.0 K/mm3 05/12/17 05:44 Promyelocytes # 0.0 K/mm3 05/12/17 05:44 Blast Cells # 0.0 K/mm3 05/12/17 05:44 WBC Morphology Not Reportable 05/12/17 05:44 Hypersegmented Neuts Not Reportable 05/12/17 05:44 Hyposegmented Neuts Not Reportable 05/12/17 05:44 Hypogranular Neuts Not Reportable 05/12/17 05:44 Smudge Cells Not Reportable 05/12/17 05:44 Toxic Granulation Not Reportable 05/12/17 05:44 Toxic Vacuolation Not Reportable 05/12/17 05:44 Dohle Bodies Not Reportable 05/12/17 05:44 Pelger-Huet Anomaly Not Reportable 05/12/17 05:44 Shelly Rods Not Reportable 05/12/17 05:44 Platelet Estimate Cons 05/12/17 05:44 Clumped Platelets Few 05/12/17 05:44 Plt Clumps, EDTA Not Reportable 05/12/17 05:44 Large Platelets Not Reportable 05/12/17 05:44 Giant Platelets Not Reportable 05/12/17 05:44 Platelet Satelliting Not Reportable 05/12/17 05:44 Plt Morphology Comment Not Reportable 05/12/17 05:44 RBC Morphology Normal 05/12/17 05:44 Dimorphic RBCs Not Reportable 05/12/17 05:44 Polychromasia Not Reportable 05/12/17 05:44 Hypochromasia Not Reportable 05/12/17 05:44 Poikilocytosis Not Reportable 05/12/17 05:44 Anisocytosis Not Reportable 05/12/17 05:44 Microcytosis Not Reportable 05/12/17 05:44 Macrocytosis Not Reportable 05/12/17 05:44 Spherocytes Not Reportable 05/12/17 05:44 Pappenheimer Bodies Not Reportable 05/12/17 05:44 Sickle Cells Not Reportable 05/12/17 05:44 Target Cells Not Reportable 05/12/17 05:44 Tear Drop Cells Not Reportable 05/12/17 05:44 Ovalocytes Not Reportable 05/12/17 05:44 Helmet Cells Not Reportable 05/12/17 05:44 [place] Bodies Not Reportable 05/12/17 05:44 [place] Rings Not Reportable 05/12/17 05:44 [place] Cells Not Reportable 05/12/17 05:44 Bite Cells Not Reportable 05/12/17 05:44 Crenated Cell Not Reportable 05/12/17 05:44 Elliptocytes Not Reportable 05/12/17 05:44 Acanthocytes (Spur) Not Reportable 05/12/17 05:44 Rouleaux Not Reportable 05/12/17 05:44 Hemoglobin C Crystals Not Reportable 05/12/17 05:44 Schistocytes Not Reportable 05/12/17 05:44 Malaria parasites Not Reportable 05/12/17 05:44 Wander Bodies Not Reportable 05/12/17 05:44 Hem Pathologist Commnt No 05/12/17 05:44 PT 13.9 Sec. (12.2-14.9) 05/11/17 12:56 INR 1.02 (0.87-1.13) 05/11/17 12:56 APTT 29.8 Sec. (24.2-36.6) 05/11/17 12:56 Thrombin Time 16.4 Sec. (15.1-19.6) 05/11/17 12:56 Sodium 142 mmol/L (137-145) 06/21/17 05:16 Potassium 4.3 mmol/L (3.6-5.0) 06/21/17 05:16 Chloride 102.1 mmol/L (98-107) 06/21/17 05:16 Carbon Dioxide 27 mmol/L (22-30) 06/21/17 05:16 Anion Gap 17 mmol/L 06/21/17 05:16 BUN 18 mg/dL (7-17) H 06/21/17 05:16 Creatinine 0.4 mg/dL (0.7-1.2) L 06/21/17 05:16 Estimated GFR > 60 ml/min 06/21/17 05:16 BUN/Creatinine Ratio 45 % 06/21/17 05:16 Glucose 110 mg/dL (65-100) H 06/21/17 05:16 POC Glucose 95 (70-105) 06/23/17 11:33 Hemoglobin A1c 5.7 % (4-6) 05/11/17 12:56 Calcium 9.6 mg/dL (8.4-10.2) 06/21/17 05:16 Total Bilirubin 0.30 mg/dL (0.1-1.2) 05/12/17 05:44 AST 27 units/L (5-40) 05/12/17 05:44 ALT 28 units/L (7-56) 05/12/17 05:44 Alkaline Phosphatase 52 units/L (35-129) 05/12/17 05:44 Total Creatine Kinase 64 units/L (30-135) 05/11/17 12:56 CK-MB (CK-2) 1.4 ng/mL (0.0-4.0) 05/11/17 12:56 CK-MB (CK-2) Rel Index 2.1 (0-4) 05/11/17 12:56 Troponin T < 0.010 ng/mL (0.00-0.029) 05/11/17 12:56 Total Protein 6.5 g/dL (6.3-8.2) 05/12/17 05:44 Albumin 3.8 g/dL (3.9-5) L 05/12/17 05:44 Albumin/Globulin Ratio 1.4 % 05/12/17 05:44 Triglycerides 113 mg/dL (2-149) 05/12/17 05:44 Cholesterol 172 mg/dL (50-199) 05/12/17 05:44 LDL Cholesterol Direct 115 mg/dL (50-130) 05/12/17 05:44 HDL Cholesterol 35 mg/dL (40-59) L 05/12/17 05:44 Cholesterol/HDL Ratio 4.91 % 05/12/17 05:44 Urine Color Yellow (Yellow) 05/11/17 14:09 Urine Turbidity Clear (Clear) 05/11/17 14:09 Urine pH 6.0 (5.0-7.0) 05/11/17 14:09 Ur Specific [place] 1.016 (1.003-1.030) 05/11/17 14:09 Urine Protein <15 mg/dl mg/dL (Negative) 05/11/17 14:09 Urine Glucose (UA) Neg mg/dL (Negative) 05/11/17 14:09 Urine Ketones Tr mg/dL (Negative) 05/11/17 14:09 Urine Blood Neg (Negative) 05/11/17 14:09 Urine Nitrite Neg (Negative) 05/11/17 14:09 Urine Bilirubin Neg (Negative) 05/11/17 14:09 Urine Urobilinogen < 2.0 mg/dL (<2.0) 05/11/17 14:09 Ur Leukocyte Esterase Neg (Negative) 05/11/17 14:09 Urine WBC (Auto) 2.0 /HPF (0.0-6.0) 05/11/17 14:09 Urine RBC (Auto) 3.0 /HPF (0.0-6.0) 05/11/17 14:09 U Epithel Cells (Auto) < 1.0 /HPF (0-13.0) 05/11/17 14:09 Urine Mucus Few /HPF 05/11/17 14:09 Valproic Acid 79.7 ug/mL (50-100) 05/11/17 12:56
[2017-06-23] MEDS: LOVENOX SUB-Q SCH (21:59)
[2017-06-24] MEDS: APRESOLINE FEEDTUBE SCH ×3 (06:11→23:36)
--- NOTE | 2017-06-24 09:29 | Progress Note ---
Assessment and Plan Assessment and plan: 56-year-old female AAF with a history of stroke and feeding tube brought to the hospital by EMS with a complaint of of "new stroke." She pw with LEft sided weakness, facial droop and was non verbal on presentation - acute CVA with infarct, left-sided weakness; with residual left-sided weakness, bedbound, CT 05/11/17 ; Chronic infarct right occipital lobe right josh , Apparent subacute to early chronic right thalamic infarct Cont Physical therapy rehabilitation, continue antiplatelets and statin - Dysphagia status post PEG placement, continue PEG tube feeds - History of seizures; continue seizure precautions antiepileptic medications - HTN; stable on antihypertensives - GERD ; continue PPIs - Dyslipidemia; on statin - DVT with Lovenox - DC planning per case management Awaiting placement in SNF But family not capable of taking care of pt at home. History Interval history: Review of systems Constitutional: No fevers, no malaise, no joint pains CVS: No chest pain, no orthopnea, no dyspnea on exertion, no pedal edema GI: No abdominal pain, no diarrhea, no vomiting, no constipation Respiratory: No shortness of breath, no wheezing, no coughing Hospitalist Physical - Physical exam Narrative exam: General.: Appears well, no distress, nontoxic HEENT: Moist mucous membranes, extraocular muscles intact, no lymphadenopathy Neck: supple Cardiac: S1-S2 heard Lungs: clear to auscultation bilaterally Abdomen: soft , nontender, nondistended, bowel sounds positive Extremities: no edema clubbing or cyanosis Skin: no rash or lesions Neurologic: non verbal, left hemiparesis Psych: calm cooperative - Constitutional Vitals: Temp Pulse Resp BP Pulse Ox 98.1 F 80 19 133/90 97 06/24/17 08:25 06/24/17 08:25 06/24/17 08:25 06/24/17 08:25 06/24/17 08:25 General appearance: Present: no acute distress, well-nourished, other (will not open eyes or obey command. Vita in the room, said she is sleeping. ) Results - Labs CBC & Chem 7: 06/21/17 05:16 06/21/17 05:16 Labs: Laboratory Last Values WBC 3.7 K/mm3 (4.5-11.0) L 06/21/17 05:16 RBC 4.12 M/mm3 (3.65-5.03) 06/21/17 05:16 Hgb 12.7 gm/dl (10.1-14.3) 06/21/17 05:16 Hct 37.4 % (30.3-42.9) 06/21/17 05:16 MCV 91 fl (79-97) 06/21/17 05:16 MCH 31 pg (28-32) 06/21/17 05:16 MCHC 34 % (30-34) 06/21/17 05:16 RDW 14.8 % (13.2-15.2) 06/21/17 05:16 Plt Count 220 K/mm3 (140-440) 06/21/17 05:16 Lymph % (Auto) 45.0 % (13.4-35.0) H 06/21/17 05:16 [place] % (Auto) 13.7 % (0.0-7.3) H 06/21/17 05:16 Eos % (Auto) 2.4 % (0.0-4.3) 06/21/17 05:16 Baso % (Auto) 1.0 % (0.0-1.8) 06/21/17 05:16 Lymph # 1.7 K/mm3 (1.2-5.4) 06/21/17 05:16 [place] # 0.5 K/mm3 (0.0-0.8) 06/21/17 05:16 Eos # 0.1 K/mm3 (0.0-0.4) 06/21/17 05:16 Baso # 0.0 K/mm3 (0.0-0.1) 06/21/17 05:16 Add Manual Diff Complete 05/12/17 05:44 Total Counted 100 05/12/17 05:44 Seg Neutrophils % 37.9 % (40.0-70.0) L 06/21/17 05:16 Seg Neuts % (Manual) 46.0 % (40.0-70.0) 05/12/17 05:44 Band Neutrophils % 0 % 05/12/17 05:44 Lymphocytes % (Manual) 39.0 % (13.4-35.0) H 05/12/17 05:44 Reactive Lymphs % (Man) 0 % 05/12/17 05:44 Monocytes % (Manual) 12.0 % (0.0-7.3) H 05/12/17 05:44 Eosinophils % (Manual) 3.0 % (0.0-4.3) 05/12/17 05:44 Basophils % (Manual) 0 % (0.0-1.8) 05/12/17 05:44 Metamyelocytes % 0 % 05/12/17 05:44 Myelocytes % 0 % 05/12/17 05:44 Promyelocytes % 0 % 05/12/17 05:44 Blast Cells % 0 % 05/12/17 05:44 Nucleated RBC % Not Reportable 05/12/17 05:44 Seg Neutrophils # 1.4 K/mm3 (1.8-7.7) L 06/21/17 05:16 Seg Neutrophils # Man 1.3 K/mm3 (1.8-7.7) L 05/12/17 05:44 Band Neutrophils # 0.0 K/mm3 05/12/17 05:44 Lymphocytes # (Manual) 1.1 K/mm3 (1.2-5.4) L 05/12/17 05:44 Abs React Lymphs (Man) 0.0 K/mm3 05/12/17 05:44 Monocytes # (Manual) 0.3 K/mm3 (0.0-0.8) 05/12/17 05:44 Eosinophils # (Manual) 0.1 K/mm3 (0.0-0.4) 05/12/17 05:44 Basophils # (Manual) 0.0 K/mm3 (0.0-0.1) 05/12/17 05:44 Metamyelocytes # 0.0 K/mm3 05/12/17 05:44 Myelocytes # 0.0 K/mm3 05/12/17 05:44 Promyelocytes # 0.0 K/mm3 05/12/17 05:44 Blast Cells # 0.0 K/mm3 05/12/17 05:44 WBC Morphology Not Reportable 05/12/17 05:44 Hypersegmented Neuts Not Reportable 05/12/17 05:44 Hyposegmented Neuts Not Reportable 05/12/17 05:44 Hypogranular Neuts Not Reportable 05/12/17 05:44 Smudge Cells Not Reportable 05/12/17 05:44 Toxic Granulation Not Reportable 05/12/17 05:44 Toxic Vacuolation Not Reportable 05/12/17 05:44 Dohle Bodies Not Reportable 05/12/17 05:44 Pelger-Huet Anomaly Not Reportable 05/12/17 05:44 Shelly Rods Not Reportable 05/12/17 05:44 Platelet Estimate Cons 05/12/17 05:44 Clumped Platelets Few 05/12/17 05:44 Plt Clumps, EDTA Not Reportable 05/12/17 05:44 Large Platelets Not Reportable 05/12/17 05:44 Giant Platelets Not Reportable 05/12/17 05:44 Platelet Satelliting Not Reportable 05/12/17 05:44 Plt Morphology Comment Not Reportable 05/12/17 05:44 RBC Morphology Normal 05/12/17 05:44 Dimorphic RBCs Not Reportable 05/12/17 05:44 Polychromasia Not Reportable 05/12/17 05:44 Hypochromasia Not Reportable 05/12/17 05:44 Poikilocytosis Not Reportable 05/12/17 05:44 Anisocytosis Not Reportable 05/12/17 05:44 Microcytosis Not Reportable 05/12/17 05:44 Macrocytosis Not Reportable 05/12/17 05:44 Spherocytes Not Reportable 05/12/17 05:44 Pappenheimer Bodies Not Reportable 05/12/17 05:44 Sickle Cells Not Reportable 05/12/17 05:44 Target Cells Not Reportable 05/12/17 05:44 Tear Drop Cells Not Reportable 05/12/17 05:44 Ovalocytes Not Reportable 05/12/17 05:44 Helmet Cells Not Reportable 05/12/17 05:44 [place] Bodies Not Reportable 05/12/17 05:44 [place] Rings Not Reportable 05/12/17 05:44 [place] Cells Not Reportable 05/12/17 05:44 Bite Cells Not Reportable 05/12/17 05:44 Crenated Cell Not Reportable 05/12/17 05:44 Elliptocytes Not Reportable 05/12/17 05:44 Acanthocytes (Spur) Not Reportable 05/12/17 05:44 Rouleaux Not Reportable 05/12/17 05:44 Hemoglobin C Crystals Not Reportable 05/12/17 05:44 Schistocytes Not Reportable 05/12/17 05:44 Malaria parasites Not Reportable 05/12/17 05:44 [place] Bodies Not Reportable 05/12/17 05:44 Hem Pathologist Commnt No 05/12/17 05:44 PT 13.9 Sec. (12.2-14.9) 05/11/17 12:56 INR 1.02 (0.87-1.13) 05/11/17 12:56 APTT 29.8 Sec. (24.2-36.6) 05/11/17 12:56 Thrombin Time 16.4 Sec. (15.1-19.6) 05/11/17 12:56 Sodium 142 mmol/L (137-145) 06/21/17 05:16 Potassium 4.3 mmol/L (3.6-5.0) 06/21/17 05:16 Chloride 102.1 mmol/L (98-107) 06/21/17 05:16 Carbon Dioxide 27 mmol/L (22-30) 06/21/17 05:16 Anion Gap 17 mmol/L 06/21/17 05:16 BUN 18 mg/dL (7-17) H 06/21/17 05:16 Creatinine 0.4 mg/dL (0.7-1.2) L 06/21/17 05:16 Estimated GFR > 60 ml/min 06/21/17 05:16 BUN/Creatinine Ratio 45 % 06/21/17 05:16 Glucose 110 mg/dL (65-100) H 06/21/17 05:16 POC Glucose 123 (70-105) H 06/24/17 06:04 Hemoglobin A1c 5.7 % (4-6) 05/11/17 12:56 Calcium 9.6 mg/dL (8.4-10.2) 06/21/17 05:16 Total Bilirubin 0.30 mg/dL (0.1-1.2) 05/12/17 05:44 AST 27 units/L (5-40) 05/12/17 05:44 ALT 28 units/L (7-56) 05/12/17 05:44 Alkaline Phosphatase 52 units/L (35-129) 05/12/17 05:44 Total Creatine Kinase 64 units/L (30-135) 05/11/17 12:56 CK-MB (CK-2) 1.4 ng/mL (0.0-4.0) 05/11/17 12:56 CK-MB (CK-2) Rel Index 2.1 (0-4) 05/11/17 12:56 Troponin T < 0.010 ng/mL (0.00-0.029) 05/11/17 12:56 Total Protein 6.5 g/dL (6.3-8.2) 05/12/17 05:44 Albumin 3.8 g/dL (3.9-5) L 05/12/17 05:44 Albumin/Globulin Ratio 1.4 % 05/12/17 05:44 Triglycerides 113 mg/dL (2-149) 05/12/17 05:44 Cholesterol 172 mg/dL (50-199) 05/12/17 05:44 LDL Cholesterol Direct 115 mg/dL (50-130) 05/12/17 05:44 HDL Cholesterol 35 mg/dL (40-59) L 05/12/17 05:44 Cholesterol/HDL Ratio 4.91 % 05/12/17 05:44 Urine Color Yellow (Yellow) 05/11/17 14:09 Urine Turbidity Clear (Clear) 05/11/17 14:09 Urine pH 6.0 (5.0-7.0) 05/11/17 14:09 Ur Specific [place] 1.016 (1.003-1.030) 05/11/17 14:09 Urine Protein <15 mg/dl mg/dL (Negative) 05/11/17 14:09 Urine Glucose (UA) Neg mg/dL (Negative) 05/11/17 14:09 Urine Ketones Tr mg/dL (Negative) 05/11/17 14:09 Urine Blood Neg (Negative) 05/11/17 14:09 Urine Nitrite Neg (Negative) 05/11/17 14:09 Urine Bilirubin Neg (Negative) 05/11/17 14:09 Urine Urobilinogen < 2.0 mg/dL (<2.0) 05/11/17 14:09 Ur Leukocyte Esterase Neg (Negative) 05/11/17 14:09 Urine WBC (Auto) 2.0 /HPF (0.0-6.0) 05/11/17 14:09 Urine RBC (Auto) 3.0 /HPF (0.0-6.0) 05/11/17 14:09 U Epithel Cells (Auto) < 1.0 /HPF (0-13.0) 05/11/17 14:09 Urine Mucus Few /HPF 05/11/17 14:09 Valproic Acid 79.7 ug/mL (50-100) 05/11/17 12:56
[2017-06-24] MEDS: PEPCID FEEDTUBE SCH ×2 (10:48→23:03)
[2017-06-24] MEDS: DepaKENE Liq FEEDTUBE SCH ×2 (10:48→23:02)
[2017-06-24] MEDS: NORVASC FEEDTUBE SCH (10:48)
[2017-06-24] MEDS: BABY ASPIRIN PO SCH (10:49)
[2017-06-24] MEDS: MUCINEX ER PO SCH (11:19)
[2017-06-24] MEDS: LOVENOX SUB-Q SCH (23:02)
[2017-06-25] MEDS: APRESOLINE FEEDTUBE SCH ×3 (06:26→21:26)
[2017-06-25] MEDS: BABY ASPIRIN PO SCH (09:45)
[2017-06-25] MEDS: NORVASC FEEDTUBE SCH (09:45)
[2017-06-25] MEDS: PEPCID FEEDTUBE SCH ×2 (09:45→21:28)
[2017-06-25] MEDS: DepaKENE Liq FEEDTUBE SCH ×2 (09:45→21:28)
[2017-06-25] MEDS: LOVENOX SUB-Q SCH (21:38)
[2017-06-26] MEDS: APRESOLINE FEEDTUBE SCH ×3 (06:39→23:00)
[2017-06-26] MEDS: DepaKENE Liq FEEDTUBE SCH ×2 (10:49→23:00)
[2017-06-26] MEDS: NORVASC FEEDTUBE SCH (10:50)
[2017-06-26] MEDS: PEPCID FEEDTUBE SCH ×2 (10:50→23:00)
[2017-06-26] MEDS: BABY ASPIRIN PO SCH (10:50)
[2017-06-26] MEDS: LOVENOX SUB-Q SCH ×2 (22:30→23:01)
[2017-06-27 05:29] LABS: Basophils % (Auto) 1.1 % (0.0-1.8); Eosinophils # (Auto) 0.1 K/mm3 (0.0-0.4); Eosinophils % (Auto) 2.1 % (0.0-4.3); Hematocrit 40.3 % (30.3-42.9); Hemoglobin 13.7 gm/dl (10.1-14.3); Lymphocytes # (Auto) 1.6 K/mm3 (1.2-5.4); Lymphocytes % (Auto) 43.4 % (13.4-35.0); Mean Corpuscular HGB Conc 34 % (30-34); Mean Corpuscular Hemoglobin 31 pg (28-32); Mean Corpuscular Volume 91 fl (79-97); Monocytes # (Auto) 0.5 K/mm3 (0.0-0.8); Monocytes % (Auto) 12.8 % (0.0-7.3); Platelet Count 216 K/mm3 (140-440); Red Blood Count 4.43 M/mm3 (3.65-5.03)
[2017-06-27 05:35] LABS: BUN/Creatinine Ratio 43; Blood Urea Nitrogen 17 mg/dL (7-17); Calcium 9.8 mg/dL (8.4-10.2); Hemolysis Index 113
[2017-06-27] MEDS: NORVASC FEEDTUBE SCH (09:40)
[2017-06-27] MEDS: PEPCID FEEDTUBE SCH ×2 (09:40→22:17)
[2017-06-27] MEDS: DepaKENE Liq FEEDTUBE SCH ×2 (09:41→22:17)
[2017-06-27] MEDS: BABY ASPIRIN PO SCH (11:04)
--- NOTE | 2017-06-27 15:27 | Progress Note ---
Assessment and Plan Assessment and plan: 56-year-old female AAF with a history of stroke and feeding tube brought to the hospital by EMS with a complaint of of "new stroke." She pw with LEft sided weakness, facial droop and was non verbal on presentation - acute CVA with infarct, left-sided weakness; with residual left-sided weakness, bedbound, CT 05/11/17 ; Chronic infarct right occipital lobe right josh , Apparent subacute to early chronic right thalamic infarct Cont Physical therapy rehabilitation, continue antiplatelets and statin - Dysphagia status post PEG placement, continue PEG tube feeds - History of seizures; continue seizure precautions antiepileptic medications - HTN; stable on antihypertensives - GERD ; continue PPIs - Dyslipidemia; on statin - DVT with Lovenox - DC planning per case management Awaiting placement in SNF But family not capable of taking care of pt at home. History Interval history: Review of systems Constitutional: No fevers, no malaise, no joint pains CVS: No chest pain, no orthopnea, no dyspnea on exertion, no pedal edema GI: No abdominal pain, no diarrhea, no vomiting, no constipation Respiratory: No shortness of breath, no wheezing, no coughing Hospitalist Physical - Physical exam Narrative exam: General.: Appears well, no distress, nontoxic HEENT: Moist mucous membranes, extraocular muscles intact, no lymphadenopathy Neck: supple Cardiac: S1-S2 heard Lungs: clear to auscultation bilaterally Abdomen: soft , nontender, nondistended, bowel sounds positive Extremities: no edema clubbing or cyanosis Skin: no rash or lesions Neurologic: non verbal, left hemiparesis Psych: calm cooperative - Constitutional Vitals: Temp Pulse Resp BP Pulse Ox 97.8 F 83 14 118/78 99 06/27/17 12:04 06/27/17 07:59 06/27/17 12:04 06/27/17 14:19 06/27/17 07:59 General appearance: Present: no acute distress, well-nourished, other (will not open eyes or obey command. Vita in the room, said she is sleeping. ) Results - Labs CBC & Chem 7: 06/27/17 04:58 06/27/17 04:58 Labs: Laboratory Last Values WBC 3.8 K/mm3 (4.5-11.0) L 06/27/17 04:58 RBC 4.43 M/mm3 (3.65-5.03) 06/27/17 04:58 Hgb 13.7 gm/dl (10.1-14.3) 06/27/17 04:58 Hct 40.3 % (30.3-42.9) 06/27/17 04:58 MCV 91 fl (79-97) 06/27/17 04:58 MCH 31 pg (28-32) 06/27/17 04:58 MCHC 34 % (30-34) 06/27/17 04:58 RDW 15.0 % (13.2-15.2) 06/27/17 04:58 Plt Count 216 K/mm3 (140-440) 06/27/17 04:58 Lymph % (Auto) 43.4 % (13.4-35.0) H 06/27/17 04:58 [place] % (Auto) 12.8 % (0.0-7.3) H 06/27/17 04:58 Eos % (Auto) 2.1 % (0.0-4.3) 06/27/17 04:58 Baso % (Auto) 1.1 % (0.0-1.8) 06/27/17 04:58 Lymph # 1.6 K/mm3 (1.2-5.4) 06/27/17 04:58 [place] # 0.5 K/mm3 (0.0-0.8) 06/27/17 04:58 Eos # 0.1 K/mm3 (0.0-0.4) 06/27/17 04:58 Baso # 0.0 K/mm3 (0.0-0.1) 06/27/17 04:58 Add Manual Diff Complete 05/12/17 05:44 Total Counted 100 05/12/17 05:44 Seg Neutrophils % 40.6 % (40.0-70.0) 06/27/17 04:58 Seg Neuts % (Manual) 46.0 % (40.0-70.0) 05/12/17 05:44 Band Neutrophils % 0 % 05/12/17 05:44 Lymphocytes % (Manual) 39.0 % (13.4-35.0) H 05/12/17 05:44 Reactive Lymphs % (Man) 0 % 05/12/17 05:44 Monocytes % (Manual) 12.0 % (0.0-7.3) H 05/12/17 05:44 Eosinophils % (Manual) 3.0 % (0.0-4.3) 05/12/17 05:44 Basophils % (Manual) 0 % (0.0-1.8) 05/12/17 05:44 Metamyelocytes % 0 % 05/12/17 05:44 Myelocytes % 0 % 05/12/17 05:44 Promyelocytes % 0 % 05/12/17 05:44 Blast Cells % 0 % 05/12/17 05:44 Nucleated RBC % Not Reportable 05/12/17 05:44 Seg Neutrophils # 1.5 K/mm3 (1.8-7.7) L 06/27/17 04:58 Seg Neutrophils # Man 1.3 K/mm3 (1.8-7.7) L 05/12/17 05:44 Band Neutrophils # 0.0 K/mm3 05/12/17 05:44 Lymphocytes # (Manual) 1.1 K/mm3 (1.2-5.4) L 05/12/17 05:44 Abs React Lymphs (Man) 0.0 K/mm3 05/12/17 05:44 Monocytes # (Manual) 0.3 K/mm3 (0.0-0.8) 05/12/17 05:44 Eosinophils # (Manual) 0.1 K/mm3 (0.0-0.4) 05/12/17 05:44 Basophils # (Manual) 0.0 K/mm3 (0.0-0.1) 05/12/17 05:44 Metamyelocytes # 0.0 K/mm3 05/12/17 05:44 Myelocytes # 0.0 K/mm3 05/12/17 05:44 Promyelocytes # 0.0 K/mm3 05/12/17 05:44 Blast Cells # 0.0 K/mm3 05/12/17 05:44 WBC Morphology Not Reportable 05/12/17 05:44 Hypersegmented Neuts Not Reportable 05/12/17 05:44 Hyposegmented Neuts Not Reportable 05/12/17 05:44 Hypogranular Neuts Not Reportable 05/12/17 05:44 Smudge Cells Not Reportable 05/12/17 05:44 Toxic Granulation Not Reportable 05/12/17 05:44 Toxic Vacuolation Not Reportable 05/12/17 05:44 Dohle Bodies Not Reportable 05/12/17 05:44 Pelger-Huet Anomaly Not Reportable 05/12/17 05:44 Shelly Rods Not Reportable 05/12/17 05:44 Platelet Estimate Cons 05/12/17 05:44 Clumped Platelets Few 05/12/17 05:44 Plt Clumps, EDTA Not Reportable 05/12/17 05:44 Large Platelets Not Reportable 05/12/17 05:44 Giant Platelets Not Reportable 05/12/17 05:44 Platelet Satelliting Not Reportable 05/12/17 05:44 Plt Morphology Comment Not Reportable 05/12/17 05:44 RBC Morphology Normal 05/12/17 05:44 Dimorphic RBCs Not Reportable 05/12/17 05:44 Polychromasia Not Reportable 05/12/17 05:44 Hypochromasia Not Reportable 05/12/17 05:44 Poikilocytosis Not Reportable 05/12/17 05:44 Anisocytosis Not Reportable 05/12/17 05:44 Microcytosis Not Reportable 05/12/17 05:44 Macrocytosis Not Reportable 05/12/17 05:44 Spherocytes Not Reportable 05/12/17 05:44 Pappenheimer Bodies Not Reportable 05/12/17 05:44 Sickle Cells Not Reportable 05/12/17 05:44 Target Cells Not Reportable 05/12/17 05:44 Tear Drop Cells Not Reportable 05/12/17 05:44 Ovalocytes Not Reportable 05/12/17 05:44 Helmet Cells Not Reportable 05/12/17 05:44 Cao-[place] Bodies Not Reportable 05/12/17 05:44 [place] Rings Not Reportable 05/12/17 05:44 [place] Cells Not Reportable 05/12/17 05:44 Bite Cells Not Reportable 05/12/17 05:44 Crenated Cell Not Reportable 05/12/17 05:44 Elliptocytes Not Reportable 05/12/17 05:44 Acanthocytes (Spur) Not Reportable 05/12/17 05:44 Rouleaux Not Reportable 05/12/17 05:44 Hemoglobin C Crystals Not Reportable 05/12/17 05:44 Schistocytes Not Reportable 05/12/17 05:44 Malaria parasites Not Reportable 05/12/17 05:44 Wander Bodies Not Reportable 05/12/17 05:44 Hem Pathologist Commnt No 05/12/17 05:44 PT 13.9 Sec. (12.2-14.9) 05/11/17 12:56 INR 1.02 (0.87-1.13) 05/11/17 12:56 APTT 29.8 Sec. (24.2-36.6) 05/11/17 12:56 Thrombin Time 16.4 Sec. (15.1-19.6) 05/11/17 12:56 Sodium 145 mmol/L (137-145) 06/27/17 04:58 Potassium 4.4 mmol/L (3.6-5.0) 06/27/17 04:58 Chloride 103.1 mmol/L (98-107) 06/27/17 04:58 Carbon Dioxide 27 mmol/L (22-30) 06/27/17 04:58 Anion Gap 19 mmol/L 06/27/17 04:58 BUN 17 mg/dL (7-17) 06/27/17 04:58 Creatinine 0.4 mg/dL (0.7-1.2) L 06/27/17 04:58 Estimated GFR > 60 ml/min 06/27/17 04:58 BUN/Creatinine Ratio 43 % 06/27/17 04:58 Glucose 128 mg/dL (65-100) H 06/27/17 04:58 POC Glucose 91 (70-105) 06/27/17 11:37 Hemoglobin A1c 5.7 % (4-6) 05/11/17 12:56 Calcium 9.8 mg/dL (8.4-10.2) 06/27/17 04:58 Total Bilirubin 0.30 mg/dL (0.1-1.2) 05/12/17 05:44 AST 27 units/L (5-40) 05/12/17 05:44 ALT 28 units/L (7-56) 05/12/17 05:44 Alkaline Phosphatase 52 units/L (35-129) 05/12/17 05:44 Total Creatine Kinase 64 units/L (30-135) 05/11/17 12:56 CK-MB (CK-2) 1.4 ng/mL (0.0-4.0) 05/11/17 12:56 CK-MB (CK-2) Rel Index 2.1 (0-4) 05/11/17 12:56 Troponin T < 0.010 ng/mL (0.00-0.029) 05/11/17 12:56 Total Protein 6.5 g/dL (6.3-8.2) 05/12/17 05:44 Albumin 3.8 g/dL (3.9-5) L 05/12/17 05:44 Albumin/Globulin Ratio 1.4 % 05/12/17 05:44 Triglycerides 113 mg/dL (2-149) 05/12/17 05:44 Cholesterol 172 mg/dL (50-199) 05/12/17 05:44 LDL Cholesterol Direct 115 mg/dL (50-130) 05/12/17 05:44 HDL Cholesterol 35 mg/dL (40-59) L 05/12/17 05:44 Cholesterol/HDL Ratio 4.91 % 05/12/17 05:44 Urine Color Yellow (Yellow) 05/11/17 14:09 Urine Turbidity Clear (Clear) 05/11/17 14:09 Urine pH 6.0 (5.0-7.0) 05/11/17 14:09 Ur Specific [place] 1.016 (1.003-1.030) 05/11/17 14:09 Urine Protein <15 mg/dl mg/dL (Negative) 05/11/17 14:09 Urine Glucose (UA) Neg mg/dL (Negative) 05/11/17 14:09 Urine Ketones Tr mg/dL (Negative) 05/11/17 14:09 Urine Blood Neg (Negative) 05/11/17 14:09 Urine Nitrite Neg (Negative) 05/11/17 14:09 Urine Bilirubin Neg (Negative) 05/11/17 14:09 Urine Urobilinogen < 2.0 mg/dL (<2.0) 05/11/17 14:09 Ur Leukocyte Esterase Neg (Negative) 05/11/17 14:09 Urine WBC (Auto) 2.0 /HPF (0.0-6.0) 05/11/17 14:09 Urine RBC (Auto) 3.0 /HPF (0.0-6.0) 05/11/17 14:09 U Epithel Cells (Auto) < 1.0 /HPF (0-13.0) 05/11/17 14:09 Urine Mucus Few /HPF 05/11/17 14:09 Valproic Acid 79.7 ug/mL (50-100) 05/11/17 12:56
[2017-06-27] MEDS: APRESOLINE FEEDTUBE SCH (22:18)
[2017-06-28] MEDS: APRESOLINE FEEDTUBE SCH ×3 (07:34→23:19)
[2017-06-28] MEDS: NORVASC FEEDTUBE SCH (10:11)
[2017-06-28] MEDS: PEPCID FEEDTUBE SCH ×2 (10:15→23:20)
[2017-06-28] MEDS: DepaKENE Liq FEEDTUBE SCH ×2 (10:15→23:20)
[2017-06-28] MEDS: BABY ASPIRIN PO SCH (10:15)
--- NOTE | 2017-06-28 10:26 | Progress Note ---
Assessment and Plan Assessment and plan: 56-year-old female AAF with a history of stroke and feeding tube brought to the hospital by EMS with a complaint of of "new stroke." She pw with LEft sided weakness, facial droop and was non verbal on presentation - acute CVA with infarct, left-sided weakness; with residual left-sided weakness, bedbound, CT 05/11/17 ; Chronic infarct right occipital lobe right josh , Apparent subacute to early chronic right thalamic infarct Cont Physical therapy rehabilitation, continue antiplatelets and statin - Dysphagia status post PEG placement, continue PEG tube feeds - History of seizures; continue seizure precautions antiepileptic medications - HTN; stable on antihypertensives - GERD ; continue PPIs - Dyslipidemia; on statin - DVT with Lovenox - DC planning per case management Awaiting placement in SNF But family not capable of taking care of pt at home. History Interval history: Review of systems Constitutional: No fevers, no malaise, no joint pains CVS: No chest pain, no orthopnea, no dyspnea on exertion, no pedal edema GI: No abdominal pain, no diarrhea, no vomiting, no constipation Respiratory: No shortness of breath, no wheezing, no coughing Hospitalist Physical - Physical exam Narrative exam: General.: Appears well, no distress, nontoxic HEENT: Moist mucous membranes, extraocular muscles intact, no lymphadenopathy Neck: supple Cardiac: S1-S2 heard Lungs: clear to auscultation bilaterally Abdomen: soft , nontender, nondistended, bowel sounds positive Extremities: no edema clubbing or cyanosis Skin: no rash or lesions Neurologic: non verbal, left hemiparesis Psych: calm cooperative - Constitutional Vitals: Temp Pulse Resp BP Pulse Ox 97.5 F L 72 19 117/78 99 06/28/17 08:13 06/28/17 08:13 06/28/17 08:13 06/28/17 10:11 06/28/17 08:13 General appearance: Present: no acute distress, well-nourished, other (will not open eyes or obey command. Vita in the room, said she is sleeping. ) Results - Labs CBC & Chem 7: 06/27/17 04:58 06/27/17 04:58 Labs: Laboratory Last Values WBC 3.8 K/mm3 (4.5-11.0) L 06/27/17 04:58 RBC 4.43 M/mm3 (3.65-5.03) 06/27/17 04:58 Hgb 13.7 gm/dl (10.1-14.3) 06/27/17 04:58 Hct 40.3 % (30.3-42.9) 06/27/17 04:58 MCV 91 fl (79-97) 06/27/17 04:58 MCH 31 pg (28-32) 06/27/17 04:58 MCHC 34 % (30-34) 06/27/17 04:58 RDW 15.0 % (13.2-15.2) 06/27/17 04:58 Plt Count 216 K/mm3 (140-440) 06/27/17 04:58 Lymph % (Auto) 43.4 % (13.4-35.0) H 06/27/17 04:58 [place] % (Auto) 12.8 % (0.0-7.3) H 06/27/17 04:58 Eos % (Auto) 2.1 % (0.0-4.3) 06/27/17 04:58 Baso % (Auto) 1.1 % (0.0-1.8) 06/27/17 04:58 Lymph # 1.6 K/mm3 (1.2-5.4) 06/27/17 04:58 [place] # 0.5 K/mm3 (0.0-0.8) 06/27/17 04:58 Eos # 0.1 K/mm3 (0.0-0.4) 06/27/17 04:58 Baso # 0.0 K/mm3 (0.0-0.1) 06/27/17 04:58 Add Manual Diff Complete 05/12/17 05:44 Total Counted 100 05/12/17 05:44 Seg Neutrophils % 40.6 % (40.0-70.0) 06/27/17 04:58 Seg Neuts % (Manual) 46.0 % (40.0-70.0) 05/12/17 05:44 Band Neutrophils % 0 % 05/12/17 05:44 Lymphocytes % (Manual) 39.0 % (13.4-35.0) H 05/12/17 05:44 Reactive Lymphs % (Man) 0 % 05/12/17 05:44 Monocytes % (Manual) 12.0 % (0.0-7.3) H 05/12/17 05:44 Eosinophils % (Manual) 3.0 % (0.0-4.3) 05/12/17 05:44 Basophils % (Manual) 0 % (0.0-1.8) 05/12/17 05:44 Metamyelocytes % 0 % 05/12/17 05:44 Myelocytes % 0 % 05/12/17 05:44 Promyelocytes % 0 % 05/12/17 05:44 Blast Cells % 0 % 05/12/17 05:44 Nucleated RBC % Not Reportable 05/12/17 05:44 Seg Neutrophils # 1.5 K/mm3 (1.8-7.7) L 06/27/17 04:58 Seg Neutrophils # Man 1.3 K/mm3 (1.8-7.7) L 05/12/17 05:44 Band Neutrophils # 0.0 K/mm3 05/12/17 05:44 Lymphocytes # (Manual) 1.1 K/mm3 (1.2-5.4) L 05/12/17 05:44 Abs React Lymphs (Man) 0.0 K/mm3 05/12/17 05:44 Monocytes # (Manual) 0.3 K/mm3 (0.0-0.8) 05/12/17 05:44 Eosinophils # (Manual) 0.1 K/mm3 (0.0-0.4) 05/12/17 05:44 Basophils # (Manual) 0.0 K/mm3 (0.0-0.1) 05/12/17 05:44 Metamyelocytes # 0.0 K/mm3 05/12/17 05:44 Myelocytes # 0.0 K/mm3 05/12/17 05:44 Promyelocytes # 0.0 K/mm3 05/12/17 05:44 Blast Cells # 0.0 K/mm3 05/12/17 05:44 WBC Morphology Not Reportable 05/12/17 05:44 Hypersegmented Neuts Not Reportable 05/12/17 05:44 Hyposegmented Neuts Not Reportable 05/12/17 05:44 Hypogranular Neuts Not Reportable 05/12/17 05:44 Smudge Cells Not Reportable 05/12/17 05:44 Toxic Granulation Not Reportable 05/12/17 05:44 Toxic Vacuolation Not Reportable 05/12/17 05:44 Dohle Bodies Not Reportable 05/12/17 05:44 Pelger-Huet Anomaly Not Reportable 05/12/17 05:44 Shelly Rods Not Reportable 05/12/17 05:44 Platelet Estimate Cons 05/12/17 05:44 Clumped Platelets Few 05/12/17 05:44 Plt Clumps, EDTA Not Reportable 05/12/17 05:44 Large Platelets Not Reportable 05/12/17 05:44 Giant Platelets Not Reportable 05/12/17 05:44 Platelet Satelliting Not Reportable 05/12/17 05:44 Plt Morphology Comment Not Reportable 05/12/17 05:44 RBC Morphology Normal 05/12/17 05:44 Dimorphic RBCs Not Reportable 05/12/17 05:44 Polychromasia Not Reportable 05/12/17 05:44 Hypochromasia Not Reportable 05/12/17 05:44 Poikilocytosis Not Reportable 05/12/17 05:44 Anisocytosis Not Reportable 05/12/17 05:44 Microcytosis Not Reportable 05/12/17 05:44 Macrocytosis Not Reportable 05/12/17 05:44 Spherocytes Not Reportable 05/12/17 05:44 Pappenheimer Bodies Not Reportable 05/12/17 05:44 Sickle Cells Not Reportable 05/12/17 05:44 Target Cells Not Reportable 05/12/17 05:44 Tear Drop Cells Not Reportable 05/12/17 05:44 Ovalocytes Not Reportable 05/12/17 05:44 Helmet Cells Not Reportable 05/12/17 05:44 Cao-[place] Bodies Not Reportable 05/12/17 05:44 [place] Rings Not Reportable 05/12/17 05:44 [place] Cells Not Reportable 05/12/17 05:44 Bite Cells Not Reportable 05/12/17 05:44 Crenated Cell Not Reportable 05/12/17 05:44 Elliptocytes Not Reportable 05/12/17 05:44 Acanthocytes (Spur) Not Reportable 05/12/17 05:44 Rouleaux Not Reportable 05/12/17 05:44 Hemoglobin C Crystals Not Reportable 05/12/17 05:44 Schistocytes Not Reportable 05/12/17 05:44 Malaria parasites Not Reportable 05/12/17 05:44 Wander Bodies Not Reportable 05/12/17 05:44 Hem Pathologist Commnt No 05/12/17 05:44 PT 13.9 Sec. (12.2-14.9) 05/11/17 12:56 INR 1.02 (0.87-1.13) 05/11/17 12:56 APTT 29.8 Sec. (24.2-36.6) 05/11/17 12:56 Thrombin Time 16.4 Sec. (15.1-19.6) 05/11/17 12:56 Sodium 145 mmol/L (137-145) 06/27/17 04:58 Potassium 4.4 mmol/L (3.6-5.0) 06/27/17 04:58 Chloride 103.1 mmol/L (98-107) 06/27/17 04:58 Carbon Dioxide 27 mmol/L (22-30) 06/27/17 04:58 Anion Gap 19 mmol/L 06/27/17 04:58 BUN 17 mg/dL (7-17) 06/27/17 04:58 Creatinine 0.4 mg/dL (0.7-1.2) L 06/27/17 04:58 Estimated GFR > 60 ml/min 06/27/17 04:58 BUN/Creatinine Ratio 43 % 06/27/17 04:58 Glucose 128 mg/dL (65-100) H 06/27/17 04:58 POC Glucose 109 (70-105) H 06/28/17 05:30 Hemoglobin A1c 5.7 % (4-6) 05/11/17 12:56 Calcium 9.8 mg/dL (8.4-10.2) 06/27/17 04:58 Total Bilirubin 0.30 mg/dL (0.1-1.2) 05/12/17 05:44 AST 27 units/L (5-40) 05/12/17 05:44 ALT 28 units/L (7-56) 05/12/17 05:44 Alkaline Phosphatase 52 units/L (35-129) 05/12/17 05:44 Total Creatine Kinase 64 units/L (30-135) 05/11/17 12:56 CK-MB (CK-2) 1.4 ng/mL (0.0-4.0) 05/11/17 12:56 CK-MB (CK-2) Rel Index 2.1 (0-4) 05/11/17 12:56 Troponin T < 0.010 ng/mL (0.00-0.029) 05/11/17 12:56 Total Protein 6.5 g/dL (6.3-8.2) 05/12/17 05:44 Albumin 3.8 g/dL (3.9-5) L 05/12/17 05:44 Albumin/Globulin Ratio 1.4 % 05/12/17 05:44 Triglycerides 113 mg/dL (2-149) 05/12/17 05:44 Cholesterol 172 mg/dL (50-199) 05/12/17 05:44 LDL Cholesterol Direct 115 mg/dL (50-130) 05/12/17 05:44 HDL Cholesterol 35 mg/dL (40-59) L 05/12/17 05:44 Cholesterol/HDL Ratio 4.91 % 05/12/17 05:44 Urine Color Yellow (Yellow) 05/11/17 14:09 Urine Turbidity Clear (Clear) 05/11/17 14:09 Urine pH 6.0 (5.0-7.0) 05/11/17 14:09 Ur Specific [place] 1.016 (1.003-1.030) 05/11/17 14:09 Urine Protein <15 mg/dl mg/dL (Negative) 05/11/17 14:09 Urine Glucose (UA) Neg mg/dL (Negative) 05/11/17 14:09 Urine Ketones Tr mg/dL (Negative) 05/11/17 14:09 Urine Blood Neg (Negative) 05/11/17 14:09 Urine Nitrite Neg (Negative) 05/11/17 14:09 Urine Bilirubin Neg (Negative) 05/11/17 14:09 Urine Urobilinogen < 2.0 mg/dL (<2.0) 05/11/17 14:09 Ur Leukocyte Esterase Neg (Negative) 05/11/17 14:09 Urine WBC (Auto) 2.0 /HPF (0.0-6.0) 05/11/17 14:09 Urine RBC (Auto) 3.0 /HPF (0.0-6.0) 05/11/17 14:09 U Epithel Cells (Auto) < 1.0 /HPF (0-13.0) 05/11/17 14:09 Urine Mucus Few /HPF 05/11/17 14:09 Valproic Acid 79.7 ug/mL (50-100) 05/11/17 12:56
[2017-06-28] MEDS: LOVENOX SUB-Q SCH (23:21)
[2017-06-29] MEDS: APRESOLINE FEEDTUBE SCH ×6 (01:08→21:26)
[2017-06-29] MEDS: BABY ASPIRIN PO SCH (09:41)
[2017-06-29] MEDS: NORVASC FEEDTUBE SCH (09:41)
[2017-06-29] MEDS: PEPCID FEEDTUBE SCH ×2 (09:41→21:27)
[2017-06-29] MEDS: DepaKENE Liq FEEDTUBE SCH ×2 (09:42→21:27)
--- NOTE | 2017-06-29 12:48 | Progress Note ---
Assessment and Plan /CVA with left-sided weakness; with residual left-sided weakness, bedbound, CT 05/11/17 ; Chronic infarct right occipital lobe right josh , Apparent subacute to early chronic right thalamic infarct Cont Physical therapy rehabilitation, continue antiplatelets and statin /Dysphagia status post PEG placement, continue PEG tube feeds - unable to do barrium swallow study / History of seizures; continue seizure precautions antiepileptic medications / HTN; stable on antihypertensives /GERD ; continue PPIs /Dyslipidemia; on statin /Leukopenia; resolved /DC planning per case management Possible discharge home with home health versus SNF placement But family refuses to take her back home, will need placement Brief History: 56-year-old female AAF with a history of stroke and feeding tube brought to the hospital by EMS with a complaint of of "new stroke." Hospitalist Physical General appearance: Present: no acute distress, - EENT Eyes: Present: PERRL, EOM intact - Neck Neck: Present: supple, normal ROM - Respiratory Respiratory effort: normal Respiratory: bilateral: diminished, negative: rales, rhonchi, wheezing - Cardiovascular Rhythm: regular Heart Sounds: Present: S1 & S2 - Extremities Extremities: no ischemia Extremity abnormal: edema (trace edema) - Abdominal General gastrointestinal: soft, non-tender, non-distended, normal bowel sounds, other (PEG in place) - Integumentary Integumentary: Present: clear, warm - Psychiatric Psychiatric: other (alert and awake, noncommunicative) - Neurologic Neurologic: other (noncommunicative/bedbound/left-sided weakness) Subjective Date of service: 06/29/17 Principal diagnosis: Acute CVA Interval history: Since seen and examined medical records reviewed Patient is alert and awake, not in acute distress Patient is clinically stable no new changes Objective - Constitutional Vitals: Vital Signs - 12hr 06/29/17 06/29/17 06/29/17 01:08 06:42 07:52 Temperature 97.9 F Pulse Rate 87 87 88 Respiratory 20 Rate Blood Pressure 124/87 137/87 149/108 O2 Sat by Pulse 99 Oximetry 06/29/17 09:41 Temperature Pulse Rate 88 Respiratory Rate Blood Pressure 150/100 O2 Sat by Pulse Oximetry - Labs CBC & Chem 7: 06/27/17 04:58 06/27/17 04:58 Labs: Abnormal lab results 06/28/17 06/29/17 Range/Units 22:51 05:58 POC Glucose 116 H 115 H (70-105)
[2017-06-29] MEDS: LOVENOX SUB-Q SCH (21:26)
[2017-06-30] MEDS: APRESOLINE FEEDTUBE SCH ×3 (06:51→21:48)
[2017-06-30] MEDS: NORVASC FEEDTUBE SCH (10:15)
[2017-06-30] MEDS: PEPCID FEEDTUBE SCH ×2 (10:15→21:48)
[2017-06-30] MEDS: BABY ASPIRIN PO SCH (10:15)
[2017-06-30] MEDS: DepaKENE Liq FEEDTUBE SCH ×2 (10:15→21:48)
--- NOTE | 2017-06-30 18:22 | Progress Note ---
Assessment and Plan /CVA with left-sided weakness; with residual left-sided weakness, bedbound, CT 05/11/17 ; Chronic infarct right occipital lobe right josh , Apparent subacute to early chronic right thalamic infarct Cont Physical therapy rehabilitation, continue antiplatelets and statin /Dysphagia status post PEG placement, continue PEG tube feeds - unable to do barrium swallow study / History of seizures; continue seizure precautions antiepileptic medications / HTN; stable on antihypertensives /GERD ; continue PPIs /Dyslipidemia; on statin /Leukopenia; resolved /DC planning per case management Possible discharge home with home health versus SNF placement But family refuses to take her back home, will need placement Brief History: 56-year-old female AAF with a history of stroke and feeding tube brought to the hospital by EMS with a complaint of of "new stroke." Hospitalist Physical General appearance: Present: no acute distress, - EENT Eyes: Present: PERRL, EOM intact - Neck Neck: Present: supple, normal ROM - Respiratory Respiratory effort: normal Respiratory: bilateral: diminished, negative: rales, rhonchi, wheezing - Cardiovascular Rhythm: regular Heart Sounds: Present: S1 & S2 - Extremities Extremities: no ischemia Extremity abnormal: edema (trace edema) - Abdominal General gastrointestinal: soft, non-tender, non-distended, normal bowel sounds, other (PEG in place) - Integumentary Integumentary: Present: clear, warm - Psychiatric Psychiatric: other (alert and awake, noncommunicative) - Neurologic Neurologic: other (noncommunicative/bedbound/left-sided weakness) Subjective Date of service: 06/30/17 Principal diagnosis: Acute CVA Interval history: Since seen and examined medical records reviewed Patient is alert and awake, not in acute distress Patient is clinically stable no new changes Objective - Constitutional Vitals: Vital Signs - 12hr 06/30/17 06/30/17 06/30/17 06:51 07:25 11:55 Temperature 98.4 F 97.7 F Pulse Rate 113 H 89 90 Respiratory 16 20 Rate Blood Pressure 151/99 136/97 135/98 O2 Sat by Pulse 97 98 Oximetry 06/30/17 15:22 Temperature 98.5 F Pulse Rate 86 Respiratory 20 Rate Blood Pressure 148/94 O2 Sat by Pulse 98 Oximetry - Labs CBC & Chem 7: 06/27/17 04:58 06/27/17 04:58 Labs: Abnormal lab results 06/30/17 Range/Units 06:32 POC Glucose 119 H (70-105)
[2017-06-30] MEDS: LOVENOX SUB-Q SCH (21:48)
[2017-07-01] MEDS: APRESOLINE FEEDTUBE SCH ×3 (06:44→22:46)
[2017-07-01] MEDS: NORVASC FEEDTUBE SCH (10:19)
[2017-07-01] MEDS: PEPCID FEEDTUBE SCH ×2 (10:19→22:44)
[2017-07-01] MEDS: DepaKENE Liq FEEDTUBE SCH ×2 (10:19→22:44)
[2017-07-01] MEDS: BABY ASPIRIN PO SCH (10:19)
--- NOTE | 2017-07-01 14:36 | Progress Note ---
Assessment and Plan Assessment and plan: Patient is a 56-year-old woman with a history of stroke and feeding tube brought to the hospital by EMS on 05/11/17 with a complaint of of "new stroke." She pw with LEft sided weakness, facial droop and was non verbal on presentation - Acute CVA with infarct, left-sided weakness; with residual left-sided weakness, bedbound, CT 05/11/17 ; Chronic infarct right occipital lobe right josh , Apparent subacute to early chronic right thalamic infarct Cont Physical therapy rehabilitation, continue antiplatelets and statin - Dysphagia status post PEG placement, continue PEG tube feeds - History of seizures; continue seizure precautions antiepileptic medications - Accelerated HTN, POA; continue antihypertensives - GERD ; continue PPIs - Dyslipidemia; on statin - DVT with Lovenox - DC planning per case management Awaiting placement in SNF But family not capable of taking care of pt at home. 07/01/17: My first day with patient, and José adler at bedside, who seems very supportive. AMS with acute encephalopathy, there is a question of hemorrhagic conversion, will order MRI ?stroke progression of stroke History Interval history: Patient was seen and examined. Follow-up on current diagnosis/CVA. Overnight uneventful. Patient is nonverbal. Imaging, nursing note, chart, labs and old chart reviewed. Discussed with José adler at bedside. Hospitalist Physical - Physical exam Narrative exam: GEN: WDWN, NAD, sleeping but arousable, nonverbal HEENT: NCAT, EOMI, PERRL, OP Clear NECK: supple, no adenopathy, no thyromegaly, no JVD CVS/HEART: RRR, NORMAL S1S2, NO JVD, pulses present bilaterally CHEST/LUNGS: CTA B, Symmetrical chest expansion, good air entry bilaterally GI/Abdomen: soft, NTND, good bowel sounds, no guarding or rebound /Bladder: no suprapubic tenderness, no CVA or paraspinal tenderness EXT/Skin: no c/c/e, no obvious rash MSK: Left hemiparesis Neuro: CN 2-12 grossly intact, no new focal deficits, doesn't follow commands Psych: calm - Constitutional Vitals: Temp Pulse Resp BP Pulse Ox 97.6 F 89 18 155/98 100 07/01/17 13:36 07/01/17 07:41 07/01/17 13:36 07/01/17 14:14 07/01/17 07:41 General appearance: Present: no acute distress, well-nourished, other (will not open eyes or obey command. Vita in the room, said she is sleeping. ) Results - Labs CBC & Chem 7: 06/27/17 04:58 06/27/17 04:58 Labs: Laboratory Last Values WBC 3.8 K/mm3 (4.5-11.0) L 06/27/17 04:58 RBC 4.43 M/mm3 (3.65-5.03) 06/27/17 04:58 Hgb 13.7 gm/dl (10.1-14.3) 06/27/17 04:58 Hct 40.3 % (30.3-42.9) 06/27/17 04:58 MCV 91 fl (79-97) 06/27/17 04:58 MCH 31 pg (28-32) 06/27/17 04:58 MCHC 34 % (30-34) 06/27/17 04:58 RDW 15.0 % (13.2-15.2) 06/27/17 04:58 Plt Count 216 K/mm3 (140-440) 06/27/17 04:58 Lymph % (Auto) 43.4 % (13.4-35.0) H 06/27/17 04:58 [place] % (Auto) 12.8 % (0.0-7.3) H 06/27/17 04:58 Eos % (Auto) 2.1 % (0.0-4.3) 06/27/17 04:58 Baso % (Auto) 1.1 % (0.0-1.8) 06/27/17 04:58 Lymph # 1.6 K/mm3 (1.2-5.4) 06/27/17 04:58 [place] # 0.5 K/mm3 (0.0-0.8) 06/27/17 04:58 Eos # 0.1 K/mm3 (0.0-0.4) 06/27/17 04:58 Baso # 0.0 K/mm3 (0.0-0.1) 06/27/17 04:58 Add Manual Diff Complete 05/12/17 05:44 Total Counted 100 05/12/17 05:44 Seg Neutrophils % 40.6 % (40.0-70.0) 06/27/17 04:58 Seg Neuts % (Manual) 46.0 % (40.0-70.0) 05/12/17 05:44 Band Neutrophils % 0 % 05/12/17 05:44 Lymphocytes % (Manual) 39.0 % (13.4-35.0) H 05/12/17 05:44 Reactive Lymphs % (Man) 0 % 05/12/17 05:44 Monocytes % (Manual) 12.0 % (0.0-7.3) H 05/12/17 05:44 Eosinophils % (Manual) 3.0 % (0.0-4.3) 05/12/17 05:44 Basophils % (Manual) 0 % (0.0-1.8) 05/12/17 05:44 Metamyelocytes % 0 % 05/12/17 05:44 Myelocytes % 0 % 05/12/17 05:44 Promyelocytes % 0 % 05/12/17 05:44 Blast Cells % 0 % 05/12/17 05:44 Nucleated RBC % Not Reportable 05/12/17 05:44 Seg Neutrophils # 1.5 K/mm3 (1.8-7.7) L 06/27/17 04:58 Seg Neutrophils # Man 1.3 K/mm3 (1.8-7.7) L 05/12/17 05:44 Band Neutrophils # 0.0 K/mm3 05/12/17 05:44 Lymphocytes # (Manual) 1.1 K/mm3 (1.2-5.4) L 05/12/17 05:44 Abs React Lymphs (Man) 0.0 K/mm3 05/12/17 05:44 Monocytes # (Manual) 0.3 K/mm3 (0.0-0.8) 05/12/17 05:44 Eosinophils # (Manual) 0.1 K/mm3 (0.0-0.4) 05/12/17 05:44 Basophils # (Manual) 0.0 K/mm3 (0.0-0.1) 05/12/17 05:44 Metamyelocytes # 0.0 K/mm3 05/12/17 05:44 Myelocytes # 0.0 K/mm3 05/12/17 05:44 Promyelocytes # 0.0 K/mm3 05/12/17 05:44 Blast Cells # 0.0 K/mm3 05/12/17 05:44 WBC Morphology Not Reportable 05/12/17 05:44 Hypersegmented Neuts Not Reportable 05/12/17 05:44 Hyposegmented Neuts Not Reportable 05/12/17 05:44 Hypogranular Neuts Not Reportable 05/12/17 05:44 Smudge Cells Not Reportable 05/12/17 05:44 Toxic Granulation Not Reportable 05/12/17 05:44 Toxic Vacuolation Not Reportable 05/12/17 05:44 Dohle Bodies Not Reportable 05/12/17 05:44 Pelger-Huet Anomaly Not Reportable 05/12/17 05:44 Shelly Rods Not Reportable 05/12/17 05:44 Platelet Estimate Cons 05/12/17 05:44 Clumped Platelets Few 05/12/17 05:44 Plt Clumps, EDTA Not Reportable 05/12/17 05:44 Large Platelets Not Reportable 05/12/17 05:44 Giant Platelets Not Reportable 05/12/17 05:44 Platelet Satelliting Not Reportable 05/12/17 05:44 Plt Morphology Comment Not Reportable 05/12/17 05:44 RBC Morphology Normal 05/12/17 05:44 Dimorphic RBCs Not Reportable 05/12/17 05:44 Polychromasia Not Reportable 05/12/17 05:44 Hypochromasia Not Reportable 05/12/17 05:44 Poikilocytosis Not Reportable 05/12/17 05:44 Anisocytosis Not Reportable 05/12/17 05:44 Microcytosis Not Reportable 05/12/17 05:44 Macrocytosis Not Reportable 05/12/17 05:44 Spherocytes Not Reportable 05/12/17 05:44 Pappenheimer Bodies Not Reportable 05/12/17 05:44 Sickle Cells Not Reportable 05/12/17 05:44 Target Cells Not Reportable 05/12/17 05:44 Tear Drop Cells Not Reportable 05/12/17 05:44 Ovalocytes Not Reportable 05/12/17 05:44 Helmet Cells Not Reportable 05/12/17 05:44 [place] Bodies Not Reportable 05/12/17 05:44 [place] Rings Not Reportable 05/12/17 05:44 [place] Cells Not Reportable 05/12/17 05:44 Bite Cells Not Reportable 05/12/17 05:44 Crenated Cell Not Reportable 05/12/17 05:44 Elliptocytes Not Reportable 05/12/17 05:44 Acanthocytes (Spur) Not Reportable 05/12/17 05:44 Rouleaux Not Reportable 05/12/17 05:44 Hemoglobin C Crystals Not Reportable 05/12/17 05:44 Schistocytes Not Reportable 05/12/17 05:44 Malaria parasites Not Reportable 05/12/17 05:44 Wander Bodies Not Reportable 05/12/17 05:44 Hem Pathologist Commnt No 05/12/17 05:44 PT 13.9 Sec. (12.2-14.9) 05/11/17 12:56 INR 1.02 (0.87-1.13) 05/11/17 12:56 APTT 29.8 Sec. (24.2-36.6) 05/11/17 12:56 Thrombin Time 16.4 Sec. (15.1-19.6) 05/11/17 12:56 Sodium 145 mmol/L (137-145) 06/27/17 04:58 Potassium 4.4 mmol/L (3.6-5.0) 06/27/17 04:58 Chloride 103.1 mmol/L (98-107) 06/27/17 04:58 Carbon Dioxide 27 mmol/L (22-30) 06/27/17 04:58 Anion Gap 19 mmol/L 06/27/17 04:58 BUN 17 mg/dL (7-17) 06/27/17 04:58 Creatinine 0.4 mg/dL (0.7-1.2) L 06/27/17 04:58 Estimated GFR > 60 ml/min 06/27/17 04:58 BUN/Creatinine Ratio 43 % 06/27/17 04:58 Glucose 128 mg/dL (65-100) H 06/27/17 04:58 POC Glucose 119 (70-105) H 06/30/17 06:32 Hemoglobin A1c 5.7 % (4-6) 05/11/17 12:56 Calcium 9.8 mg/dL (8.4-10.2) 06/27/17 04:58 Total Bilirubin 0.30 mg/dL (0.1-1.2) 05/12/17 05:44 AST 27 units/L (5-40) 05/12/17 05:44 ALT 28 units/L (7-56) 05/12/17 05:44 Alkaline Phosphatase 52 units/L (35-129) 05/12/17 05:44 Total Creatine Kinase 64 units/L (30-135) 05/11/17 12:56 CK-MB (CK-2) 1.4 ng/mL (0.0-4.0) 05/11/17 12:56 CK-MB (CK-2) Rel Index 2.1 (0-4) 05/11/17 12:56 Troponin T < 0.010 ng/mL (0.00-0.029) 05/11/17 12:56 Total Protein 6.5 g/dL (6.3-8.2) 05/12/17 05:44 Albumin 3.8 g/dL (3.9-5) L 05/12/17 05:44 Albumin/Globulin Ratio 1.4 % 05/12/17 05:44 Triglycerides 113 mg/dL (2-149) 05/12/17 05:44 Cholesterol 172 mg/dL (50-199) 05/12/17 05:44 LDL Cholesterol Direct 115 mg/dL (50-130) 05/12/17 05:44 HDL Cholesterol 35 mg/dL (40-59) L 05/12/17 05:44 Cholesterol/HDL Ratio 4.91 % 05/12/17 05:44 Urine Color Yellow (Yellow) 05/11/17 14:09 Urine Turbidity Clear (Clear) 05/11/17 14:09 Urine pH 6.0 (5.0-7.0) 05/11/17 14:09 Ur Specific [place] 1.016 (1.003-1.030) 05/11/17 14:09 Urine Protein <15 mg/dl mg/dL (Negative) 05/11/17 14:09 Urine Glucose (UA) Neg mg/dL (Negative) 05/11/17 14:09 Urine Ketones Tr mg/dL (Negative) 05/11/17 14:09 Urine Blood Neg (Negative) 05/11/17 14:09 Urine Nitrite Neg (Negative) 05/11/17 14:09 Urine Bilirubin Neg (Negative) 05/11/17 14:09 Urine Urobilinogen < 2.0 mg/dL (<2.0) 05/11/17 14:09 Ur Leukocyte Esterase Neg (Negative) 05/11/17 14:09 Urine WBC (Auto) 2.0 /HPF (0.0-6.0) 05/11/17 14:09 Urine RBC (Auto) 3.0 /HPF (0.0-6.0) 05/11/17 14:09 U Epithel Cells (Auto) < 1.0 /HPF (0-13.0) 05/11/17 14:09 Urine Mucus Few /HPF 05/11/17 14:09 Valproic Acid 79.7 ug/mL (50-100) 05/11/17 12:56
--- NOTE | 2017-07-01 18:25 | Magnetic Resonance Report ---
FINAL REPORT PROCEDURE: Magnetic resonance angiogram brain without contrast. TECHNIQUE: Axial 3-D [id number] MR angiography of the [place] and brain was performed. The source images were reconstructed in various views using maximum intensity projection. HISTORY: Acute stroke. COMPARISON: No prior studies are available for comparison. FINDINGS: There is motion artifact on the pulse sequence. Both distal internal carotid arteries are patent. Both anterior cerebral arteries are patent. The anterior communicating artery is patent. Both middle cerebral arteries are patent. The left posterior communicating artery is patent. The right posterior communicating artery is not visualized. The distal right vertebral artery is patent. The distal left vertebral artery is small and suboptimally visualized. This could be a congenital condition where the artery terminates in the posterior inferior cerebellar artery. The basilar artery is patent. Both anterior inferior cerebellar arteries are patent. Both superior cerebellar arteries are patent. The left posterior cerebral artery is patent. The right posterior cerebral artery is occluded, consistent with the previous chronic right occipital infarct. There are no signs of aneurysm disease. There is no evidence of a vasculitis. IMPRESSION: Limited study. 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 Very small left vertebral artery. No definite signs of acute disease.
--- NOTE | 2017-07-01 18:59 | Magnetic Resonance Report ---
FINAL REPORT PROCEDURE: MRI brain without contrast. TECHNIQUE: Magnetic resonance imaging of the brain was performed without contrast material. HISTORY: Acute stroke. COMPARISON: No prior studies are available for comparison. FINDINGS: There is moderate cerebral atrophy. There is abnormal signal intensity within the medial portion of the right temporal occipital lobe. This has low signal intensity on the T1 weighted imaging and bright signal intensity on the T2 weighted imaging. There is volume loss present. The findings are consistent with encephalomalacia from an old stroke. There are some smaller focal areas of encephalomalacia involving the left frontal lobe. These are also consistent with previous ischemic injury. There is an old lacunar infarct in the right side of the josh. There is a small amount of hemorrhage within the body of the right lateral ventricle and the occipital horn of the left lateral ventricle. This has bright signal intensity on T1 and T2 weighted imaging and is consistent with late stage subacute hemorrhage. There is no obstructive hydrocephalus. There is no intraparenchymal hemorrhage. There are no mass lesions. There are no signs of restricted diffusion. The mastoid air cells and paranasal sinuses are grossly clear. IMPRESSION: Chronic ischemic changes as described. Very small amount of late stage subacute blood in the ventricular system. No evidence of an acute stroke.
[2017-07-02] MEDS: APRESOLINE FEEDTUBE SCH ×3 (05:54→21:39)
[2017-07-02] MEDS: NORVASC FEEDTUBE SCH (10:33)
[2017-07-02] MEDS: DepaKENE Liq FEEDTUBE SCH ×2 (10:33→21:40)
[2017-07-02] MEDS: PEPCID FEEDTUBE SCH ×2 (10:34→21:41)
[2017-07-02] MEDS: BABY ASPIRIN PO SCH (10:34)
--- NOTE | 2017-07-02 14:55 | Progress Note ---
Assessment and Plan Assessment and plan: Patient is a 56-year-old woman with a history of stroke and feeding tube brought to the hospital by EMS on 05/11/17 with a complaint of of "new stroke." She pw with LEft sided weakness, facial droop and was non verbal on presentation - Acute SAH, left-sided weakness; with residual left-sided weakness, bedbound, Cont Physical therapy rehabilitation, continue antiplatelets and statin - Dysphagia status post PEG placement, continue PEG tube feeds - History of seizures; continue seizure precautions antiepileptic medications - Accelerated HTN, POA; continue antihypertensives - GERD ; continue PPIs - Dyslipidemia; on statin - DVT with Lovenox==>stopped on 07/01/17 due to SAH - DC planning per case management Awaiting placement in SNF But family not capable of taking care of pt at home. 07/01/17: My first day with patient, and José adler at bedside, who seems very supportive. AMS with acute encephalopathy, there is a question of hemorrhagic conversion, will order MRI ?stroke progression of stroke 07/02/17: Reviewed MRI and MRA brain and d/w Radiologist, Dr. Coleman, pt still with subacute SAH since 05/11/17 most likely from Right anterior thalamic hemorrhage from hypertensive crisis. I then called and spoke with Neurologist, Dr. Reid and asked him for management recommendations; he states, he will come and evaluate today. History Interval history: Patient was seen and examined. Follow-up on current diagnosis/CVA. Overnight uneventful. Patient is nonverbal. Imaging, nursing note, chart, labs and old chart reviewed. Discussed with José adler at bedside. Hospitalist Physical - Physical exam Narrative exam: GEN: WDWN, NAD, sleeping but arousable, nonverbal HEENT: NCAT, EOMI, PERRL, OP Clear NECK: supple, no adenopathy, no thyromegaly, no JVD CVS/HEART: RRR, NORMAL S1S2, NO JVD, pulses present bilaterally CHEST/LUNGS: CTA B, Symmetrical chest expansion, good air entry bilaterally GI/Abdomen: soft, NTND, good bowel sounds, no guarding or rebound /Bladder: no suprapubic tenderness, no CVA or paraspinal tenderness EXT/Skin: no c/c/e, no obvious rash MSK: Left hemiparesis Neuro: CN 2-12 grossly intact, no new focal deficits, doesn't follow commands Psych: calm - Constitutional Vitals: Temp Pulse Resp BP Pulse Ox 98.5 F 89 18 128/89 98 07/02/17 13:47 07/02/17 07:54 07/02/17 07:54 07/02/17 13:53 07/02/17 07:54 General appearance: Present: no acute distress, well-nourished Results - Labs CBC & Chem 7: 06/27/17 04:58 06/27/17 04:58 Labs: Laboratory Last Values WBC 3.8 K/mm3 (4.5-11.0) L 06/27/17 04:58 RBC 4.43 M/mm3 (3.65-5.03) 06/27/17 04:58 Hgb 13.7 gm/dl (10.1-14.3) 06/27/17 04:58 Hct 40.3 % (30.3-42.9) 06/27/17 04:58 MCV 91 fl (79-97) 06/27/17 04:58 MCH 31 pg (28-32) 06/27/17 04:58 MCHC 34 % (30-34) 06/27/17 04:58 RDW 15.0 % (13.2-15.2) 06/27/17 04:58 Plt Count 216 K/mm3 (140-440) 06/27/17 04:58 Lymph % (Auto) 43.4 % (13.4-35.0) H 06/27/17 04:58 [place] % (Auto) 12.8 % (0.0-7.3) H 06/27/17 04:58 Eos % (Auto) 2.1 % (0.0-4.3) 06/27/17 04:58 Baso % (Auto) 1.1 % (0.0-1.8) 06/27/17 04:58 Lymph # 1.6 K/mm3 (1.2-5.4) 06/27/17 04:58 [place] # 0.5 K/mm3 (0.0-0.8) 06/27/17 04:58 Eos # 0.1 K/mm3 (0.0-0.4) 06/27/17 04:58 Baso # 0.0 K/mm3 (0.0-0.1) 06/27/17 04:58 Add Manual Diff Complete 05/12/17 05:44 Total Counted 100 05/12/17 05:44 Seg Neutrophils % 40.6 % (40.0-70.0) 06/27/17 04:58 Seg Neuts % (Manual) 46.0 % (40.0-70.0) 05/12/17 05:44 Band Neutrophils % 0 % 05/12/17 05:44 Lymphocytes % (Manual) 39.0 % (13.4-35.0) H 05/12/17 05:44 Reactive Lymphs % (Man) 0 % 05/12/17 05:44 Monocytes % (Manual) 12.0 % (0.0-7.3) H 05/12/17 05:44 Eosinophils % (Manual) 3.0 % (0.0-4.3) 05/12/17 05:44 Basophils % (Manual) 0 % (0.0-1.8) 05/12/17 05:44 Metamyelocytes % 0 % 05/12/17 05:44 Myelocytes % 0 % 05/12/17 05:44 Promyelocytes % 0 % 05/12/17 05:44 Blast Cells % 0 % 05/12/17 05:44 Nucleated RBC % Not Reportable 05/12/17 05:44 Seg Neutrophils # 1.5 K/mm3 (1.8-7.7) L 06/27/17 04:58 Seg Neutrophils # Man 1.3 K/mm3 (1.8-7.7) L 05/12/17 05:44 Band Neutrophils # 0.0 K/mm3 05/12/17 05:44 Lymphocytes # (Manual) 1.1 K/mm3 (1.2-5.4) L 05/12/17 05:44 Abs React Lymphs (Man) 0.0 K/mm3 05/12/17 05:44 Monocytes # (Manual) 0.3 K/mm3 (0.0-0.8) 05/12/17 05:44 Eosinophils # (Manual) 0.1 K/mm3 (0.0-0.4) 05/12/17 05:44 Basophils # (Manual) 0.0 K/mm3 (0.0-0.1) 05/12/17 05:44 Metamyelocytes # 0.0 K/mm3 05/12/17 05:44 Myelocytes # 0.0 K/mm3 05/12/17 05:44 Promyelocytes # 0.0 K/mm3 05/12/17 05:44 Blast Cells # 0.0 K/mm3 05/12/17 05:44 WBC Morphology Not Reportable 05/12/17 05:44 Hypersegmented Neuts Not Reportable 05/12/17 05:44 Hyposegmented Neuts Not Reportable 05/12/17 05:44 Hypogranular Neuts Not Reportable 05/12/17 05:44 Smudge Cells Not Reportable 05/12/17 05:44 Toxic Granulation Not Reportable 05/12/17 05:44 Toxic Vacuolation Not Reportable 05/12/17 05:44 Dohle Bodies Not Reportable 05/12/17 05:44 Pelger-Huet Anomaly Not Reportable 05/12/17 05:44 Shelly Rods Not Reportable 05/12/17 05:44 Platelet Estimate Cons 05/12/17 05:44 Clumped Platelets Few 05/12/17 05:44 Plt Clumps, EDTA Not Reportable 05/12/17 05:44 Large Platelets Not Reportable 05/12/17 05:44 Giant Platelets Not Reportable 05/12/17 05:44 Platelet Satelliting Not Reportable 05/12/17 05:44 Plt Morphology Comment Not Reportable 05/12/17 05:44 RBC Morphology Normal 05/12/17 05:44 Dimorphic RBCs Not Reportable 05/12/17 05:44 Polychromasia Not Reportable 05/12/17 05:44 Hypochromasia Not Reportable 05/12/17 05:44 Poikilocytosis Not Reportable 05/12/17 05:44 Anisocytosis Not Reportable 05/12/17 05:44 Microcytosis Not Reportable 05/12/17 05:44 Macrocytosis Not Reportable 05/12/17 05:44 Spherocytes Not Reportable 05/12/17 05:44 Pappenheimer Bodies Not Reportable 05/12/17 05:44 Sickle Cells Not Reportable 05/12/17 05:44 Target Cells Not Reportable 05/12/17 05:44 Tear Drop Cells Not Reportable 05/12/17 05:44 Ovalocytes Not Reportable 05/12/17 05:44 Helmet Cells Not Reportable 05/12/17 05:44 [place] Bodies Not Reportable 05/12/17 05:44 [place] Rings Not Reportable 05/12/17 05:44 [place] Cells Not Reportable 05/12/17 05:44 Bite Cells Not Reportable 05/12/17 05:44 Crenated Cell Not Reportable 05/12/17 05:44 Elliptocytes Not Reportable 05/12/17 05:44 Acanthocytes (Spur) Not Reportable 05/12/17 05:44 Rouleaux Not Reportable 05/12/17 05:44 Hemoglobin C Crystals Not Reportable 05/12/17 05:44 Schistocytes Not Reportable 05/12/17 05:44 Malaria parasites Not Reportable 05/12/17 05:44 [place]ander Bodies Not Reportable 05/12/17 05:44 Hem Pathologist Commnt No 05/12/17 05:44 PT 13.9 Sec. (12.2-14.9) 05/11/17 12:56 INR 1.02 (0.87-1.13) 05/11/17 12:56 APTT 29.8 Sec. (24.2-36.6) 05/11/17 12:56 Thrombin Time 16.4 Sec. (15.1-19.6) 05/11/17 12:56 Sodium 145 mmol/L (137-145) 06/27/17 04:58 Potassium 4.4 mmol/L (3.6-5.0) 06/27/17 04:58 Chloride 103.1 mmol/L (98-107) 06/27/17 04:58 Carbon Dioxide 27 mmol/L (22-30) 06/27/17 04:58 Anion Gap 19 mmol/L 06/27/17 04:58 BUN 17 mg/dL (7-17) 06/27/17 04:58 Creatinine 0.4 mg/dL (0.7-1.2) L 06/27/17 04:58 Estimated GFR > 60 ml/min 06/27/17 04:58 BUN/Creatinine Ratio 43 % 06/27/17 04:58 Glucose 128 mg/dL (65-100) H 06/27/17 04:58 POC Glucose 119 (70-105) H 06/30/17 06:32 Hemoglobin A1c 5.7 % (4-6) 05/11/17 12:56 Calcium 9.8 mg/dL (8.4-10.2) 06/27/17 04:58 Total Bilirubin 0.30 mg/dL (0.1-1.2) 05/12/17 05:44 AST 27 units/L (5-40) 05/12/17 05:44 ALT 28 units/L (7-56) 05/12/17 05:44 Alkaline Phosphatase 52 units/L (35-129) 05/12/17 05:44 Total Creatine Kinase 64 units/L (30-135) 05/11/17 12:56 CK-MB (CK-2) 1.4 ng/mL (0.0-4.0) 05/11/17 12:56 CK-MB (CK-2) Rel Index 2.1 (0-4) 05/11/17 12:56 Troponin T < 0.010 ng/mL (0.00-0.029) 05/11/17 12:56 Total Protein 6.5 g/dL (6.3-8.2) 05/12/17 05:44 Albumin 3.8 g/dL (3.9-5) L 05/12/17 05:44 Albumin/Globulin Ratio 1.4 % 05/12/17 05:44 Triglycerides 113 mg/dL (2-149) 05/12/17 05:44 Cholesterol 172 mg/dL (50-199) 05/12/17 05:44 LDL Cholesterol Direct 115 mg/dL (50-130) 05/12/17 05:44 HDL Cholesterol 35 mg/dL (40-59) L 05/12/17 05:44 Cholesterol/HDL Ratio 4.91 % 05/12/17 05:44 Urine Color Yellow (Yellow) 05/11/17 14:09 Urine Turbidity Clear (Clear) 05/11/17 14:09 Urine pH 6.0 (5.0-7.0) 05/11/17 14:09 Ur Specific [place] 1.016 (1.003-1.030) 05/11/17 14:09 Urine Protein <15 mg/dl mg/dL (Negative) 05/11/17 14:09 Urine Glucose (UA) Neg mg/dL (Negative) 05/11/17 14:09 Urine Ketones Tr mg/dL (Negative) 05/11/17 14:09 Urine Blood Neg (Negative) 05/11/17 14:09 Urine Nitrite Neg (Negative) 05/11/17 14:09 Urine Bilirubin Neg (Negative) 05/11/17 14:09 Urine Urobilinogen < 2.0 mg/dL (<2.0) 05/11/17 14:09 Ur Leukocyte Esterase Neg (Negative) 05/11/17 14:09 Urine WBC (Auto) 2.0 /HPF (0.0-6.0) 05/11/17 14:09 Urine RBC (Auto) 3.0 /HPF (0.0-6.0) 05/11/17 14:09 U Epithel Cells (Auto) < 1.0 /HPF (0-13.0) 05/11/17 14:09 Urine Mucus Few /HPF 05/11/17 14:09 Valproic Acid 79.7 ug/mL (50-100) 05/11/17 12:56
[2017-07-03] MEDS: APRESOLINE FEEDTUBE SCH ×3 (06:24→23:31)
--- NOTE | 2017-07-03 11:08 | Progress Note ---
Assessment and Plan Assessment and plan: Patient is a 56-year-old woman with a history of stroke and feeding tube brought to the hospital by EMS on 05/11/17 with a complaint of of "new stroke." She pw with LEft sided weakness, facial droop and was non verbal on presentation - Acute SAH, left-sided weakness; with residual left-sided weakness, bedbound, Cont Physical therapy rehabilitation, continue antiplatelets and statin - Dysphagia status post PEG placement, continue PEG tube feeds - History of seizures; continue seizure precautions antiepileptic medications - Accelerated HTN, POA; continue antihypertensives - GERD ; continue PPIs - Dyslipidemia; on statin - DVT with Lovenox==>stopped on 07/01/17 due to SAH - DC planning per case management Awaiting placement in SNF But family not capable of taking care of pt at home. 07/01/17: My first day with patient, and José adler at bedside, who seems very supportive. AMS with acute encephalopathy, there is a question of hemorrhagic conversion, will order MRI ?stroke progression of stroke 07/02/17: Reviewed MRI and MRA brain and d/w Radiologist, Dr. Coleman, pt still with subacute SAH since 05/11/17 most likely from Right anterior thalamic hemorrhage from hypertensive crisis. I then called and spoke with Neurologist, Dr. Reid and asked him for management recommendations; he states, he will come and evaluate today. 07/03/17: Still waiting on Neurology, Dr. Reid's note. No change History Interval history: Patient was seen and examined. Follow-up on current diagnosis/CVA. Overnight uneventful. Patient is nonverbal. Imaging, nursing note, chart, labs and old chart reviewed. Hospitalist Physical - Physical exam Narrative exam: GEN: WDWN, NAD, sleeping but arousable, nonverbal HEENT: NCAT, EOMI, PERRL, OP Clear NECK: supple, no adenopathy, no thyromegaly, no JVD CVS/HEART: RRR, NORMAL S1S2, NO JVD, pulses present bilaterally CHEST/LUNGS: CTA B, Symmetrical chest expansion, good air entry bilaterally GI/Abdomen: soft, NTND, good bowel sounds, no guarding or rebound /Bladder: no suprapubic tenderness, no CVA or paraspinal tenderness EXT/Skin: no c/c/e, no obvious rash MSK: Left hemiparesis Neuro: CN 2-12 grossly intact, no new focal deficits, doesn't follow commands Psych: calm - Constitutional Vitals: Temp Pulse Resp BP Pulse Ox 98.2 F 96 H 20 148/93 100 07/03/17 07:21 07/03/17 07:21 07/03/17 07:21 07/03/17 07:21 07/03/17 07:21 General appearance: Present: no acute distress, well-nourished Results - Labs CBC & Chem 7: 06/27/17 04:58 06/27/17 04:58 Labs: Laboratory Last Values WBC 3.8 K/mm3 (4.5-11.0) L 06/27/17 04:58 RBC 4.43 M/mm3 (3.65-5.03) 06/27/17 04:58 Hgb 13.7 gm/dl (10.1-14.3) 06/27/17 04:58 Hct 40.3 % (30.3-42.9) 06/27/17 04:58 MCV 91 fl (79-97) 06/27/17 04:58 MCH 31 pg (28-32) 06/27/17 04:58 MCHC 34 % (30-34) 06/27/17 04:58 RDW 15.0 % (13.2-15.2) 06/27/17 04:58 Plt Count 216 K/mm3 (140-440) 06/27/17 04:58 Lymph % (Auto) 43.4 % (13.4-35.0) H 06/27/17 04:58 [place] % (Auto) 12.8 % (0.0-7.3) H 06/27/17 04:58 Eos % (Auto) 2.1 % (0.0-4.3) 06/27/17 04:58 Baso % (Auto) 1.1 % (0.0-1.8) 06/27/17 04:58 Lymph # 1.6 K/mm3 (1.2-5.4) 06/27/17 04:58 [place] # 0.5 K/mm3 (0.0-0.8) 06/27/17 04:58 Eos # 0.1 K/mm3 (0.0-0.4) 06/27/17 04:58 Baso # 0.0 K/mm3 (0.0-0.1) 06/27/17 04:58 Add Manual Diff Complete 05/12/17 05:44 Total Counted 100 05/12/17 05:44 Seg Neutrophils % 40.6 % (40.0-70.0) 06/27/17 04:58 Seg Neuts % (Manual) 46.0 % (40.0-70.0) 05/12/17 05:44 Band Neutrophils % 0 % 05/12/17 05:44 Lymphocytes % (Manual) 39.0 % (13.4-35.0) H 05/12/17 05:44 Reactive Lymphs % (Man) 0 % 05/12/17 05:44 Monocytes % (Manual) 12.0 % (0.0-7.3) H 05/12/17 05:44 Eosinophils % (Manual) 3.0 % (0.0-4.3) 05/12/17 05:44 Basophils % (Manual) 0 % (0.0-1.8) 05/12/17 05:44 Metamyelocytes % 0 % 05/12/17 05:44 Myelocytes % 0 % 05/12/17 05:44 Promyelocytes % 0 % 05/12/17 05:44 Blast Cells % 0 % 05/12/17 05:44 Nucleated RBC % Not Reportable 05/12/17 05:44 Seg Neutrophils # 1.5 K/mm3 (1.8-7.7) L 06/27/17 04:58 Seg Neutrophils # Man 1.3 K/mm3 (1.8-7.7) L 05/12/17 05:44 Band Neutrophils # 0.0 K/mm3 05/12/17 05:44 Lymphocytes # (Manual) 1.1 K/mm3 (1.2-5.4) L 05/12/17 05:44 Abs React Lymphs (Man) 0.0 K/mm3 05/12/17 05:44 Monocytes # (Manual) 0.3 K/mm3 (0.0-0.8) 05/12/17 05:44 Eosinophils # (Manual) 0.1 K/mm3 (0.0-0.4) 05/12/17 05:44 Basophils # (Manual) 0.0 K/mm3 (0.0-0.1) 05/12/17 05:44 Metamyelocytes # 0.0 K/mm3 05/12/17 05:44 Myelocytes # 0.0 K/mm3 05/12/17 05:44 Promyelocytes # 0.0 K/mm3 05/12/17 05:44 Blast Cells # 0.0 K/mm3 05/12/17 05:44 WBC Morphology Not Reportable 05/12/17 05:44 Hypersegmented Neuts Not Reportable 05/12/17 05:44 Hyposegmented Neuts Not Reportable 05/12/17 05:44 Hypogranular Neuts Not Reportable 05/12/17 05:44 Smudge Cells Not Reportable 05/12/17 05:44 Toxic Granulation Not Reportable 05/12/17 05:44 Toxic Vacuolation Not Reportable 05/12/17 05:44 Dohle Bodies Not Reportable 05/12/17 05:44 Pelger-Huet Anomaly Not Reportable 05/12/17 05:44 Shelly Rods Not Reportable 05/12/17 05:44 Platelet Estimate Cons 05/12/17 05:44 Clumped Platelets Few 05/12/17 05:44 Plt Clumps, EDTA Not Reportable 05/12/17 05:44 Large Platelets Not Reportable 05/12/17 05:44 Giant Platelets Not Reportable 05/12/17 05:44 Platelet Satelliting Not Reportable 05/12/17 05:44 Plt Morphology Comment Not Reportable 05/12/17 05:44 RBC Morphology Normal 05/12/17 05:44 Dimorphic RBCs Not Reportable 05/12/17 05:44 Polychromasia Not Reportable 05/12/17 05:44 Hypochromasia Not Reportable 05/12/17 05:44 Poikilocytosis Not Reportable 05/12/17 05:44 Anisocytosis Not Reportable 05/12/17 05:44 Microcytosis Not Reportable 05/12/17 05:44 Macrocytosis Not Reportable 05/12/17 05:44 Spherocytes Not Reportable 05/12/17 05:44 Pappenheimer Bodies Not Reportable 05/12/17 05:44 Sickle Cells Not Reportable 05/12/17 05:44 Target Cells Not Reportable 05/12/17 05:44 Tear Drop Cells Not Reportable 05/12/17 05:44 Ovalocytes Not Reportable 05/12/17 05:44 Helmet Cells Not Reportable 05/12/17 05:44 Ca[place] Bodies Not Reportable 05/12/17 05:44 [place] Rings Not Reportable 05/12/17 05:44 Mary Cells Not Reportable 05/12/17 05:44 Bite Cells Not Reportable 05/12/17 05:44 Crenated Cell Not Reportable 05/12/17 05:44 Elliptocytes Not Reportable 05/12/17 05:44 Acanthocytes (Spur) Not Reportable 05/12/17 05:44 Rouleaux Not Reportable 05/12/17 05:44 Hemoglobin C Crystals Not Reportable 05/12/17 05:44 Schistocytes Not Reportable 05/12/17 05:44 Malaria parasites Not Reportable 05/12/17 05:44 Wander Bodies Not Reportable 05/12/17 05:44 Hem Pathologist Commnt No 05/12/17 05:44 PT 13.9 Sec. (12.2-14.9) 05/11/17 12:56 INR 1.02 (0.87-1.13) 05/11/17 12:56 APTT 29.8 Sec. (24.2-36.6) 05/11/17 12:56 Thrombin Time 16.4 Sec. (15.1-19.6) 05/11/17 12:56 Sodium 145 mmol/L (137-145) 06/27/17 04:58 Potassium 4.4 mmol/L (3.6-5.0) 06/27/17 04:58 Chloride 103.1 mmol/L (98-107) 06/27/17 04:58 Carbon Dioxide 27 mmol/L (22-30) 06/27/17 04:58 Anion Gap 19 mmol/L 06/27/17 04:58 BUN 17 mg/dL (7-17) 06/27/17 04:58 Creatinine 0.4 mg/dL (0.7-1.2) L 06/27/17 04:58 Estimated GFR > 60 ml/min 06/27/17 04:58 BUN/Creatinine Ratio 43 % 06/27/17 04:58 Glucose 128 mg/dL (65-100) H 06/27/17 04:58 POC Glucose 119 (70-105) H 06/30/17 06:32 Hemoglobin A1c 5.7 % (4-6) 05/11/17 12:56 Calcium 9.8 mg/dL (8.4-10.2) 06/27/17 04:58 Total Bilirubin 0.30 mg/dL (0.1-1.2) 05/12/17 05:44 AST 27 units/L (5-40) 05/12/17 05:44 ALT 28 units/L (7-56) 05/12/17 05:44 Alkaline Phosphatase 52 units/L (35-129) 05/12/17 05:44 Total Creatine Kinase 64 units/L (30-135) 05/11/17 12:56 CK-MB (CK-2) 1.4 ng/mL (0.0-4.0) 05/11/17 12:56 CK-MB (CK-2) Rel Index 2.1 (0-4) 05/11/17 12:56 Troponin T < 0.010 ng/mL (0.00-0.029) 05/11/17 12:56 Total Protein 6.5 g/dL (6.3-8.2) 05/12/17 05:44 Albumin 3.8 g/dL (3.9-5) L 05/12/17 05:44 Albumin/Globulin Ratio 1.4 % 05/12/17 05:44 Triglycerides 113 mg/dL (2-149) 05/12/17 05:44 Cholesterol 172 mg/dL (50-199) 05/12/17 05:44 LDL Cholesterol Direct 115 mg/dL (50-130) 05/12/17 05:44 HDL Cholesterol 35 mg/dL (40-59) L 05/12/17 05:44 Cholesterol/HDL Ratio 4.91 % 05/12/17 05:44 Urine Color Yellow (Yellow) 05/11/17 14:09 Urine Turbidity Clear (Clear) 05/11/17 14:09 Urine pH 6.0 (5.0-7.0) 05/11/17 14:09 Ur Specific [place] 1.016 (1.003-1.030) 05/11/17 14:09 Urine Protein <15 mg/dl mg/dL (Negative) 05/11/17 14:09 Urine Glucose (UA) Neg mg/dL (Negative) 05/11/17 14:09 Urine Ketones Tr mg/dL (Negative) 05/11/17 14:09 Urine Blood Neg (Negative) 05/11/17 14:09 Urine Nitrite Neg (Negative) 05/11/17 14:09 Urine Bilirubin Neg (Negative) 05/11/17 14:09 Urine Urobilinogen < 2.0 mg/dL (<2.0) 05/11/17 14:09 Ur Leukocyte Esterase Neg (Negative) 05/11/17 14:09 Urine WBC (Auto) 2.0 /HPF (0.0-6.0) 05/11/17 14:09 Urine RBC (Auto) 3.0 /HPF (0.0-6.0) 05/11/17 14:09 U Epithel Cells (Auto) < 1.0 /HPF (0-13.0) 05/11/17 14:09 Urine Mucus Few /HPF 05/11/17 14:09 Valproic Acid 79.7 ug/mL (50-100) 05/11/17 12:56
[2017-07-03] MEDS: BABY ASPIRIN PO SCH (14:02)
[2017-07-03] MEDS: DepaKENE Liq FEEDTUBE SCH ×2 (14:03→23:33)
[2017-07-03] MEDS: NORVASC FEEDTUBE SCH (14:03)
[2017-07-03] MEDS: PEPCID FEEDTUBE SCH ×2 (14:04→23:31)
[2017-07-04] MEDS: APRESOLINE FEEDTUBE SCH ×3 (11:24→22:17)
[2017-07-04] MEDS: DepaKENE Liq FEEDTUBE SCH ×2 (11:27→22:18)
[2017-07-04] MEDS: PEPCID FEEDTUBE SCH ×2 (11:27→22:18)
[2017-07-04] MEDS: NORVASC FEEDTUBE SCH (11:27)
[2017-07-04] MEDS: BABY ASPIRIN PO SCH (11:27)
--- NOTE | 2017-07-04 14:07 | Progress Note ---
Assessment and Plan Assessment and plan: Patient is a 56-year-old woman with a history of stroke and feeding tube brought to the hospital by EMS on 05/11/17 with a complaint of of "new stroke." She pw with Left sided weakness, facial droop and was non verbal on presentation - Acute SAH, left-sided weakness; with residual left-sided weakness, bedbound, Cont Physical therapy rehabilitation, continue antiplatelets and statin - Dysphagia status post PEG placement, continue PEG tube feeds - History of seizures; continue seizure precautions antiepileptic medications - Accelerated HTN, POA; continue antihypertensives - GERD ; continue PPIs - Dyslipidemia; on statin - DVT with Lovenox==>stopped on 07/01/17 due to SAH - DC planning per case management Awaiting placement in SNF But family not capable of taking care of pt at home. 07/01/17: My first day with patient, and José adler at bedside, who seems very supportive. AMS with acute encephalopathy, there is a question of hemorrhagic conversion, will order MRI ?stroke progression of stroke 07/02/17: Reviewed MRI and MRA brain and d/w Radiologist, Dr. Coleman, pt still with subacute SAH since 05/11/17 most likely from Right anterior thalamic hemorrhage from hypertensive crisis. I then called and spoke with Neurologist, Dr. Reid and asked him for management recommendations; he states, he will come and evaluate today. 07/03/17: Still waiting on Neurology, Dr. Reid's note. No change 07/04/17: d/w Dr. Reid. He will see. History Interval history: Patient was seen and examined. Follow-up on current diagnosis/CVA. Overnight uneventful. Patient is nonverbal. Imaging, nursing note, chart, labs and old chart reviewed. Hospitalist Physical - Physical exam Narrative exam: GEN: WDWN, NAD, sleeping but arousable, nonverbal HEENT: NCAT, EOMI, PERRL, OP Clear NECK: supple, no adenopathy, no thyromegaly, no JVD CVS/HEART: RRR, NORMAL S1S2, NO JVD, pulses present bilaterally CHEST/LUNGS: CTA B, Symmetrical chest expansion, good air entry bilaterally GI/Abdomen: soft, NTND, good bowel sounds, no guarding or rebound /Bladder: no suprapubic tenderness, no CVA or paraspinal tenderness EXT/Skin: no c/c/e, no obvious rash MSK: Left hemiparesis Neuro: CN 2-12 grossly intact, no new focal deficits, doesn't follow commands Psych: calm - Constitutional Vitals: Temp Pulse Resp BP Pulse Ox 99.0 F 92 H 20 140/80 98 07/04/17 07:29 07/04/17 07:29 07/04/17 07:29 07/04/17 11:27 07/04/17 07:29 General appearance: Present: no acute distress, well-nourished Results - Labs CBC & Chem 7: 06/27/17 04:58 06/27/17 04:58 Labs: Laboratory Last Values WBC 3.8 K/mm3 (4.5-11.0) L 06/27/17 04:58 RBC 4.43 M/mm3 (3.65-5.03) 06/27/17 04:58 Hgb 13.7 gm/dl (10.1-14.3) 06/27/17 04:58 Hct 40.3 % (30.3-42.9) 06/27/17 04:58 MCV 91 fl (79-97) 06/27/17 04:58 MCH 31 pg (28-32) 06/27/17 04:58 MCHC 34 % (30-34) 06/27/17 04:58 RDW 15.0 % (13.2-15.2) 06/27/17 04:58 Plt Count 216 K/mm3 (140-440) 06/27/17 04:58 Lymph % (Auto) 43.4 % (13.4-35.0) H 06/27/17 04:58 [place] % (Auto) 12.8 % (0.0-7.3) H 06/27/17 04:58 Eos % (Auto) 2.1 % (0.0-4.3) 06/27/17 04:58 Baso % (Auto) 1.1 % (0.0-1.8) 06/27/17 04:58 Lymph # 1.6 K/mm3 (1.2-5.4) 06/27/17 04:58 [place] # 0.5 K/mm3 (0.0-0.8) 06/27/17 04:58 Eos # 0.1 K/mm3 (0.0-0.4) 06/27/17 04:58 Baso # 0.0 K/mm3 (0.0-0.1) 06/27/17 04:58 Add Manual Diff Complete 05/12/17 05:44 Total Counted 100 05/12/17 05:44 Seg Neutrophils % 40.6 % (40.0-70.0) 06/27/17 04:58 Seg Neuts % (Manual) 46.0 % (40.0-70.0) 05/12/17 05:44 Band Neutrophils % 0 % 05/12/17 05:44 Lymphocytes % (Manual) 39.0 % (13.4-35.0) H 05/12/17 05:44 Reactive Lymphs % (Man) 0 % 05/12/17 05:44 Monocytes % (Manual) 12.0 % (0.0-7.3) H 05/12/17 05:44 Eosinophils % (Manual) 3.0 % (0.0-4.3) 05/12/17 05:44 Basophils % (Manual) 0 % (0.0-1.8) 05/12/17 05:44 Metamyelocytes % 0 % 05/12/17 05:44 Myelocytes % 0 % 05/12/17 05:44 Promyelocytes % 0 % 05/12/17 05:44 Blast Cells % 0 % 05/12/17 05:44 Nucleated RBC % Not Reportable 05/12/17 05:44 Seg Neutrophils # 1.5 K/mm3 (1.8-7.7) L 06/27/17 04:58 Seg Neutrophils # Man 1.3 K/mm3 (1.8-7.7) L 05/12/17 05:44 Band Neutrophils # 0.0 K/mm3 05/12/17 05:44 Lymphocytes # (Manual) 1.1 K/mm3 (1.2-5.4) L 05/12/17 05:44 Abs React Lymphs (Man) 0.0 K/mm3 05/12/17 05:44 Monocytes # (Manual) 0.3 K/mm3 (0.0-0.8) 05/12/17 05:44 Eosinophils # (Manual) 0.1 K/mm3 (0.0-0.4) 05/12/17 05:44 Basophils # (Manual) 0.0 K/mm3 (0.0-0.1) 05/12/17 05:44 Metamyelocytes # 0.0 K/mm3 05/12/17 05:44 Myelocytes # 0.0 K/mm3 05/12/17 05:44 Promyelocytes # 0.0 K/mm3 05/12/17 05:44 Blast Cells # 0.0 K/mm3 05/12/17 05:44 WBC Morphology Not Reportable 05/12/17 05:44 Hypersegmented Neuts Not Reportable 05/12/17 05:44 Hyposegmented Neuts Not Reportable 05/12/17 05:44 Hypogranular Neuts Not Reportable 05/12/17 05:44 Smudge Cells Not Reportable 05/12/17 05:44 Toxic Granulation Not Reportable 05/12/17 05:44 Toxic Vacuolation Not Reportable 05/12/17 05:44 Dohle Bodies Not Reportable 05/12/17 05:44 Pelger-Huet Anomaly Not Reportable 05/12/17 05:44 Shelly Rods Not Reportable 05/12/17 05:44 Platelet Estimate Cons 05/12/17 05:44 Clumped Platelets Few 05/12/17 05:44 Plt Clumps, EDTA Not Reportable 05/12/17 05:44 Large Platelets Not Reportable 05/12/17 05:44 Giant Platelets Not Reportable 05/12/17 05:44 Platelet Satelliting Not Reportable 05/12/17 05:44 Plt Morphology Comment Not Reportable 05/12/17 05:44 RBC Morphology Normal 05/12/17 05:44 Dimorphic RBCs Not Reportable 05/12/17 05:44 Polychromasia Not Reportable 05/12/17 05:44 Hypochromasia Not Reportable 05/12/17 05:44 Poikilocytosis Not Reportable 05/12/17 05:44 Anisocytosis Not Reportable 05/12/17 05:44 Microcytosis Not Reportable 05/12/17 05:44 Macrocytosis Not Reportable 05/12/17 05:44 Spherocytes Not Reportable 05/12/17 05:44 Pappenheimer Bodies Not Reportable 05/12/17 05:44 Sickle Cells Not Reportable 05/12/17 05:44 Target Cells Not Reportable 05/12/17 05:44 Tear Drop Cells Not Reportable 05/12/17 05:44 Ovalocytes Not Reportable 05/12/17 05:44 Helmet Cells Not Reportable 05/12/17 05:44 Cao-[place] Bodies Not Reportable 05/12/17 05:44 [place] Rings Not Reportable 05/12/17 05:44 Mary Cells Not Reportable 05/12/17 05:44 Bite Cells Not Reportable 05/12/17 05:44 Crenated Cell Not Reportable 05/12/17 05:44 Elliptocytes Not Reportable 05/12/17 05:44 Acanthocytes (Spur) Not Reportable 05/12/17 05:44 Rouleaux Not Reportable 05/12/17 05:44 Hemoglobin C Crystals Not Reportable 05/12/17 05:44 Schistocytes Not Reportable 05/12/17 05:44 Malaria parasites Not Reportable 05/12/17 05:44 Wander Bodies Not Reportable 05/12/17 05:44 Hem Pathologist Commnt No 05/12/17 05:44 PT 13.9 Sec. (12.2-14.9) 05/11/17 12:56 INR 1.02 (0.87-1.13) 05/11/17 12:56 APTT 29.8 Sec. (24.2-36.6) 05/11/17 12:56 Thrombin Time 16.4 Sec. (15.1-19.6) 05/11/17 12:56 Sodium 145 mmol/L (137-145) 06/27/17 04:58 Potassium 4.4 mmol/L (3.6-5.0) 06/27/17 04:58 Chloride 103.1 mmol/L (98-107) 06/27/17 04:58 Carbon Dioxide 27 mmol/L (22-30) 06/27/17 04:58 Anion Gap 19 mmol/L 06/27/17 04:58 BUN 17 mg/dL (7-17) 06/27/17 04:58 Creatinine 0.4 mg/dL (0.7-1.2) L 06/27/17 04:58 Estimated GFR > 60 ml/min 06/27/17 04:58 BUN/Creatinine Ratio 43 % 06/27/17 04:58 Glucose 128 mg/dL (65-100) H 06/27/17 04:58 POC Glucose 88 (70-105) 07/04/17 11:31 Hemoglobin A1c 5.7 % (4-6) 05/11/17 12:56 Calcium 9.8 mg/dL (8.4-10.2) 06/27/17 04:58 Total Bilirubin 0.30 mg/dL (0.1-1.2) 05/12/17 05:44 AST 27 units/L (5-40) 05/12/17 05:44 ALT 28 units/L (7-56) 05/12/17 05:44 Alkaline Phosphatase 52 units/L (35-129) 05/12/17 05:44 Total Creatine Kinase 64 units/L (30-135) 05/11/17 12:56 CK-MB (CK-2) 1.4 ng/mL (0.0-4.0) 05/11/17 12:56 CK-MB (CK-2) Rel Index 2.1 (0-4) 05/11/17 12:56 Troponin T < 0.010 ng/mL (0.00-0.029) 05/11/17 12:56 Total Protein 6.5 g/dL (6.3-8.2) 05/12/17 05:44 Albumin 3.8 g/dL (3.9-5) L 05/12/17 05:44 Albumin/Globulin Ratio 1.4 % 05/12/17 05:44 Triglycerides 113 mg/dL (2-149) 05/12/17 05:44 Cholesterol 172 mg/dL (50-199) 05/12/17 05:44 LDL Cholesterol Direct 115 mg/dL (50-130) 05/12/17 05:44 HDL Cholesterol 35 mg/dL (40-59) L 05/12/17 05:44 Cholesterol/HDL Ratio 4.91 % 05/12/17 05:44 Urine Color Yellow (Yellow) 05/11/17 14:09 Urine Turbidity Clear (Clear) 05/11/17 14:09 Urine pH 6.0 (5.0-7.0) 05/11/17 14:09 Ur Specific [employer] 1.016 (1.003-1.030) 05/11/17 14:09 Urine Protein <15 mg/dl mg/dL (Negative) 05/11/17 14:09 Urine Glucose (UA) Neg mg/dL (Negative) 05/11/17 14:09 Urine Ketones Tr mg/dL (Negative) 05/11/17 14:09 Urine Blood Neg (Negative) 05/11/17 14:09 Urine Nitrite Neg (Negative) 05/11/17 14:09 Urine Bilirubin Neg (Negative) 05/11/17 14:09 Urine Urobilinogen < 2.0 mg/dL (<2.0) 05/11/17 14:09 Ur Leukocyte Esterase Neg (Negative) 05/11/17 14:09 Urine WBC (Auto) 2.0 /HPF (0.0-6.0) 05/11/17 14:09 Urine RBC (Auto) 3.0 /HPF (0.0-6.0) 05/11/17 14:09 U Epithel Cells (Auto) < 1.0 /HPF (0-13.0) 05/11/17 14:09 Urine Mucus Few /HPF 05/11/17 14:09 Valproic Acid 79.7 ug/mL (50-100) 05/11/17 12:56
--- NOTE | 2017-07-04 14:10 | Consultation ---
History of Present Illness Consult date: 07/04/17 History of present illness: spoke to he hospitalist and there is stable pattern of a new stroke that is in the left frontal area... the old stroke in the right thalamus from HTN is stable no need for neurosurgical intervention.... the patient can go to rehab this next week Past History Past Medical History: GERD, seizures, stroke Past Surgical History: Other (peg tube) Social history: denies: smoking, alcohol abuse Medications and Allergies Allergies Allergy/AdvReac Type Severity Reaction Status Date / Time No Known Allergies Allergy Unverified 05/11/17 12:27 Home Medications Medication Instructions Recorded Confirmed Last Taken Type Amlodipine Besylate [Norvasc] 10 mg FEEDTUBE DAILY 05/11/17 05/11/17 Unknown History Labetalol [Normodyne TAB] 200 mg PO BID 05/11/17 05/11/17 Unknown History Ranitidine HCl [Acid Matrix Inspector] 150 mg FEEDTUBE BID 05/11/17 05/11/17 Unknown History VALPROIC ACID Liq [DepaKENE Liq] 15 ml FEEDTUBE BID 05/11/17 05/11/17 Unknown History hydrALAZINE [Apresoline TAB] 50 mg FEEDTUBE QID 05/11/17 05/11/17 Unknown History Active Meds: Active Medications Acetaminophen (Tylenol) 650 mg PO Q4H PRN PRN Reason: Pain MILD(1-3)/Fever >100.5/GRIGGS Amlodipine Besylate (Norvasc) 10 mg FEEDTUBE DAILY [facility] Last Admin: 07/04/17 11:27 Dose: 10 mg Lipase/Protease/Amylase (Whit [place]ver 10,500 Unit) 1 each FEEDTUBE PRN PRN PRN Reason: For Clogged Feeding Tube Aspirin (Baby Aspirin) 81 mg PO QDAY [facility] Last Admin: 07/04/17 11:27 Dose: 81 mg Atorvastatin Calcium (Lipitor) 20 mg PO QHS [facility] Last Admin: 07/03/17 23:30 Dose: 20 mg Bisacodyl (Dulcolax) 10 mg LA QDAY PRN PRN Reason: Constipation unrelieved by MOM Famotidine (Pepcid) 20 mg FEEDTUBE BID [facility] Last Admin: 07/04/17 11:27 Dose: 20 mg Hydralazine HCl (Apresoline) 10 mg IV Q6HR PRN PRN Reason: Hypertension Hydralazine HCl (Apresoline) 25 mg FEEDTUBE Q8HR [facility] Last Admin: 07/04/17 11:24 Dose: Not Given Magnesium Hydroxide (Milk Of Magnesia) 30 ml PO Q4H PRN PRN Reason: Constipation Ondansetron HCl (Zofran) 4 mg IV Q8H PRN PRN Reason: N/V unrelieved by Reglan Simple Syrup (Simple Syrup) 15 ml FEEDTUBE PRN PRN PRN Reason: Hypoglycemia Simple Syrup (Simple Syrup) 30 ml FEEDTUBE PRN PRN PRN Reason: Hypoglycemia Sodium Bicarbonate (Sodium Bicarbonate) 325 mg FEEDTUBE PRN PRN PRN Reason: For Clogged Feeding Tube Sodium Chloride (Sodium Chloride Flush Syringe 10 Ml) 10 ml IV PRN PRN PRN Reason: LINE FLUSH Valproic Acid (Depakene Liq) 750 mg FEEDTUBE BID [facility] Last Admin: 07/04/17 11:27 Dose: 750 mg Physical Examination - Vital Signs Vital Signs: Vital Signs Temp Pulse Resp BP Pulse Ox 98.3 F 81 14 112/70 97 05/11/17 12:15 05/11/17 12:15 05/11/17 12:15 05/11/17 12:15 05/11/17 12:15 Results - Laboratory Findings CBC and BMP: 06/27/17 04:58 06/27/17 04:58 Abnormal Lab Findings: Abnormal Labs 05/11/17 05/11/17 05/12/17 12:56 12:56 05:44 WBC 3.0 L 2.9 L MCHC RDW 15.3 H Lymph % (Auto) 37.7 H [place] % (Auto) 14.1 H Baso % (Auto) 2.1 H Lymph # 1.1 L [place] # Seg Neutrophils % Lymphocytes % (Manual) 39.0 H Monocytes % (Manual) 12.0 H Seg Neutrophils # 1.3 L Seg Neutrophils # Man 1.3 L Lymphocytes # (Manual) 1.1 L BUN Creatinine 0.4 L Glucose 101 H POC Glucose Albumin HDL Cholesterol 05/12/17 05/13/17 05/13/17 05:44 08:10 16:43 WBC MCHC RDW Lymph % (Auto) [place] % (Auto) Baso % (Auto) Lymph # [place] # Seg Neutrophils % Lymphocytes % (Manual) Monocytes % (Manual) Seg Neutrophils # Seg Neutrophils # Man Lymphocytes # (Manual) BUN Creatinine 0.4 L Glucose POC Glucose 110 H 125 H Albumin 3.8 L HDL Cholesterol 35 L 05/13/17 05/15/17 05/15/17 22:44 04:00 23:57 WBC MCHC 35 H RDW Lymph % (Auto) [place] % (Auto) 11.8 H Baso % (Auto) Lymph # [place] # Seg Neutrophils % Lymphocytes % (Manual) Monocytes % (Manual) Seg Neutrophils # Seg Neutrophils # Man Lymphocytes # (Manual) BUN Creatinine Glucose POC Glucose 112 H 141 H Albumin HDL Cholesterol 05/16/17 05/17/17 05/17/17 23:21 06:14 11:31 WBC MCHC RDW Lymph % (Auto) [place] % (Auto) Baso % (Auto) Lymph # [place] # Seg Neutrophils % Lymphocytes % (Manual) Monocytes % (Manual) Seg Neutrophils # Seg Neutrophils # Man Lymphocytes # (Manual) BUN Creatinine Glucose POC Glucose 115 H 107 H 119 H Albumin HDL Cholesterol 05/17/17 05/17/17 05/18/17 17:30 21:49 11:41 WBC MCHC RDW Lymph % (Auto) [place] % (Auto) Baso % (Auto) Lymph # [place] # Seg Neutrophils % Lymphocytes % (Manual) Monocytes % (Manual) Seg Neutrophils # Seg Neutrophils # Man Lymphocytes # (Manual) BUN Creatinine Glucose POC Glucose 113 H 107 H 149 H Albumin HDL Cholesterol 05/18/17 05/19/17 05/19/17 17:04 00:10 06:14 WBC MCHC RDW Lymph % (Auto) [place] % (Auto) Baso % (Auto) Lymph # [place] # Seg Neutrophils % Lymphocytes % (Manual) Monocytes % (Manual) Seg Neutrophils # Seg Neutrophils # Man Lymphocytes # (Manual) BUN Creatinine Glucose POC Glucose 110 H 115 H 110 H Albumin HDL Cholesterol 05/19/17 05/19/17 05/20/17 11:15 16:36 11:27 WBC MCHC RDW Lymph % (Auto) [place] % (Auto) Baso % (Auto) Lymph # [place] # Seg Neutrophils % Lymphocytes % (Manual) Monocytes % (Manual) Seg Neutrophils # Seg Neutrophils # Man Lymphocytes # (Manual) BUN Creatinine Glucose POC Glucose 120 H 114 H 134 H Albumin HDL Cholesterol 05/20/17 05/21/17 05/21/17 22:59 05:37 11:59 WBC MCHC RDW Lymph % (Auto) [place] % (Auto) Baso % (Auto) Lymph # [place] # Seg Neutrophils % Lymphocytes % (Manual) Monocytes % (Manual) Seg Neutrophils # Seg Neutrophils # Man Lymphocytes # (Manual) BUN Creatinine Glucose POC Glucose 117 H 124 H 152 H Albumin HDL Cholesterol 05/21/17 05/22/17 05/22/17 23:30 11:33 17:03 WBC MCHC RDW Lymph % (Auto) [place] % (Auto) Baso % (Auto) Lymph # [place] # Seg Neutrophils % Lymphocytes % (Manual) Monocytes % (Manual) Seg Neutrophils # Seg Neutrophils # Man Lymphocytes # (Manual) BUN Creatinine Glucose POC Glucose 119 H 132 H 69 L Albumin HDL Cholesterol 05/22/17 05/23/17 05/23/17 23:19 05:16 11:58 WBC MCHC RDW Lymph % (Auto) [place] % (Auto) Baso % (Auto) Lymph # [place] # Seg Neutrophils % Lymphocytes % (Manual) Monocytes % (Manual) Seg Neutrophils # Seg Neutrophils # Man Lymphocytes # (Manual) BUN Creatinine Glucose POC Glucose 120 H 123 H 106 H Albumin HDL Cholesterol 05/23/17 05/24/17 05/24/17 16:35 00:52 06:56 WBC MCHC RDW Lymph % (Auto) [place] % (Auto) Baso % (Auto) Lymph # [place] # Seg Neutrophils % Lymphocytes % (Manual) Monocytes % (Manual) Seg Neutrophils # Seg Neutrophils # Man Lymphocytes # (Manual) BUN Creatinine Glucose POC Glucose 108 H 116 H 137 H Albumin HDL Cholesterol 05/24/17 05/25/17 05/26/17 12:37 11:28 05:33 WBC MCHC RDW Lymph % (Auto) [place] % (Auto) 13.2 H Baso % (Auto) Lymph # [place] # Seg Neutrophils % Lymphocytes % (Manual) Monocytes % (Manual) Seg Neutrophils # Seg Neutrophils # Man Lymphocytes # (Manual) BUN Creatinine Glucose POC Glucose 118 H 113 H Albumin HDL Cholesterol 05/26/17 05/26/17 05/27/17 05:33 11:35 01:02 WBC MCHC RDW Lymph % (Auto) [place] % (Auto) Baso % (Auto) Lymph # [place] # Seg Neutrophils % Lymphocytes % (Manual) Monocytes % (Manual) Seg Neutrophils # Seg Neutrophils # Man Lymphocytes # (Manual) BUN Creatinine 0.4 L Glucose POC Glucose 120 H 113 H Albumin HDL Cholesterol 05/28/17 05/31/17 05/31/17 07:42 05:08 12:08 WBC MCHC RDW Lymph % (Auto) [place] % (Auto) Baso % (Auto) Lymph # [place] # Seg Neutrophils % Lymphocytes % (Manual) Monocytes % (Manual) Seg Neutrophils # Seg Neutrophils # Man Lymphocytes # (Manual) BUN Creatinine Glucose POC Glucose 123 H 112 H 130 H Albumin HDL Cholesterol 06/01/17 06/01/17 06/01/17 07:01 16:30 21:44 WBC MCHC RDW Lymph % (Auto) [place] % (Auto) Baso % (Auto) Lymph # [place] # Seg Neutrophils % Lymphocytes % (Manual) Monocytes % (Manual) Seg Neutrophils # Seg Neutrophils # Man Lymphocytes # (Manual) BUN 19 H Creatinine 0.4 L Glucose 105 H POC Glucose 126 H 140 H Albumin HDL Cholesterol 06/02/17 06/02/17 06/03/17 05:40 21:02 06:30 WBC MCHC RDW Lymph % (Auto) [place] % (Auto) Baso % (Auto) Lymph # [place] # Seg Neutrophils % Lymphocytes % (Manual) Monocytes % (Manual) Seg Neutrophils # Seg Neutrophils # Man Lymphocytes # (Manual) BUN Creatinine Glucose POC Glucose 148 H 124 H 132 H Albumin HDL Cholesterol 06/03/17 06/04/17 06/04/17 12:09 05:22 23:28 WBC MCHC RDW Lymph % (Auto) [place] % (Auto) Baso % (Auto) Lymph # [place] # Seg Neutrophils % Lymphocytes % (Manual) Monocytes % (Manual) Seg Neutrophils # Seg Neutrophils # Man Lymphocytes # (Manual) BUN Creatinine Glucose POC Glucose 106 H 119 H 116 H Albumin HDL Cholesterol 06/05/17 06/05/17 06/05/17 05:07 05:07 05:42 WBC MCHC RDW Lymph % (Auto) [place] % (Auto) 13.1 H Baso % (Auto) Lymph # [place] # 0.9 H Seg Neutrophils % Lymphocytes % (Manual) Monocytes % (Manual) Seg Neutrophils # Seg Neutrophils # Man Lymphocytes # (Manual) BUN 19 H Creatinine 0.3 L Glucose 120 H POC Glucose 115 H Albumin HDL Cholesterol 06/05/17 06/06/17 06/06/17 11:55 00:00 05:32 WBC MCHC RDW Lymph % (Auto) [place] % (Auto) Baso % (Auto) Lymph # [place] # Seg Neutrophils % Lymphocytes % (Manual) Monocytes % (Manual) Seg Neutrophils # Seg Neutrophils # Man Lymphocytes # (Manual) BUN Creatinine Glucose POC Glucose 130 H 112 H 120 H Albumin HDL Cholesterol 06/06/17 06/07/17 06/08/17 23:25 06:55 06:40 WBC MCHC RDW Lymph % (Auto) [place] % (Auto) Baso % (Auto) Lymph # [place] # Seg Neutrophils % Lymphocytes % (Manual) Monocytes % (Manual) Seg Neutrophils # Seg Neutrophils # Man Lymphocytes # (Manual) BUN Creatinine Glucose POC Glucose 117 H 141 H 152 H Albumin HDL Cholesterol 06/08/17 06/09/17 06/10/17 23:46 05:33 05:15 WBC MCHC RDW Lymph % (Auto) [place] % (Auto) Baso % (Auto) Lymph # [place] # Seg Neutrophils % Lymphocytes % (Manual) Monocytes % (Manual) Seg Neutrophils # Seg Neutrophils # Man Lymphocytes # (Manual) BUN Creatinine Glucose POC Glucose 113 H 137 H 122 H Albumin HDL Cholesterol 06/10/17 06/11/17 06/11/17 23:01 06:53 06:59 WBC 4.1 L MCHC RDW Lymph % (Auto) [place] % (Auto) Baso % (Auto) Lymph # [place] # Seg Neutrophils % Lymphocytes % (Manual) Monocytes % (Manual) Seg Neutrophils # Seg Neutrophils # Man Lymphocytes # (Manual) BUN Creatinine Glucose POC Glucose 131 H 124 H Albumin HDL Cholesterol 06/11/17 06/11/17 06/11/17 06:59 12:20 22:47 WBC MCHC RDW Lymph % (Auto) [place] % (Auto) Baso % (Auto) Lymph # [place] # Seg Neutrophils % Lymphocytes % (Manual) Monocytes % (Manual) Seg Neutrophils # Seg Neutrophils # Man Lymphocytes # (Manual) BUN 18 H Creatinine 0.4 L Glucose 127 H POC Glucose 112 H 109 H Albumin HDL Cholesterol 06/12/17 06/12/17 06/12/17 06:53 11:13 22:19 WBC MCHC RDW Lymph % (Auto) [place] % (Auto) Baso % (Auto) Lymph # [place] # Seg Neutrophils % Lymphocytes % (Manual) Monocytes % (Manual) Seg Neutrophils # Seg Neutrophils # Man Lymphocytes # (Manual) BUN Creatinine Glucose POC Glucose 140 H 107 H 110 H Albumin HDL Cholesterol 06/13/17 06/13/17 06/14/17 05:59 11:58 05:27 WBC MCHC RDW Lymph % (Auto) [place] % (Auto) Baso % (Auto) Lymph # [place] # Seg Neutrophils % Lymphocytes % (Manual) Monocytes % (Manual) Seg Neutrophils # Seg Neutrophils # Man Lymphocytes # (Manual) BUN Creatinine Glucose POC Glucose 114 H 117 H 106 H Albumin HDL Cholesterol 06/15/17 06/15/17 06/16/17 11:43 21:31 05:54 WBC MCHC RDW Lymph % (Auto) [place] % (Auto) Baso % (Auto) Lymph # [place] # Seg Neutrophils % Lymphocytes % (Manual) Monocytes % (Manual) Seg Neutrophils # Seg Neutrophils # Man Lymphocytes # (Manual) BUN Creatinine Glucose POC Glucose 135 H 125 H 148 H Albumin HDL Cholesterol 06/16/17 06/17/17 06/17/17 11:20 00:49 11:14 WBC MCHC RDW Lymph % (Auto) [place] % (Auto) Baso % (Auto) Lymph # [place] # Seg Neutrophils % Lymphocytes % (Manual) Monocytes % (Manual) Seg Neutrophils # Seg Neutrophils # Man Lymphocytes # (Manual) BUN Creatinine Glucose POC Glucose 120 H 120 H 124 H Albumin HDL Cholesterol 06/18/17 06/19/17 06/21/17 05:32 11:14 05:16 WBC 3.7 L MCHC RDW Lymph % (Auto) 45.0 H [place] % (Auto) 13.7 H Baso % (Auto) Lymph # [place] # Seg Neutrophils % 37.9 L Lymphocytes % (Manual) Monocytes % (Manual) Seg Neutrophils # 1.4 L Seg Neutrophils # Man Lymphocytes # (Manual) BUN Creatinine Glucose POC Glucose 122 H 123 H Albumin HDL Cholesterol 06/21/17 06/21/17 06/21/17 05:16 06:27 11:24 WBC MCHC RDW Lymph % (Auto) [place] % (Auto) Baso % (Auto) Lymph # [place] # Seg Neutrophils % Lymphocytes % (Manual) Monocytes % (Manual) Seg Neutrophils # Seg Neutrophils # Man Lymphocytes # (Manual) BUN 18 H Creatinine 0.4 L Glucose 110 H POC Glucose 113 H 137 H Albumin HDL Cholesterol 06/23/17 06/24/17 06/24/17 22:36 06:04 20:49 WBC MCHC RDW Lymph % (Auto) [place] % (Auto) Baso % (Auto) Lymph # [place] # Seg Neutrophils % Lymphocytes % (Manual) Monocytes % (Manual) Seg Neutrophils # Seg Neutrophils # Man Lymphocytes # (Manual) BUN Creatinine Glucose POC Glucose 138 H 123 H 106 H Albumin HDL Cholesterol 06/25/17 06/25/17 06/27/17 06:09 21:53 00:47 WBC MCHC RDW Lymph % (Auto) [place] % (Auto) Baso % (Auto) Lymph # [place] # Seg Neutrophils % Lymphocytes % (Manual) Monocytes % (Manual) Seg Neutrophils # Seg Neutrophils # Man Lymphocytes # (Manual) BUN Creatinine Glucose POC Glucose 107 H 111 H 114 H Albumin HDL Cholesterol 06/27/17 06/27/17 06/27/17 04:58 04:58 06:58 WBC 3.8 L MCHC RDW Lymph % (Auto) 43.4 H [place] % (Auto) 12.8 H Baso % (Auto) Lymph # [place] # Seg Neutrophils % Lymphocytes % (Manual) Monocytes % (Manual) Seg Neutrophils # 1.5 L Seg Neutrophils # Man Lymphocytes # (Manual) BUN Creatinine 0.4 L Glucose 128 H POC Glucose 120 H Albumin HDL Cholesterol 06/27/17 06/28/17 06/28/17 21:45 05:30 11:19 WBC MCHC RDW Lymph % (Auto) [place] % (Auto) Baso % (Auto) Lymph # [place] # Seg Neutrophils % Lymphocytes % (Manual) Monocytes % (Manual) Seg Neutrophils # Seg Neutrophils # Man Lymphocytes # (Manual) BUN Creatinine Glucose POC Glucose 108 H 109 H 114 H Albumin HDL Cholesterol 06/28/17 06/29/17 06/30/17 22:51 05:58 06:32 WBC MCHC RDW Lymph % (Auto) [place] % (Auto) Baso % (Auto) Lymph # [place] # Seg Neutrophils % Lymphocytes % (Manual) Monocytes % (Manual) Seg Neutrophils # Seg Neutrophils # Man Lymphocytes # (Manual) BUN Creatinine Glucose POC Glucose 116 H 115 H 119 H Albumin HDL Cholesterol
--- NOTE | 2017-07-04 14:13 | Consultation ---
History of Present Illness Consult date: 07/04/17 History of present illness: another important issue is that there is no AVM or aneurysm seen on the MRA this points to chronic nature of this being secondary to HTN Past History Past Medical History: GERD, seizures, stroke Past Surgical History: Other (peg tube) Social history: denies: smoking, alcohol abuse Medications and Allergies Allergies Allergy/AdvReac Type Severity Reaction Status Date / Time No Known Allergies Allergy Unverified 05/11/17 12:27 Home Medications Medication Instructions Recorded Confirmed Last Taken Type Amlodipine Besylate [Norvasc] 10 mg FEEDTUBE DAILY 05/11/17 05/11/17 Unknown History Labetalol [Normodyne TAB] 200 mg PO BID 05/11/17 05/11/17 Unknown History Ranitidine HCl [Acid Flaring Machine Operator] 150 mg FEEDTUBE BID 05/11/17 05/11/17 Unknown History VALPROIC ACID Liq [DepaKENE Liq] 15 ml FEEDTUBE BID 05/11/17 05/11/17 Unknown History hydrALAZINE [Apresoline TAB] 50 mg FEEDTUBE QID 05/11/17 05/11/17 Unknown History Active Meds: Active Medications Acetaminophen (Tylenol) 650 mg PO Q4H PRN PRN Reason: Pain MILD(1-3)/Fever >100.5/GRIGGS Amlodipine Besylate (Norvasc) 10 mg FEEDTUBE DAILY [facility] Last Admin: 07/04/17 11:27 Dose: 10 mg Lipase/Protease/Amylase (Pancreaze Dr 10,500 Unit) 1 each FEEDTUBE PRN PRN PRN Reason: For Clogged Feeding Tube Aspirin (Baby Aspirin) 81 mg PO QDAY [facility] Last Admin: 07/04/17 11:27 Dose: 81 mg Atorvastatin Calcium (Lipitor) 20 mg PO QHS [facility] Last Admin: 07/03/17 23:30 Dose: 20 mg Bisacodyl (Dulcolax) 10 mg MA QDAY PRN PRN Reason: Constipation unrelieved by MOM Famotidine (Pepcid) 20 mg FEEDTUBE BID [facility] Last Admin: 07/04/17 11:27 Dose: 20 mg Hydralazine HCl (Apresoline) 10 mg IV Q6HR PRN PRN Reason: Hypertension Hydralazine HCl (Apresoline) 25 mg FEEDTUBE Q8HR [facility] Last Admin: 07/04/17 11:24 Dose: Not Given Magnesium Hydroxide (Milk Of Magnesia) 30 ml PO Q4H PRN PRN Reason: Constipation Ondansetron HCl (Zofran) 4 mg IV Q8H PRN PRN Reason: N/V unrelieved by Reglan Simple Syrup (Simple Syrup) 15 ml FEEDTUBE PRN PRN PRN Reason: Hypoglycemia Simple Syrup (Simple Syrup) 30 ml FEEDTUBE PRN PRN PRN Reason: Hypoglycemia Sodium Bicarbonate (Sodium Bicarbonate) 325 mg FEEDTUBE PRN PRN PRN Reason: For Clogged Feeding Tube Sodium Chloride (Sodium Chloride Flush Syringe 10 Ml) 10 ml IV PRN PRN PRN Reason: LINE FLUSH Valproic Acid (Depakene Liq) 750 mg FEEDTUBE BID [facility] Last Admin: 07/04/17 11:27 Dose: 750 mg Physical Examination - Vital Signs Vital Signs: Vital Signs Temp Pulse Resp BP Pulse Ox 98.3 F 81 14 112/70 97 05/11/17 12:15 05/11/17 12:15 05/11/17 12:15 05/11/17 12:15 05/11/17 12:15 Results - Laboratory Findings CBC and BMP: 06/27/17 04:58 06/27/17 04:58 Abnormal Lab Findings: Abnormal Labs 05/11/17 05/11/17 05/12/17 12:56 12:56 05:44 WBC 3.0 L 2.9 L MCHC RDW 15.3 H Lymph % (Auto) 37.7 H Graham % (Auto) 14.1 H Baso % (Auto) 2.1 H Lymph # 1.1 L Graham # Seg Neutrophils % Lymphocytes % (Manual) 39.0 H Monocytes % (Manual) 12.0 H Seg Neutrophils # 1.3 L Seg Neutrophils # Man 1.3 L Lymphocytes # (Manual) 1.1 L BUN Creatinine 0.4 L Glucose 101 H POC Glucose Albumin HDL Cholesterol 05/12/17 05/13/17 05/13/17 05:44 08:10 16:43 WBC MCHC RDW Lymph % (Auto) Graham % (Auto) Baso % (Auto) Lymph # Graham # Seg Neutrophils % Lymphocytes % (Manual) Monocytes % (Manual) Seg Neutrophils # Seg Neutrophils # Man Lymphocytes # (Manual) BUN Creatinine 0.4 L Glucose POC Glucose 110 H 125 H Albumin 3.8 L HDL Cholesterol 35 L 05/13/17 05/15/17 05/15/17 22:44 04:00 23:57 WBC MCHC 35 H RDW Lymph % (Auto) Graham % (Auto) 11.8 H Baso % (Auto) Lymph # Graham # Seg Neutrophils % Lymphocytes % (Manual) Monocytes % (Manual) Seg Neutrophils # Seg Neutrophils # Man Lymphocytes # (Manual) BUN Creatinine Glucose POC Glucose 112 H 141 H Albumin HDL Cholesterol 05/16/17 05/17/17 05/17/17 23:21 06:14 11:31 WBC MCHC RDW Lymph % (Auto) Graham % (Auto) Baso % (Auto) Lymph # Graham # Seg Neutrophils % Lymphocytes % (Manual) Monocytes % (Manual) Seg Neutrophils # Seg Neutrophils # Man Lymphocytes # (Manual) BUN Creatinine Glucose POC Glucose 115 H 107 H 119 H Albumin HDL Cholesterol 05/17/17 05/17/17 05/18/17 17:30 21:49 11:41 WBC MCHC RDW Lymph % (Auto) Graham % (Auto) Baso % (Auto) Lymph # Graham # Seg Neutrophils % Lymphocytes % (Manual) Monocytes % (Manual) Seg Neutrophils # Seg Neutrophils # Man Lymphocytes # (Manual) BUN Creatinine Glucose POC Glucose 113 H 107 H 149 H Albumin HDL Cholesterol 05/18/17 05/19/17 05/19/17 17:04 00:10 06:14 WBC MCHC RDW Lymph % (Auto) Graham % (Auto) Baso % (Auto) Lymph # Graham # Seg Neutrophils % Lymphocytes % (Manual) Monocytes % (Manual) Seg Neutrophils # Seg Neutrophils # Man Lymphocytes # (Manual) BUN Creatinine Glucose POC Glucose 110 H 115 H 110 H Albumin HDL Cholesterol 05/19/17 05/19/17 05/20/17 11:15 16:36 11:27 WBC MCHC RDW Lymph % (Auto) Graham % (Auto) Baso % (Auto) Lymph # Graham # Seg Neutrophils % Lymphocytes % (Manual) Monocytes % (Manual) Seg Neutrophils # Seg Neutrophils # Man Lymphocytes # (Manual) BUN Creatinine Glucose POC Glucose 120 H 114 H 134 H Albumin HDL Cholesterol 05/20/17 05/21/17 05/21/17 22:59 05:37 11:59 WBC MCHC RDW Lymph % (Auto) Graham % (Auto) Baso % (Auto) Lymph # Graham # Seg Neutrophils % Lymphocytes % (Manual) Monocytes % (Manual) Seg Neutrophils # Seg Neutrophils # Man Lymphocytes # (Manual) BUN Creatinine Glucose POC Glucose 117 H 124 H 152 H Albumin HDL Cholesterol 05/21/17 05/22/17 05/22/17 23:30 11:33 17:03 WBC MCHC RDW Lymph % (Auto) Graham % (Auto) Baso % (Auto) Lymph # Graham # Seg Neutrophils % Lymphocytes % (Manual) Monocytes % (Manual) Seg Neutrophils # Seg Neutrophils # Man Lymphocytes # (Manual) BUN Creatinine Glucose POC Glucose 119 H 132 H 69 L Albumin HDL Cholesterol 05/22/17 05/23/17 05/23/17 23:19 05:16 11:58 WBC MCHC RDW Lymph % (Auto) Graham % (Auto) Baso % (Auto) Lymph # Graham # Seg Neutrophils % Lymphocytes % (Manual) Monocytes % (Manual) Seg Neutrophils # Seg Neutrophils # Man Lymphocytes # (Manual) BUN Creatinine Glucose POC Glucose 120 H 123 H 106 H Albumin HDL Cholesterol 05/23/17 05/24/17 05/24/17 16:35 00:52 06:56 WBC MCHC RDW Lymph % (Auto) Graham % (Auto) Baso % (Auto) Lymph # Graham # Seg Neutrophils % Lymphocytes % (Manual) Monocytes % (Manual) Seg Neutrophils # Seg Neutrophils # Man Lymphocytes # (Manual) BUN Creatinine Glucose POC Glucose 108 H 116 H 137 H Albumin HDL Cholesterol 05/24/17 05/25/17 05/26/17 12:37 11:28 05:33 WBC MCHC RDW Lymph % (Auto) Graham % (Auto) 13.2 H Baso % (Auto) Lymph # Graham # Seg Neutrophils % Lymphocytes % (Manual) Monocytes % (Manual) Seg Neutrophils # Seg Neutrophils # Man Lymphocytes # (Manual) BUN Creatinine Glucose POC Glucose 118 H 113 H Albumin HDL Cholesterol 05/26/17 05/26/17 05/27/17 05:33 11:35 01:02 WBC MCHC RDW Lymph % (Auto) Graham % (Auto) Baso % (Auto) Lymph # Graham # Seg Neutrophils % Lymphocytes % (Manual) Monocytes % (Manual) Seg Neutrophils # Seg Neutrophils # Man Lymphocytes # (Manual) BUN Creatinine 0.4 L Glucose POC Glucose 120 H 113 H Albumin HDL Cholesterol 05/28/17 05/31/17 05/31/17 07:42 05:08 12:08 WBC MCHC RDW Lymph % (Auto) Graham % (Auto) Baso % (Auto) Lymph # Graham # Seg Neutrophils % Lymphocytes % (Manual) Monocytes % (Manual) Seg Neutrophils # Seg Neutrophils # Man Lymphocytes # (Manual) BUN Creatinine Glucose POC Glucose 123 H 112 H 130 H Albumin HDL Cholesterol 06/01/17 06/01/17 06/01/17 07:01 16:30 21:44 WBC MCHC RDW Lymph % (Auto) Graham % (Auto) Baso % (Auto) Lymph # Graham # Seg Neutrophils % Lymphocytes % (Manual) Monocytes % (Manual) Seg Neutrophils # Seg Neutrophils # Man Lymphocytes # (Manual) BUN 19 H Creatinine 0.4 L Glucose 105 H POC Glucose 126 H 140 H Albumin HDL Cholesterol 06/02/17 06/02/17 06/03/17 05:40 21:02 06:30 WBC MCHC RDW Lymph % (Auto) Graham % (Auto) Baso % (Auto) Lymph # Graham # Seg Neutrophils % Lymphocytes % (Manual) Monocytes % (Manual) Seg Neutrophils # Seg Neutrophils # Man Lymphocytes # (Manual) BUN Creatinine Glucose POC Glucose 148 H 124 H 132 H Albumin HDL Cholesterol 06/03/17 06/04/17 06/04/17 12:09 05:22 23:28 WBC MCHC RDW Lymph % (Auto) Graham % (Auto) Baso % (Auto) Lymph # Graham # Seg Neutrophils % Lymphocytes % (Manual) Monocytes % (Manual) Seg Neutrophils # Seg Neutrophils # Man Lymphocytes # (Manual) BUN Creatinine Glucose POC Glucose 106 H 119 H 116 H Albumin HDL Cholesterol 06/05/17 06/05/17 06/05/17 05:07 05:07 05:42 WBC MCHC RDW Lymph % (Auto) Graham % (Auto) 13.1 H Baso % (Auto) Lymph # Graham # 0.9 H Seg Neutrophils % Lymphocytes % (Manual) Monocytes % (Manual) Seg Neutrophils # Seg Neutrophils # Man Lymphocytes # (Manual) BUN 19 H Creatinine 0.3 L Glucose 120 H POC Glucose 115 H Albumin HDL Cholesterol 06/05/17 06/06/17 06/06/17 11:55 00:00 05:32 WBC MCHC RDW Lymph % (Auto) Graham % (Auto) Baso % (Auto) Lymph # Graham # Seg Neutrophils % Lymphocytes % (Manual) Monocytes % (Manual) Seg Neutrophils # Seg Neutrophils # Man Lymphocytes # (Manual) BUN Creatinine Glucose POC Glucose 130 H 112 H 120 H Albumin HDL Cholesterol 06/06/17 06/07/17 06/08/17 23:25 06:55 06:40 WBC MCHC RDW Lymph % (Auto) Graham % (Auto) Baso % (Auto) Lymph # Graham # Seg Neutrophils % Lymphocytes % (Manual) Monocytes % (Manual) Seg Neutrophils # Seg Neutrophils # Man Lymphocytes # (Manual) BUN Creatinine Glucose POC Glucose 117 H 141 H 152 H Albumin HDL Cholesterol 06/08/17 06/09/17 06/10/17 23:46 05:33 05:15 WBC MCHC RDW Lymph % (Auto) [place] % (Auto) Baso % (Auto) Lymph # Graham # Seg Neutrophils % Lymphocytes % (Manual) Monocytes % (Manual) Seg Neutrophils # Seg Neutrophils # Man Lymphocytes # (Manual) BUN Creatinine Glucose POC Glucose 113 H 137 H 122 H Albumin HDL Cholesterol 06/10/17 06/11/17 06/11/17 23:01 06:53 06:59 WBC 4.1 L MCHC RDW Lymph % (Auto) Graham % (Auto) Baso % (Auto) Lymph # [place] # Seg Neutrophils % Lymphocytes % (Manual) Monocytes % (Manual) Seg Neutrophils # Seg Neutrophils # Man Lymphocytes # (Manual) BUN Creatinine Glucose POC Glucose 131 H 124 H Albumin HDL Cholesterol 06/11/17 06/11/17 06/11/17 06:59 12:20 22:47 WBC MCHC RDW Lymph % (Auto) Graham % (Auto) Baso % (Auto) Lymph # Graham # Seg Neutrophils % Lymphocytes % (Manual) Monocytes % (Manual) Seg Neutrophils # Seg Neutrophils # Man Lymphocytes # (Manual) BUN 18 H Creatinine 0.4 L Glucose 127 H POC Glucose 112 H 109 H Albumin HDL Cholesterol 06/12/17 06/12/17 06/12/17 06:53 11:13 22:19 WBC MCHC RDW Lymph % (Auto) Graham % (Auto) Baso % (Auto) Lymph # Graham # Seg Neutrophils % Lymphocytes % (Manual) Monocytes % (Manual) Seg Neutrophils # Seg Neutrophils # Man Lymphocytes # (Manual) BUN Creatinine Glucose POC Glucose 140 H 107 H 110 H Albumin HDL Cholesterol 1206/13/17 06/14/17 05:59 11:58 05:27 WBC MCHC RDW Lymph % (Auto) Graham % (Auto) Baso % (Auto) Lymph # Graham # Seg Neutrophils % Lymphocytes % (Manual) Monocytes % (Manual) Seg Neutrophils # Seg Neutrophils # Man Lymphocytes # (Manual) BUN Creatinine Glucose POC Glucose 114 H 117 H 106 H Albumin HDL Cholesterol 06/15/17 06/15/17 06/16/17 11:43 21:31 05:54 WBC MCHC RDW Lymph % (Auto) [place] % (Auto) Baso % (Auto) Lymph # Graham # Seg Neutrophils % Lymphocytes % (Manual) Monocytes % (Manual) Seg Neutrophils # Seg Neutrophils # Man Lymphocytes # (Manual) BUN Creatinine Glucose POC Glucose 135 H 125 H 148 H Albumin HDL Cholesterol 06/16/17 06/17/17 06/17/17 11:20 00:49 11:14 WBC MCHC RDW Lymph % (Auto) [place] % (Auto) Baso % (Auto) Lymph # Graham # Seg Neutrophils % Lymphocytes % (Manual) Monocytes % (Manual) Seg Neutrophils # Seg Neutrophils # Man Lymphocytes # (Manual) BUN Creatinine Glucose POC Glucose 120 H 120 H 124 H Albumin HDL Cholesterol 06/18/17 06/19/17 06/21/17 05:32 11:14 05:16 WBC 3.7 L MCHC RDW Lymph % (Auto) 45.0 H Graham % (Auto) 13.7 H Baso % (Auto) Lymph # Graham # Seg Neutrophils % 37.9 L Lymphocytes % (Manual) Monocytes % (Manual) Seg Neutrophils # 1.4 L Seg Neutrophils # Man Lymphocytes # (Manual) BUN Creatinine Glucose POC Glucose 122 H 123 H Albumin HDL Cholesterol 06/21/17 06/21/17 06/21/17 05:16 06:27 11:24 WBC MCHC RDW Lymph % (Auto) [place] % (Auto) Baso % (Auto) Lymph # [place] # Seg Neutrophils % Lymphocytes % (Manual) Monocytes % (Manual) Seg Neutrophils # Seg Neutrophils # Man Lymphocytes # (Manual) BUN 18 H Creatinine 0.4 L Glucose 110 H POC Glucose 113 H 137 H Albumin HDL Cholesterol 06/23/17 06/24/17 06/24/17 22:36 06:04 20:49 WBC MCHC RDW Lymph % (Auto) [place] % (Auto) Baso % (Auto) Lymph # [place] # Seg Neutrophils % Lymphocytes % (Manual) Monocytes % (Manual) Seg Neutrophils # Seg Neutrophils # Man Lymphocytes # (Manual) BUN Creatinine Glucose POC Glucose 138 H 123 H 106 H Albumin HDL Cholesterol 06/25/17 06/25/17 06/27/17 06:09 21:53 00:47 WBC MCHC RDW Lymph % (Auto) [place] % (Auto) Baso % (Auto) Lymph # [place] # Seg Neutrophils % Lymphocytes % (Manual) Monocytes % (Manual) Seg Neutrophils # Seg Neutrophils # Man Lymphocytes # (Manual) BUN Creatinine Glucose POC Glucose 107 H 111 H 114 H Albumin HDL Cholesterol 06/27/17 06/27/17 06/27/17 04:58 04:58 06:58 WBC 3.8 L MCHC RDW Lymph % (Auto) 43.4 H Graham % (Auto) 12.8 H Baso % (Auto) Lymph # [place] # Seg Neutrophils % Lymphocytes % (Manual) Monocytes % (Manual) Seg Neutrophils # 1.5 L Seg Neutrophils # Man Lymphocytes # (Manual) BUN Creatinine 0.4 L Glucose 128 H POC Glucose 120 H Albumin HDL Cholesterol 06/27/17 06/28/17 06/28/17 21:45 05:30 11:19 WBC MCHC RDW Lymph % (Auto) [place] % (Auto) Baso % (Auto) Lymph # [place] # Seg Neutrophils % Lymphocytes % (Manual) Monocytes % (Manual) Seg Neutrophils # Seg Neutrophils # Man Lymphocytes # (Manual) BUN Creatinine Glucose POC Glucose 108 H 109 H 114 H Albumin HDL Cholesterol 06/28/17 06/29/17 06/30/17 22:51 05:58 06:32 WBC MCHC RDW Lymph % (Auto) [place] % (Auto) Baso % (Auto) Lymph # [place] # Seg Neutrophils % Lymphocytes % (Manual) Monocytes % (Manual) Seg Neutrophils # Seg Neutrophils # Man Lymphocytes # (Manual) BUN Creatinine Glucose POC Glucose 116 H 115 H 119 H Albumin HDL Cholesterol
[2017-07-05] MEDS: APRESOLINE FEEDTUBE SCH ×3 (06:37→22:22)
[2017-07-05] MEDS: BABY ASPIRIN PO SCH (10:45)
[2017-07-05] MEDS: PEPCID FEEDTUBE SCH ×2 (10:46→22:22)
[2017-07-05] MEDS: NORVASC FEEDTUBE SCH (10:46)
[2017-07-05] MEDS: DepaKENE Liq FEEDTUBE SCH ×2 (10:46→22:22)
--- NOTE | 2017-07-05 11:52 | Consultation ---
History of Present Illness Consult date: 07/05/17 History of present illness: I have dictated a full note on the terminal gauger analysis of the MRA/ MRI/ CT and cross compared all the films recommend medical therapy not neurosurgical intervention recommended Past History Past Medical History: GERD, seizures, stroke Past Surgical History: Other (peg tube) Social history: denies: smoking, alcohol abuse Medications and Allergies Allergies Allergy/AdvReac Type Severity Reaction Status Date / Time No Known Allergies Allergy Unverified 05/11/17 12:27 Home Medications Medication Instructions Recorded Confirmed Last Taken Type Amlodipine Besylate [Norvasc] 10 mg FEEDTUBE DAILY 05/11/17 05/11/17 Unknown History Labetalol [Normodyne TAB] 200 mg PO BID 05/11/17 05/11/17 Unknown History Ranitidine HCl [Acid [employer]] 150 mg FEEDTUBE BID 05/11/17 05/11/17 Unknown History VALPROIC ACID Liq [DepaKENE Liq] 15 ml FEEDTUBE BID 05/11/17 05/11/17 Unknown History hydrALAZINE [Apresoline TAB] 50 mg FEEDTUBE QID 05/11/17 05/11/17 Unknown History Active Meds: Active Medications Acetaminophen (Tylenol) 650 mg PO Q4H PRN PRN Reason: Pain MILD(1-3)/Fever >100.5/GRIGGS Amlodipine Besylate (Norvasc) 10 mg FEEDTUBE DAILY [facility] Last Admin: 07/05/17 10:46 Dose: 10 mg Lipase/Protease/Amylase (Pancreaze Dr 10,500 Unit) 1 each FEEDTUBE PRN PRN PRN Reason: For Clogged Feeding Tube Aspirin (Baby Aspirin) 81 mg PO QDAY [facility] Last Admin: 07/05/17 10:45 Dose: 81 mg Atorvastatin Calcium (Lipitor) 20 mg PO QHS [facility] Last Admin: 07/04/17 22:18 Dose: 20 mg Bisacodyl (Dulcolax) 10 mg WA QDAY PRN PRN Reason: Constipation unrelieved by MOM Famotidine (Pepcid) 20 mg FEEDTUBE BID [facility] Last Admin: 07/05/17 10:46 Dose: 20 mg Hydralazine HCl (Apresoline) 10 mg IV Q6HR PRN PRN Reason: Hypertension Hydralazine HCl (Apresoline) 25 mg FEEDTUBE Q8HR [facility] Last Admin: 07/05/17 06:37 Dose: 25 mg Magnesium Hydroxide (Milk Of Magnesia) 30 ml PO Q4H PRN PRN Reason: Constipation Ondansetron HCl (Zofran) 4 mg IV Q8H PRN PRN Reason: N/V unrelieved by Reglan Simple Syrup (Simple Syrup) 15 ml FEEDTUBE PRN PRN PRN Reason: Hypoglycemia Simple Syrup (Simple Syrup) 30 ml FEEDTUBE PRN PRN PRN Reason: Hypoglycemia Sodium Bicarbonate (Sodium Bicarbonate) 325 mg FEEDTUBE PRN PRN PRN Reason: For Clogged Feeding Tube Sodium Chloride (Sodium Chloride Flush Syringe 10 Ml) 10 ml IV PRN PRN PRN Reason: LINE FLUSH Valproic Acid (Depakene Liq) 750 mg FEEDTUBE BID [facility] Last Admin: 07/05/17 10:46 Dose: 750 mg Physical Examination - Vital Signs Vital Signs: Vital Signs Temp Pulse Resp BP Pulse Ox 98.3 F 81 14 112/70 97 05/11/17 12:15 05/11/17 12:15 05/11/17 12:15 05/11/17 12:15 05/11/17 12:15 Results - Laboratory Findings CBC and BMP: 06/27/17 04:58 06/27/17 04:58 Abnormal Lab Findings: Abnormal Labs 05/11/17 05/11/17 05/12/17 12:56 12:56 05:44 WBC 3.0 L 2.9 L MCHC RDW 15.3 H Lymph % (Auto) 37.7 H [place] % (Auto) 14.1 H Baso % (Auto) 2.1 H Lymph # 1.1 L [place] # Seg Neutrophils % Lymphocytes % (Manual) 39.0 H Monocytes % (Manual) 12.0 H Seg Neutrophils # 1.3 L Seg Neutrophils # Man 1.3 L Lymphocytes # (Manual) 1.1 L BUN Creatinine 0.4 L Glucose 101 H POC Glucose Albumin HDL Cholesterol 05/12/17 05/13/17 05/13/17 05:44 08:10 16:43 WBC MCHC RDW Lymph % (Auto) [place] % (Auto) Baso % (Auto) Lymph # [place] # Seg Neutrophils % Lymphocytes % (Manual) Monocytes % (Manual) Seg Neutrophils # Seg Neutrophils # Man Lymphocytes # (Manual) BUN Creatinine 0.4 L Glucose POC Glucose 110 H 125 H Albumin 3.8 L HDL Cholesterol 35 L 05/13/17 05/15/17 05/15/17 22:44 04:00 23:57 WBC MCHC 35 H RDW Lymph % (Auto) [place] % (Auto) 11.8 H Baso % (Auto) Lymph # [place] # Seg Neutrophils % Lymphocytes % (Manual) Monocytes % (Manual) Seg Neutrophils # Seg Neutrophils # Man Lymphocytes # (Manual) BUN Creatinine Glucose POC Glucose 112 H 141 H Albumin HDL Cholesterol 05/16/17 05/17/17 05/17/17 23:21 06:14 11:31 WBC MCHC RDW Lymph % (Auto) [place] % (Auto) Baso % (Auto) Lymph # [place] # Seg Neutrophils % Lymphocytes % (Manual) Monocytes % (Manual) Seg Neutrophils # Seg Neutrophils # Man Lymphocytes # (Manual) BUN Creatinine Glucose POC Glucose 115 H 107 H 119 H Albumin HDL Cholesterol 05/17/17 05/17/17 05/18/17 17:30 21:49 11:41 WBC MCHC RDW Lymph % (Auto) [place] % (Auto) Baso % (Auto) Lymph # [place] # Seg Neutrophils % Lymphocytes % (Manual) Monocytes % (Manual) Seg Neutrophils # Seg Neutrophils # Man Lymphocytes # (Manual) BUN Creatinine Glucose POC Glucose 113 H 107 H 149 H Albumin HDL Cholesterol 05/18/17 05/19/17 05/19/17 17:04 00:10 06:14 WBC MCHC RDW Lymph % (Auto) [place] % (Auto) Baso % (Auto) Lymph # [place] # Seg Neutrophils % Lymphocytes % (Manual) Monocytes % (Manual) Seg Neutrophils # Seg Neutrophils # Man Lymphocytes # (Manual) BUN Creatinine Glucose POC Glucose 110 H 115 H 110 H Albumin HDL Cholesterol 05/19/17 05/19/17 05/20/17 11:15 16:36 11:27 WBC MCHC RDW Lymph % (Auto) [place] % (Auto) Baso % (Auto) Lymph # [place] # Seg Neutrophils % Lymphocytes % (Manual) Monocytes % (Manual) Seg Neutrophils # Seg Neutrophils # Man Lymphocytes # (Manual) BUN Creatinine Glucose POC Glucose 120 H 114 H 134 H Albumin HDL Cholesterol 05/20/17 05/21/17 05/21/17 22:59 05:37 11:59 WBC MCHC RDW Lymph % (Auto) [place] % (Auto) Baso % (Auto) Lymph # [place] # Seg Neutrophils % Lymphocytes % (Manual) Monocytes % (Manual) Seg Neutrophils # Seg Neutrophils # Man Lymphocytes # (Manual) BUN Creatinine Glucose POC Glucose 117 H 124 H 152 H Albumin HDL Cholesterol 05/21/17 05/22/17 05/22/17 23:30 11:33 17:03 WBC MCHC RDW Lymph % (Auto) [place] % (Auto) Baso % (Auto) Lymph # [place] # Seg Neutrophils % Lymphocytes % (Manual) Monocytes % (Manual) Seg Neutrophils # Seg Neutrophils # Man Lymphocytes # (Manual) BUN Creatinine Glucose POC Glucose 119 H 132 H 69 L Albumin HDL Cholesterol 05/22/17 05/23/17 05/23/17 23:19 05:16 11:58 WBC MCHC RDW Lymph % (Auto) [place] % (Auto) Baso % (Auto) Lymph # [place] # Seg Neutrophils % Lymphocytes % (Manual) Monocytes % (Manual) Seg Neutrophils # Seg Neutrophils # Man Lymphocytes # (Manual) BUN Creatinine Glucose POC Glucose 120 H 123 H 106 H Albumin HDL Cholesterol 05/23/17 05/24/17 05/24/17 16:35 00:52 06:56 WBC MCHC RDW Lymph % (Auto) [place] % (Auto) Baso % (Auto) Lymph # [place] # Seg Neutrophils % Lymphocytes % (Manual) Monocytes % (Manual) Seg Neutrophils # Seg Neutrophils # Man Lymphocytes # (Manual) BUN Creatinine Glucose POC Glucose 108 H 116 H 137 H Albumin HDL Cholesterol 05/24/17 05/25/17 05/26/17 12:37 11:28 05:33 WBC MCHC RDW Lymph % (Auto) [place] % (Auto) 13.2 H Baso % (Auto) Lymph # [place] # Seg Neutrophils % Lymphocytes % (Manual) Monocytes % (Manual) Seg Neutrophils # Seg Neutrophils # Man Lymphocytes # (Manual) BUN Creatinine Glucose POC Glucose 118 H 113 H Albumin HDL Cholesterol 05/26/17 05/26/17 05/27/17 05:33 11:35 01:02 WBC MCHC RDW Lymph % (Auto) [place] % (Auto) Baso % (Auto) Lymph # [place] # Seg Neutrophils % Lymphocytes % (Manual) Monocytes % (Manual) Seg Neutrophils # Seg Neutrophils # Man Lymphocytes # (Manual) BUN Creatinine 0.4 L Glucose POC Glucose 120 H 113 H Albumin HDL Cholesterol 05/28/17 05/31/17 05/31/17 07:42 05:08 12:08 WBC MCHC RDW Lymph % (Auto) [place] % (Auto) Baso % (Auto) Lymph # [place] # Seg Neutrophils % Lymphocytes % (Manual) Monocytes % (Manual) Seg Neutrophils # Seg Neutrophils # Man Lymphocytes # (Manual) BUN Creatinine Glucose POC Glucose 123 H 112 H 130 H Albumin HDL Cholesterol 06/01/17 06/01/17 06/01/17 07:01 16:30 21:44 WBC MCHC RDW Lymph % (Auto) [place] % (Auto) Baso % (Auto) Lymph # [place] # Seg Neutrophils % Lymphocytes % (Manual) Monocytes % (Manual) Seg Neutrophils # Seg Neutrophils # Man Lymphocytes # (Manual) BUN 19 H Creatinine 0.4 L Glucose 105 H POC Glucose 126 H 140 H Albumin HDL Cholesterol 06/02/17 06/02/17 06/03/17 05:40 21:02 06:30 WBC MCHC RDW Lymph % (Auto) [place] % (Auto) Baso % (Auto) Lymph # [place] # Seg Neutrophils % Lymphocytes % (Manual) Monocytes % (Manual) Seg Neutrophils # Seg Neutrophils # Man Lymphocytes # (Manual) BUN Creatinine Glucose POC Glucose 148 H 124 H 132 H Albumin HDL Cholesterol 06/03/17 06/04/17 06/04/17 12:09 05:22 23:28 WBC MCHC RDW Lymph % (Auto) [place] % (Auto) Baso % (Auto) Lymph # [place] # Seg Neutrophils % Lymphocytes % (Manual) Monocytes % (Manual) Seg Neutrophils # Seg Neutrophils # Man Lymphocytes # (Manual) BUN Creatinine Glucose POC Glucose 106 H 119 H 116 H Albumin HDL Cholesterol 06/05/17 06/05/17 06/05/17 05:07 05:07 05:42 WBC MCHC RDW Lymph % (Auto) [place] % (Auto) 13.1 H Baso % (Auto) Lymph # [place] # 0.9 H Seg Neutrophils % Lymphocytes % (Manual) Monocytes % (Manual) Seg Neutrophils # Seg Neutrophils # Man Lymphocytes # (Manual) BUN 19 H Creatinine 0.3 L Glucose 120 H POC Glucose 115 H Albumin HDL Cholesterol 06/05/17 06/06/17 06/06/17 11:55 00:00 05:32 WBC MCHC RDW Lymph % (Auto) [place] % (Auto) Baso % (Auto) Lymph # [place] # Seg Neutrophils % Lymphocytes % (Manual) Monocytes % (Manual) Seg Neutrophils # Seg Neutrophils # Man Lymphocytes # (Manual) BUN Creatinine Glucose POC Glucose 130 H 112 H 120 H Albumin HDL Cholesterol 06/06/17 06/07/17 06/08/17 23:25 06:55 06:40 WBC MCHC RDW Lymph % (Auto) [place] % (Auto) Baso % (Auto) Lymph # [place] # Seg Neutrophils % Lymphocytes % (Manual) Monocytes % (Manual) Seg Neutrophils # Seg Neutrophils # Man Lymphocytes # (Manual) BUN Creatinine Glucose POC Glucose 117 H 141 H 152 H Albumin HDL Cholesterol 06/08/17 06/09/17 06/10/17 23:46 05:33 05:15 WBC MCHC RDW Lymph % (Auto) [place] % (Auto) Baso % (Auto) Lymph # [place] # Seg Neutrophils % Lymphocytes % (Manual) Monocytes % (Manual) Seg Neutrophils # Seg Neutrophils # Man Lymphocytes # (Manual) BUN Creatinine Glucose POC Glucose 113 H 137 H 122 H Albumin HDL Cholesterol 06/10/17 06/11/17 06/11/17 23:01 06:53 06:59 WBC 4.1 L MCHC RDW Lymph % (Auto) [place] % (Auto) Baso % (Auto) Lymph # [place] # Seg Neutrophils % Lymphocytes % (Manual) Monocytes % (Manual) Seg Neutrophils # Seg Neutrophils # Man Lymphocytes # (Manual) BUN Creatinine Glucose POC Glucose 131 H 124 H Albumin HDL Cholesterol 06/11/17 06/11/17 06/11/17 06:59 12:20 22:47 WBC MCHC RDW Lymph % (Auto) [place] % (Auto) Baso % (Auto) Lymph # [place] # Seg Neutrophils % Lymphocytes % (Manual) Monocytes % (Manual) Seg Neutrophils # Seg Neutrophils # Man Lymphocytes # (Manual) BUN 18 H Creatinine 0.4 L Glucose 127 H POC Glucose 112 H 109 H Albumin HDL Cholesterol 06/12/17 06/12/17 06/12/17 06:53 11:13 22:19 WBC MCHC RDW Lymph % (Auto) [place] % (Auto) Baso % (Auto) Lymph # [place] # Seg Neutrophils % Lymphocytes % (Manual) Monocytes % (Manual) Seg Neutrophils # Seg Neutrophils # Man Lymphocytes # (Manual) BUN Creatinine Glucose POC Glucose 140 H 107 H 110 H Albumin HDL Cholesterol 06/13/17 06/13/17 06/14/17 05:59 11:58 05:27 WBC MCHC RDW Lymph % (Auto) [place] % (Auto) Baso % (Auto) Lymph # [place] # Seg Neutrophils % Lymphocytes % (Manual) Monocytes % (Manual) Seg Neutrophils # Seg Neutrophils # Man Lymphocytes # (Manual) BUN Creatinine Glucose POC Glucose 114 H 117 H 106 H Albumin HDL Cholesterol 06/15/17 06/15/17 06/16/17 11:43 21:31 05:54 WBC MCHC RDW Lymph % (Auto) [place] % (Auto) Baso % (Auto) Lymph # [place] # Seg Neutrophils % Lymphocytes % (Manual) Monocytes % (Manual) Seg Neutrophils # Seg Neutrophils # Man Lymphocytes # (Manual) BUN Creatinine Glucose POC Glucose 135 H 125 H 148 H Albumin HDL Cholesterol 06/16/17 06/17/17 06/17/17 11:20 00:49 11:14 WBC MCHC RDW Lymph % (Auto) [place] % (Auto) Baso % (Auto) Lymph # [place] # Seg Neutrophils % Lymphocytes % (Manual) Monocytes % (Manual) Seg Neutrophils # Seg Neutrophils # Man Lymphocytes # (Manual) BUN Creatinine Glucose POC Glucose 120 H 120 H 124 H Albumin HDL Cholesterol 06/18/17 06/19/17 06/21/17 05:32 11:14 05:16 WBC 3.7 L MCHC RDW Lymph % (Auto) 45.0 H [place] % (Auto) 13.7 H Baso % (Auto) Lymph # [place] # Seg Neutrophils % 37.9 L Lymphocytes % (Manual) Monocytes % (Manual) Seg Neutrophils # 1.4 L Seg Neutrophils # Man Lymphocytes # (Manual) BUN Creatinine Glucose POC Glucose 122 H 123 H Albumin HDL Cholesterol 06/21/17 06/21/17 06/21/17 05:16 06:27 11:24 WBC MCHC RDW Lymph % (Auto) [place] % (Auto) Baso % (Auto) Lymph # [place] # Seg Neutrophils % Lymphocytes % (Manual) Monocytes % (Manual) Seg Neutrophils # Seg Neutrophils # Man Lymphocytes # (Manual) BUN 18 H Creatinine 0.4 L Glucose 110 H POC Glucose 113 H 137 H Albumin HDL Cholesterol 06/23/17 06/24/17 06/24/17 22:36 06:04 20:49 WBC MCHC RDW Lymph % (Auto) [place] % (Auto) Baso % (Auto) Lymph # [place] # Seg Neutrophils % Lymphocytes % (Manual) Monocytes % (Manual) Seg Neutrophils # Seg Neutrophils # Man Lymphocytes # (Manual) BUN Creatinine Glucose POC Glucose 138 H 123 H 106 H Albumin HDL Cholesterol 06/25/17 06/25/17 06/27/17 06:09 21:53 00:47 WBC MCHC RDW Lymph % (Auto) [place] % (Auto) Baso % (Auto) Lymph # [place] # Seg Neutrophils % Lymphocytes % (Manual) Monocytes % (Manual) Seg Neutrophils # Seg Neutrophils # Man Lymphocytes # (Manual) BUN Creatinine Glucose POC Glucose 107 H 111 H 114 H Albumin HDL Cholesterol 06/27/17 06/27/17 06/27/17 04:58 04:58 06:58 WBC 3.8 L MCHC RDW Lymph % (Auto) 43.4 H [place] % (Auto) 12.8 H Baso % (Auto) Lymph # [place] # Seg Neutrophils % Lymphocytes % (Manual) Monocytes % (Manual) Seg Neutrophils # 1.5 L Seg Neutrophils # Man Lymphocytes # (Manual) BUN Creatinine 0.4 L Glucose 128 H POC Glucose 120 H Albumin HDL Cholesterol 06/27/17 06/28/17 06/28/17 21:45 05:30 11:19 WBC MCHC RDW Lymph % (Auto) [place] % (Auto) Baso % (Auto) Lymph # [place] # Seg Neutrophils % Lymphocytes % (Manual) Monocytes % (Manual) Seg Neutrophils # Seg Neutrophils # Man Lymphocytes # (Manual) BUN Creatinine Glucose POC Glucose 108 H 109 H 114 H Albumin HDL Cholesterol 06/28/17 06/29/17 06/30/17 22:51 05:58 06:32 WBC MCHC RDW Lymph % (Auto) [place] % (Auto) Baso % (Auto) Lymph # [place] # Seg Neutrophils % Lymphocytes % (Manual) Monocytes % (Manual) Seg Neutrophils # Seg Neutrophils # Man Lymphocytes # (Manual) BUN Creatinine Glucose POC Glucose 116 H 115 H 119 H Albumin HDL Cholesterol
[2017-07-06] MEDS: APRESOLINE FEEDTUBE SCH ×3 (06:14→23:07)
[2017-07-06] MEDS: DepaKENE Liq FEEDTUBE SCH ×2 (12:39→23:06)
[2017-07-06] MEDS: PEPCID FEEDTUBE SCH ×2 (12:40→23:07)
[2017-07-06] MEDS: BABY ASPIRIN PO SCH (12:40)
[2017-07-06] MEDS: NORVASC FEEDTUBE SCH (12:43)
--- NOTE | 2017-07-06 14:19 | Consultation ---
HISTORY OF PRESENT ILLNESS: I did an extensive review of the previous admission CT scan, which was initially performed on 05/11/2017. This CT scan showed, at that time, a very large what I would characterize as a subacute infarct within the right thalamic posterior occipital lobe and these appear to be two separate infarcts, one contributed to by a branch of the middle cerebral artery on the right side and the second by posterior cerebral artery stroke. This was not felt to be acute and has all the appearance of being chronic, in fact it was measured by the radiologist at that point as being 2.5 cm, but had both the same appearance in the right occipital lobe which measured 2.51 x 5.65 cm. In the interval since the May CT scan, there has been resolution of the majority of the area of ischemic infarct. In looking at the current MRI scan, which was obtained on 09/01/2016, which is approximately 2 months after the first. There is a normal MRA. No evidence of any vascular occlusions is present and the only questionable issue is, I believe that there is a potential occlusion of the left posterior cerebral artery and my reviewing the scan. The remainder of the MRI shows this large area of old ischemia in the same distribution as the prior scan on 05/14/2017 and there is a scant amount of blood within the ventricular system, which is to a degree expected in the recovery process from large ischemic stroke. As well, there is a new appearance in the left deep frontal white matter anteriorly of a new stroke and this was seen on the diffusion weighted images that I reviewed with Dr. Coleman. IMPRESSION: My impression is that I would check the patient's clotting profile to make sure she does not have any clotting abnormality otherwise treat her stroke medically. She has to need for any neurosurgical intervention. I feel that more likely the majority changes we currently see on the CT or MRI are related to chronic changes with only the exception being a small left deep white matter frontal stroke, which is very minimal. JOB# [id number]
--- NOTE | 2017-07-06 14:34 | Progress Note ---
Assessment and Plan Assessment and plan: Patient is a 56-year-old woman with a history of stroke and feeding tube brought to the hospital by EMS on 05/11/17 with a complaint of of "new stroke." She pw with Left sided weakness, facial droop and was non verbal on presentation - Acute SAH, left-sided weakness; with residual left-sided weakness, bedbound, Cont Physical therapy rehabilitation, continue antiplatelets and statin - Dysphagia status post PEG placement, continue PEG tube feeds - History of seizures; continue seizure precautions antiepileptic medications - Accelerated HTN, POA; continue antihypertensives - GERD ; continue PPIs - Dyslipidemia; on statin - DVT with Lovenox==>stopped on 07/01/17 due to SAH - DC planning per case management Awaiting placement in SNF But family not capable of taking care of pt at home. 07/01/17: My first day with patient, and José adler at bedside, who seems very supportive. AMS with acute encephalopathy, there is a question of hemorrhagic conversion, will order MRI ?stroke progression of stroke 07/02/17: Reviewed MRI and MRA brain and d/w Radiologist, Dr. Coleman, pt still with subacute SAH since 05/11/17 most likely from Right anterior thalamic hemorrhage from hypertensive crisis. I then called and spoke with Neurologist, Dr. Reid and asked him for management recommendations; he states, he will come and evaluate today. 07/03/17: Still waiting on Neurology, Dr. eRid's note. No change 07/04/17: d/w Dr. Reid. He will see. 07/05/17: continue present management. History Interval history: Patient was seen and examined. Follow-up on current diagnosis/CVA. Overnight uneventful. Patient is nonverbal. Imaging, nursing note, chart, labs and old chart reviewed. Hospitalist Physical - Physical exam Narrative exam: GEN: WDWN, NAD, sleeping but arousable, nonverbal HEENT: NCAT, EOMI, PERRL, OP Clear NECK: supple, no adenopathy, no thyromegaly, no JVD CVS/HEART: RRR, NORMAL S1S2, NO JVD, pulses present bilaterally CHEST/LUNGS: CTA B, Symmetrical chest expansion, good air entry bilaterally GI/Abdomen: soft, NTND, good bowel sounds, no guarding or rebound /Bladder: no suprapubic tenderness, no CVA or paraspinal tenderness EXT/Skin: no c/c/e, no obvious rash MSK: Left hemiparesis Neuro: CN 2-12 grossly intact, no new focal deficits, doesn't follow commands Psych: calm - Constitutional Vitals: Temp Pulse Resp BP Pulse Ox 98.3 F 83 18 123/83 98 07/06/17 11:32 07/06/17 11:32 07/06/17 11:32 07/06/17 11:32 07/06/17 11:32 General appearance: Present: no acute distress, well-nourished Results - Labs CBC & Chem 7: 06/27/17 04:58 06/27/17 04:58 Labs: Laboratory Last Values WBC 3.8 K/mm3 (4.5-11.0) L 06/27/17 04:58 RBC 4.43 M/mm3 (3.65-5.03) 06/27/17 04:58 Hgb 13.7 gm/dl (10.1-14.3) 06/27/17 04:58 Hct 40.3 % (30.3-42.9) 06/27/17 04:58 MCV 91 fl (79-97) 06/27/17 04:58 MCH 31 pg (28-32) 06/27/17 04:58 MCHC 34 % (30-34) 06/27/17 04:58 RDW 15.0 % (13.2-15.2) 06/27/17 04:58 Plt Count 216 K/mm3 (140-440) 06/27/17 04:58 Lymph % (Auto) 43.4 % (13.4-35.0) H 06/27/17 04:58 [place] % (Auto) 12.8 % (0.0-7.3) H 06/27/17 04:58 Eos % (Auto) 2.1 % (0.0-4.3) 06/27/17 04:58 Baso % (Auto) 1.1 % (0.0-1.8) 06/27/17 04:58 Lymph # 1.6 K/mm3 (1.2-5.4) 06/27/17 04:58 [place] # 0.5 K/mm3 (0.0-0.8) 06/27/17 04:58 Eos # 0.1 K/mm3 (0.0-0.4) 06/27/17 04:58 Baso # 0.0 K/mm3 (0.0-0.1) 06/27/17 04:58 Add Manual Diff Complete 05/12/17 05:44 Total Counted 100 05/12/17 05:44 Seg Neutrophils % 40.6 % (40.0-70.0) 06/27/17 04:58 Seg Neuts % (Manual) 46.0 % (40.0-70.0) 05/12/17 05:44 Band Neutrophils % 0 % 05/12/17 05:44 Lymphocytes % (Manual) 39.0 % (13.4-35.0) H 05/12/17 05:44 Reactive Lymphs % (Man) 0 % 05/12/17 05:44 Monocytes % (Manual) 12.0 % (0.0-7.3) H 05/12/17 05:44 Eosinophils % (Manual) 3.0 % (0.0-4.3) 05/12/17 05:44 Basophils % (Manual) 0 % (0.0-1.8) 05/12/17 05:44 Metamyelocytes % 0 % 05/12/17 05:44 Myelocytes % 0 % 05/12/17 05:44 Promyelocytes % 0 % 05/12/17 05:44 Blast Cells % 0 % 05/12/17 05:44 Nucleated RBC % Not Reportable 05/12/17 05:44 Seg Neutrophils # 1.5 K/mm3 (1.8-7.7) L 06/27/17 04:58 Seg Neutrophils # Man 1.3 K/mm3 (1.8-7.7) L 05/12/17 05:44 Band Neutrophils # 0.0 K/mm3 05/12/17 05:44 Lymphocytes # (Manual) 1.1 K/mm3 (1.2-5.4) L 05/12/17 05:44 Abs React Lymphs (Man) 0.0 K/mm3 05/12/17 05:44 Monocytes # (Manual) 0.3 K/mm3 (0.0-0.8) 05/12/17 05:44 Eosinophils # (Manual) 0.1 K/mm3 (0.0-0.4) 05/12/17 05:44 Basophils # (Manual) 0.0 K/mm3 (0.0-0.1) 05/12/17 05:44 Metamyelocytes # 0.0 K/mm3 05/12/17 05:44 Myelocytes # 0.0 K/mm3 05/12/17 05:44 Promyelocytes # 0.0 K/mm3 05/12/17 05:44 Blast Cells # 0.0 K/mm3 05/12/17 05:44 WBC Morphology Not Reportable 05/12/17 05:44 Hypersegmented Neuts Not Reportable 05/12/17 05:44 Hyposegmented Neuts Not Reportable 05/12/17 05:44 Hypogranular Neuts Not Reportable 05/12/17 05:44 Smudge Cells Not Reportable 05/12/17 05:44 Toxic Granulation Not Reportable 05/12/17 05:44 Toxic Vacuolation Not Reportable 05/12/17 05:44 Dohle Bodies Not Reportable 05/12/17 05:44 Pelger-Huet Anomaly Not Reportable 05/12/17 05:44 Shelly Rods Not Reportable 05/12/17 05:44 Platelet Estimate Cons 05/12/17 05:44 Clumped Platelets Few 05/12/17 05:44 Plt Clumps, EDTA Not Reportable 05/12/17 05:44 Large Platelets Not Reportable 05/12/17 05:44 Giant Platelets Not Reportable 05/12/17 05:44 Platelet Satelliting Not Reportable 05/12/17 05:44 Plt Morphology Comment Not Reportable 05/12/17 05:44 RBC Morphology Normal 05/12/17 05:44 Dimorphic RBCs Not Reportable 05/12/17 05:44 Polychromasia Not Reportable 05/12/17 05:44 Hypochromasia Not Reportable 05/12/17 05:44 Poikilocytosis Not Reportable 05/12/17 05:44 Anisocytosis Not Reportable 05/12/17 05:44 Microcytosis Not Reportable 05/12/17 05:44 Macrocytosis Not Reportable 05/12/17 05:44 Spherocytes Not Reportable 05/12/17 05:44 Pappenheimer Bodies Not Reportable 05/12/17 05:44 Sickle Cells Not Reportable 05/12/17 05:44 Target Cells Not Reportable 05/12/17 05:44 Tear Drop Cells Not Reportable 05/12/17 05:44 Ovalocytes Not Reportable 05/12/17 05:44 Helmet Cells Not Reportable 05/12/17 05:44 [place] Bodies Not Reportable 05/12/17 05:44 [place] Rings Not Reportable 05/12/17 05:44 [place] Cells Not Reportable 05/12/17 05:44 Bite Cells Not Reportable 05/12/17 05:44 Crenated Cell Not Reportable 05/12/17 05:44 Elliptocytes Not Reportable 05/12/17 05:44 Acanthocytes (Spur) Not Reportable 05/12/17 05:44 Rouleaux Not Reportable 05/12/17 05:44 Hemoglobin C Crystals Not Reportable 05/12/17 05:44 Schistocytes Not Reportable 05/12/17 05:44 Malaria parasites Not Reportable 05/12/17 05:44 Wander Bodies Not Reportable 05/12/17 05:44 Hem Pathologist Commnt No 05/12/17 05:44 PT 13.9 Sec. (12.2-14.9) 05/11/17 12:56 INR 1.02 (0.87-1.13) 05/11/17 12:56 APTT 29.8 Sec. (24.2-36.6) 05/11/17 12:56 Thrombin Time 16.4 Sec. (15.1-19.6) 05/11/17 12:56 Sodium 145 mmol/L (137-145) 06/27/17 04:58 Potassium 4.4 mmol/L (3.6-5.0) 06/27/17 04:58 Chloride 103.1 mmol/L (98-107) 06/27/17 04:58 Carbon Dioxide 27 mmol/L (22-30) 06/27/17 04:58 Anion Gap 19 mmol/L 06/27/17 04:58 BUN 17 mg/dL (7-17) 06/27/17 04:58 Creatinine 0.4 mg/dL (0.7-1.2) L 06/27/17 04:58 Estimated GFR > 60 ml/min 06/27/17 04:58 BUN/Creatinine Ratio 43 % 06/27/17 04:58 Glucose 128 mg/dL (65-100) H 06/27/17 04:58 POC Glucose 85 (70-105) 07/04/17 16:57 Hemoglobin A1c 5.7 % (4-6) 05/11/17 12:56 Calcium 9.8 mg/dL (8.4-10.2) 06/27/17 04:58 Total Bilirubin 0.30 mg/dL (0.1-1.2) 05/12/17 05:44 AST 27 units/L (5-40) 05/12/17 05:44 ALT 28 units/L (7-56) 05/12/17 05:44 Alkaline Phosphatase 52 units/L (35-129) 05/12/17 05:44 Total Creatine Kinase 64 units/L (30-135) 05/11/17 12:56 CK-MB (CK-2) 1.4 ng/mL (0.0-4.0) 05/11/17 12:56 CK-MB (CK-2) Rel Index 2.1 (0-4) 05/11/17 12:56 Troponin T < 0.010 ng/mL (0.00-0.029) 05/11/17 12:56 Total Protein 6.5 g/dL (6.3-8.2) 05/12/17 05:44 Albumin 3.8 g/dL (3.9-5) L 05/12/17 05:44 Albumin/Globulin Ratio 1.4 % 05/12/17 05:44 Triglycerides 113 mg/dL (2-149) 05/12/17 05:44 Cholesterol 172 mg/dL (50-199) 05/12/17 05:44 LDL Cholesterol Direct 115 mg/dL (50-130) 05/12/17 05:44 HDL Cholesterol 35 mg/dL (40-59) L 05/12/17 05:44 Cholesterol/HDL Ratio 4.91 % 05/12/17 05:44 Urine Color Yellow (Yellow) 05/11/17 14:09 Urine Turbidity Clear (Clear) 05/11/17 14:09 Urine pH 6.0 (5.0-7.0) 05/11/17 14:09 Ur Specific [place] 1.016 (1.003-1.030) 05/11/17 14:09 Urine Protein <15 mg/dl mg/dL (Negative) 05/11/17 14:09 Urine Glucose (UA) Neg mg/dL (Negative) 05/11/17 14:09 Urine Ketones Tr mg/dL (Negative) 05/11/17 14:09 Urine Blood Neg (Negative) 05/11/17 14:09 Urine Nitrite Neg (Negative) 05/11/17 14:09 Urine Bilirubin Neg (Negative) 05/11/17 14:09 Urine Urobilinogen < 2.0 mg/dL (<2.0) 05/11/17 14:09 Ur Leukocyte Esterase Neg (Negative) 05/11/17 14:09 Urine WBC (Auto) 2.0 /HPF (0.0-6.0) 05/11/17 14:09 Urine RBC (Auto) 3.0 /HPF (0.0-6.0) 05/11/17 14:09 U Epithel Cells (Auto) < 1.0 /HPF (0-13.0) 05/11/17 14:09 Urine Mucus Few /HPF 05/11/17 14:09 Valproic Acid 79.7 ug/mL (50-100) 05/11/17 12:56
[2017-07-07] MEDS: APRESOLINE FEEDTUBE SCH ×3 (06:16→23:26)
[2017-07-07] MEDS: DepaKENE Liq FEEDTUBE SCH ×2 (11:30→23:27)
[2017-07-07] MEDS: BABY ASPIRIN PO SCH (11:30)
[2017-07-07] MEDS: PEPCID FEEDTUBE SCH ×2 (11:31→23:26)
[2017-07-07] MEDS: NORVASC FEEDTUBE SCH (11:31)
--- NOTE | 2017-07-07 11:50 | Progress Note ---
Assessment and Plan Assessment and plan: Patient is a 56-year-old woman with a history of stroke and feeding tube brought to the hospital by EMS on 05/11/17 with a complaint of of "new stroke." She pw with Left sided weakness, facial droop and was non verbal on presentation - Acute SAH, left-sided weakness; with residual left-sided weakness, bedbound, Cont Physical therapy rehabilitation, continue antiplatelets and statin - Dysphagia status post PEG placement, continue PEG tube feeds - History of seizures; continue seizure precautions antiepileptic medications - Accelerated HTN, POA; continue antihypertensives - GERD ; continue PPIs - Dyslipidemia; on statin - DVT with Lovenox==>stopped on 07/01/17 due to SAH - DC planning per case management Awaiting placement in SNF But family not capable of taking care of pt at home. 07/01/17: My first day with patient, and José adler at bedside, who seems very supportive. AMS with acute encephalopathy, there is a question of hemorrhagic conversion, will order MRI ?stroke progression of stroke 07/02/17: Reviewed MRI and MRA brain and d/w Radiologist, Dr. Coleman, pt still with subacute SAH since 05/11/17 most likely from Right anterior thalamic hemorrhage from hypertensive crisis. I then called and spoke with Neurologist, Dr. Reid and asked him for management recommendations; he states, he will come and evaluate today. 07/03/17: Still waiting on Neurology, Dr. Reid's note. No change 07/04/17: d/w Dr. Reid. He will see. continue present management. awaiting placement in [facility] patient History Interval history: Patient was seen and examined. Follow-up on current diagnosis/CVA. Overnight uneventful. Patient is nonverbal. Imaging, nursing note, chart, labs and old chart reviewed. Hospitalist Physical - Physical exam Narrative exam: GEN: WDWN, NAD, sleeping but arousable, nonverbal HEENT: NCAT, EOMI, PERRL, OP Clear NECK: supple, no adenopathy, no thyromegaly, no JVD CVS/HEART: RRR, NORMAL S1S2, NO JVD, pulses present bilaterally CHEST/LUNGS: CTA B, Symmetrical chest expansion, good air entry bilaterally GI/Abdomen: soft, NTND, good bowel sounds, no guarding or rebound /Bladder: no suprapubic tenderness, no CVA or paraspinal tenderness EXT/Skin: no c/c/e, no obvious rash MSK: Left hemiparesis Neuro: CN 2-12 grossly intact, no new focal deficits, doesn't follow commands Psych: calm - Constitutional Vitals: Temp Pulse Resp BP Pulse Ox 98.5 F 84 18 121/83 97 07/07/17 08:24 07/07/17 08:24 07/07/17 08:24 07/07/17 08:24 07/07/17 08:24 General appearance: Present: no acute distress, well-nourished Results - Labs CBC & Chem 7: 06/27/17 04:58 06/27/17 04:58 Labs: Laboratory Last Values WBC 3.8 K/mm3 (4.5-11.0) L 06/27/17 04:58 RBC 4.43 M/mm3 (3.65-5.03) 06/27/17 04:58 Hgb 13.7 gm/dl (10.1-14.3) 06/27/17 04:58 Hct 40.3 % (30.3-42.9) 06/27/17 04:58 MCV 91 fl (79-97) 06/27/17 04:58 MCH 31 pg (28-32) 06/27/17 04:58 MCHC 34 % (30-34) 06/27/17 04:58 RDW 15.0 % (13.2-15.2) 06/27/17 04:58 Plt Count 216 K/mm3 (140-440) 06/27/17 04:58 Lymph % (Auto) 43.4 % (13.4-35.0) H 06/27/17 04:58 [place] % (Auto) 12.8 % (0.0-7.3) H 06/27/17 04:58 Eos % (Auto) 2.1 % (0.0-4.3) 06/27/17 04:58 Baso % (Auto) 1.1 % (0.0-1.8) 06/27/17 04:58 Lymph # 1.6 K/mm3 (1.2-5.4) 06/27/17 04:58 [place] # 0.5 K/mm3 (0.0-0.8) 06/27/17 04:58 Eos # 0.1 K/mm3 (0.0-0.4) 06/27/17 04:58 Baso # 0.0 K/mm3 (0.0-0.1) 06/27/17 04:58 Add Manual Diff Complete 05/12/17 05:44 Total Counted 100 05/12/17 05:44 Seg Neutrophils % 40.6 % (40.0-70.0) 06/27/17 04:58 Seg Neuts % (Manual) 46.0 % (40.0-70.0) 05/12/17 05:44 Band Neutrophils % 0 % 05/12/17 05:44 Lymphocytes % (Manual) 39.0 % (13.4-35.0) H 05/12/17 05:44 Reactive Lymphs % (Man) 0 % 05/12/17 05:44 Monocytes % (Manual) 12.0 % (0.0-7.3) H 05/12/17 05:44 Eosinophils % (Manual) 3.0 % (0.0-4.3) 05/12/17 05:44 Basophils % (Manual) 0 % (0.0-1.8) 05/12/17 05:44 Metamyelocytes % 0 % 05/12/17 05:44 Myelocytes % 0 % 05/12/17 05:44 Promyelocytes % 0 % 05/12/17 05:44 Blast Cells % 0 % 05/12/17 05:44 Nucleated RBC % Not Reportable 05/12/17 05:44 Seg Neutrophils # 1.5 K/mm3 (1.8-7.7) L 06/27/17 04:58 Seg Neutrophils # Man 1.3 K/mm3 (1.8-7.7) L 05/12/17 05:44 Band Neutrophils # 0.0 K/mm3 05/12/17 05:44 Lymphocytes # (Manual) 1.1 K/mm3 (1.2-5.4) L 05/12/17 05:44 Abs React Lymphs (Man) 0.0 K/mm3 05/12/17 05:44 Monocytes # (Manual) 0.3 K/mm3 (0.0-0.8) 05/12/17 05:44 Eosinophils # (Manual) 0.1 K/mm3 (0.0-0.4) 05/12/17 05:44 Basophils # (Manual) 0.0 K/mm3 (0.0-0.1) 05/12/17 05:44 Metamyelocytes # 0.0 K/mm3 05/12/17 05:44 Myelocytes # 0.0 K/mm3 05/12/17 05:44 Promyelocytes # 0.0 K/mm3 05/12/17 05:44 Blast Cells # 0.0 K/mm3 05/12/17 05:44 WBC Morphology Not Reportable 05/12/17 05:44 Hypersegmented Neuts Not Reportable 05/12/17 05:44 Hyposegmented Neuts Not Reportable 05/12/17 05:44 Hypogranular Neuts Not Reportable 05/12/17 05:44 Smudge Cells Not Reportable 05/12/17 05:44 Toxic Granulation Not Reportable 05/12/17 05:44 Toxic Vacuolation Not Reportable 05/12/17 05:44 Dohle Bodies Not Reportable 05/12/17 05:44 Pelger-Huet Anomaly Not Reportable 05/12/17 05:44 Shelly Rods Not Reportable 05/12/17 05:44 Platelet Estimate Cons 05/12/17 05:44 Clumped Platelets Few 05/12/17 05:44 Plt Clumps, EDTA Not Reportable 05/12/17 05:44 Large Platelets Not Reportable 05/12/17 05:44 Giant Platelets Not Reportable 05/12/17 05:44 Platelet Satelliting Not Reportable 05/12/17 05:44 Plt Morphology Comment Not Reportable 05/12/17 05:44 RBC Morphology Normal 05/12/17 05:44 Dimorphic RBCs Not Reportable 05/12/17 05:44 Polychromasia Not Reportable 05/12/17 05:44 Hypochromasia Not Reportable 05/12/17 05:44 Poikilocytosis Not Reportable 05/12/17 05:44 Anisocytosis Not Reportable 05/12/17 05:44 Microcytosis Not Reportable 05/12/17 05:44 Macrocytosis Not Reportable 05/12/17 05:44 Spherocytes Not Reportable 05/12/17 05:44 Pappenheimer Bodies Not Reportable 05/12/17 05:44 Sickle Cells Not Reportable 05/12/17 05:44 Target Cells Not Reportable 05/12/17 05:44 Tear Drop Cells Not Reportable 05/12/17 05:44 Ovalocytes Not Reportable 05/12/17 05:44 Helmet Cells Not Reportable 05/12/17 05:44 [place] Bodies Not Reportable 05/12/17 05:44 [place] Rings Not Reportable 05/12/17 05:44 [place] Cells Not Reportable 05/12/17 05:44 Bite Cells Not Reportable 05/12/17 05:44 Crenated Cell Not Reportable 05/12/17 05:44 Elliptocytes Not Reportable 05/12/17 05:44 Acanthocytes (Spur) Not Reportable 05/12/17 05:44 Rouleaux Not Reportable 05/12/17 05:44 Hemoglobin C Crystals Not Reportable 05/12/17 05:44 Schistocytes Not Reportable 05/12/17 05:44 Malaria parasites Not Reportable 05/12/17 05:44 [place] Bodies Not Reportable 05/12/17 05:44 Hem Pathologist Commnt No 05/12/17 05:44 PT 13.9 Sec. (12.2-14.9) 05/11/17 12:56 INR 1.02 (0.87-1.13) 05/11/17 12:56 APTT 29.8 Sec. (24.2-36.6) 05/11/17 12:56 Thrombin Time 16.4 Sec. (15.1-19.6) 05/11/17 12:56 Sodium 145 mmol/L (137-145) 06/27/17 04:58 Potassium 4.4 mmol/L (3.6-5.0) 06/27/17 04:58 Chloride 103.1 mmol/L (98-107) 06/27/17 04:58 Carbon Dioxide 27 mmol/L (22-30) 06/27/17 04:58 Anion Gap 19 mmol/L 06/27/17 04:58 BUN 17 mg/dL (7-17) 06/27/17 04:58 Creatinine 0.4 mg/dL (0.7-1.2) L 06/27/17 04:58 Estimated GFR > 60 ml/min 06/27/17 04:58 BUN/Creatinine Ratio 43 % 06/27/17 04:58 Glucose 128 mg/dL (65-100) H 06/27/17 04:58 POC Glucose 85 (70-105) 07/04/17 16:57 Hemoglobin A1c 5.7 % (4-6) 05/11/17 12:56 Calcium 9.8 mg/dL (8.4-10.2) 06/27/17 04:58 Total Bilirubin 0.30 mg/dL (0.1-1.2) 05/12/17 05:44 AST 27 units/L (5-40) 05/12/17 05:44 ALT 28 units/L (7-56) 05/12/17 05:44 Alkaline Phosphatase 52 units/L (35-129) 05/12/17 05:44 Total Creatine Kinase 64 units/L (30-135) 05/11/17 12:56 CK-MB (CK-2) 1.4 ng/mL (0.0-4.0) 05/11/17 12:56 CK-MB (CK-2) Rel Index 2.1 (0-4) 05/11/17 12:56 Troponin T < 0.010 ng/mL (0.00-0.029) 05/11/17 12:56 Total Protein 6.5 g/dL (6.3-8.2) 05/12/17 05:44 Albumin 3.8 g/dL (3.9-5) L 05/12/17 05:44 Albumin/Globulin Ratio 1.4 % 05/12/17 05:44 Triglycerides 113 mg/dL (2-149) 05/12/17 05:44 Cholesterol 172 mg/dL (50-199) 05/12/17 05:44 LDL Cholesterol Direct 115 mg/dL (50-130) 05/12/17 05:44 HDL Cholesterol 35 mg/dL (40-59) L 05/12/17 05:44 Cholesterol/HDL Ratio 4.91 % 05/12/17 05:44 Urine Color Yellow (Yellow) 05/11/17 14:09 Urine Turbidity Clear (Clear) 05/11/17 14:09 Urine pH 6.0 (5.0-7.0) 05/11/17 14:09 Ur Specific [place] 1.016 (1.003-1.030) 05/11/17 14:09 Urine Protein <15 mg/dl mg/dL (Negative) 05/11/17 14:09 Urine Glucose (UA) Neg mg/dL (Negative) 05/11/17 14:09 Urine Ketones Tr mg/dL (Negative) 05/11/17 14:09 Urine Blood Neg (Negative) 05/11/17 14:09 Urine Nitrite Neg (Negative) 05/11/17 14:09 Urine Bilirubin Neg (Negative) 05/11/17 14:09 Urine Urobilinogen < 2.0 mg/dL (<2.0) 05/11/17 14:09 Ur Leukocyte Esterase Neg (Negative) 05/11/17 14:09 Urine WBC (Auto) 2.0 /HPF (0.0-6.0) 05/11/17 14:09 Urine RBC (Auto) 3.0 /HPF (0.0-6.0) 05/11/17 14:09 U Epithel Cells (Auto) < 1.0 /HPF (0-13.0) 05/11/17 14:09 Urine Mucus Few /HPF 05/11/17 14:09 Valproic Acid 79.7 ug/mL (50-100) 05/11/17 12:56
[2017-07-08] MEDS: APRESOLINE FEEDTUBE SCH ×3 (06:44→22:41)
[2017-07-08] MEDS: NORVASC FEEDTUBE SCH (11:23)
[2017-07-08] MEDS: PEPCID FEEDTUBE SCH ×2 (11:23→22:26)
[2017-07-08] MEDS: BABY ASPIRIN PO SCH (11:23)
[2017-07-08] MEDS: DepaKENE Liq FEEDTUBE SCH ×2 (11:24→22:26)
[2017-07-09] MEDS: APRESOLINE FEEDTUBE SCH (06:15)
[2017-07-09] MEDS: DepaKENE Liq FEEDTUBE SCH ×2 (09:23→21:24)
[2017-07-09] MEDS: BABY ASPIRIN PO SCH (09:23)
[2017-07-09] MEDS: NORVASC FEEDTUBE SCH (09:23)
[2017-07-09] MEDS: PEPCID FEEDTUBE SCH ×2 (09:24→21:24)
[2017-07-10] MEDS: BABY ASPIRIN PO SCH (09:57)
[2017-07-10] MEDS: NORVASC FEEDTUBE SCH (09:57)
[2017-07-10] MEDS: PEPCID FEEDTUBE SCH ×2 (09:57→22:46)
[2017-07-10] MEDS: DepaKENE Liq FEEDTUBE SCH ×2 (09:57→22:45)
[2017-07-11] MEDS: DepaKENE Liq FEEDTUBE SCH ×2 (10:02→22:10)
[2017-07-11] MEDS: BABY ASPIRIN PO SCH (10:03)
[2017-07-11] MEDS: NORVASC FEEDTUBE SCH (10:03)
[2017-07-11] MEDS: PEPCID FEEDTUBE SCH ×2 (10:03→22:08)
[2017-07-12] MEDS: NORVASC FEEDTUBE SCH (10:52)
[2017-07-12] MEDS: DepaKENE Liq FEEDTUBE SCH ×2 (10:53→21:25)
[2017-07-12] MEDS: PEPCID FEEDTUBE SCH ×2 (10:53→21:25)
[2017-07-12] MEDS: BABY ASPIRIN PO SCH (10:53)
[2017-07-13] MEDS: DepaKENE Liq FEEDTUBE SCH ×2 (10:12→22:52)
[2017-07-13] MEDS: PEPCID FEEDTUBE SCH ×2 (10:12→22:52)
[2017-07-13] MEDS: NORVASC FEEDTUBE SCH (10:12)
[2017-07-13] MEDS: BABY ASPIRIN PO SCH (10:13)
--- NOTE | 2017-07-13 10:25 | Progress Note ---
Assessment and Plan Assessment and plan: Patient is a 56-year-old woman with a history of stroke and feeding tube brought to the hospital by EMS on 05/11/17 with a complaint of of "new stroke." She pw with Left sided weakness, facial droop and was non verbal on presentation - Acute SAH, left-sided weakness; with residual left-sided weakness, bedbound, Cont Physical therapy rehabilitation, continue antiplatelets and statin - Dysphagia status post PEG placement, continue PEG tube feeds - History of seizures; continue seizure precautions antiepileptic medications - Accelerated HTN, POA; continue antihypertensives - GERD ; continue PPIs - Dyslipidemia; on statin - DVT with Lovenox==>stopped on 07/01/17 due to SAH - DC planning per case management Awaiting placement in SNF But family not capable of taking care of pt at home. 07/01/17: My first day with patient, and José adlre at bedside, who seems very supportive. AMS with acute encephalopathy, there is a question of hemorrhagic conversion, will order MRI ?stroke progression of stroke 07/02/17: Reviewed MRI and MRA brain and d/w Radiologist, Dr. Coleman, pt still with subacute SAH since 05/11/17 most likely from Right anterior thalamic hemorrhage from hypertensive crisis. I then called and spoke with Neurologist, Dr. Reid and asked him for management recommendations; he states, he will come and evaluate today. 07/03/17: Still waiting on Neurology, Dr. Reid's note. No change 07/04/17: d/w Dr. Reid. He will see. continue present management. awaiting placement History Interval history: Patient was seen and examined. Follow-up on current diagnosis/CVA. Overnight uneventful. Patient is nonverbal. Imaging, nursing note, chart, labs and old chart reviewed. Hospitalist Physical - Physical exam Narrative exam: GEN: WDWN, NAD, sleeping but arousable, nonverbal HEENT: NCAT, EOMI, PERRL, OP Clear NECK: supple, no adenopathy, no thyromegaly, no JVD CVS/HEART: RRR, NORMAL S1S2, NO JVD, pulses present bilaterally CHEST/LUNGS: CTA B, Symmetrical chest expansion, good air entry bilaterally GI/Abdomen: soft, NTND, good bowel sounds, no guarding or rebound /Bladder: no suprapubic tenderness, no CVA or paraspinal tenderness EXT/Skin: no c/c/e, no obvious rash MSK: Left hemiparesis Neuro: CN 2-12 grossly intact, no new focal deficits, doesn't follow commands Psych: calm - Constitutional Vitals: Temp Pulse Resp BP Pulse Ox 98.8 F 80 20 120/80 99 07/13/17 07:39 07/13/17 10:12 07/13/17 07:39 07/13/17 10:12 07/13/17 07:39 General appearance: Present: no acute distress, well-nourished Results - Labs CBC & Chem 7: 06/27/17 04:58 06/27/17 04:58 Labs: Laboratory Last Values WBC 3.8 K/mm3 (4.5-11.0) L 06/27/17 04:58 RBC 4.43 M/mm3 (3.65-5.03) 06/27/17 04:58 Hgb 13.7 gm/dl (10.1-14.3) 06/27/17 04:58 Hct 40.3 % (30.3-42.9) 06/27/17 04:58 MCV 91 fl (79-97) 06/27/17 04:58 MCH 31 pg (28-32) 06/27/17 04:58 MCHC 34 % (30-34) 06/27/17 04:58 RDW 15.0 % (13.2-15.2) 06/27/17 04:58 Plt Count 216 K/mm3 (140-440) 06/27/17 04:58 Lymph % (Auto) 43.4 % (13.4-35.0) H 06/27/17 04:58 [place] % (Auto) 12.8 % (0.0-7.3) H 06/27/17 04:58 Eos % (Auto) 2.1 % (0.0-4.3) 06/27/17 04:58 Baso % (Auto) 1.1 % (0.0-1.8) 06/27/17 04:58 Lymph # 1.6 K/mm3 (1.2-5.4) 06/27/17 04:58 [place] # 0.5 K/mm3 (0.0-0.8) 06/27/17 04:58 Eos # 0.1 K/mm3 (0.0-0.4) 06/27/17 04:58 Baso # 0.0 K/mm3 (0.0-0.1) 06/27/17 04:58 Add Manual Diff Complete 05/12/17 05:44 Total Counted 100 05/12/17 05:44 Seg Neutrophils % 40.6 % (40.0-70.0) 06/27/17 04:58 Seg Neuts % (Manual) 46.0 % (40.0-70.0) 05/12/17 05:44 Band Neutrophils % 0 % 05/12/17 05:44 Lymphocytes % (Manual) 39.0 % (13.4-35.0) H 05/12/17 05:44 Reactive Lymphs % (Man) 0 % 05/12/17 05:44 Monocytes % (Manual) 12.0 % (0.0-7.3) H 05/12/17 05:44 Eosinophils % (Manual) 3.0 % (0.0-4.3) 05/12/17 05:44 Basophils % (Manual) 0 % (0.0-1.8) 05/12/17 05:44 Metamyelocytes % 0 % 05/12/17 05:44 Myelocytes % 0 % 05/12/17 05:44 Promyelocytes % 0 % 05/12/17 05:44 Blast Cells % 0 % 05/12/17 05:44 Nucleated RBC % Not Reportable 05/12/17 05:44 Seg Neutrophils # 1.5 K/mm3 (1.8-7.7) L 06/27/17 04:58 Seg Neutrophils # Man 1.3 K/mm3 (1.8-7.7) L 05/12/17 05:44 Band Neutrophils # 0.0 K/mm3 05/12/17 05:44 Lymphocytes # (Manual) 1.1 K/mm3 (1.2-5.4) L 05/12/17 05:44 Abs React Lymphs (Man) 0.0 K/mm3 05/12/17 05:44 Monocytes # (Manual) 0.3 K/mm3 (0.0-0.8) 05/12/17 05:44 Eosinophils # (Manual) 0.1 K/mm3 (0.0-0.4) 05/12/17 05:44 Basophils # (Manual) 0.0 K/mm3 (0.0-0.1) 05/12/17 05:44 Metamyelocytes # 0.0 K/mm3 05/12/17 05:44 Myelocytes # 0.0 K/mm3 05/12/17 05:44 Promyelocytes # 0.0 K/mm3 05/12/17 05:44 Blast Cells # 0.0 K/mm3 05/12/17 05:44 WBC Morphology Not Reportable 05/12/17 05:44 Hypersegmented Neuts Not Reportable 05/12/17 05:44 Hyposegmented Neuts Not Reportable 05/12/17 05:44 Hypogranular Neuts Not Reportable 05/12/17 05:44 Smudge Cells Not Reportable 05/12/17 05:44 Toxic Granulation Not Reportable 05/12/17 05:44 Toxic Vacuolation Not Reportable 05/12/17 05:44 Dohle Bodies Not Reportable 05/12/17 05:44 Pelger-Huet Anomaly Not Reportable 05/12/17 05:44 Shelly Rods Not Reportable 05/12/17 05:44 Platelet Estimate Cons 05/12/17 05:44 Clumped Platelets Few 05/12/17 05:44 Plt Clumps, EDTA Not Reportable 05/12/17 05:44 Large Platelets Not Reportable 05/12/17 05:44 Giant Platelets Not Reportable 05/12/17 05:44 Platelet Satelliting Not Reportable 05/12/17 05:44 Plt Morphology Comment Not Reportable 05/12/17 05:44 RBC Morphology Normal 05/12/17 05:44 Dimorphic RBCs Not Reportable 05/12/17 05:44 Polychromasia Not Reportable 05/12/17 05:44 Hypochromasia Not Reportable 05/12/17 05:44 Poikilocytosis Not Reportable 05/12/17 05:44 Anisocytosis Not Reportable 05/12/17 05:44 Microcytosis Not Reportable 05/12/17 05:44 Macrocytosis Not Reportable 05/12/17 05:44 Spherocytes Not Reportable 05/12/17 05:44 Pappenheimer Bodies Not Reportable 05/12/17 05:44 Sickle Cells Not Reportable 05/12/17 05:44 Target Cells Not Reportable 05/12/17 05:44 Tear Drop Cells Not Reportable 05/12/17 05:44 Ovalocytes Not Reportable 05/12/17 05:44 Helmet Cells Not Reportable 05/12/17 05:44 [place] Bodies Not Reportable 05/12/17 05:44 [place] Rings Not Reportable 05/12/17 05:44 [place] Cells Not Reportable 05/12/17 05:44 Bite Cells Not Reportable 05/12/17 05:44 Crenated Cell Not Reportable 05/12/17 05:44 Elliptocytes Not Reportable 05/12/17 05:44 Acanthocytes (Spur) Not Reportable 05/12/17 05:44 Rouleaux Not Reportable 05/12/17 05:44 Hemoglobin C Crystals Not Reportable 05/12/17 05:44 Schistocytes Not Reportable 05/12/17 05:44 Malaria parasites Not Reportable 05/12/17 05:44 Wander Bodies Not Reportable 05/12/17 05:44 Hem Pathologist Commnt No 05/12/17 05:44 PT 13.9 Sec. (12.2-14.9) 05/11/17 12:56 INR 1.02 (0.87-1.13) 05/11/17 12:56 APTT 29.8 Sec. (24.2-36.6) 05/11/17 12:56 Thrombin Time 16.4 Sec. (15.1-19.6) 05/11/17 12:56 Sodium 145 mmol/L (137-145) 06/27/17 04:58 Potassium 4.4 mmol/L (3.6-5.0) 06/27/17 04:58 Chloride 103.1 mmol/L (98-107) 06/27/17 04:58 Carbon Dioxide 27 mmol/L (22-30) 06/27/17 04:58 Anion Gap 19 mmol/L 06/27/17 04:58 BUN 17 mg/dL (7-17) 06/27/17 04:58 Creatinine 0.4 mg/dL (0.7-1.2) L 06/27/17 04:58 Estimated GFR > 60 ml/min 06/27/17 04:58 BUN/Creatinine Ratio 43 % 06/27/17 04:58 Glucose 128 mg/dL (65-100) H 06/27/17 04:58 POC Glucose 85 (70-105) 07/04/17 16:57 Hemoglobin A1c 5.7 % (4-6) 05/11/17 12:56 Calcium 9.8 mg/dL (8.4-10.2) 06/27/17 04:58 Total Bilirubin 0.30 mg/dL (0.1-1.2) 05/12/17 05:44 AST 27 units/L (5-40) 05/12/17 05:44 ALT 28 units/L (7-56) 05/12/17 05:44 Alkaline Phosphatase 52 units/L (35-129) 05/12/17 05:44 Total Creatine Kinase 64 units/L (30-135) 05/11/17 12:56 CK-MB (CK-2) 1.4 ng/mL (0.0-4.0) 05/11/17 12:56 CK-MB (CK-2) Rel Index 2.1 (0-4) 05/11/17 12:56 Troponin T < 0.010 ng/mL (0.00-0.029) 05/11/17 12:56 Total Protein 6.5 g/dL (6.3-8.2) 05/12/17 05:44 Albumin 3.8 g/dL (3.9-5) L 05/12/17 05:44 Albumin/Globulin Ratio 1.4 % 05/12/17 05:44 Triglycerides 113 mg/dL (2-149) 05/12/17 05:44 Cholesterol 172 mg/dL (50-199) 05/12/17 05:44 LDL Cholesterol Direct 115 mg/dL (50-130) 05/12/17 05:44 HDL Cholesterol 35 mg/dL (40-59) L 05/12/17 05:44 Cholesterol/HDL Ratio 4.91 % 05/12/17 05:44 Urine Color Yellow (Yellow) 05/11/17 14:09 Urine Turbidity Clear (Clear) 05/11/17 14:09 Urine pH 6.0 (5.0-7.0) 05/11/17 14:09 Ur Specific [place] 1.016 (1.003-1.030) 05/11/17 14:09 Urine Protein <15 mg/dl mg/dL (Negative) 05/11/17 14:09 Urine Glucose (UA) Neg mg/dL (Negative) 05/11/17 14:09 Urine Ketones Tr mg/dL (Negative) 05/11/17 14:09 Urine Blood Neg (Negative) 05/11/17 14:09 Urine Nitrite Neg (Negative) 05/11/17 14:09 Urine Bilirubin Neg (Negative) 05/11/17 14:09 Urine Urobilinogen < 2.0 mg/dL (<2.0) 05/11/17 14:09 Ur Leukocyte Esterase Neg (Negative) 05/11/17 14:09 Urine WBC (Auto) 2.0 /HPF (0.0-6.0) 05/11/17 14:09 Urine RBC (Auto) 3.0 /HPF (0.0-6.0) 05/11/17 14:09 U Epithel Cells (Auto) < 1.0 /HPF (0-13.0) 05/11/17 14:09 Urine Mucus Few /HPF 05/11/17 14:09 Valproic Acid 79.7 ug/mL (50-100) 05/11/17 12:56
[2017-07-14] MEDS: NORVASC FEEDTUBE SCH (09:51)
[2017-07-14] MEDS: DepaKENE Liq FEEDTUBE SCH ×2 (09:52→22:01)
[2017-07-14] MEDS: BABY ASPIRIN PO SCH (09:52)
[2017-07-14] MEDS: PEPCID FEEDTUBE SCH ×2 (09:52→22:01)
[2017-07-15] MEDS: BABY ASPIRIN PO SCH (09:23)
[2017-07-15] MEDS: DepaKENE Liq FEEDTUBE SCH ×2 (09:23→21:31)
[2017-07-15] MEDS: NORVASC FEEDTUBE SCH (09:23)
[2017-07-15] MEDS: PEPCID FEEDTUBE SCH ×2 (09:23→21:31)
--- NOTE | 2017-07-15 11:29 | Progress Note ---
Assessment and Plan Assessment and plan: Patient is a 56-year-old woman with a history of stroke and feeding tube brought to the hospital by EMS on 05/11/17 with a complaint of of "new stroke." She pw with Left sided weakness, facial droop and was non verbal on presentation - Acute SAH, left-sided weakness; with residual left-sided weakness, bedbound, Cont Physical therapy rehabilitation, continue antiplatelets and statin - Dysphagia status post PEG placement, continue PEG tube feeds - History of seizures; continue seizure precautions antiepileptic medications - Accelerated HTN, POA; continue antihypertensives - GERD ; continue PPIs - Dyslipidemia; on statin - DVT with Lovenox==>stopped on 07/01/17 due to SAH - DC planning per case management Awaiting placement in SNF But family not capable of taking care of pt at home. 07/01/17: My first day with patient, and José adler at bedside, who seems very supportive. AMS with acute encephalopathy, there is a question of hemorrhagic conversion, will order MRI ?stroke progression of stroke 07/02/17: Reviewed MRI and MRA brain and d/w Radiologist, Dr. Coleman, pt still with subacute SAH since 05/11/17 most likely from Right anterior thalamic hemorrhage from hypertensive crisis. I then called and spoke with Neurologist, Dr. Reid and asked him for management recommendations; he states, he will come and evaluate today. 07/03/17: Still waiting on Neurology, Dr. Reid's note. No change 07/04/17: d/w Dr. Reid. He will see. continue present management. awaiting placement History Interval history: Patient was seen and examined. Follow-up on current diagnosis/CVA. Overnight uneventful. Patient is nonverbal. Imaging, nursing note, chart, labs and old chart reviewed. Hospitalist Physical - Physical exam Narrative exam: GEN: WDWN, NAD, sleeping but arousable, nonverbal HEENT: NCAT, EOMI, PERRL, OP Clear NECK: supple, no adenopathy, no thyromegaly, no JVD CVS/HEART: RRR, NORMAL S1S2, NO JVD, pulses present bilaterally CHEST/LUNGS: CTA B, Symmetrical chest expansion, good air entry bilaterally GI/Abdomen: soft, NTND, good bowel sounds, no guarding or rebound /Bladder: no suprapubic tenderness, no CVA or paraspinal tenderness EXT/Skin: no c/c/e, no obvious rash MSK: Left hemiparesis Neuro: CN 2-12 grossly intact, no new focal deficits, doesn't follow commands Psych: calm - Constitutional Vitals: Temp Pulse Resp BP Pulse Ox 98.1 F 79 18 135/89 99 07/15/17 07:41 07/15/17 07:41 07/15/17 07:41 07/15/17 07:41 07/15/17 07:41 General appearance: Present: no acute distress, well-nourished Results - Labs CBC & Chem 7: 06/27/17 04:58 06/27/17 04:58 Labs: Laboratory Last Values WBC 3.8 K/mm3 (4.5-11.0) L 06/27/17 04:58 RBC 4.43 M/mm3 (3.65-5.03) 06/27/17 04:58 Hgb 13.7 gm/dl (10.1-14.3) 06/27/17 04:58 Hct 40.3 % (30.3-42.9) 06/27/17 04:58 MCV 91 fl (79-97) 06/27/17 04:58 MCH 31 pg (28-32) 06/27/17 04:58 MCHC 34 % (30-34) 06/27/17 04:58 RDW 15.0 % (13.2-15.2) 06/27/17 04:58 Plt Count 216 K/mm3 (140-440) 06/27/17 04:58 Lymph % (Auto) 43.4 % (13.4-35.0) H 06/27/17 04:58 [place] % (Auto) 12.8 % (0.0-7.3) H 06/27/17 04:58 Eos % (Auto) 2.1 % (0.0-4.3) 06/27/17 04:58 Baso % (Auto) 1.1 % (0.0-1.8) 06/27/17 04:58 Lymph # 1.6 K/mm3 (1.2-5.4) 06/27/17 04:58 [place] # 0.5 K/mm3 (0.0-0.8) 06/27/17 04:58 Eos # 0.1 K/mm3 (0.0-0.4) 06/27/17 04:58 Baso # 0.0 K/mm3 (0.0-0.1) 06/27/17 04:58 Add Manual Diff Complete 05/12/17 05:44 Total Counted 100 05/12/17 05:44 Seg Neutrophils % 40.6 % (40.0-70.0) 06/27/17 04:58 Seg Neuts % (Manual) 46.0 % (40.0-70.0) 05/12/17 05:44 Band Neutrophils % 0 % 05/12/17 05:44 Lymphocytes % (Manual) 39.0 % (13.4-35.0) H 05/12/17 05:44 Reactive Lymphs % (Man) 0 % 05/12/17 05:44 Monocytes % (Manual) 12.0 % (0.0-7.3) H 05/12/17 05:44 Eosinophils % (Manual) 3.0 % (0.0-4.3) 05/12/17 05:44 Basophils % (Manual) 0 % (0.0-1.8) 05/12/17 05:44 Metamyelocytes % 0 % 05/12/17 05:44 Myelocytes % 0 % 05/12/17 05:44 Promyelocytes % 0 % 05/12/17 05:44 Blast Cells % 0 % 05/12/17 05:44 Nucleated RBC % Not Reportable 05/12/17 05:44 Seg Neutrophils # 1.5 K/mm3 (1.8-7.7) L 06/27/17 04:58 Seg Neutrophils # Man 1.3 K/mm3 (1.8-7.7) L 05/12/17 05:44 Band Neutrophils # 0.0 K/mm3 05/12/17 05:44 Lymphocytes # (Manual) 1.1 K/mm3 (1.2-5.4) L 05/12/17 05:44 Abs React Lymphs (Man) 0.0 K/mm3 05/12/17 05:44 Monocytes # (Manual) 0.3 K/mm3 (0.0-0.8) 05/12/17 05:44 Eosinophils # (Manual) 0.1 K/mm3 (0.0-0.4) 05/12/17 05:44 Basophils # (Manual) 0.0 K/mm3 (0.0-0.1) 05/12/17 05:44 Metamyelocytes # 0.0 K/mm3 05/12/17 05:44 Myelocytes # 0.0 K/mm3 05/12/17 05:44 Promyelocytes # 0.0 K/mm3 05/12/17 05:44 Blast Cells # 0.0 K/mm3 05/12/17 05:44 WBC Morphology Not Reportable 05/12/17 05:44 Hypersegmented Neuts Not Reportable 05/12/17 05:44 Hyposegmented Neuts Not Reportable 05/12/17 05:44 Hypogranular Neuts Not Reportable 05/12/17 05:44 Smudge Cells Not Reportable 05/12/17 05:44 Toxic Granulation Not Reportable 05/12/17 05:44 Toxic Vacuolation Not Reportable 05/12/17 05:44 Dohle Bodies Not Reportable 05/12/17 05:44 Pelger-Huet Anomaly Not Reportable 05/12/17 05:44 Shelly Rods Not Reportable 05/12/17 05:44 Platelet Estimate Cons 05/12/17 05:44 Clumped Platelets Few 05/12/17 05:44 Plt Clumps, EDTA Not Reportable 05/12/17 05:44 Large Platelets Not Reportable 05/12/17 05:44 Giant Platelets Not Reportable 05/12/17 05:44 Platelet Satelliting Not Reportable 05/12/17 05:44 Plt Morphology Comment Not Reportable 05/12/17 05:44 RBC Morphology Normal 05/12/17 05:44 Dimorphic RBCs Not Reportable 05/12/17 05:44 Polychromasia Not Reportable 05/12/17 05:44 Hypochromasia Not Reportable 05/12/17 05:44 Poikilocytosis Not Reportable 05/12/17 05:44 Anisocytosis Not Reportable 05/12/17 05:44 Microcytosis Not Reportable 05/12/17 05:44 Macrocytosis Not Reportable 05/12/17 05:44 Spherocytes Not Reportable 05/12/17 05:44 Pappenheimer Bodies Not Reportable 05/12/17 05:44 Sickle Cells Not Reportable 05/12/17 05:44 Target Cells Not Reportable 05/12/17 05:44 Tear Drop Cells Not Reportable 05/12/17 05:44 Ovalocytes Not Reportable 05/12/17 05:44 Helmet Cells Not Reportable 05/12/17 05:44 Cao-[place] Bodies Not Reportable 05/12/17 05:44 [place] Rings Not Reportable 05/12/17 05:44 [place] Cells Not Reportable 05/12/17 05:44 Bite Cells Not Reportable 05/12/17 05:44 Crenated Cell Not Reportable 05/12/17 05:44 Elliptocytes Not Reportable 05/12/17 05:44 Acanthocytes (Spur) Not Reportable 05/12/17 05:44 Rouleaux Not Reportable 05/12/17 05:44 Hemoglobin C Crystals Not Reportable 05/12/17 05:44 Schistocytes Not Reportable 05/12/17 05:44 Malaria parasites Not Reportable 05/12/17 05:44 [place] Bodies Not Reportable 05/12/17 05:44 Hem Pathologist Commnt No 05/12/17 05:44 PT 13.9 Sec. (12.2-14.9) 05/11/17 12:56 INR 1.02 (0.87-1.13) 05/11/17 12:56 APTT 29.8 Sec. (24.2-36.6) 05/11/17 12:56 Thrombin Time 16.4 Sec. (15.1-19.6) 05/11/17 12:56 Sodium 145 mmol/L (137-145) 06/27/17 04:58 Potassium 4.4 mmol/L (3.6-5.0) 06/27/17 04:58 Chloride 103.1 mmol/L (98-107) 06/27/17 04:58 Carbon Dioxide 27 mmol/L (22-30) 06/27/17 04:58 Anion Gap 19 mmol/L 06/27/17 04:58 BUN 17 mg/dL (7-17) 06/27/17 04:58 Creatinine 0.4 mg/dL (0.7-1.2) L 06/27/17 04:58 Estimated GFR > 60 ml/min 06/27/17 04:58 BUN/Creatinine Ratio 43 % 06/27/17 04:58 Glucose 128 mg/dL (65-100) H 06/27/17 04:58 POC Glucose 85 (70-105) 07/04/17 16:57 Hemoglobin A1c 5.7 % (4-6) 05/11/17 12:56 Calcium 9.8 mg/dL (8.4-10.2) 06/27/17 04:58 Total Bilirubin 0.30 mg/dL (0.1-1.2) 05/12/17 05:44 AST 27 units/L (5-40) 05/12/17 05:44 ALT 28 units/L (7-56) 05/12/17 05:44 Alkaline Phosphatase 52 units/L (35-129) 05/12/17 05:44 Total Creatine Kinase 64 units/L (30-135) 05/11/17 12:56 CK-MB (CK-2) 1.4 ng/mL (0.0-4.0) 05/11/17 12:56 CK-MB (CK-2) Rel Index 2.1 (0-4) 05/11/17 12:56 Troponin T < 0.010 ng/mL (0.00-0.029) 05/11/17 12:56 Total Protein 6.5 g/dL (6.3-8.2) 05/12/17 05:44 Albumin 3.8 g/dL (3.9-5) L 05/12/17 05:44 Albumin/Globulin Ratio 1.4 % 05/12/17 05:44 Triglycerides 113 mg/dL (2-149) 05/12/17 05:44 Cholesterol 172 mg/dL (50-199) 05/12/17 05:44 LDL Cholesterol Direct 115 mg/dL (50-130) 05/12/17 05:44 HDL Cholesterol 35 mg/dL (40-59) L 05/12/17 05:44 Cholesterol/HDL Ratio 4.91 % 05/12/17 05:44 Urine Color Yellow (Yellow) 05/11/17 14:09 Urine Turbidity Clear (Clear) 05/11/17 14:09 Urine pH 6.0 (5.0-7.0) 05/11/17 14:09 Ur Specific [place] 1.016 (1.003-1.030) 05/11/17 14:09 Urine Protein <15 mg/dl mg/dL (Negative) 05/11/17 14:09 Urine Glucose (UA) Neg mg/dL (Negative) 05/11/17 14:09 Urine Ketones Tr mg/dL (Negative) 05/11/17 14:09 Urine Blood Neg (Negative) 05/11/17 14:09 Urine Nitrite Neg (Negative) 05/11/17 14:09 Urine Bilirubin Neg (Negative) 05/11/17 14:09 Urine Urobilinogen < 2.0 mg/dL (<2.0) 05/11/17 14:09 Ur Leukocyte Esterase Neg (Negative) 05/11/17 14:09 Urine WBC (Auto) 2.0 /HPF (0.0-6.0) 05/11/17 14:09 Urine RBC (Auto) 3.0 /HPF (0.0-6.0) 05/11/17 14:09 U Epithel Cells (Auto) < 1.0 /HPF (0-13.0) 05/11/17 14:09 Urine Mucus Few /HPF 05/11/17 14:09 Valproic Acid 79.7 ug/mL (50-100) 05/11/17 12:56
[2017-07-16] MEDS: DepaKENE Liq FEEDTUBE SCH ×2 (09:08→22:35)
[2017-07-16] MEDS: NORVASC FEEDTUBE SCH (09:09)
[2017-07-16] MEDS: BABY ASPIRIN PO SCH (09:09)
[2017-07-16] MEDS: PEPCID FEEDTUBE SCH ×2 (09:09→22:35)
--- NOTE | 2017-07-16 17:37 | Consultation ---
History of Present Illness Consult date: 07/16/17 History of present illness: THE PATIENT SEEN ON INTERVAL NOTE FOLLOW UP SHE IS CLEARLY BETTER ....EYES OPEN AND TRACKS WITH EYES BETTER NO SEIZURES ARE PRESENT NO FAMILY HERE TO DICUSS CASE WITH WILL LIKELY RECOMMEND CT of head in three months to be sure no ventricular system changes occur Past History Past Medical History: GERD, seizures, stroke Past Surgical History: Other (peg tube) Social history: denies: smoking, alcohol abuse Medications and Allergies Allergies Allergy/AdvReac Type Severity Reaction Status Date / Time No Known Allergies Allergy Unverified 05/11/17 12:27 Home Medications Medication Instructions Recorded Confirmed Last Taken Type Amlodipine Besylate [Norvasc] 10 mg FEEDTUBE DAILY 05/11/17 05/11/17 Unknown History Labetalol [Normodyne TAB] 200 mg PO BID 05/11/17 05/11/17 Unknown History Ranitidine HCl [Acid Stacker Driver] 150 mg FEEDTUBE BID 05/11/17 05/11/17 Unknown History VALPROIC ACID Liq [DepaKENE Liq] 15 ml FEEDTUBE BID 05/11/17 05/11/17 Unknown History hydrALAZINE [Apresoline TAB] 50 mg FEEDTUBE QID 05/11/17 05/11/17 Unknown History Active Meds: Active Medications Amlodipine Besylate (Norvasc) 10 mg FEEDTUBE DAILY [facility] Last Admin: 07/16/17 09:09 Dose: 10 mg Lipase/Protease/Amylase (Pancreaze Dr 10,500 Unit) 1 each FEEDTUBE PRN PRN PRN Reason: For Clogged Feeding Tube Aspirin (Baby Aspirin) 81 mg PO QDAY [facility] Last Admin: 07/16/17 09:09 Dose: 81 mg Atorvastatin Calcium (Lipitor) 20 mg FEEDTUBE QHS [facility] Last Admin: 07/15/17 21:31 Dose: 20 mg Famotidine (Pepcid) 20 mg FEEDTUBE BID [facility] Last Admin: 07/16/17 09:09 Dose: 20 mg Hydralazine HCl (Apresoline) 10 mg IV Q6HR PRN PRN Reason: Hypertension Simple Syrup (Simple Syrup) 15 ml FEEDTUBE PRN PRN PRN Reason: Hypoglycemia Simple Syrup (Simple Syrup) 30 ml FEEDTUBE PRN PRN PRN Reason: Hypoglycemia Sodium Bicarbonate (Sodium Bicarbonate) 325 mg FEEDTUBE PRN PRN PRN Reason: For Clogged Feeding Tube Valproic Acid (Depakene Liq) 750 mg FEEDTUBE BID [facility] Last Admin: 07/16/17 09:08 Dose: 750 mg Physical Examination - Vital Signs Vital Signs: Vital Signs Temp Pulse Resp BP Pulse Ox 98.3 F 81 14 112/70 97 05/11/17 12:15 05/11/17 12:15 05/11/17 12:15 05/11/17 12:15 05/11/17 12:15 Results - Laboratory Findings CBC and BMP: 06/27/17 04:58 06/27/17 04:58 Abnormal Lab Findings: Abnormal Labs 05/11/17 05/11/17 05/12/17 12:56 12:56 05:44 WBC 3.0 L 2.9 L MCHC RDW 15.3 H Lymph % (Auto) 37.7 H Piatt % (Auto) 14.1 H Baso % (Auto) 2.1 H Lymph # 1.1 L Piatt # Seg Neutrophils % Lymphocytes % (Manual) 39.0 H Monocytes % (Manual) 12.0 H Seg Neutrophils # 1.3 L Seg Neutrophils # Man 1.3 L Lymphocytes # (Manual) 1.1 L BUN Creatinine 0.4 L Glucose 101 H POC Glucose Albumin HDL Cholesterol 05/12/17 05/13/17 05/13/17 05:44 08:10 16:43 WBC MCHC RDW Lymph % (Auto) Piatt % (Auto) Baso % (Auto) Lymph # Piatt # Seg Neutrophils % Lymphocytes % (Manual) Monocytes % (Manual) Seg Neutrophils # Seg Neutrophils # Man Lymphocytes # (Manual) BUN Creatinine 0.4 L Glucose POC Glucose 110 H 125 H Albumin 3.8 L HDL Cholesterol 35 L 05/13/17 05/15/17 05/15/17 22:44 04:00 23:57 WBC MCHC 35 H RDW Lymph % (Auto) Piatt % (Auto) 11.8 H Baso % (Auto) Lymph # Piatt # Seg Neutrophils % Lymphocytes % (Manual) Monocytes % (Manual) Seg Neutrophils # Seg Neutrophils # Man Lymphocytes # (Manual) BUN Creatinine Glucose POC Glucose 112 H 141 H Albumin HDL Cholesterol 05/16/17 05/17/17 05/17/17 23:21 06:14 11:31 WBC MCHC RDW Lymph % (Auto) Piatt % (Auto) Baso % (Auto) Lymph # Piatt # Seg Neutrophils % Lymphocytes % (Manual) Monocytes % (Manual) Seg Neutrophils # Seg Neutrophils # Man Lymphocytes # (Manual) BUN Creatinine Glucose POC Glucose 115 H 107 H 119 H Albumin HDL Cholesterol 05/17/17 05/17/17 05/18/17 17:30 21:49 11:41 WBC MCHC RDW Lymph % (Auto) Piatt % (Auto) Baso % (Auto) Lymph # Piatt # Seg Neutrophils % Lymphocytes % (Manual) Monocytes % (Manual) Seg Neutrophils # Seg Neutrophils # Man Lymphocytes # (Manual) BUN Creatinine Glucose POC Glucose 113 H 107 H 149 H Albumin HDL Cholesterol 05/18/17 05/19/17 05/19/17 17:04 00:10 06:14 WBC MCHC RDW Lymph % (Auto) Piatt % (Auto) Baso % (Auto) Lymph # Piatt # Seg Neutrophils % Lymphocytes % (Manual) Monocytes % (Manual) Seg Neutrophils # Seg Neutrophils # Man Lymphocytes # (Manual) BUN Creatinine Glucose POC Glucose 110 H 115 H 110 H Albumin HDL Cholesterol 05/19/17 05/19/17 05/20/17 11:15 16:36 11:27 WBC MCHC RDW Lymph % (Auto) Piatt % (Auto) Baso % (Auto) Lymph # Piatt # Seg Neutrophils % Lymphocytes % (Manual) Monocytes % (Manual) Seg Neutrophils # Seg Neutrophils # Man Lymphocytes # (Manual) BUN Creatinine Glucose POC Glucose 120 H 114 H 134 H Albumin HDL Cholesterol 05/20/17 05/21/17 05/21/17 22:59 05:37 11:59 WBC MCHC RDW Lymph % (Auto) Piatt % (Auto) Baso % (Auto) Lymph # Piatt # Seg Neutrophils % Lymphocytes % (Manual) Monocytes % (Manual) Seg Neutrophils # Seg Neutrophils # Man Lymphocytes # (Manual) BUN Creatinine Glucose POC Glucose 117 H 124 H 152 H Albumin HDL Cholesterol 05/21/17 05/22/17 05/22/17 23:30 11:33 17:03 WBC MCHC RDW Lymph % (Auto) Piatt % (Auto) Baso % (Auto) Lymph # Piatt # Seg Neutrophils % Lymphocytes % (Manual) Monocytes % (Manual) Seg Neutrophils # Seg Neutrophils # Man Lymphocytes # (Manual) BUN Creatinine Glucose POC Glucose 119 H 132 H 69 L Albumin HDL Cholesterol 05/22/17 05/23/17 05/23/17 23:19 05:16 11:58 WBC MCHC RDW Lymph % (Auto) Piatt % (Auto) Baso % (Auto) Lymph # Piatt # Seg Neutrophils % Lymphocytes % (Manual) Monocytes % (Manual) Seg Neutrophils # Seg Neutrophils # Man Lymphocytes # (Manual) BUN Creatinine Glucose POC Glucose 120 H 123 H 106 H Albumin HDL Cholesterol 05/23/17 05/24/17 05/24/17 16:35 00:52 06:56 WBC MCHC RDW Lymph % (Auto) Piatt % (Auto) Baso % (Auto) Lymph # Piatt # Seg Neutrophils % Lymphocytes % (Manual) Monocytes % (Manual) Seg Neutrophils # Seg Neutrophils # Man Lymphocytes # (Manual) BUN Creatinine Glucose POC Glucose 108 H 116 H 137 H Albumin HDL Cholesterol 05/24/17 05/25/17 05/26/17 12:37 11:28 05:33 WBC MCHC RDW Lymph % (Auto) Piatt % (Auto) 13.2 H Baso % (Auto) Lymph # Piatt # Seg Neutrophils % Lymphocytes % (Manual) Monocytes % (Manual) Seg Neutrophils # Seg Neutrophils # Man Lymphocytes # (Manual) BUN Creatinine Glucose POC Glucose 118 H 113 H Albumin HDL Cholesterol 05/26/17 05/26/17 05/27/17 05:33 11:35 01:02 WBC MCHC RDW Lymph % (Auto) Piatt % (Auto) Baso % (Auto) Lymph # Piatt # Seg Neutrophils % Lymphocytes % (Manual) Monocytes % (Manual) Seg Neutrophils # Seg Neutrophils # Man Lymphocytes # (Manual) BUN Creatinine 0.4 L Glucose POC Glucose 120 H 113 H Albumin HDL Cholesterol 05/28/17 05/31/17 05/31/17 07:42 05:08 12:08 WBC MCHC RDW Lymph % (Auto) Piatt % (Auto) Baso % (Auto) Lymph # Piatt # Seg Neutrophils % Lymphocytes % (Manual) Monocytes % (Manual) Seg Neutrophils # Seg Neutrophils # Man Lymphocytes # (Manual) BUN Creatinine Glucose POC Glucose 123 H 112 H 130 H Albumin HDL Cholesterol 06/01/17 06/01/17 06/01/17 07:01 16:30 21:44 WBC MCHC RDW Lymph % (Auto) Piatt % (Auto) Baso % (Auto) Lymph # Piatt # Seg Neutrophils % Lymphocytes % (Manual) Monocytes % (Manual) Seg Neutrophils # Seg Neutrophils # Man Lymphocytes # (Manual) BUN 19 H Creatinine 0.4 L Glucose 105 H POC Glucose 126 H 140 H Albumin HDL Cholesterol 06/02/17 06/02/17 06/03/17 05:40 21:02 06:30 WBC MCHC RDW Lymph % (Auto) Piatt % (Auto) Baso % (Auto) Lymph # Piatt # Seg Neutrophils % Lymphocytes % (Manual) Monocytes % (Manual) Seg Neutrophils # Seg Neutrophils # Man Lymphocytes # (Manual) BUN Creatinine Glucose POC Glucose 148 H 124 H 132 H Albumin HDL Cholesterol 06/03/17 06/04/17 06/04/17 12:09 05:22 23:28 WBC MCHC RDW Lymph % (Auto) Piatt % (Auto) Baso % (Auto) Lymph # Piatt # Seg Neutrophils % Lymphocytes % (Manual) Monocytes % (Manual) Seg Neutrophils # Seg Neutrophils # Man Lymphocytes # (Manual) BUN Creatinine Glucose POC Glucose 106 H 119 H 116 H Albumin HDL Cholesterol 06/05/17 06/05/17 06/05/17 05:07 05:07 05:42 WBC MCHC RDW Lymph % (Auto) Piatt % (Auto) 13.1 H Baso % (Auto) Lymph # Piatt # 0.9 H Seg Neutrophils % Lymphocytes % (Manual) Monocytes % (Manual) Seg Neutrophils # Seg Neutrophils # Man Lymphocytes # (Manual) BUN 19 H Creatinine 0.3 L Glucose 120 H POC Glucose 115 H Albumin HDL Cholesterol 06/05/17 06/06/17 06/06/17 11:55 00:00 05:32 WBC MCHC RDW Lymph % (Auto) Piatt % (Auto) Baso % (Auto) Lymph # Piatt # Seg Neutrophils % Lymphocytes % (Manual) Monocytes % (Manual) Seg Neutrophils # Seg Neutrophils # Man Lymphocytes # (Manual) BUN Creatinine Glucose POC Glucose 130 H 112 H 120 H Albumin HDL Cholesterol 06/06/17 06/07/17 06/08/17 23:25 06:55 06:40 WBC MCHC RDW Lymph % (Auto) Piatt % (Auto) Baso % (Auto) Lymph # Piatt # Seg Neutrophils % Lymphocytes % (Manual) Monocytes % (Manual) Seg Neutrophils # Seg Neutrophils # Man Lymphocytes # (Manual) BUN Creatinine Glucose POC Glucose 117 H 141 H 152 H Albumin HDL Cholesterol 06/08/17 06/09/1717 23:46 05:33 05:15 WBC MCHC RDW Lymph % (Auto) Piatt % (Auto) Baso % (Auto) Lymph # Piatt # Seg Neutrophils % Lymphocytes % (Manual) Monocytes % (Manual) Seg Neutrophils # Seg Neutrophils # Man Lymphocytes # (Manual) BUN Creatinine Glucose POC Glucose 113 H 137 H 122 H Albumin HDL Cholesterol 06/10/17 06/11/17 06/11/17 23:01 06:53 06:59 WBC 4.1 L MCHC RDW Lymph % (Auto) Piatt % (Auto) Baso % (Auto) Lymph # Piatt # Seg Neutrophils % Lymphocytes % (Manual) Monocytes % (Manual) Seg Neutrophils # Seg Neutrophils # Man Lymphocytes # (Manual) BUN Creatinine Glucose POC Glucose 131 H 124 H Albumin HDL Cholesterol 06/11/17 06/11/17 06/11/17 06:59 12:20 22:47 WBC MCHC RDW Lymph % (Auto) Piatt % (Auto) Baso % (Auto) Lymph # Piatt # Seg Neutrophils % Lymphocytes % (Manual) Monocytes % (Manual) Seg Neutrophils # Seg Neutrophils # Man Lymphocytes # (Manual) BUN 18 H Creatinine 0.4 L Glucose 127 H POC Glucose 112 H 109 H Albumin HDL Cholesterol 06/12/17 06/12/17 06/12/17 06:53 11:13 22:19 WBC MCHC RDW Lymph % (Auto) Piatt % (Auto) Baso % (Auto) Lymph # Piatt # Seg Neutrophils % Lymphocytes % (Manual) Monocytes % (Manual) Seg Neutrophils # Seg Neutrophils # Man Lymphocytes # (Manual) BUN Creatinine Glucose POC Glucose 140 H 107 H 110 H Albumin HDL Cholesterol 06/13/17 06/13/17 06/14/17 05:59 11:58 05:27 WBC MCHC RDW Lymph % (Auto) Piatt % (Auto) Baso % (Auto) Lymph # Piatt # Seg Neutrophils % Lymphocytes % (Manual) Monocytes % (Manual) Seg Neutrophils # Seg Neutrophils # Man Lymphocytes # (Manual) BUN Creatinine Glucose POC Glucose 114 H 117 H 106 H Albumin HDL Cholesterol 06/15/17 06/15/17 06/16/17 11:43 21:31 05:54 WBC MCHC RDW Lymph % (Auto) Piatt % (Auto) Baso % (Auto) Lymph # Piatt # Seg Neutrophils % Lymphocytes % (Manual) Monocytes % (Manual) Seg Neutrophils # Seg Neutrophils # Man Lymphocytes # (Manual) BUN Creatinine Glucose POC Glucose 135 H 125 H 148 H Albumin HDL Cholesterol 06/16/17 06/17/17 06/17/17 11:20 00:49 11:14 WBC MCHC RDW Lymph % (Auto) Piatt % (Auto) Baso % (Auto) Lymph # Piatt # Seg Neutrophils % Lymphocytes % (Manual) Monocytes % (Manual) Seg Neutrophils # Seg Neutrophils # Man Lymphocytes # (Manual) BUN Creatinine Glucose POC Glucose 120 H 120 H 124 H Albumin HDL Cholesterol 06/18/17 06/19/17 06/21/17 05:32 11:14 05:16 WBC 3.7 L MCHC RDW Lymph % (Auto) 45.0 H Piatt % (Auto) 13.7 H Baso % (Auto) Lymph # Piatt # Seg Neutrophils % 37.9 L Lymphocytes % (Manual) Monocytes % (Manual) Seg Neutrophils # 1.4 L Seg Neutrophils # Man Lymphocytes # (Manual) BUN Creatinine Glucose POC Glucose 122 H 123 H Albumin HDL Cholesterol 06/21/17 06/21/17 06/21/17 05:16 06:27 11:24 WBC MCHC RDW Lymph % (Auto) Piatt % (Auto) Baso % (Auto) Lymph # Piatt # Seg Neutrophils % Lymphocytes % (Manual) Monocytes % (Manual) Seg Neutrophils # Seg Neutrophils # Man Lymphocytes # (Manual) BUN 18 H Creatinine 0.4 L Glucose 110 H POC Glucose 113 H 137 H Albumin HDL Cholesterol 06/23/17 06/24/17 06/24/17 22:36 06:04 20:49 WBC MCHC RDW Lymph % (Auto) Piatt % (Auto) Baso % (Auto) Lymph # Piatt # Seg Neutrophils % Lymphocytes % (Manual) Monocytes % (Manual) Seg Neutrophils # Seg Neutrophils # Man Lymphocytes # (Manual) BUN Creatinine Glucose POC Glucose 138 H 123 H 106 H Albumin HDL Cholesterol 06/25/17 06/25/17 06/27/17 06:09 21:53 00:47 WBC MCHC RDW Lymph % (Auto) Piatt % (Auto) Baso % (Auto) Lymph # Piatt # Seg Neutrophils % Lymphocytes % (Manual) Monocytes % (Manual) Seg Neutrophils # Seg Neutrophils # Man Lymphocytes # (Manual) BUN Creatinine Glucose POC Glucose 107 H 111 H 114 H Albumin HDL Cholesterol 06/27/17 06/27/1717 04:58 04:58 06:58 WBC 3.8 L MCHC RDW Lymph % (Auto) 43.4 H Piatt % (Auto) 12.8 H Baso % (Auto) Lymph # Piatt # Seg Neutrophils % Lymphocytes % (Manual) Monocytes % (Manual) Seg Neutrophils # 1.5 L Seg Neutrophils # Man Lymphocytes # (Manual) BUN Creatinine 0.4 L Glucose 128 H POC Glucose 120 H Albumin HDL Cholesterol 06/27/17 06/28/17 06/28/17 21:45 05:30 11:19 WBC MCHC RDW Lymph % (Auto) Piatt % (Auto) Baso % (Auto) Lymph # Piatt # Seg Neutrophils % Lymphocytes % (Manual) Monocytes % (Manual) Seg Neutrophils # Seg Neutrophils # Man Lymphocytes # (Manual) BUN Creatinine Glucose POC Glucose 108 H 109 H 114 H Albumin HDL Cholesterol 06/28/17 06/29/17 06/30/17 22:51 05:58 06:32 WBC MCHC RDW Lymph % (Auto) Piatt % (Auto) Baso % (Auto) Lymph # Piatt # Seg Neutrophils % Lymphocytes % (Manual) Monocytes % (Manual) Seg Neutrophils # Seg Neutrophils # Man Lymphocytes # (Manual) BUN Creatinine Glucose POC Glucose 116 H 115 H 119 H Albumin HDL Cholesterol
[2017-07-16] MEDS ORDERED: SIMPLE SYRUP FEEDTUBE PRN ×2 (17:54)
[2017-07-16] MEDS ORDERED: PANCREAZE DR 10,500 UNIT FEEDTUBE PRN (17:54)
[2017-07-16] MEDS ORDERED: SODIUM BICARBONATE FEEDTUBE PRN (17:54)
[2017-07-17] MEDS: BABY ASPIRIN PO SCH (10:45)
[2017-07-17] MEDS: DepaKENE Liq FEEDTUBE SCH ×2 (10:45→21:19)
[2017-07-17] MEDS: NORVASC FEEDTUBE SCH (10:45)
[2017-07-17] MEDS: PEPCID FEEDTUBE SCH ×2 (10:46→21:19)
--- NOTE | 2017-07-17 18:02 | Progress Note ---
Assessment and Plan - CVA with left-sided Hemiparesis: with residual left-sided weakness, bedbound, CT 05/11/17 ; Chronic infarct right occipital lobe right josh , Apparent subacute to early chronic right thalamic infarct Cont Physical therapy rehabilitation, continue antiplatelets and statin - Dysphagia status post PEG placement, continue PEG tube feeds -unable to do barrium swallow study - History of seizures; continue seizure precautions antiepileptic medications - HTN; stable on antihypertensives - GERD ; continue PPIs - Dyslipidemia; on statin - DVT with Lovenox - DC planning per case management Awaiting placement SNF placement as family is not capable of taking care of pt at home. Subjective Date of service: 07/17/17 Principal diagnosis: stroke Interval history: Patient seen and examined. Lying quietly in bed. No new complaint. Patient's fiancee by the bed side. No overnight events reported. Objective - Constitutional Vitals: Vital Signs - 12hr 07/17/17 07/17/17 07:53 15:35 Temperature 98.6 F 97.9 F Pulse Rate 78 78 Respiratory 19 19 Rate Blood Pressure 134/88 137/89 O2 Sat by Pulse 99 98 Oximetry General appearance: Present: no acute distress, well-nourished - EENT Eyes: PERRL, EOM intact - Neck Neck: supple, normal ROM - Respiratory Respiratory effort: normal Respiratory: bilateral: CTA - Cardiovascular Rhythm: regular Heart Sounds: Present: S1 & S2. Absent: gallop, rub Extremities: pulses intact, No edema, normal color, Full ROM - Gastrointestinal General gastrointestinal: Present: soft, non-tender, non-distended, normal bowel sounds - Integumentary Integumentary: clear, warm, dry - Musculoskeletal Musculoskeletal: 1, strength equal bilaterally - Neurologic Neurologic: moves all extremities - Psychiatric Psychiatric: memory intact, appropriate mood/affect, intact judgment & insight - Labs CBC & Chem 7: 06/27/17 04:58 06/27/17 04:58
[2017-07-18 06:25] LABS: Basophils % (Auto) 0.7 % (0.0-1.8); Eosinophils # (Auto) 0.1 K/mm3 (0.0-0.4); Eosinophils % (Auto) 3.3 % (0.0-4.3); Hematocrit 41.9 % (30.3-42.9); Hemoglobin 14.1 gm/dl (10.1-14.3); Lymphocytes # (Auto) 1.5 K/mm3 (1.2-5.4); Lymphocytes % (Auto) 46.1 % (13.4-35.0); Mean Corpuscular HGB Conc 34 % (30-34); Mean Corpuscular Hemoglobin 31 pg (28-32); Mean Corpuscular Volume 91 fl (79-97); Monocytes # (Auto) 0.5 K/mm3 (0.0-0.8); Monocytes % (Auto) 14.3 % (0.0-7.3); Platelet Count 199 K/mm3 (140-440); Red Cell Distribution Width 14.5 % (13.2-15.2)
[2017-07-18 06:38] LABS: Alanine Aminotransferase 50 units/L (7-56); Albumin 3.8 g/dL (3.9-5); BUN/Creatinine Ratio 50; Blood Urea Nitrogen 20 mg/dL (7-17); Calcium 9.7 mg/dL (8.4-10.2); Hemolysis Index 21
[2017-07-18] MEDS: PEPCID FEEDTUBE SCH ×2 (10:05→22:59)
[2017-07-18] MEDS: NORVASC FEEDTUBE SCH (10:05)
[2017-07-18] MEDS: BABY ASPIRIN PO SCH (10:05)
[2017-07-18] MEDS: DepaKENE Liq FEEDTUBE SCH ×2 (10:05→22:59)
--- NOTE | 2017-07-18 18:38 | Progress Note ---
Assessment and Plan - CVA with left-sided Hemiparesis: with residual left-sided weakness, bedbound, CT 05/11/17 ; Chronic infarct right occipital lobe right josh , Apparent subacute to early chronic right thalamic infarct Cont Physical therapy rehabilitation, continue antiplatelets and statin - Dysphagia status post PEG placement, continue PEG tube feeds -unable to do barrium swallow study - History of seizures; continue seizure precautions antiepileptic medications - HTN; stable on antihypertensives - GERD ; continue PPIs - Dyslipidemia; on statin - DVT with Lovenox - DC planning per case management Awaiting placement SNF placement as family is not capable of taking care of pt at home. Subjective Date of service: 07/18/17 Principal diagnosis: stroke Interval history: Patient seen and examined. Lying quietly in bed. No new complaint. Patient's fiancee by the bed side. No overnight events reported. Objective - Exam Narrative Exam: Constitutional: Well-nourished well-developed. In no distress Head: Normocephalic atraumatic Eyes: Pupils are equal round and reactive to light Nose: No enlarged turbinates, no septal deviation. Mouth: Moist mucous membranes. Neck: Supple no thyromegaly. No bruit. No JVD Heart: Regular rate and rhythm, S1-S2 abnormal. No rubs murmurs or gallop Lungs: Clear to auscultation bilaterally no rales or rhonchi Abdomen: Soft nontender BS are presetn. Extremities: No edema no cyanosis and no clubbing. Neuro: Alert oriented -3 no focal sensory or motor deficit. Skin: No rashes no hyperemic spots - Constitutional Vitals: Vital Signs - 12hr 07/18/17 07/18/17 09:36 10:05 Temperature 97.8 F Pulse Rate 77 77 Respiratory 18 Rate Blood Pressure 149/94 149/94 O2 Sat by Pulse 99 Oximetry General appearance: Present: no acute distress, well-nourished - EENT Eyes: PERRL, EOM intact - Neck Neck: supple, normal ROM - Respiratory Respiratory effort: normal Respiratory: bilateral: CTA - Cardiovascular Rhythm: regular Heart Sounds: Present: S1 & S2. Absent: gallop, rub Extremities: pulses intact, No edema, normal color, Full ROM - Gastrointestinal General gastrointestinal: Present: soft, non-tender, non-distended, normal bowel sounds - Integumentary Integumentary: clear, warm, dry - Musculoskeletal Musculoskeletal: other - Neurologic Neurologic: CNII-XII intact, other (left hemiparesis) - Psychiatric Psychiatric: appropriate mood/affect, cooperative, depressed - Labs CBC & Chem 7: 07/18/17 06:05 07/18/17 06:05 Labs: Abnormal lab results 07/18/17 07/18/17 Range/Units 06:05 06:05 WBC 3.2 L (4.5-11.0) K/mm3 Lymph % (Auto) 46.1 H (13.4-35.0) % Ellis % (Auto) 14.3 H (0.0-7.3) % Seg Neutrophils % 35.6 L (40.0-70.0) % Seg Neutrophils # 1.1 L (1.8-7.7) K/mm3 BUN 20 H (7-17) mg/dL Creatinine 0.4 L (0.7-1.2) mg/dL Glucose 140 H (65-100) mg/dL AST 43 H (5-40) units/L Albumin 3.8 L (3.9-5) g/dL
--- NOTE | 2017-07-18 18:51 | Consultation ---
History of Present Illness Consult date: 07/18/17 History of present illness: same level of response nVS stable neuro status is unchanged at this point stroke syndrome stable some progress being made Past History Past Medical History: GERD, seizures, stroke Past Surgical History: Other (peg tube) Social history: denies: smoking, alcohol abuse Medications and Allergies Allergies Allergy/AdvReac Type Severity Reaction Status Date / Time No Known Allergies Allergy Unverified 05/11/17 12:27 Home Medications Medication Instructions Recorded Confirmed Last Taken Type Amlodipine Besylate [Norvasc] 10 mg FEEDTUBE DAILY 05/11/17 05/11/17 Unknown History Labetalol [Normodyne TAB] 200 mg PO BID 05/11/17 05/11/17 Unknown History Ranitidine HCl [Acid Fish Tender] 150 mg FEEDTUBE BID 05/11/17 05/11/17 Unknown History VALPROIC ACID Liq [DepaKENE Liq] 15 ml FEEDTUBE BID 05/11/17 05/11/17 Unknown History hydrALAZINE [Apresoline TAB] 50 mg FEEDTUBE QID 05/11/17 05/11/17 Unknown History Active Meds: Active Medications Amlodipine Besylate (Norvasc) 10 mg FEEDTUBE DAILY [facility] Last Admin: 07/18/17 10:05 Dose: 10 mg Lipase/Protease/Amylase (Pancreaze Dr 10,500 Unit) 1 each FEEDTUBE PRN PRN PRN Reason: For Clogged Feeding Tube Aspirin (Baby Aspirin) 81 mg PO QDAY [facility] Last Admin: 07/18/17 10:05 Dose: 81 mg Atorvastatin Calcium (Lipitor) 20 mg FEEDTUBE QHS [facility] Last Admin: 07/17/17 21:19 Dose: 20 mg Famotidine (Pepcid) 20 mg FEEDTUBE BID [facility] Last Admin: 07/18/17 10:05 Dose: 20 mg Hydralazine HCl (Apresoline) 10 mg IV Q6HR PRN PRN Reason: Hypertension Simple Syrup (Simple Syrup) 15 ml FEEDTUBE PRN PRN PRN Reason: Hypoglycemia Simple Syrup (Simple Syrup) 30 ml FEEDTUBE PRN PRN PRN Reason: Hypoglycemia Sodium Bicarbonate (Sodium Bicarbonate) 325 mg FEEDTUBE PRN PRN PRN Reason: For Clogged Feeding Tube Valproic Acid (Depakene Liq) 750 mg FEEDTUBE BID [facility] Last Admin: 07/18/17 10:05 Dose: 750 mg Physical Examination - Vital Signs Vital Signs: Vital Signs Temp Pulse Resp BP Pulse Ox 98.3 F 81 14 112/70 97 05/11/17 12:15 05/11/17 12:15 05/11/17 12:15 05/11/17 12:15 05/11/17 12:15 Results - Laboratory Findings CBC and BMP: 07/18/17 06:05 07/18/17 06:05 Abnormal Lab Findings: Abnormal Labs 05/11/17 05/11/17 05/12/17 12:56 12:56 05:44 WBC 3.0 L 2.9 L MCHC RDW 15.3 H Lymph % (Auto) 37.7 H [place] % (Auto) 14.1 H Baso % (Auto) 2.1 H Lymph # 1.1 L [place] # Seg Neutrophils % Lymphocytes % (Manual) 39.0 H Monocytes % (Manual) 12.0 H Seg Neutrophils # 1.3 L Seg Neutrophils # Man 1.3 L Lymphocytes # (Manual) 1.1 L BUN Creatinine 0.4 L Glucose 101 H POC Glucose AST Albumin HDL Cholesterol 05/12/17 05/13/17 05/13/17 05:44 08:10 16:43 WBC MCHC RDW Lymph % (Auto) [place] % (Auto) Baso % (Auto) Lymph # [place] # Seg Neutrophils % Lymphocytes % (Manual) Monocytes % (Manual) Seg Neutrophils # Seg Neutrophils # Man Lymphocytes # (Manual) BUN Creatinine 0.4 L Glucose POC Glucose 110 H 125 H AST Albumin 3.8 L HDL Cholesterol 35 L 05/13/17 05/15/17 05/15/17 22:44 04:00 23:57 WBC MCHC 35 H RDW Lymph % (Auto) [place] % (Auto) 11.8 H Baso % (Auto) Lymph # [place] # Seg Neutrophils % Lymphocytes % (Manual) Monocytes % (Manual) Seg Neutrophils # Seg Neutrophils # Man Lymphocytes # (Manual) BUN Creatinine Glucose POC Glucose 112 H 141 H AST Albumin HDL Cholesterol 05/16/17 05/17/17 05/17/17 23:21 06:14 11:31 WBC MCHC RDW Lymph % (Auto) [place] % (Auto) Baso % (Auto) Lymph # [place] # Seg Neutrophils % Lymphocytes % (Manual) Monocytes % (Manual) Seg Neutrophils # Seg Neutrophils # Man Lymphocytes # (Manual) BUN Creatinine Glucose POC Glucose 115 H 107 H 119 H AST Albumin HDL Cholesterol 05/17/17 05/17/17 05/18/17 17:30 21:49 11:41 WBC MCHC RDW Lymph % (Auto) [place] % (Auto) Baso % (Auto) Lymph # [place] # Seg Neutrophils % Lymphocytes % (Manual) Monocytes % (Manual) Seg Neutrophils # Seg Neutrophils # Man Lymphocytes # (Manual) BUN Creatinine Glucose POC Glucose 113 H 107 H 149 H AST Albumin HDL Cholesterol 05/18/17 05/19/17 05/19/17 17:04 00:10 06:14 WBC MCHC RDW Lymph % (Auto) [place] % (Auto) Baso % (Auto) Lymph # [place] # Seg Neutrophils % Lymphocytes % (Manual) Monocytes % (Manual) Seg Neutrophils # Seg Neutrophils # Man Lymphocytes # (Manual) BUN Creatinine Glucose POC Glucose 110 H 115 H 110 H AST Albumin HDL Cholesterol 05/19/17 05/19/17 05/20/17 11:15 16:36 11:27 WBC MCHC RDW Lymph % (Auto) [place] % (Auto) Baso % (Auto) Lymph # [place] # Seg Neutrophils % Lymphocytes % (Manual) Monocytes % (Manual) Seg Neutrophils # Seg Neutrophils # Man Lymphocytes # (Manual) BUN Creatinine Glucose POC Glucose 120 H 114 H 134 H AST Albumin HDL Cholesterol 05/20/17 05/21/17 05/21/17 22:59 05:37 11:59 WBC MCHC RDW Lymph % (Auto) [place] % (Auto) Baso % (Auto) Lymph # [place] # Seg Neutrophils % Lymphocytes % (Manual) Monocytes % (Manual) Seg Neutrophils # Seg Neutrophils # Man Lymphocytes # (Manual) BUN Creatinine Glucose POC Glucose 117 H 124 H 152 H AST Albumin HDL Cholesterol 05/21/17 05/22/17 05/22/17 23:30 11:33 17:03 WBC MCHC RDW Lymph % (Auto) [place] % (Auto) Baso % (Auto) Lymph # [place] # Seg Neutrophils % Lymphocytes % (Manual) Monocytes % (Manual) Seg Neutrophils # Seg Neutrophils # Man Lymphocytes # (Manual) BUN Creatinine Glucose POC Glucose 119 H 132 H 69 L AST Albumin HDL Cholesterol 05/22/17 05/23/17 05/23/17 23:19 05:16 11:58 WBC MCHC RDW Lymph % (Auto) [place] % (Auto) Baso % (Auto) Lymph # [place] # Seg Neutrophils % Lymphocytes % (Manual) Monocytes % (Manual) Seg Neutrophils # Seg Neutrophils # Man Lymphocytes # (Manual) BUN Creatinine Glucose POC Glucose 120 H 123 H 106 H AST Albumin HDL Cholesterol 05/23/17 05/24/17 05/24/17 16:35 00:52 06:56 WBC MCHC RDW Lymph % (Auto) [place] % (Auto) Baso % (Auto) Lymph # [place] # Seg Neutrophils % Lymphocytes % (Manual) Monocytes % (Manual) Seg Neutrophils # Seg Neutrophils # Man Lymphocytes # (Manual) BUN Creatinine Glucose POC Glucose 108 H 116 H 137 H AST Albumin HDL Cholesterol 05/24/17 05/25/17 05/26/17 12:37 11:28 05:33 WBC MCHC RDW Lymph % (Auto) [place] % (Auto) 13.2 H Baso % (Auto) Lymph # [place] # Seg Neutrophils % Lymphocytes % (Manual) Monocytes % (Manual) Seg Neutrophils # Seg Neutrophils # Man Lymphocytes # (Manual) BUN Creatinine Glucose POC Glucose 118 H 113 H AST Albumin HDL Cholesterol 05/26/17 05/26/17 05/27/17 05:33 11:35 01:02 WBC MCHC RDW Lymph % (Auto) [place] % (Auto) Baso % (Auto) Lymph # [place] # Seg Neutrophils % Lymphocytes % (Manual) Monocytes % (Manual) Seg Neutrophils # Seg Neutrophils # Man Lymphocytes # (Manual) BUN Creatinine 0.4 L Glucose POC Glucose 120 H 113 H AST Albumin HDL Cholesterol 05/28/17 05/31/17 05/31/17 07:42 05:08 12:08 WBC MCHC RDW Lymph % (Auto) [place] % (Auto) Baso % (Auto) Lymph # [place] # Seg Neutrophils % Lymphocytes % (Manual) Monocytes % (Manual) Seg Neutrophils # Seg Neutrophils # Man Lymphocytes # (Manual) BUN Creatinine Glucose POC Glucose 123 H 112 H 130 H AST Albumin HDL Cholesterol 06/01/17 06/01/17 06/01/17 07:01 16:30 21:44 WBC MCHC RDW Lymph % (Auto) [place] % (Auto) Baso % (Auto) Lymph # [place] # Seg Neutrophils % Lymphocytes % (Manual) Monocytes % (Manual) Seg Neutrophils # Seg Neutrophils # Man Lymphocytes # (Manual) BUN 19 H Creatinine 0.4 L Glucose 105 H POC Glucose 126 H 140 H AST Albumin HDL Cholesterol 06/02/17 06/02/17 06/03/17 05:40 21:02 06:30 WBC MCHC RDW Lymph % (Auto) [place] % (Auto) Baso % (Auto) Lymph # [place] # Seg Neutrophils % Lymphocytes % (Manual) Monocytes % (Manual) Seg Neutrophils # Seg Neutrophils # Man Lymphocytes # (Manual) BUN Creatinine Glucose POC Glucose 148 H 124 H 132 H AST Albumin HDL Cholesterol 06/03/17 06/04/17 06/04/17 12:09 05:22 23:28 WBC MCHC RDW Lymph % (Auto) [place] % (Auto) Baso % (Auto) Lymph # [place] # Seg Neutrophils % Lymphocytes % (Manual) Monocytes % (Manual) Seg Neutrophils # Seg Neutrophils # Man Lymphocytes # (Manual) BUN Creatinine Glucose POC Glucose 106 H 119 H 116 H AST Albumin HDL Cholesterol 06/05/17 06/05/17 06/05/17 05:07 05:07 05:42 WBC MCHC RDW Lymph % (Auto) [place] % (Auto) 13.1 H Baso % (Auto) Lymph # [place] # 0.9 H Seg Neutrophils % Lymphocytes % (Manual) Monocytes % (Manual) Seg Neutrophils # Seg Neutrophils # Man Lymphocytes # (Manual) BUN 19 H Creatinine 0.3 L Glucose 120 H POC Glucose 115 H AST Albumin HDL Cholesterol 06/05/17 06/06/17 06/06/17 11:55 00:00 05:32 WBC MCHC RDW Lymph % (Auto) [place] % (Auto) Baso % (Auto) Lymph # [place] # Seg Neutrophils % Lymphocytes % (Manual) Monocytes % (Manual) Seg Neutrophils # Seg Neutrophils # Man Lymphocytes # (Manual) BUN Creatinine Glucose POC Glucose 130 H 112 H 120 H AST Albumin HDL Cholesterol 06/06/17 06/07/17 06/08/17 23:25 06:55 06:40 WBC MCHC RDW Lymph % (Auto) [place] % (Auto) Baso % (Auto) Lymph # [place] # Seg Neutrophils % Lymphocytes % (Manual) Monocytes % (Manual) Seg Neutrophils # Seg Neutrophils # Man Lymphocytes # (Manual) BUN Creatinine Glucose POC Glucose 117 H 141 H 152 H AST Albumin HDL Cholesterol 06/08/17 06/09/17 06/10/17 23:46 05:33 05:15 WBC MCHC RDW Lymph % (Auto) [place] % (Auto) Baso % (Auto) Lymph # [place] # Seg Neutrophils % Lymphocytes % (Manual) Monocytes % (Manual) Seg Neutrophils # Seg Neutrophils # Man Lymphocytes # (Manual) BUN Creatinine Glucose POC Glucose 113 H 137 H 122 H AST Albumin HDL Cholesterol 06/10/17 06/11/17 06/11/17 23:01 06:53 06:59 WBC 4.1 L MCHC RDW Lymph % (Auto) [place] % (Auto) Baso % (Auto) Lymph # [place] # Seg Neutrophils % Lymphocytes % (Manual) Monocytes % (Manual) Seg Neutrophils # Seg Neutrophils # Man Lymphocytes # (Manual) BUN Creatinine Glucose POC Glucose 131 H 124 H AST Albumin HDL Cholesterol 06/11/17 06/11/17 06/11/17 06:59 12:20 22:47 WBC MCHC RDW Lymph % (Auto) [place] % (Auto) Baso % (Auto) Lymph # [place] # Seg Neutrophils % Lymphocytes % (Manual) Monocytes % (Manual) Seg Neutrophils # Seg Neutrophils # Man Lymphocytes # (Manual) BUN 18 H Creatinine 0.4 L Glucose 127 H POC Glucose 112 H 109 H AST Albumin HDL Cholesterol 06/12/17 06/12/17 06/12/17 06:53 11:13 22:19 WBC MCHC RDW Lymph % (Auto) [place] % (Auto) Baso % (Auto) Lymph # [place] # Seg Neutrophils % Lymphocytes % (Manual) Monocytes % (Manual) Seg Neutrophils # Seg Neutrophils # Man Lymphocytes # (Manual) BUN Creatinine Glucose POC Glucose 140 H 107 H 110 H AST Albumin HDL Cholesterol 06/13/17 06/13/17 06/14/17 05:59 11:58 05:27 WBC MCHC RDW Lymph % (Auto) [place] % (Auto) Baso % (Auto) Lymph # [place] # Seg Neutrophils % Lymphocytes % (Manual) Monocytes % (Manual) Seg Neutrophils # Seg Neutrophils # Man Lymphocytes # (Manual) BUN Creatinine Glucose POC Glucose 114 H 117 H 106 H AST Albumin HDL Cholesterol 06/15/17 06/15/17 06/16/17 11:43 21:31 05:54 WBC MCHC RDW Lymph % (Auto) [place] % (Auto) Baso % (Auto) Lymph # [place] # Seg Neutrophils % Lymphocytes % (Manual) Monocytes % (Manual) Seg Neutrophils # Seg Neutrophils # Man Lymphocytes # (Manual) BUN Creatinine Glucose POC Glucose 135 H 125 H 148 H AST Albumin HDL Cholesterol 06/16/17 06/17/17 06/17/17 11:20 00:49 11:14 WBC MCHC RDW Lymph % (Auto) [place] % (Auto) Baso % (Auto) Lymph # [place] # Seg Neutrophils % Lymphocytes % (Manual) Monocytes % (Manual) Seg Neutrophils # Seg Neutrophils # Man Lymphocytes # (Manual) BUN Creatinine Glucose POC Glucose 120 H 120 H 124 H AST Albumin HDL Cholesterol 06/18/17 06/19/17 06/21/17 05:32 11:14 05:16 WBC 3.7 L MCHC RDW Lymph % (Auto) 45.0 H [place] % (Auto) 13.7 H Baso % (Auto) Lymph # [place] # Seg Neutrophils % 37.9 L Lymphocytes % (Manual) Monocytes % (Manual) Seg Neutrophils # 1.4 L Seg Neutrophils # Man Lymphocytes # (Manual) BUN Creatinine Glucose POC Glucose 122 H 123 H AST Albumin HDL Cholesterol 06/21/17 06/21/17 06/21/17 05:16 06:27 11:24 WBC MCHC RDW Lymph % (Auto) [place] % (Auto) Baso % (Auto) Lymph # [place] # Seg Neutrophils % Lymphocytes % (Manual) Monocytes % (Manual) Seg Neutrophils # Seg Neutrophils # Man Lymphocytes # (Manual) BUN 18 H Creatinine 0.4 L Glucose 110 H POC Glucose 113 H 137 H AST Albumin HDL Cholesterol 06/23/17 06/24/17 06/24/17 22:36 06:04 20:49 WBC MCHC RDW Lymph % (Auto) [place] % (Auto) Baso % (Auto) Lymph # [place] # Seg Neutrophils % Lymphocytes % (Manual) Monocytes % (Manual) Seg Neutrophils # Seg Neutrophils # Man Lymphocytes # (Manual) BUN Creatinine Glucose POC Glucose 138 H 123 H 106 H AST Albumin HDL Cholesterol 06/25/17 06/25/17 06/27/17 06:09 21:53 00:47 WBC MCHC RDW Lymph % (Auto) [place] % (Auto) Baso % (Auto) Lymph # [place] # Seg Neutrophils % Lymphocytes % (Manual) Monocytes % (Manual) Seg Neutrophils # Seg Neutrophils # Man Lymphocytes # (Manual) BUN Creatinine Glucose POC Glucose 107 H 111 H 114 H AST Albumin HDL Cholesterol 06/27/17 06/27/1717 04:58 04:58 06:58 WBC 3.8 L MCHC RDW Lymph % (Auto) 43.4 H [place] % (Auto) 12.8 H Baso % (Auto) Lymph # [place] # Seg Neutrophils % Lymphocytes % (Manual) Monocytes % (Manual) Seg Neutrophils # 1.5 L Seg Neutrophils # Man Lymphocytes # (Manual) BUN Creatinine 0.4 L Glucose 128 H POC Glucose 120 H AST Albumin HDL Cholesterol 06/27/17 06/28/17 06/28/17 21:45 05:30 11:19 WBC MCHC RDW Lymph % (Auto) [place] % (Auto) Baso % (Auto) Lymph # [place] # Seg Neutrophils % Lymphocytes % (Manual) Monocytes % (Manual) Seg Neutrophils # Seg Neutrophils # Man Lymphocytes # (Manual) BUN Creatinine Glucose POC Glucose 108 H 109 H 114 H AST Albumin HDL Cholesterol 06/28/17 06/29/17 06/30/17 22:51 05:58 06:32 WBC MCHC RDW Lymph % (Auto) [place] % (Auto) Baso % (Auto) Lymph # [place] # Seg Neutrophils % Lymphocytes % (Manual) Monocytes % (Manual) Seg Neutrophils # Seg Neutrophils # Man Lymphocytes # (Manual) BUN Creatinine Glucose POC Glucose 116 H 115 H 119 H AST Albumin HDL Cholesterol 07/18/17 07/18/17 06:05 06:05 WBC 3.2 L MCHC RDW Lymph % (Auto) 46.1 H [place] % (Auto) 14.3 H Baso % (Auto) Lymph # [place] # Seg Neutrophils % 35.6 L Lymphocytes % (Manual) Monocytes % (Manual) Seg Neutrophils # 1.1 L Seg Neutrophils # Man Lymphocytes # (Manual) BUN 20 H Creatinine 0.4 L Glucose 140 H POC Glucose AST 43 H Albumin 3.8 L HDL Cholesterol
[2017-07-19] MEDS: NORVASC FEEDTUBE SCH (11:21)
[2017-07-19] MEDS: DepaKENE Liq FEEDTUBE SCH ×2 (11:21→22:12)
[2017-07-19] MEDS: PEPCID FEEDTUBE SCH ×2 (11:22→22:12)
[2017-07-19] MEDS: BABY ASPIRIN PO SCH (11:22)
--- NOTE | 2017-07-19 14:13 | Progress Note ---
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: with residual left-sided weakness, bedbound, CT 05/11/17 ; Chronic infarct right occipital lobe right josh , Apparent subacute to early chronic right thalamic infarct Cont Physical therapy rehabilitation, continue antiplatelets and statin - Dysphagia status post PEG placement, continue PEG tube feeds -unable to do barrium swallow study - History of seizures; continue seizure precautions antiepileptic medications - HTN; stable on antihypertensives - GERD ; continue PPIs - Dyslipidemia; on statin - DVT with Lovenox - DC planning per case management Awaiting placement SNF placement as family is not capable of taking care of pt at home. Subjective Date of service: 07/19/17 Principal diagnosis: stroke from [facility] s/p PEG Interval history: Patient seen and examined. Lying quietly in bed. No new complaint. No overnight events reported. reviewed lab results Objective - Exam Narrative Exam: Constitutional: Well-nourished well-developed. In no distress Head: Normocephalic atraumatic Eyes: Pupils are equal round and reactive to light Nose: No enlarged turbinates, no septal deviation. Mouth: Moist mucous membranes. Neck: Supple no thyromegaly. No bruit. No JVD Heart: Regular rate and rhythm, S1-S2 abnormal. No rubs murmurs or gallop Lungs: Clear to auscultation bilaterally no rales or rhonchi Abdomen: Soft nontender BS are presetn. Extremities: No edema no cyanosis and no clubbing. Neuro: Alert oriented -2 left hemiparesis. Skin: No rashes no hyperemic spots - Constitutional Vitals: Vital Signs - 12hr 07/19/17 08:26 Temperature 98.7 F Pulse Rate 81 Respiratory 18 Rate Blood Pressure 132/92 O2 Sat by Pulse 99 Oximetry - Cardiovascular Heart Sounds: Present: S1 & S2. Absent: gallop, rub - Allied health notes Allied health notes reviewed: nursing - Labs CBC & Chem 7: 07/18/17 06:05 07/18/17 06:05
[2017-07-20] MEDS: DepaKENE Liq FEEDTUBE SCH ×2 (09:47→21:43)
[2017-07-20] MEDS: BABY ASPIRIN PO SCH (09:48)
[2017-07-20] MEDS: PEPCID FEEDTUBE SCH ×2 (09:48→21:43)
[2017-07-20] MEDS: NORVASC FEEDTUBE SCH (09:48)
--- NOTE | 2017-07-20 19:46 | Progress Note ---
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: with residual left-sided weakness, bedbound, CT 05/11/17 ; Chronic infarct right occipital lobe right josh , Apparent subacute to early chronic right thalamic infarct Cont Physical therapy rehabilitation, continue antiplatelets and statin - Dysphagia status post PEG placement, continue PEG tube feeds - History of seizures; continue seizure precautions antiepileptic medications - HTN; stable on antihypertensives - GERD ; continue PPIs - Dyslipidemia; on statin - DVT with Lovenox - DC planning per case management Awaiting placement SNF placement as family is not capable of taking care of pt at home. Subjective Date of service: 07/20/17 Principal diagnosis: stroke from [facility] s/p PEG Interval history: Patient seen and examined. Lying quietly in bed. No new complaint. No overnight events reported. reviewed lab results Objective - Exam Narrative Exam: Constitutional: Well-nourished well-developed. In no distress Head: Normocephalic atraumatic Eyes: Pupils are equal round and reactive to light Nose: No enlarged turbinates, no septal deviation. Mouth: Moist mucous membranes. Neck: Supple no thyromegaly. No bruit. No JVD Heart: Regular rate and rhythm, S1-S2 abnormal. No rubs murmurs or gallop Lungs: Clear to auscultation bilaterally no rales or rhonchi Abdomen: Soft nontender BS are presetn. Extremities: No edema no cyanosis and no clubbing. Neuro: Alert oriented -2 left hemiparesis. Skin: No rashes no hyperemic spots - Constitutional Vitals: Vital Signs - 12hr 07/20/17 07/20/17 07:47 15:06 Temperature 97.6 F 98.0 F Pulse Rate 79 82 Respiratory 18 18 Rate Blood Pressure 139/85 138/88 O2 Sat by Pulse 99 99 Oximetry - Labs CBC & Chem 7: 07/18/17 06:05 07/18/17 06:05
[2017-07-21] MEDS: DepaKENE Liq FEEDTUBE SCH ×2 (10:07→22:38)
[2017-07-21] MEDS: BABY ASPIRIN PO SCH (10:07)
[2017-07-21] MEDS: PEPCID FEEDTUBE SCH ×2 (10:07→22:37)
[2017-07-21] MEDS: NORVASC FEEDTUBE SCH (10:07)
[2017-07-22] MEDS: PEPCID FEEDTUBE SCH ×2 (10:00→21:11)
[2017-07-22] MEDS: NORVASC FEEDTUBE SCH (10:00)
[2017-07-22] MEDS: BABY ASPIRIN PO SCH (10:01)
[2017-07-22] MEDS: DepaKENE Liq FEEDTUBE SCH ×2 (10:01→21:11)
--- NOTE | 2017-07-22 10:23 | Progress Note ---
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: with residual left-sided weakness, bedbound, CT 05/11/17 ; Chronic infarct right occipital lobe right josh , Apparent subacute to early chronic right thalamic infarct Cont Physical therapy rehabilitation, continue antiplatelets and statin - Dysphagia status post PEG placement, continue PEG tube feeds - History of seizures; continue seizure precautions antiepileptic medications - HTN; stable on antihypertensives - GERD ; continue PPIs - Dyslipidemia; on statin - DVT with Lovenox - DC planning per case management Awaiting placement SNF placement as family is not capable of taking care of pt at home. History Interval history: Patient is 56 yo with acute stroke with residual aphasia and left sided weakness , still has aphasia, left sided weakness Hospitalist Physical - Physical exam Narrative exam: GEN APPEARANCE : Not in acute distress, HEENT: Atraumatic NECK : supple, no JVD LUNGS: clear to auscultation bilaterally, no rales, no wheeze HEART: S1 and S2 regular, no murmurs, rubs or gallop ABD: Soft, no tenderness, no distension, normal bowel sounds EXT: No edema, no clubbing, no cyanosis NEURO:Awake,alert, aphasia, left sided weakness - Constitutional Vitals: Temp Pulse Resp BP Pulse Ox 98.8 F 680 H 18 143/94 98 07/22/17 07:54 07/22/17 10:00 07/22/17 07:54 07/22/17 10:00 07/22/17 07:54 General appearance: Present: no acute distress, well-nourished Results - Labs CBC & Chem 7: 07/18/17 06:05 07/18/17 06:05 Labs: Laboratory Last Values WBC 3.2 K/mm3 (4.5-11.0) L 07/18/17 06:05 RBC 4.60 M/mm3 (3.65-5.03) 07/18/17 06:05 Hgb 14.1 gm/dl (10.1-14.3) 07/18/17 06:05 Hct 41.9 % (30.3-42.9) 07/18/17 06:05 MCV 91 fl (79-97) 07/18/17 06:05 MCH 31 pg (28-32) 07/18/17 06:05 MCHC 34 % (30-34) 07/18/17 06:05 RDW 14.5 % (13.2-15.2) 07/18/17 06:05 Plt Count 199 K/mm3 (140-440) 07/18/17 06:05 Lymph % (Auto) 46.1 % (13.4-35.0) H 07/18/17 06:05 Jenkins % (Auto) 14.3 % (0.0-7.3) H 07/18/17 06:05 Eos % (Auto) 3.3 % (0.0-4.3) 07/18/17 06:05 Baso % (Auto) 0.7 % (0.0-1.8) 07/18/17 06:05 Lymph # 1.5 K/mm3 (1.2-5.4) 07/18/17 06:05 Jenkins # 0.5 K/mm3 (0.0-0.8) 07/18/17 06:05 Eos # 0.1 K/mm3 (0.0-0.4) 07/18/17 06:05 Baso # 0.0 K/mm3 (0.0-0.1) 07/18/17 06:05 Add Manual Diff Complete 05/12/17 05:44 Total Counted 100 05/12/17 05:44 Seg Neutrophils % 35.6 % (40.0-70.0) L 07/18/17 06:05 Seg Neuts % (Manual) 46.0 % (40.0-70.0) 05/12/17 05:44 Band Neutrophils % 0 % 05/12/17 05:44 Lymphocytes % (Manual) 39.0 % (13.4-35.0) H 05/12/17 05:44 Reactive Lymphs % (Man) 0 % 05/12/17 05:44 Monocytes % (Manual) 12.0 % (0.0-7.3) H 05/12/17 05:44 Eosinophils % (Manual) 3.0 % (0.0-4.3) 05/12/17 05:44 Basophils % (Manual) 0 % (0.0-1.8) 05/12/17 05:44 Metamyelocytes % 0 % 05/12/17 05:44 Myelocytes % 0 % 05/12/17 05:44 Promyelocytes % 0 % 05/12/17 05:44 Blast Cells % 0 % 05/12/17 05:44 Nucleated RBC % Not Reportable 05/12/17 05:44 Seg Neutrophils # 1.1 K/mm3 (1.8-7.7) L 07/18/17 06:05 Seg Neutrophils # Man 1.3 K/mm3 (1.8-7.7) L 05/12/17 05:44 Band Neutrophils # 0.0 K/mm3 05/12/17 05:44 Lymphocytes # (Manual) 1.1 K/mm3 (1.2-5.4) L 05/12/17 05:44 Abs React Lymphs (Man) 0.0 K/mm3 05/12/17 05:44 Monocytes # (Manual) 0.3 K/mm3 (0.0-0.8) 05/12/17 05:44 Eosinophils # (Manual) 0.1 K/mm3 (0.0-0.4) 05/12/17 05:44 Basophils # (Manual) 0.0 K/mm3 (0.0-0.1) 05/12/17 05:44 Metamyelocytes # 0.0 K/mm3 05/12/17 05:44 Myelocytes # 0.0 K/mm3 05/12/17 05:44 Promyelocytes # 0.0 K/mm3 05/12/17 05:44 Blast Cells # 0.0 K/mm3 05/12/17 05:44 WBC Morphology Not Reportable 05/12/17 05:44 Hypersegmented Neuts Not Reportable 05/12/17 05:44 Hyposegmented Neuts Not Reportable 05/12/17 05:44 Hypogranular Neuts Not Reportable 05/12/17 05:44 Smudge Cells Not Reportable 05/12/17 05:44 Toxic Granulation Not Reportable 05/12/17 05:44 Toxic Vacuolation Not Reportable 05/12/17 05:44 Dohle Bodies Not Reportable 05/12/17 05:44 Pelger-Huet Anomaly Not Reportable 05/12/17 05:44 Shelly Rods Not Reportable 05/12/17 05:44 Platelet Estimate Cons 05/12/17 05:44 Clumped Platelets Few 05/12/17 05:44 Plt Clumps, EDTA Not Reportable 05/12/17 05:44 Large Platelets Not Reportable 05/12/17 05:44 Giant Platelets Not Reportable 05/12/17 05:44 Platelet Satelliting Not Reportable 05/12/17 05:44 Plt Morphology Comment Not Reportable 05/12/17 05:44 RBC Morphology Normal 05/12/17 05:44 Dimorphic RBCs Not Reportable 05/12/17 05:44 Polychromasia Not Reportable 05/12/17 05:44 Hypochromasia Not Reportable 05/12/17 05:44 Poikilocytosis Not Reportable 05/12/17 05:44 Anisocytosis Not Reportable 05/12/17 05:44 Microcytosis Not Reportable 05/12/17 05:44 Macrocytosis Not Reportable 05/12/17 05:44 Spherocytes Not Reportable 05/12/17 05:44 Pappenheimer Bodies Not Reportable 05/12/17 05:44 Sickle Cells Not Reportable 05/12/17 05:44 Target Cells Not Reportable 05/12/17 05:44 Tear Drop Cells Not Reportable 05/12/17 05:44 Ovalocytes Not Reportable 05/12/17 05:44 Helmet Cells Not Reportable 05/12/17 05:44 Cao-[place] Bodies Not Reportable 05/12/17 05:44 Crawford Rings Not Reportable 05/12/17 05:44 Mary Cells Not Reportable 05/12/17 05:44 Bite Cells Not Reportable 05/12/17 05:44 Crenated Cell Not Reportable 05/12/17 05:44 Elliptocytes Not Reportable 05/12/17 05:44 Acanthocytes (Spur) Not Reportable 05/12/17 05:44 Rouleaux Not Reportable 05/12/17 05:44 Hemoglobin C Crystals Not Reportable 05/12/17 05:44 Schistocytes Not Reportable 05/12/17 05:44 Malaria parasites Not Reportable 05/12/17 05:44 Wander Bodies Not Reportable 05/12/17 05:44 Hem Pathologist Commnt No 05/12/17 05:44 PT 13.9 Sec. (12.2-14.9) 05/11/17 12:56 INR 1.02 (0.87-1.13) 05/11/17 12:56 APTT 29.8 Sec. (24.2-36.6) 05/11/17 12:56 Thrombin Time 16.4 Sec. (15.1-19.6) 05/11/17 12:56 Sodium 142 mmol/L (137-145) 07/18/17 06:05 Potassium 3.8 mmol/L (3.6-5.0) 07/18/17 06:05 Chloride 100.4 mmol/L (98-107) 07/18/17 06:05 Carbon Dioxide 27 mmol/L (22-30) 07/18/17 06:05 Anion Gap 18 mmol/L 07/18/17 06:05 BUN 20 mg/dL (7-17) H 07/18/17 06:05 Creatinine 0.4 mg/dL (0.7-1.2) L 07/18/17 06:05 Estimated GFR > 60 ml/min 07/18/17 06:05 BUN/Creatinine Ratio 50 % 07/18/17 06:05 Glucose 140 mg/dL (65-100) H 07/18/17 06:05 POC Glucose 85 (70-105) 07/04/17 16:57 Hemoglobin A1c 5.7 % (4-6) 05/11/17 12:56 Calcium 9.7 mg/dL (8.4-10.2) 07/18/17 06:05 Total Bilirubin 0.20 mg/dL (0.1-1.2) 07/18/17 06:05 AST 43 units/L (5-40) H 07/18/17 06:05 ALT 50 units/L (7-56) 07/18/17 06:05 Alkaline Phosphatase 63 units/L (35-129) 07/18/17 06:05 Total Creatine Kinase 64 units/L (30-135) 05/11/17 12:56 CK-MB (CK-2) 1.4 ng/mL (0.0-4.0) 05/11/17 12:56 CK-MB (CK-2) Rel Index 2.1 (0-4) 05/11/17 12:56 Troponin T < 0.010 ng/mL (0.00-0.029) 05/11/17 12:56 Total Protein 6.6 g/dL (6.3-8.2) 07/18/17 06:05 Albumin 3.8 g/dL (3.9-5) L 07/18/17 06:05 Albumin/Globulin Ratio 1.4 % 07/18/17 06:05 Triglycerides 113 mg/dL (2-149) 05/12/17 05:44 Cholesterol 172 mg/dL (50-199) 05/12/17 05:44 LDL Cholesterol Direct 115 mg/dL (50-130) 05/12/17 05:44 HDL Cholesterol 35 mg/dL (40-59) L 05/12/17 05:44 Cholesterol/HDL Ratio 4.91 % 05/12/17 05:44 Urine Color Yellow (Yellow) 05/11/17 14:09 Urine Turbidity Clear (Clear) 05/11/17 14:09 Urine pH 6.0 (5.0-7.0) 05/11/17 14:09 Ur Specific [place] 1.016 (1.003-1.030) 05/11/17 14:09 Urine Protein <15 mg/dl mg/dL (Negative) 05/11/17 14:09 Urine Glucose (UA) Neg mg/dL (Negative) 05/11/17 14:09 Urine Ketones Tr mg/dL (Negative) 05/11/17 14:09 Urine Blood Neg (Negative) 05/11/17 14:09 Urine Nitrite Neg (Negative) 05/11/17 14:09 Urine Bilirubin Neg (Negative) 05/11/17 14:09 Urine Urobilinogen < 2.0 mg/dL (<2.0) 05/11/17 14:09 Ur Leukocyte Esterase Neg (Negative) 05/11/17 14:09 Urine WBC (Auto) 2.0 /HPF (0.0-6.0) 05/11/17 14:09 Urine RBC (Auto) 3.0 /HPF (0.0-6.0) 05/11/17 14:09 U Epithel Cells (Auto) < 1.0 /HPF (0-13.0) 05/11/17 14:09 Urine Mucus Few /HPF 05/11/17 14:09 Valproic Acid 79.7 ug/mL (50-100) 05/11/17 12:56
--- NOTE | 2017-07-22 15:38 | Consultation ---
History of Present Illness Consult date: 07/22/17 History of present illness: spoke to at length about the neurological progress she is more alert moves arms great deal better and over all is more responsive feel like she is continuing to improve and the aphasia may be bassis for pecular hallucinations which are not based on psychosis but rather effect of the old thalamic stroke ... do not advise using anti-psychotic meds since there is no psychic distress Past History Past Medical History: GERD, seizures, stroke Past Surgical History: Other (peg tube) Social history: denies: smoking, alcohol abuse Medications and Allergies Allergies Allergy/AdvReac Type Severity Reaction Status Date / Time No Known Allergies Allergy Unverified 05/11/17 12:27 Home Medications Medication Instructions Recorded Confirmed Last Taken Type Amlodipine Besylate [Norvasc] 10 mg FEEDTUBE DAILY 05/11/17 05/11/17 Unknown History Labetalol [Normodyne TAB] 200 mg PO BID 05/11/17 05/11/17 Unknown History Ranitidine HCl [Acid Any [employer]ity Sales Deliverer] 150 mg FEEDTUBE BID 05/11/17 05/11/17 Unknown History VALPROIC ACID Liq [DepaKENE Liq] 15 ml FEEDTUBE BID 05/11/17 05/11/17 Unknown History hydrALAZINE [Apresoline TAB] 50 mg FEEDTUBE QID 05/11/17 05/11/17 Unknown History Active Meds: Active Medications Amlodipine Besylate (Norvasc) 10 mg FEEDTUBE DAILY [facility] Last Admin: 07/22/17 10:00 Dose: 10 mg Lipase/Protease/Amylase (Pancremattie Dr 10,500 Unit) 1 each FEEDTUBE PRN PRN PRN Reason: For Clogged Feeding Tube Aspirin (Baby Aspirin) 81 mg PO QDAY [facility] Last Admin: 07/22/17 10:01 Dose: 81 mg Atorvastatin Calcium (Lipitor) 20 mg FEEDTUBE QHS [facility] Last Admin: 07/21/17 22:37 Dose: 20 mg Famotidine (Pepcid) 20 mg FEEDTUBE BID [facility] Last Admin: 07/22/17 10:00 Dose: 20 mg Hydralazine HCl (Apresoline) 10 mg IV Q6HR PRN PRN Reason: Hypertension Simple Syrup (Simple Syrup) 15 ml FEEDTUBE PRN PRN PRN Reason: Hypoglycemia Simple Syrup (Simple Syrup) 30 ml FEEDTUBE PRN PRN PRN Reason: Hypoglycemia Sodium Bicarbonate (Sodium Bicarbonate) 325 mg FEEDTUBE PRN PRN PRN Reason: For Clogged Feeding Tube Valproic Acid (Depakene Liq) 750 mg FEEDTUBE BID [facility] Last Admin: 07/22/17 10:01 Dose: 750 mg Physical Examination - Vital Signs Vital Signs: Vital Signs Temp Pulse Resp BP Pulse Ox 98.3 F 81 14 112/70 97 05/11/17 12:15 05/11/17 12:15 05/11/17 12:15 05/11/17 12:15 05/11/17 12:15 Results - Laboratory Findings CBC and BMP: 07/18/17 06:05 07/18/17 06:05 Abnormal Lab Findings: Abnormal Labs 05/11/17 05/11/17 05/12/17 12:56 12:56 05:44 WBC 3.0 L 2.9 L MCHC RDW 15.3 H Lymph % (Auto) 37.7 H Geary % (Auto) 14.1 H Baso % (Auto) 2.1 H Lymph # 1.1 L Geary # Seg Neutrophils % Lymphocytes % (Manual) 39.0 H Monocytes % (Manual) 12.0 H Seg Neutrophils # 1.3 L Seg Neutrophils # Man 1.3 L Lymphocytes # (Manual) 1.1 L BUN Creatinine 0.4 L Glucose 101 H POC Glucose AST Albumin HDL Cholesterol 05/12/17 05/13/17 05/13/17 05:44 08:10 16:43 WBC MCHC RDW Lymph % (Auto) Geary % (Auto) Baso % (Auto) Lymph # Geary # Seg Neutrophils % Lymphocytes % (Manual) Monocytes % (Manual) Seg Neutrophils # Seg Neutrophils # Man Lymphocytes # (Manual) BUN Creatinine 0.4 L Glucose POC Glucose 110 H 125 H AST Albumin 3.8 L HDL Cholesterol 35 L 05/13/17 05/15/17 05/15/17 22:44 04:00 23:57 WBC MCHC 35 H RDW Lymph % (Auto) Geary % (Auto) 11.8 H Baso % (Auto) Lymph # Geary # Seg Neutrophils % Lymphocytes % (Manual) Monocytes % (Manual) Seg Neutrophils # Seg Neutrophils # Man Lymphocytes # (Manual) BUN Creatinine Glucose POC Glucose 112 H 141 H AST Albumin HDL Cholesterol 05/16/17 05/17/17 05/17/17 23:21 06:14 11:31 WBC MCHC RDW Lymph % (Auto) Geary % (Auto) Baso % (Auto) Lymph # Geary # Seg Neutrophils % Lymphocytes % (Manual) Monocytes % (Manual) Seg Neutrophils # Seg Neutrophils # Man Lymphocytes # (Manual) BUN Creatinine Glucose POC Glucose 115 H 107 H 119 H AST Albumin HDL Cholesterol 05/17/17 05/17/17 05/18/17 17:30 21:49 11:41 WBC MCHC RDW Lymph % (Auto) Geary % (Auto) Baso % (Auto) Lymph # Geary # Seg Neutrophils % Lymphocytes % (Manual) Monocytes % (Manual) Seg Neutrophils # Seg Neutrophils # Man Lymphocytes # (Manual) BUN Creatinine Glucose POC Glucose 113 H 107 H 149 H AST Albumin HDL Cholesterol 05/18/17 05/19/17 05/19/17 17:04 00:10 06:14 WBC MCHC RDW Lymph % (Auto) Geary % (Auto) Baso % (Auto) Lymph # Geary # Seg Neutrophils % Lymphocytes % (Manual) Monocytes % (Manual) Seg Neutrophils # Seg Neutrophils # Man Lymphocytes # (Manual) BUN Creatinine Glucose POC Glucose 110 H 115 H 110 H AST Albumin HDL Cholesterol 05/19/17 05/19/17 05/20/17 11:15 16:36 11:27 WBC MCHC RDW Lymph % (Auto) Geary % (Auto) Baso % (Auto) Lymph # Geary # Seg Neutrophils % Lymphocytes % (Manual) Monocytes % (Manual) Seg Neutrophils # Seg Neutrophils # Man Lymphocytes # (Manual) BUN Creatinine Glucose POC Glucose 120 H 114 H 134 H AST Albumin HDL Cholesterol 05/20/17 05/21/17 05/21/17 22:59 05:37 11:59 WBC MCHC RDW Lymph % (Auto) Geary % (Auto) Baso % (Auto) Lymph # Geary # Seg Neutrophils % Lymphocytes % (Manual) Monocytes % (Manual) Seg Neutrophils # Seg Neutrophils # Man Lymphocytes # (Manual) BUN Creatinine Glucose POC Glucose 117 H 124 H 152 H AST Albumin HDL Cholesterol 05/21/17 05/22/17 05/22/17 23:30 11:33 17:03 WBC MCHC RDW Lymph % (Auto) Geary % (Auto) Baso % (Auto) Lymph # Geary # Seg Neutrophils % Lymphocytes % (Manual) Monocytes % (Manual) Seg Neutrophils # Seg Neutrophils # Man Lymphocytes # (Manual) BUN Creatinine Glucose POC Glucose 119 H 132 H 69 L AST Albumin HDL Cholesterol 05/22/17 05/23/17 05/23/17 23:19 05:16 11:58 WBC MCHC RDW Lymph % (Auto) Geary % (Auto) Baso % (Auto) Lymph # Geary # Seg Neutrophils % Lymphocytes % (Manual) Monocytes % (Manual) Seg Neutrophils # Seg Neutrophils # Man Lymphocytes # (Manual) BUN Creatinine Glucose POC Glucose 120 H 123 H 106 H AST Albumin HDL Cholesterol 05/23/17 05/24/17 05/24/17 16:35 00:52 06:56 WBC MCHC RDW Lymph % (Auto) Geary % (Auto) Baso % (Auto) Lymph # Geary # Seg Neutrophils % Lymphocytes % (Manual) Monocytes % (Manual) Seg Neutrophils # Seg Neutrophils # Man Lymphocytes # (Manual) BUN Creatinine Glucose POC Glucose 108 H 116 H 137 H AST Albumin HDL Cholesterol 05/24/17 05/25/17 05/26/17 12:37 11:28 05:33 WBC MCHC RDW Lymph % (Auto) Geary % (Auto) 13.2 H Baso % (Auto) Lymph # Geary # Seg Neutrophils % Lymphocytes % (Manual) Monocytes % (Manual) Seg Neutrophils # Seg Neutrophils # Man Lymphocytes # (Manual) BUN Creatinine Glucose POC Glucose 118 H 113 H AST Albumin HDL Cholesterol 05/26/17 05/26/17 05/27/17 05:33 11:35 01:02 WBC MCHC RDW Lymph % (Auto) Geary % (Auto) Baso % (Auto) Lymph # Geary # Seg Neutrophils % Lymphocytes % (Manual) Monocytes % (Manual) Seg Neutrophils # Seg Neutrophils # Man Lymphocytes # (Manual) BUN Creatinine 0.4 L Glucose POC Glucose 120 H 113 H AST Albumin HDL Cholesterol 05/28/17 05/31/17 05/31/17 07:42 05:08 12:08 WBC MCHC RDW Lymph % (Auto) Geary % (Auto) Baso % (Auto) Lymph # Geary # Seg Neutrophils % Lymphocytes % (Manual) Monocytes % (Manual) Seg Neutrophils # Seg Neutrophils # Man Lymphocytes # (Manual) BUN Creatinine Glucose POC Glucose 123 H 112 H 130 H AST Albumin HDL Cholesterol 06/01/17 06/01/17 06/01/17 07:01 16:30 21:44 WBC MCHC RDW Lymph % (Auto) Geary % (Auto) Baso % (Auto) Lymph # Geary # Seg Neutrophils % Lymphocytes % (Manual) Monocytes % (Manual) Seg Neutrophils # Seg Neutrophils # Man Lymphocytes # (Manual) BUN 19 H Creatinine 0.4 L Glucose 105 H POC Glucose 126 H 140 H AST Albumin HDL Cholesterol 06/02/17 06/02/17 06/03/17 05:40 21:02 06:30 WBC MCHC RDW Lymph % (Auto) Geary % (Auto) Baso % (Auto) Lymph # Geary # Seg Neutrophils % Lymphocytes % (Manual) Monocytes % (Manual) Seg Neutrophils # Seg Neutrophils # Man Lymphocytes # (Manual) BUN Creatinine Glucose POC Glucose 148 H 124 H 132 H AST Albumin HDL Cholesterol 06/03/17 06/04/17 06/04/17 12:09 05:22 23:28 WBC MCHC RDW Lymph % (Auto) Geary % (Auto) Baso % (Auto) Lymph # Geary # Seg Neutrophils % Lymphocytes % (Manual) Monocytes % (Manual) Seg Neutrophils # Seg Neutrophils # Man Lymphocytes # (Manual) BUN Creatinine Glucose POC Glucose 106 H 119 H 116 H AST Albumin HDL Cholesterol 06/05/17 06/05/17 06/05/17 05:07 05:07 05:42 WBC MCHC RDW Lymph % (Auto) Geary % (Auto) 13.1 H Baso % (Auto) Lymph # Geary # 0.9 H Seg Neutrophils % Lymphocytes % (Manual) Monocytes % (Manual) Seg Neutrophils # Seg Neutrophils # Man Lymphocytes # (Manual) BUN 19 H Creatinine 0.3 L Glucose 120 H POC Glucose 115 H AST Albumin HDL Cholesterol 06/05/17 06/06/17 06/06/17 11:55 00:00 05:32 WBC MCHC RDW Lymph % (Auto) Geary % (Auto) Baso % (Auto) Lymph # Geary # Seg Neutrophils % Lymphocytes % (Manual) Monocytes % (Manual) Seg Neutrophils # Seg Neutrophils # Man Lymphocytes # (Manual) BUN Creatinine Glucose POC Glucose 130 H 112 H 120 H AST Albumin HDL Cholesterol 06/06/17 06/07/17 06/08/17 23:25 06:55 06:40 WBC MCHC RDW Lymph % (Auto) Geary % (Auto) Baso % (Auto) Lymph # Geary # Seg Neutrophils % Lymphocytes % (Manual) Monocytes % (Manual) Seg Neutrophils # Seg Neutrophils # Man Lymphocytes # (Manual) BUN Creatinine Glucose POC Glucose 117 H 141 H 152 H AST Albumin HDL Cholesterol 06/08/17 06/09/17 06/10/17 23:46 05:33 05:15 WBC MCHC RDW Lymph % (Auto) Geary % (Auto) Baso % (Auto) Lymph # Geary # Seg Neutrophils % Lymphocytes % (Manual) Monocytes % (Manual) Seg Neutrophils # Seg Neutrophils # Man Lymphocytes # (Manual) BUN Creatinine Glucose POC Glucose 113 H 137 H 122 H AST Albumin HDL Cholesterol 06/10/17 06/11/17 06/11/17 23:01 06:53 06:59 WBC 4.1 L MCHC RDW Lymph % (Auto) Geary % (Auto) Baso % (Auto) Lymph # [place]ary # Seg Neutrophils % Lymphocytes % (Manual) Monocytes % (Manual) Seg Neutrophils # Seg Neutrophils # Man Lymphocytes # (Manual) BUN Creatinine Glucose POC Glucose 131 H 124 H AST Albumin HDL Cholesterol 06/11/17 06/11/17 06/11/17 06:59 12:20 22:47 WBC MCHC RDW Lymph % (Auto) [place]ary % (Auto) Baso % (Auto) Lymph # [place]ary # Seg Neutrophils % Lymphocytes % (Manual) Monocytes % (Manual) Seg Neutrophils # Seg Neutrophils # Man Lymphocytes # (Manual) BUN 18 H Creatinine 0.4 L Glucose 127 H POC Glucose 112 H 109 H AST Albumin HDL Cholesterol 06/12/17 06/12/17 06/12/17 06:53 11:13 22:19 WBC MCHC RDW Lymph % (Auto) [place]ary % (Auto) Baso % (Auto) Lymph # [place]ary # Seg Neutrophils % Lymphocytes % (Manual) Monocytes % (Manual) Seg Neutrophils # Seg Neutrophils # Man Lymphocytes # (Manual) BUN Creatinine Glucose POC Glucose 140 H 107 H 110 H AST Albumin HDL Cholesterol 06/13/17 06/13/17 06/14/17 05:59 11:58 05:27 WBC MCHC RDW Lymph % (Auto) [place] % (Auto) Baso % (Auto) Lymph # [place] # Seg Neutrophils % Lymphocytes % (Manual) Monocytes % (Manual) Seg Neutrophils # Seg Neutrophils # Man Lymphocytes # (Manual) BUN Creatinine Glucose POC Glucose 114 H 117 H 106 H AST Albumin HDL Cholesterol 06/15/17 06/15/17 06/16/17 11:43 21:31 05:54 WBC MCHC RDW Lymph % (Auto) [place] % (Auto) Baso % (Auto) Lymph # Geary # Seg Neutrophils % Lymphocytes % (Manual) Monocytes % (Manual) Seg Neutrophils # Seg Neutrophils # Man Lymphocytes # (Manual) BUN Creatinine Glucose POC Glucose 135 H 125 H 148 H AST Albumin HDL Cholesterol 06/16/17 06/17/17 06/17/17 11:20 00:49 11:14 WBC MCHC RDW Lymph % (Auto) [place] % (Auto) Baso % (Auto) Lymph # [place]ary # Seg Neutrophils % Lymphocytes % (Manual) Monocytes % (Manual) Seg Neutrophils # Seg Neutrophils # Man Lymphocytes # (Manual) BUN Creatinine Glucose POC Glucose 120 H 120 H 124 H AST Albumin HDL Cholesterol 06/18/17 06/19/17 06/21/17 05:32 11:14 05:16 WBC 3.7 L MCHC RDW Lymph % (Auto) 45.0 H [place] % (Auto) 13.7 H Baso % (Auto) Lymph # [place]ary # Seg Neutrophils % 37.9 L Lymphocytes % (Manual) Monocytes % (Manual) Seg Neutrophils # 1.4 L Seg Neutrophils # Man Lymphocytes # (Manual) BUN Creatinine Glucose POC Glucose 122 H 123 H AST Albumin HDL Cholesterol 06/21/17 06/21/17 06/21/17 05:16 06:27 11:24 WBC MCHC RDW Lymph % (Auto) [place] % (Auto) Baso % (Auto) Lymph # [place]ary # Seg Neutrophils % Lymphocytes % (Manual) Monocytes % (Manual) Seg Neutrophils # Seg Neutrophils # Man Lymphocytes # (Manual) BUN 18 H Creatinine 0.4 L Glucose 110 H POC Glucose 113 H 137 H AST Albumin HDL Cholesterol 06/23/17 06/24/17 06/24/17 22:36 06:04 20:49 WBC MCHC RDW Lymph % (Auto) [place] % (Auto) Baso % (Auto) Lymph # [place]ary # Seg Neutrophils % Lymphocytes % (Manual) Monocytes % (Manual) Seg Neutrophils # Seg Neutrophils # Man Lymphocytes # (Manual) BUN Creatinine Glucose POC Glucose 138 H 123 H 106 H AST Albumin HDL Cholesterol 06/25/17 06/25/17 06/27/17 06:09 21:53 00:47 WBC MCHC RDW Lymph % (Auto) [place] % (Auto) Baso % (Auto) Lymph # Geary # Seg Neutrophils % Lymphocytes % (Manual) Monocytes % (Manual) Seg Neutrophils # Seg Neutrophils # Man Lymphocytes # (Manual) BUN Creatinine Glucose POC Glucose 107 H 111 H 114 H AST Albumin HDL Cholesterol 06/27/17 06/27/17 06/27/17 04:58 04:58 06:58 WBC 3.8 L MCHC RDW Lymph % (Auto) 43.4 H Geary % (Auto) 12.8 H Baso % (Auto) Lymph # Geary # Seg Neutrophils % Lymphocytes % (Manual) Monocytes % (Manual) Seg Neutrophils # 1.5 L Seg Neutrophils # Man Lymphocytes # (Manual) BUN Creatinine 0.4 L Glucose 128 H POC Glucose 120 H AST Albumin HDL Cholesterol 06/27/17 06/28/17 06/28/17 21:45 05:30 11:19 WBC MCHC RDW Lymph % (Auto) [place]ary % (Auto) Baso % (Auto) Lymph # Geary # Seg Neutrophils % Lymphocytes % (Manual) Monocytes % (Manual) Seg Neutrophils # Seg Neutrophils # Man Lymphocytes # (Manual) BUN Creatinine Glucose POC Glucose 108 H 109 H 114 H AST Albumin HDL Cholesterol 06/28/17 06/29/17 06/30/17 22:51 05:58 06:32 WBC MCHC RDW Lymph % (Auto) [place]ary % (Auto) Baso % (Auto) Lymph # [place]ary # Seg Neutrophils % Lymphocytes % (Manual) Monocytes % (Manual) Seg Neutrophils # Seg Neutrophils # Man Lymphocytes # (Manual) BUN Creatinine Glucose POC Glucose 116 H 115 H 119 H AST Albumin HDL Cholesterol 07/18/17 07/18/17 06:05 06:05 WBC 3.2 L MCHC RDW Lymph % (Auto) 46.1 H Geary % (Auto) 14.3 H Baso % (Auto) Lymph # Geary # Seg Neutrophils % 35.6 L Lymphocytes % (Manual) Monocytes % (Manual) Seg Neutrophils # 1.1 L Seg Neutrophils # Man Lymphocytes # (Manual) BUN 20 H Creatinine 0.4 L Glucose 140 H POC Glucose AST 43 H Albumin 3.8 L HDL Cholesterol
[2017-07-23] MEDS: DepaKENE Liq FEEDTUBE SCH ×2 (10:00→22:28)
[2017-07-23] MEDS: PEPCID FEEDTUBE SCH ×2 (10:00→22:28)
[2017-07-23] MEDS: NORVASC FEEDTUBE SCH (10:00)
[2017-07-23] MEDS: BABY ASPIRIN PO SCH (10:00)
[2017-07-24] MEDS: PEPCID FEEDTUBE SCH ×2 (11:02→21:51)
[2017-07-24] MEDS: NORVASC FEEDTUBE SCH (11:02)
[2017-07-24] MEDS: DepaKENE Liq FEEDTUBE SCH ×2 (11:03→21:51)
[2017-07-24] MEDS: BABY ASPIRIN PO SCH (11:04)
--- NOTE | 2017-07-25 10:17 | Progress Note ---
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: with residual left-sided weakness, bedbound, CT 05/11/17 ; Chronic infarct right occipital lobe right josh , Apparent subacute to early chronic right thalamic infarct Cont Physical therapy rehabilitation, continue antiplatelets and statin - Dysphagia status post PEG placement, continue PEG tube feeds - History of seizures; continue seizure precautions antiepileptic medications - HTN; stable on antihypertensives - GERD ; continue PPIs - Dyslipidemia; on statin - DVT with Lovenox - DC planning per case management Awaiting placement SNF placement as family is not capable of taking care of pt at home. History Interval history: Patient is 56 yo with acute stroke with residual aphasia and left sided weakness , still has aphasia, left sided weakness Hospitalist Physical - Physical exam Narrative exam: GEN APPEARANCE : Not in acute distress, HEENT: Atraumatic NECK : supple, no JVD LUNGS: clear to auscultation bilaterally, no rales, no wheeze HEART: S1 and S2 regular, no murmurs, rubs or gallop ABD: Soft, no tenderness, no distension, normal bowel sounds EXT: No edema, no clubbing, no cyanosis NEURO:Awake,alert, aphasia, left sided weakness - Constitutional Vitals: Temp Pulse Resp BP Pulse Ox 98.2 F 95 H 16 141/96 95 07/25/17 07:50 07/25/17 07:50 07/25/17 07:50 07/25/17 07:50 07/24/17 23:57 Results - Labs CBC & Chem 7: 07/18/17 06:05 07/18/17 06:05 Labs: Laboratory Last Values WBC 3.2 K/mm3 (4.5-11.0) L 07/18/17 06:05 RBC 4.60 M/mm3 (3.65-5.03) 07/18/17 06:05 Hgb 14.1 gm/dl (10.1-14.3) 07/18/17 06:05 Hct 41.9 % (30.3-42.9) 07/18/17 06:05 MCV 91 fl (79-97) 07/18/17 06:05 MCH 31 pg (28-32) 07/18/17 06:05 MCHC 34 % (30-34) 07/18/17 06:05 RDW 14.5 % (13.2-15.2) 07/18/17 06:05 Plt Count 199 K/mm3 (140-440) 07/18/17 06:05 Lymph % (Auto) 46.1 % (13.4-35.0) H 07/18/17 06:05 [place] % (Auto) 14.3 % (0.0-7.3) H 07/18/17 06:05 Eos % (Auto) 3.3 % (0.0-4.3) 07/18/17 06:05 Baso % (Auto) 0.7 % (0.0-1.8) 07/18/17 06:05 Lymph # 1.5 K/mm3 (1.2-5.4) 07/18/17 06:05 [place] # 0.5 K/mm3 (0.0-0.8) 07/18/17 06:05 Eos # 0.1 K/mm3 (0.0-0.4) 07/18/17 06:05 Baso # 0.0 K/mm3 (0.0-0.1) 07/18/17 06:05 Add Manual Diff Complete 05/12/17 05:44 Total Counted 100 05/12/17 05:44 Seg Neutrophils % 35.6 % (40.0-70.0) L 07/18/17 06:05 Seg Neuts % (Manual) 46.0 % (40.0-70.0) 05/12/17 05:44 Band Neutrophils % 0 % 05/12/17 05:44 Lymphocytes % (Manual) 39.0 % (13.4-35.0) H 05/12/17 05:44 Reactive Lymphs % (Man) 0 % 05/12/17 05:44 Monocytes % (Manual) 12.0 % (0.0-7.3) H 05/12/17 05:44 Eosinophils % (Manual) 3.0 % (0.0-4.3) 05/12/17 05:44 Basophils % (Manual) 0 % (0.0-1.8) 05/12/17 05:44 Metamyelocytes % 0 % 05/12/17 05:44 Myelocytes % 0 % 05/12/17 05:44 Promyelocytes % 0 % 05/12/17 05:44 Blast Cells % 0 % 05/12/17 05:44 Nucleated RBC % Not Reportable 05/12/17 05:44 Seg Neutrophils # 1.1 K/mm3 (1.8-7.7) L 07/18/17 06:05 Seg Neutrophils # Man 1.3 K/mm3 (1.8-7.7) L 05/12/17 05:44 Band Neutrophils # 0.0 K/mm3 05/12/17 05:44 Lymphocytes # (Manual) 1.1 K/mm3 (1.2-5.4) L 05/12/17 05:44 Abs React Lymphs (Man) 0.0 K/mm3 05/12/17 05:44 Monocytes # (Manual) 0.3 K/mm3 (0.0-0.8) 05/12/17 05:44 Eosinophils # (Manual) 0.1 K/mm3 (0.0-0.4) 05/12/17 05:44 Basophils # (Manual) 0.0 K/mm3 (0.0-0.1) 05/12/17 05:44 Metamyelocytes # 0.0 K/mm3 05/12/17 05:44 Myelocytes # 0.0 K/mm3 05/12/17 05:44 Promyelocytes # 0.0 K/mm3 05/12/17 05:44 Blast Cells # 0.0 K/mm3 05/12/17 05:44 WBC Morphology Not Reportable 05/12/17 05:44 Hypersegmented Neuts Not Reportable 05/12/17 05:44 Hyposegmented Neuts Not Reportable 05/12/17 05:44 Hypogranular Neuts Not Reportable 05/12/17 05:44 Smudge Cells Not Reportable 05/12/17 05:44 Toxic Granulation Not Reportable 05/12/17 05:44 Toxic Vacuolation Not Reportable 05/12/17 05:44 Dohle Bodies Not Reportable 05/12/17 05:44 Pelger-Huet Anomaly Not Reportable 05/12/17 05:44 Shelly Rods Not Reportable 05/12/17 05:44 Platelet Estimate Cons 05/12/17 05:44 Clumped Platelets Few 05/12/17 05:44 Plt Clumps, EDTA Not Reportable 05/12/17 05:44 Large Platelets Not Reportable 05/12/17 05:44 Giant Platelets Not Reportable 05/12/17 05:44 Platelet Satelliting Not Reportable 05/12/17 05:44 Plt Morphology Comment Not Reportable 05/12/17 05:44 RBC Morphology Normal 05/12/17 05:44 Dimorphic RBCs Not Reportable 05/12/17 05:44 Polychromasia Not Reportable 05/12/17 05:44 Hypochromasia Not Reportable 05/12/17 05:44 Poikilocytosis Not Reportable 05/12/17 05:44 Anisocytosis Not Reportable 05/12/17 05:44 Microcytosis Not Reportable 05/12/17 05:44 Macrocytosis Not Reportable 05/12/17 05:44 Spherocytes Not Reportable 05/12/17 05:44 Pappenheimer Bodies Not Reportable 05/12/17 05:44 Sickle Cells Not Reportable 05/12/17 05:44 Target Cells Not Reportable 05/12/17 05:44 Tear Drop Cells Not Reportable 05/12/17 05:44 Ovalocytes Not Reportable 05/12/17 05:44 Helmet Cells Not Reportable 05/12/17 05:44 [place] Bodies Not Reportable 05/12/17 05:44 [place] Rings Not Reportable 05/12/17 05:44 [place] Cells Not Reportable 05/12/17 05:44 Bite Cells Not Reportable 05/12/17 05:44 Crenated Cell Not Reportable 05/12/17 05:44 Elliptocytes Not Reportable 05/12/17 05:44 Acanthocytes (Spur) Not Reportable 05/12/17 05:44 Rouleaux Not Reportable 05/12/17 05:44 Hemoglobin C Crystals Not Reportable 05/12/17 05:44 Schistocytes Not Reportable 05/12/17 05:44 Malaria parasites Not Reportable 05/12/17 05:44 Wander Bodies Not Reportable 05/12/17 05:44 Hem Pathologist Commnt No 05/12/17 05:44 PT 13.9 Sec. (12.2-14.9) 05/11/17 12:56 INR 1.02 (0.87-1.13) 05/11/17 12:56 APTT 29.8 Sec. (24.2-36.6) 05/11/17 12:56 Thrombin Time 16.4 Sec. (15.1-19.6) 05/11/17 12:56 Sodium 142 mmol/L (137-145) 07/18/17 06:05 Potassium 3.8 mmol/L (3.6-5.0) 07/18/17 06:05 Chloride 100.4 mmol/L (98-107) 07/18/17 06:05 Carbon Dioxide 27 mmol/L (22-30) 07/18/17 06:05 Anion Gap 18 mmol/L 07/18/17 06:05 BUN 20 mg/dL (7-17) H 07/18/17 06:05 Creatinine 0.4 mg/dL (0.7-1.2) L 07/18/17 06:05 Estimated GFR > 60 ml/min 07/18/17 06:05 BUN/Creatinine Ratio 50 % 07/18/17 06:05 Glucose 140 mg/dL (65-100) H 07/18/17 06:05 POC Glucose 85 (70-105) 07/04/17 16:57 Hemoglobin A1c 5.7 % (4-6) 05/11/17 12:56 Calcium 9.7 mg/dL (8.4-10.2) 07/18/17 06:05 Total Bilirubin 0.20 mg/dL (0.1-1.2) 07/18/17 06:05 AST 43 units/L (5-40) H 07/18/17 06:05 ALT 50 units/L (7-56) 07/18/17 06:05 Alkaline Phosphatase 63 units/L (35-129) 07/18/17 06:05 Total Creatine Kinase 64 units/L (30-135) 05/11/17 12:56 CK-MB (CK-2) 1.4 ng/mL (0.0-4.0) 05/11/17 12:56 CK-MB (CK-2) Rel Index 2.1 (0-4) 05/11/17 12:56 Troponin T < 0.010 ng/mL (0.00-0.029) 05/11/17 12:56 Total Protein 6.6 g/dL (6.3-8.2) 07/18/17 06:05 Albumin 3.8 g/dL (3.9-5) L 07/18/17 06:05 Albumin/Globulin Ratio 1.4 % 07/18/17 06:05 Triglycerides 113 mg/dL (2-149) 05/12/17 05:44 Cholesterol 172 mg/dL (50-199) 05/12/17 05:44 LDL Cholesterol Direct 115 mg/dL (50-130) 05/12/17 05:44 HDL Cholesterol 35 mg/dL (40-59) L 05/12/17 05:44 Cholesterol/HDL Ratio 4.91 % 05/12/17 05:44 Urine Color Yellow (Yellow) 05/11/17 14:09 Urine Turbidity Clear (Clear) 05/11/17 14:09 Urine pH 6.0 (5.0-7.0) 05/11/17 14:09 Ur Specific [place] 1.016 (1.003-1.030) 05/11/17 14:09 Urine Protein <15 mg/dl mg/dL (Negative) 05/11/17 14:09 Urine Glucose (UA) Neg mg/dL (Negative) 05/11/17 14:09 Urine Ketones Tr mg/dL (Negative) 05/11/17 14:09 Urine Blood Neg (Negative) 05/11/17 14:09 Urine Nitrite Neg (Negative) 05/11/17 14:09 Urine Bilirubin Neg (Negative) 05/11/17 14:09 Urine Urobilinogen < 2.0 mg/dL (<2.0) 05/11/17 14:09 Ur Leukocyte Esterase Neg (Negative) 05/11/17 14:09 Urine WBC (Auto) 2.0 /HPF (0.0-6.0) 05/11/17 14:09 Urine RBC (Auto) 3.0 /HPF (0.0-6.0) 05/11/17 14:09 U Epithel Cells (Auto) < 1.0 /HPF (0-13.0) 05/11/17 14:09 Urine Mucus Few /HPF 05/11/17 14:09 Valproic Acid 79.7 ug/mL (50-100) 05/11/17 12:56
[2017-07-25] MEDS: BABY ASPIRIN PO SCH (10:32)
[2017-07-25] MEDS: PEPCID FEEDTUBE SCH ×2 (10:32→20:59)
[2017-07-25] MEDS: NORVASC FEEDTUBE SCH (10:32)
[2017-07-25] MEDS: DepaKENE Liq FEEDTUBE SCH ×2 (10:32→20:59)
[2017-07-26] MEDS: DepaKENE Liq FEEDTUBE SCH ×2 (10:03→21:36)
[2017-07-26] MEDS: PEPCID FEEDTUBE SCH ×2 (10:04→21:36)
[2017-07-26] MEDS: BABY ASPIRIN PO SCH (10:04)
[2017-07-26] MEDS: NORVASC FEEDTUBE SCH (10:04)
--- NOTE | 2017-07-26 15:37 | Progress Note ---
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 Discussed with management. For home hospice next few days. History Interval history: Patient is 56 yo with acute stroke with residual aphasia and left sided weakness , still has aphasia, left sided weakness Hospitalist Physical - Physical exam Narrative exam: GEN APPEARANCE : Not in acute distress, HEENT: Atraumatic NECK : supple, no JVD LUNGS: clear to auscultation bilaterally, no rales, no wheeze HEART: S1 and S2 regular, no murmurs, rubs or gallop ABD: Soft, no tenderness, no distension, normal bowel sounds EXT: No edema, no clubbing, no cyanosis NEURO:Awake,alert, aphasia, left sided weakness - Constitutional Vitals: Temp Pulse Resp BP Pulse Ox 97.7 F 80 14 127/84 99 07/26/17 08:18 07/26/17 08:18 07/26/17 08:18 07/26/17 08:18 07/26/17 08:18 General appearance: Present: no acute distress, well-nourished Results - Labs CBC & Chem 7: 07/18/17 06:05 07/18/17 06:05 Labs: Laboratory Last Values WBC 3.2 K/mm3 (4.5-11.0) L 07/18/17 06:05 RBC 4.60 M/mm3 (3.65-5.03) 07/18/17 06:05 Hgb 14.1 gm/dl (10.1-14.3) 07/18/17 06:05 Hct 41.9 % (30.3-42.9) 07/18/17 06:05 MCV 91 fl (79-97) 07/18/17 06:05 MCH 31 pg (28-32) 07/18/17 06:05 MCHC 34 % (30-34) 07/18/17 06:05 RDW 14.5 % (13.2-15.2) 07/18/17 06:05 Plt Count 199 K/mm3 (140-440) 07/18/17 06:05 Lymph % (Auto) 46.1 % (13.4-35.0) H 07/18/17 06:05 [place] % (Auto) 14.3 % (0.0-7.3) H 07/18/17 06:05 Eos % (Auto) 3.3 % (0.0-4.3) 07/18/17 06:05 Baso % (Auto) 0.7 % (0.0-1.8) 07/18/17 06:05 Lymph # 1.5 K/mm3 (1.2-5.4) 07/18/17 06:05 [place] # 0.5 K/mm3 (0.0-0.8) 07/18/17 06:05 Eos # 0.1 K/mm3 (0.0-0.4) 07/18/17 06:05 Baso # 0.0 K/mm3 (0.0-0.1) 07/18/17 06:05 Add Manual Diff Complete 05/12/17 05:44 Total Counted 100 05/12/17 05:44 Seg Neutrophils % 35.6 % (40.0-70.0) L 07/18/17 06:05 Seg Neuts % (Manual) 46.0 % (40.0-70.0) 05/12/17 05:44 Band Neutrophils % 0 % 05/12/17 05:44 Lymphocytes % (Manual) 39.0 % (13.4-35.0) H 05/12/17 05:44 Reactive Lymphs % (Man) 0 % 05/12/17 05:44 Monocytes % (Manual) 12.0 % (0.0-7.3) H 05/12/17 05:44 Eosinophils % (Manual) 3.0 % (0.0-4.3) 05/12/17 05:44 Basophils % (Manual) 0 % (0.0-1.8) 05/12/17 05:44 Metamyelocytes % 0 % 05/12/17 05:44 Myelocytes % 0 % 05/12/17 05:44 Promyelocytes % 0 % 05/12/17 05:44 Blast Cells % 0 % 05/12/17 05:44 Nucleated RBC % Not Reportable 05/12/17 05:44 Seg Neutrophils # 1.1 K/mm3 (1.8-7.7) L 07/18/17 06:05 Seg Neutrophils # Man 1.3 K/mm3 (1.8-7.7) L 05/12/17 05:44 Band Neutrophils # 0.0 K/mm3 05/12/17 05:44 Lymphocytes # (Manual) 1.1 K/mm3 (1.2-5.4) L 05/12/17 05:44 Abs React Lymphs (Man) 0.0 K/mm3 05/12/17 05:44 Monocytes # (Manual) 0.3 K/mm3 (0.0-0.8) 05/12/17 05:44 Eosinophils # (Manual) 0.1 K/mm3 (0.0-0.4) 05/12/17 05:44 Basophils # (Manual) 0.0 K/mm3 (0.0-0.1) 05/12/17 05:44 Metamyelocytes # 0.0 K/mm3 05/12/17 05:44 Myelocytes # 0.0 K/mm3 05/12/17 05:44 Promyelocytes # 0.0 K/mm3 05/12/17 05:44 Blast Cells # 0.0 K/mm3 05/12/17 05:44 WBC Morphology Not Reportable 05/12/17 05:44 Hypersegmented Neuts Not Reportable 05/12/17 05:44 Hyposegmented Neuts Not Reportable 05/12/17 05:44 Hypogranular Neuts Not Reportable 05/12/17 05:44 Smudge Cells Not Reportable 05/12/17 05:44 Toxic Granulation Not Reportable 05/12/17 05:44 Toxic Vacuolation Not Reportable 05/12/17 05:44 Dohle Bodies Not Reportable 05/12/17 05:44 Pelger-Huet Anomaly Not Reportable 05/12/17 05:44 Shelly Rods Not Reportable 05/12/17 05:44 Platelet Estimate Cons 05/12/17 05:44 Clumped Platelets Few 05/12/17 05:44 Plt Clumps, EDTA Not Reportable 05/12/17 05:44 Large Platelets Not Reportable 05/12/17 05:44 Giant Platelets Not Reportable 05/12/17 05:44 Platelet Satelliting Not Reportable 05/12/17 05:44 Plt Morphology Comment Not Reportable 05/12/17 05:44 RBC Morphology Normal 05/12/17 05:44 Dimorphic RBCs Not Reportable 05/12/17 05:44 Polychromasia Not Reportable 05/12/17 05:44 Hypochromasia Not Reportable 05/12/17 05:44 Poikilocytosis Not Reportable 05/12/17 05:44 Anisocytosis Not Reportable 05/12/17 05:44 Microcytosis Not Reportable 05/12/17 05:44 Macrocytosis Not Reportable 05/12/17 05:44 Spherocytes Not Reportable 05/12/17 05:44 Pappenheimer Bodies Not Reportable 05/12/17 05:44 Sickle Cells Not Reportable 05/12/17 05:44 Target Cells Not Reportable 05/12/17 05:44 Tear Drop Cells Not Reportable 05/12/17 05:44 Ovalocytes Not Reportable 05/12/17 05:44 Helmet Cells Not Reportable 05/12/17 05:44 [place] Bodies Not Reportable 05/12/17 05:44 [place] Rings Not Reportable 05/12/17 05:44 [place] Cells Not Reportable 05/12/17 05:44 Bite Cells Not Reportable 05/12/17 05:44 Crenated Cell Not Reportable 05/12/17 05:44 Elliptocytes Not Reportable 05/12/17 05:44 Acanthocytes (Spur) Not Reportable 05/12/17 05:44 Rouleaux Not Reportable 05/12/17 05:44 Hemoglobin C Crystals Not Reportable 05/12/17 05:44 Schistocytes Not Reportable 05/12/17 05:44 Malaria parasites Not Reportable 05/12/17 05:44 Wander Bodies Not Reportable 05/12/17 05:44 Hem Pathologist Commnt No 05/12/17 05:44 PT 13.9 Sec. (12.2-14.9) 05/11/17 12:56 INR 1.02 (0.87-1.13) 05/11/17 12:56 APTT 29.8 Sec. (24.2-36.6) 05/11/17 12:56 Thrombin Time 16.4 Sec. (15.1-19.6) 05/11/17 12:56 Sodium 142 mmol/L (137-145) 07/18/17 06:05 Potassium 3.8 mmol/L (3.6-5.0) 07/18/17 06:05 Chloride 100.4 mmol/L (98-107) 07/18/17 06:05 Carbon Dioxide 27 mmol/L (22-30) 07/18/17 06:05 Anion Gap 18 mmol/L 07/18/17 06:05 BUN 20 mg/dL (7-17) H 07/18/17 06:05 Creatinine 0.4 mg/dL (0.7-1.2) L 07/18/17 06:05 Estimated GFR > 60 ml/min 07/18/17 06:05 BUN/Creatinine Ratio 50 % 07/18/17 06:05 Glucose 140 mg/dL (65-100) H 07/18/17 06:05 POC Glucose 85 (70-105) 07/04/17 16:57 Hemoglobin A1c 5.7 % (4-6) 05/11/17 12:56 Calcium 9.7 mg/dL (8.4-10.2) 07/18/17 06:05 Total Bilirubin 0.20 mg/dL (0.1-1.2) 07/18/17 06:05 AST 43 units/L (5-40) H 07/18/17 06:05 ALT 50 units/L (7-56) 07/18/17 06:05 Alkaline Phosphatase 63 units/L (35-129) 07/18/17 06:05 Total Creatine Kinase 64 units/L (30-135) 05/11/17 12:56 CK-MB (CK-2) 1.4 ng/mL (0.0-4.0) 05/11/17 12:56 CK-MB (CK-2) Rel Index 2.1 (0-4) 05/11/17 12:56 Troponin T < 0.010 ng/mL (0.00-0.029) 05/11/17 12:56 Total Protein 6.6 g/dL (6.3-8.2) 07/18/17 06:05 Albumin 3.8 g/dL (3.9-5) L 07/18/17 06:05 Albumin/Globulin Ratio 1.4 % 07/18/17 06:05 Triglycerides 113 mg/dL (2-149) 05/12/17 05:44 Cholesterol 172 mg/dL (50-199) 05/12/17 05:44 LDL Cholesterol Direct 115 mg/dL (50-130) 05/12/17 05:44 HDL Cholesterol 35 mg/dL (40-59) L 05/12/17 05:44 Cholesterol/HDL Ratio 4.91 % 05/12/17 05:44 Urine Color Yellow (Yellow) 05/11/17 14:09 Urine Turbidity Clear (Clear) 05/11/17 14:09 Urine pH 6.0 (5.0-7.0) 05/11/17 14:09 Ur Specific [place] 1.016 (1.003-1.030) 05/11/17 14:09 Urine Protein <15 mg/dl mg/dL (Negative) 05/11/17 14:09 Urine Glucose (UA) Neg mg/dL (Negative) 05/11/17 14:09 Urine Ketones Tr mg/dL (Negative) 05/11/17 14:09 Urine Blood Neg (Negative) 05/11/17 14:09 Urine Nitrite Neg (Negative) 05/11/17 14:09 Urine Bilirubin Neg (Negative) 05/11/17 14:09 Urine Urobilinogen < 2.0 mg/dL (<2.0) 05/11/17 14:09 Ur Leukocyte Esterase Neg (Negative) 05/11/17 14:09 Urine WBC (Auto) 2.0 /HPF (0.0-6.0) 05/11/17 14:09 Urine RBC (Auto) 3.0 /HPF (0.0-6.0) 05/11/17 14:09 U Epithel Cells (Auto) < 1.0 /HPF (0-13.0) 05/11/17 14:09 Urine Mucus Few /HPF 05/11/17 14:09 Valproic Acid 79.7 ug/mL (50-100) 05/11/17 12:56
[2017-07-26] MEDS: LOVENOX SUB-Q SCH ×2 (21:36→21:40)
[2017-07-27] MEDS: PEPCID FEEDTUBE SCH ×2 (09:26→21:27)
[2017-07-27] MEDS: NORVASC FEEDTUBE SCH (09:26)
[2017-07-27] MEDS: DepaKENE Liq FEEDTUBE SCH ×2 (09:26→21:27)
[2017-07-27] MEDS: BABY ASPIRIN PO SCH (09:26)
[2017-07-27] MEDS: LOVENOX SUB-Q SCH (21:27)
[2017-07-28 09:06] VITALS: BP 137/91
[2017-07-28] MEDS: NORVASC FEEDTUBE SCH (11:22)
[2017-07-28] MEDS: BABY ASPIRIN PO SCH (11:22)
[2017-07-28] MEDS: DepaKENE Liq FEEDTUBE SCH (11:22)
[2017-07-28] MEDS: PEPCID FEEDTUBE SCH (11:23)
--- NOTE | 2017-07-28 11:31 | Discharge Summary ---
Providers - Providers Date of Admission: 05/11/17 15:59 Date of discharge: 07/28/17 Attending physician: JOSH PERYR 07/07/17 11:02 Physical Therapy Evaluation and Treat [CONS] Routine Comment: Reason For Exam: PT re-evaluation 07/10/17 08:54 Speech Therapy Evaluation and Treat [CONS] Routine Reason For Exam: re evaluate swallowing 05/11/17 21:19 Consult to Physician [CONS] Routine Consulting Provider: JIM COELLO Reason For Exam: CVA Place consult to:: Dr. Coello Notified:: Jeannine RN Phone number called:: Was contact made?: Yes If yes, spoke with:: [facility] Time called:: 08:19 05/11/17 21:20 Occupational Therapy Evaluate and Treat [CONS] Routine Comment: Reason For Exam: Neuro deficits Physical Therapy Evaluation and Treat [CONS] Routine Comment: Reason For Exam: Neuro deficits 05/12/17 12:17 Consult to Dietitian/Nutrition [CONS] Routine Physician Instructions: Reason For Exam: write/manage PEG tube Reason for Consult: Write/Manage Tube Feeding 05/22/17 12:24 Occupational Therapy Evaluate and Treat [CONS] Urgent Comment: Reason For Exam: cva 05/27/17 17:18 Speech Therapy Evaluation and Treat [CONS] Routine Reason For Exam: swallow evaluation 06/22/17 17:38 Consult to Wound/ET Nurse [CONS] Routine Reason For Exam: wound eval 07/02/17 14:50 Consult to Physician [CONS] Routine Consulting Provider: JIM COELLO Reason For Exam: Unresolving [facility] Place consult to:: dr. coello Notified:: answering service Phone number called:: Was contact made?: Yes If yes, spoke with:: mike Time called:: 17:17 Primary care physician: SOCKET PULLER Hospitalization Condition: Stable Hospital course: 56-year-old female AAF with a history of stroke and feeding tube brought to the hospital by EMS with a complaint of of "new stroke." Discharge diagnosis: - CVA from [facility] with left-sided Hemiparesis: with residual left-sided weakness, bedbound, CT 05/11/17 ; Chronic infarct right occipital lobe right josh , Apparent subacute to early chronic right thalamic infarct Cont Physical therapy rehabilitation, continue antiplatelets and statin - Dysphagia status post PEG placement, continue PEG tube feeds - History of seizures; continue seizure precautions antiepileptic medications - HTN; stable on antihypertensives - GERD ; continue PPIs - Dyslipidemia; on statin - DVT with Lovenox - DC planning. Discussed with case management. For home hospice next few days. Hospitalist Physical GEN APPEARANCE : Not in acute distress, HEENT: Atraumatic NECK : supple, no JVD LUNGS: clear to auscultation bilaterally, no rales, no wheeze HEART: S1 and S2 regular, no murmurs, rubs or gallop ABD: Soft, no tenderness, no distension, normal bowel sounds EXT: No edema, no clubbing, no cyanosis NEURO:Awake,alert, aphasia, left sided weakness Disposition: DC-50 TO HOSPICE (HOME) Time spent for discharge: 32 minutes Core Measure Documentation - Palliative Care Palliative Care/ Comfort Measures: Not Applicable - Core Measures Any of the following diagnoses?: stroke - Stroke Discharge Requirements Statin for LDL = or >70 mg/dl on DC: Yes Anticoag for atrial fib/atrial flutter: Not Applicable Antithrombotic for ischemic stroke: Yes Exam - Constitutional Vitals: Temp Pulse Resp BP Pulse Ox 98.4 F 84 18 137/91 98 07/28/17 08:42 07/28/17 08:42 07/28/17 08:42 07/28/17 08:42 07/28/17 08:42 Plan Activity: other (bedrest) Weight Bearing Status: Non-Weight Bearing Diet: other (tube feeding) Follow up with: PRIMARY CARE, [Primary Care Provider] - 3-5 Days Prescriptions: AtorvaSTATin [Lipitor] 20 mg FEEDTUBE QHS #30 tablet Amlodipine Besylate [Norvasc] 10 mg FEEDTUBE DAILY #30 tablet Aspirin [Aspirin BABY CHEW TAB] 81 mg PO QDAY #30 tab.chew Famotidine [Pepcid] 20 mg FEEDTUBE BID #60 tablet VALPROIC ACID Liq [DepaKENE Liq] 750 mg FEEDTUBE BID 30 Days oral.liqd
== END 2017-07-28 14:13 | disposition hospice, home (50) | DRG 64 ==
LOC: ED 12:08 → 4A 15:59 → 3A 05-13 15:30 → UNDODISIN 07-11 19:30
PROVIDERS: ADMIT Internal Medicine; ATTEND Internal Medicine
DX: I62.00 Nontraumatic subdural hemorrhage, unspecified (principal); I63.9 Cerebral infarction, unspecified; G81.94 Hemiplegia, unspecified affecting left nondominant side; I10 Essential (primary) hypertension; K21.9 Gastro-esophageal reflux disease without esophagitis; E78.5 Hyperlipidemia, unspecified; G40.909 Epilepsy, unspecified, not intractable, without status epilepticus; D72.819 Decreased white blood cell count, unspecified
CPT/HCPCS: 36415; 70450; 70544; 70551; 71010; 80048; 80053; 80061; 80164; 81001; 82550; 82553; 82962; 83036; 84484; 85007; 85025; 85027; 85610; 85670; 85730; 93005; 93010; 94760; 96360; A9270-GY; J0360; J1650; J7040; J7042

== ENCOUNTER 2018-02-03 14:35 | Emergency (ER) | payer SELFPAY ==
[2018-02-03 14:59] VITALS: BP 118/84
--- NOTE | 2018-02-03 15:59 | Emergency Department Report ---
HPI - General Chief Complaint: Medical Clearance Time Seen by Provider: 02/03/18 15:04 - HPI HPI: 57-year-old -Micron[place] female presents to the emergency department for a replacement of her G-tube. Patient had what appears to be a previous NISHATN tube in place but the patient's mother says that the bulb burst and the tube came out on Thursday, 5 days ago. Since that time the home health care nurse has replaced it with a Shannon catheter to different times and it keeps coming out. They are unsure what size the original NISHANT tube was put currently there is a 16 Israeli [address] catheter in place. Mom also provides a box with a 20 Israeli NISHANT tube inside that she says is supposed to be placed tomorrow at home. However they came to the emergency department because the current Shannon catheter that is in place is also coming out, there is a small amount of bleeding, and they are hoping that a "permanent one" can be placed. They deny having any primary care physician or [employer] [facility] that they follow up with on a regular basis. Patient has a history of CVA, seizures, hypertension. ED Past Medical Hx - Past Medical History Hx Hypertension: Yes Hx CVA: Yes Hx GERD: Yes - Social History Smoking Status: Former Smoker Substance Use Type: None - Medications Home Medications: Home Medications Medication Instructions Recorded Confirmed Last Taken Type Amlodipine Besylate [Norvasc] 10 mg FEEDTUBE DAILY #30 tablet 07/28/17 Unknown Rx Aspirin [Aspirin BABY CHEW TAB] 81 mg PO QDAY #30 tab.chew 07/28/17 Unknown Rx AtorvaSTATin [Lipitor] 20 mg FEEDTUBE QHS #30 tablet 07/28/17 Unknown Rx Famotidine [Pepcid] 20 mg FEEDTUBE BID #60 tablet 07/28/17 Unknown Rx VALPROIC ACID Liq [DepaKENE Liq] 750 mg FEEDTUBE BID 30 Days 07/28/17 Unknown Rx oral.liqd ED Review of Systems ROS: Stated complaint: G TUBE Other details as noted in HPI Comment: All other systems reviewed and negative Constitutional: denies: chills, fever Eyes: denies: eye pain, eye discharge, vision change ENT: denies: ear pain, throat pain Respiratory: denies: cough, shortness of breath, wheezing Cardiovascular: denies: chest pain, palpitations Gastrointestinal: denies: abdominal pain, nausea, diarrhea Genitourinary: denies: urgency, dysuria, discharge Musculoskeletal: denies: back pain, joint swelling, arthralgia Skin: denies: rash, lesions Neurological: denies: headache, weakness, paresthesias Physical Exam - Physical Exam Vital Signs: Vital Signs 02/03/18 14:56 Temperature 98 F Pulse Rate 74 Respiratory 18 Rate Blood Pressure 118/84 O2 Sat by Pulse 97 Oximetry Physical Exam: GENERAL: The patient is well-developed well-nourished. HENT: Normocephalic. Atraumatic. Patient has moist mucous membranes. EYES: Extraocular motions are intact. NECK: Supple. No meningitic signs are noted. There is no adenopathy noted. CHEST/LUNGS: Clear to auscultation. There is no respiratory distress noted. HEART/CARDIOVASCULAR: Regular. There is no tachycardia. There is no murmur. ABDOMEN: Abdomen is soft, nontender. Patient has normal bowel sounds. There is a small opening to the left middle abdomen with a 16 Israeli Shannon catheter in place keeping the G-tube hole open. No current bleeding, drainage or surrounding erythema. SKIN: Skin is warm and dry. NEURO: The patient is awake and cooperative. The patient has no focal neurologic deficits. The patient has normal speech. MUSCULOSKELETAL: There is no tenderness or deformity. There is no evidence of acute injury. ED Course Vital Signs 02/03/18 14:56 Temperature 98 F Pulse Rate 74 Respiratory 18 Rate Blood Pressure 118/84 O2 Sat by Pulse 97 Oximetry - Procedure Description Procedures done: Procedure: G-tube replacement. First attempted to place a 20 Israeli and then a 18 Israeli NISHANT tube without any success. A 16 Israeli PEG tube was placed and appeared to go into the stomach. The bulb was filled up with 7 mL of fluid. Less than 5 mL of blood loss during this procedure. Patient tolerated the procedure well without any obvious complications. ED Medical Decision Making - Medical Decision Making The patient has had one NISHANT tube malfunction and then 2 different Shannon catheters come out of place from the G-tube site. The patient and her mother are unsure what size the original G-tube was. As allegedly she was supposed to have a 20 Israeli tube placed tomorrow, I attempted to place a 20 Israeli tube first without any success. I then tried an 18 Israeli unsuccessfully but was unable to get a [address] in the stomach. The bulb was inflated. The patient was sent for a G-tube x-ray study that does not show any extravasation of contrast does show appropriate flow into the stomach and that the proximal small intestines. I spoke on the phone with the patient's home health care nurse who is going to make sure that it is reevaluated and working appropriately. The patient was also given a referral for GI. They will return to the ER with any worsening of her symptoms or any acute distress. Critical Care Time: No Critical care attestation.: If time is entered above; I have spent that time in minutes in the direct care of this critically ill patient, excluding procedure time. ED Disposition Clinical Impression: Gastrostomy tube dysfunction, Feeding by G-tube Disposition: TO HOME OR SELFCARE Is pt being admited?: No Condition: Stable Instructions: How to Use and Care for Your PEG Tube (ED) Additional Instructions: Please follow up with gastroenterology regarding your G-tube/feeding tube, in conjunction with your primary care physician and/or home health care. I have given you a referral for a local manager bak[facility], Dr. Harrington. Return to the emergency department with any further dysfunction of your feeding tube, or with any acute distress. A 16 Israeli NISHANT tube was placed today. Referrals: PRIMARY CARE, [Primary Care Provider] - 3-5 Days ANA HARRINGTON MD [Staff Physician] - 3-5 Days Time of Disposition: 16:17
--- NOTE | 2018-02-03 16:07 | XRay Report ---
FINAL REPORT EXAM: XR G-TUBE STUDY HISTORY: g tube replacement COMPARISON: None. TECHNIQUE: Two views of the abdomen FINDINGS: Gastrostomy tube with its tip in the stomach. Contrast instilled via the gastric tube freely distribute through the stomach and duodenal lumen. There is a nonobstructive bowel gas pattern. IMPRESSION: Gastrostomy tube with tip in the stomach.
== END 2018-02-03 18:38 | disposition home or self-care (01) ==
LOC: ED 14:35
DX: K94.23 Gastrostomy malfunction (principal); K21.9 Gastro-esophageal reflux disease without esophagitis; Z87.891 Personal history of nicotine dependence; Z86.73 Personal history of transient ischemic attack (TIA), and cerebral infarction without residual deficits
CPT/HCPCS: 49450; 74018; 99283; Q9963

== ENCOUNTER 2019-06-27 10:25 | Emergency (ER) | payer SELFPAY ==
[2019-06-27 12:57] VITALS: BP 141/85
== END 2019-06-27 12:35 | disposition home or self-care (01) ==
LOC: ED 10:25
DX: R51 Headache (principal); K94.29 Other complications of gastrostomy; I10 Essential (primary) hypertension; K21.9 Gastro-esophageal reflux disease without esophagitis; Z87.891 Personal history of nicotine dependence